=== PATIENT | female | born 1965 | race Caucasian/White ===

== ENCOUNTER 2024-03-09 13:08 | Inpatient (IN) | payer OTHER, SELFPAY ==
[2024-03-09] VITALS (10 sets, daily range): BP systolic 118–148; BP diastolic 70–99; BMI 24.2; BMI 23.5
--- NOTE | 2024-03-09 08:04 | ED.GENMED ---
History of Present Illness
General
Chief Complaint: Abdominal Symptoms
Source: patient
Time Seen by Provider: 03/09/24 07:54
Travel History
Have you had any contact with someone who has COVID-19?: No
Do you have any symptoms of coronavirus? Fever > 100 degrees, chills, cough, shortness of breath, sore throat, loss of taste or smell, muscle aches, or headache?: No
History of Present Illness
History of Present Illness:
59-year-old female with past medical history of diverticulitis presenting to the emergency department for evaluation of generalized abdominal pain described to be a constant 7 out of 10 but with sharper bursts of pain, diminished p.o. intake, nausea
and vomiting, patient describes the pain to be dull aching but also feeling pressure within her vaginal and rectal area. Pain is overall chronic in nature and notes that she has been undergoing workup with GI for these issues without any specific
etiology found however the pressure and pain within the rectal and vaginal area is new for her. She was at her primary care provider on Saturday who thought symptoms might be related to diverticulitis so empirically started the patient on Augmentin
but patient has not had any relief with this. Patient did have a fever yesterday of 101.8 but none since. No known sick contacts or recent travel. Patient does note a history of laparoscopy for endometriosis 27 years ago but no other abdominal
surgeries.
Past History
Past History
ED Past Medical History: Other (Diverticulitis/diverticulosis)
ED Past Surgical History: Tonsilectomy
Social History
Tobacco: Non-smoker
Alcohol: Occasional
Drug: None
Personal:
Living: with family
Review of Systems
Review of Systems
All Other Systems: ROS reviewed and negative except as documented in HPI and ROS
Phy Exam
Physical Exam
Physical Exam:
GENERAL: Alert , appears uncomfortable
EYE: clear conjunctiva b/l
HEAD: NCAT
ENT: o/p clr, mmm.
CARDIAC: Tachycardic rate and rhythm
LUNGS: Clear breath sounds bilaterally, no acute respiratory distress, no wheezes/rales/rhonchi
ABDOMEN: Soft, diffuse generalized tenderness, no r/g, no cvat
NEUROLOGICAL: Alert and oriented
SKIN: Warm and dry, skin intact.
MUSCULOSKELETAL: well perfused.
PSYCH: Normal and appropriate interaction.
Scores
Heart Failure Risk
Heart Failure Risk Score: Not Applicable
Heart Score for Chest Pain Patients
STEMI patient?: Not applicable
Withdrawal Assessment of Alcohol
Withdrawal Assessment Completed?: Not applicable
Course
Orders/Labs/Results
Orders:
Orders
03/09/24 08:03
0.9% Sodium Chloride 1000 ml [Nss] 1,000 ml IV BOLUS
Morphine Sulfate 4 mg IV NOW STA
03/09/24 08:04
CT Abd/pelvis W Iv Cont Urgent
Comment:
Reason For Exam: generalized abd pain, hx diverticulitis
03/09/24 08:20
Complete Blood Count/With Diff Urgent
Comprehensive Metabolic Panel Urgent
Lipase Urgent
Magnesium Urgent
Urinalysis Reflex To Culture Urgent
Date Specimen was Collected: 03/09/24
Time Specimen was Collected: 08:05
Urine Microscopic Reflex Cult Urgent
03/09/24 09:00
HYDROmorphone [Dilaudid] 0.5 mg .ROUTE .STK-MED ONE
03/09/24 09:06
HYDROmorphone [Dilaudid] 0.5 mg IV NOW STA
03/09/24 09:08
Potassium Chloride [KCl] 40 meq PO NOW STA
03/09/24 10:20
Piperacillin/Tazo 3.375 Gram [Zosyn] 3.375 gram in 50 ml IV NOW
03/09/24 10:43
Add On- LAB Urgent
Tests Added?: magnesium
03/09/24 10:45
Potassium Chloride [KCl] 40 meq 0.9% Sodium Chloride 250 ml [Nss] 250 ml IV NOW
Abnormal Lab Results
03/09/24
08:20
Abs Immat Gran (auto) 0.1 H 10^3/uL
(0-0.05)
Absolute Neuts (auto) 6.8 H 10^3/uL
(1.4-6.5)
Absolute Lymphs (auto) 0.7 L 10^3/uL
(1.2-3.4)
Absolute Monos (auto) 1.2 H 10^3/uL
(0.1-0.6)
Immature Gran % 0.6 H %
(0-0.5)
Neutrophils % 77.4 H %
(42.2-75.2)
Lymphocytes % 8.3 L %
(20.5-51.1)
Monocytes % 13.2 H %
(1.7-9.3)
Sodium 134 L mmol/L
(135-145)
Potassium 2.9 L mmol/L
(3.5-5.1)
Glucose 130 H mg/dl
(70-99)
Total Protein 6.2 L g/dl
(6.3-8.2)
Albumin 3.4 L g/dl
(3.5-5.0)
Urine Ketones 2+ A
(Negative)
Urine Bilirubin 1+ A
(Negative)
Urine Urobilinogen 2+ A
(Neg - 1+)
Leukocyte Esterase Rfl Trace A
(Negative)
Urine Bacteria (Reflex) Few A
(Negative)
03/09/24 08:20
03/09/24 08:20
Vital Signs
Initial and Last Documented VS:
Initial Vital Signs
Temp Pulse Resp BP Pulse Ox
98.1 F 114 18 148/99 100
03/09/24 07:48 03/09/24 07:48 03/09/24 07:48 03/09/24 07:48 03/09/24 07:48
Last Documented Vital Signs
Temp Pulse Resp BP Pulse Ox
98.1 F 114 18 148/99 100
03/09/24 07:48 03/09/24 07:48 03/09/24 07:48 03/09/24 07:48 03/09/24 07:48
MDM/Problems Addressed
Differential Diagnosis Includes:
Acute on chronic exacerbation of unspecified abdominal pain, diverticulitis, appendicitis, cholecystitis, pancreatitis
MDM/Problems Addressed:
59-year-old female presenting to the emergency department for evaluation of generalized abdominal pain, nausea and vomiting. Patient notes an ongoing workup and history of abdominal pain without any specified etiology. She notes that she had
ultrasound and HIDA scan here last year without any abnormal findings. Symptoms seem to be worse today and patient also experiencing new rectal and vaginal pain. No urinary symptoms. Will check labs, urine, CT imaging. Pain control with morphine
as patient does appear quite uncomfortable. Reassessment following.
*Radiology
Radiology exam reviewed: radiology read reviewed
*Pulse Oximetry
Patient hypoxic: no
*Critical Care Note
Total Time (30-74mins, 75-104mins- exclusive of procedures): Not Applicable
Patient Management
Discussion with other providers: Hospitalist and Loss Prevention Lead
Escalation/DeEscalation of care consider admission/obs:
Patient CT scan shows acute sigmoid diverticulitis with large abscess formation. Zosyn was ordered for antibiotic coverage. Patient also had a mild hypokalemia which is likely from her nausea and vomiting and diminished p.o. intake. Initially 40
mill equivalents p.o. was ordered but this was changed to 40 mill equivalents IV. I notified colorectal surgery who will come to the ER to evaluate patient. Hospitalist team was also notified and accepts for continued evaluation and treatment as
well.
ED Attending Note
-
Portions of this chart may have been created with voice recognition software.� Occasional wrong word or��sound alike� substitutions may have occurred due to the inherent limitations of voice recognition software.
Discharge Plan
Departure
Patient Disposition: Admit
Date of Disposition: 03/09/24
Time of Disposition: 10:21
Presentation/result/management discussed w/ accepting MD/DO: Hospitalist
Discharge Problem:
Abscess of sigmoid colon due to diverticulitis
Prescriptions:
No Action
acetaminophen [Tylenol Extra Strength] 500 mg Tablet
1,000 mg PO Q6H PRN (Reason: mild pain)
levothyroxine 50 mcg tablet
50 mcg PO DAILY@0600
amoxicillin-pot clavulanate 875-125 mg tablet
1 tab PO BID
Patient Comments:
03/09/24: started 03/07 x 10 days
zinc sulfate 50 mg zinc (220 mg) Capsule
50 mg PO DAILY
Curcumin 95 % Powder
1 ea miscellaneous DAILY
Referrals:
Sneha Roach MD [Family Provider] -
Interventions
Interventions:
*Risk Screen - Suicide Last Done: 03/09/24 07:48
*General Assessment Last Done: 03/09/24 07:48
*Neglect/Abuse Screening Last Done: 03/09/24 07:48
*ED COVID-19 Vaccine History Last Done: 03/09/24 07:48
VM-Jnqizw-Urwrwbkwpp Assessment Last Done: 03/09/24 10:13
Discharge Date and Time
Print Language: SLOVENIAN
[2024-03-09] MEDS: NSS 1000 IV (08:21)
[2024-03-09] MEDS: MORPHINE SULFATE 4 MG IV (08:21)
[2024-03-09 08:33] LABS: % Basophils 0.3 % (0-2); % Eosinophils 0.2 % (0-6); % Immature Granulocytes 0.6 % (0-0.5); % Lymphocytes 8.3 % (20.5-51.1); % Monocytes 13.2 % (1.7-9.3); % Neutrophils 77.4 % (42.2-75.2); Absolute Immature Granulocytes 0.1 10^3/uL (0-0.05); Absolute Lymphocytes 0.7 10^3/uL (1.2-3.4); Absolute Monocytes 1.2 10^3/uL (0.1-0.6); Absolute Neutrophils 6.8 10^3/uL (1.4-6.5); Hematocrit 39.5 % (37.0-47.0); Hemoglobin 13.9 g/dL (12.0-16.0); Mean Corp Hgb Conc. 35.2 g/dL (33.0-37.0); Mean Corpuscular Volume 88.2 fL (81.0-99.0); Mean Platelet Volume 8.7 fL (7.4-10.4); Nucleated Red Blood Cells % 0 %; Platelet Count 276 10^3/uL (130-400); Red Blood Cell Count 4.48 10^6/uL (4.20-5.40); Red Cell Dist. Width 11.8 % (11.5-14.5); White Blood Cell Count 8.8 10^3/uL (4.8-10.8)
[2024-03-09 09:01] LABS: ALT (SGPT) 12 U/L (0-35); AST (SGOT) 17 U/L (14-36); Albumin 3.4 g/dl (3.5-5.0); Alkaline Phosphatase 94 U/L (38-126); Blood Urea Nitrogen 15 mg/dl (7-17); Calcium 9.4 mg/dl (8.4-10.2); Carbon Dioxide 26 mmol/L (22-30); Chloride 98 mmol/L (98-107); Estimated Creatinine Clearance 82 ml/min; Glucose 130 mg/dl (70-99); Lipase 148 U/L (23-300); Potassium 2.9 mmol/L (3.5-5.1); Sodium 134 mmol/L (135-145); Total Bilirubin 0.8 mg/dl (0.2-1.3); Total Protein 6.2 g/dl (6.3-8.2); eGFR > 60.00
[2024-03-09] MEDS: DILAUDID 0.5 MG IV ×2 (09:06→20:17)
[2024-03-09 09:20] LABS: Urine Albumin Trace (Neg - Trace); Urine Bilirubin 1+ (Negative); Urine Character Clear (Clear); Urine Color Yellow; Urine Glucose Negative (Negative); Urine Ketone 2+ (Negative); Urine Leukocyte Trace (Negative); Urine Nitrite Negative (Negative); Urine Occult Blood Negative (Negative); Urine Urobilinogen 2+ (Neg - 1+); Urine pH 6.5 (5.0-9.0)
[2024-03-09 10:11] LABS: Urine Amorphous Seen; Urine Red Blood Cell 0-2 /HPF (0-2); Urine White Cell 0-2 /HPF (0-5)
[2024-03-09 10:12] LABS: Urine Bacteria Few (Negative)
[2024-03-09] MEDS: DILAUDID 1 MG IV (10:56)
[2024-03-09] MEDS: ZOSYN 50 IV (10:57)
[2024-03-09 11:15] LABS: Magnesium 2.3 mg/dl (1.6-2.3)
[2024-03-09] MEDS: KCL 270 MEQ IV (12:56)
--- NOTE | 2024-03-09 13:03 | HPS.HSE ---
Family Physician
-
Family Physician: Sneha Roach
Chief Complaint
-
abdominal pain
History of Present Illness
presents with ongoing acute abdominal pain. 7 out of 10. Associated intermittent worsening. Localized to abdomen. Does have associated pressure sensation in her rectal area. Has been having decreased the intake. Currently denies to me nausea
or vomiting.
She had fever yesterday.
She went to see PCP who felt she probably might have diverticulitis and was prescribed Augmentin. In view of progressive pain while on antibiotic she came to the hospital.
CT of the abdomen pelvis shows complicated diverticulitis with diverticular abscess.
Medical History
Past Medical History
Past Medical History: Reports Hypothyroidism and Other ( History of endometriosis and diverticulitis/diverticulosis)
Past Surgical History: Reports Tonsilectomy
Social History
Tobacco: Non-smoker
Alcohol: Occasional
Personal:
Living: With Family
Family History
Family History: Not pertinent
Allergies / Home Medications
Allergies reflects when Allergies were last updated in [facility].
Home Medications with original date entered in [facility]
Allergy/Medication List:
Allergies
Allergy/AdvReac Type Severity Reaction Status Date / Time
No Known Allergies Allergy Verified 03/09/24 07:47
Home Medications
acetaminophen 500 mg tablet (Tylenol Extra Strength) 1,000 mg PO Q6H PRN mild pain 03/09/24
amoxicillin 875 mg-potassium clavulanate 125 mg tablet 1 tab PO BID Infection 03/09/24
levothyroxine 50 mcg tablet 50 mcg PO DAILY@0600 Thyroid 03/09/24
turmeric 400 mg capsule 1 mg PO DAILY Supplement 03/09/24
zinc sulfate 50 mg zinc (220 mg) capsule 50 mg PO DAILY Supplement 03/09/24
Review of Systems
-
A 12 point ROS was completed and negative except as noted: Yes
Physical Exam
Vital Signs
Vital Signs
Temp Pulse Resp BP Pulse Ox
98.1 F 88 15 130/75 97
03/09/24 07:48 03/09/24 12:30 03/09/24 12:30 03/09/24 12:00 03/09/24 12:30
Physical Exam
General: No Apparent Distress
HEENT: Moist mucous membranes
Respiratory: Clear
Cardiac: S1/S2 and Regular Rhythm
GI: Soft, Non Distended, Normal Bowel Sounds and Tender ( left lower quadrant no rebound)
Neuro: AO x 3
Psych: Calm
Laboratory Results
-
03/09/24 08:20
03/09/24 08:20
Laboratory Results
Total Bilirubin 0.8 mg/dl (0.2-1.3) 03/09/24 08:20
AST 17 U/L (14-36) 03/09/24 08:20
ALT 12 U/L (0-35) 03/09/24 08:20
Alkaline Phosphatase 94 U/L (38-126) 03/09/24 08:20
Lipase 148 U/L (23-300) 03/09/24 08:20
Data Reviewed
-
CT Scan: Report Reviewed by me ( CT of abdomen pelvis)
Lab Data: Labs Reviewed by me
Impression/Plan
-
Acute complicated diverticulitis in sigmoid colon with large pericolonic abscess. Patient was put on Augmentin but progress despite antibiotic treatment. Afebrile, not septic.
Admit to hospital for treatments.
Colorectal surgery consulted-recommending IR drainage. IR consulted.
Keep n.p.o. except for meds and sips of clears.
Start on empirical Zosyn. Consult ID.
Start on IV fluids
Hypokalemia-replete
Hypothyroidism-continue with Synthroid
--- NOTE | 2024-03-09 14:19 | CON.CRS ---
Consultation
-
Date/Time Consultation Requested: 03/09/2024, 11:20
Date/Time Consultation Performed: 03/09/2024, 12:30
Requesting Provider: Mane Almodovar MD
Performing Provider: Leon Monique MD
Reason for Consultation: diverticulitis with absess
Medical History
-
Chief Complaint: abdominal pain
History of Present Illness:
59yo female, with a past medical history of diverticulitis and endometriosis, presents to the ER with abdominal pain that extended into her rectum and vagina that started four days ago. She states she first had an attack of diverticulitis back in
2017 that was treated with antibiotics. She had another attack in October 2023 again treated as an outpatient. She states four days ago she had lower abdominal, rectal, and vaginal pain/pressure/and cramping that occurred with intermittent fevers.
Her tmax was 101.8. She denies nausea or vomiting. She has no shortness of breath or chest pain. She is constipated. She denies blood in the stool. Her last bowel movement was 4 days ago and was loose. She saw her PCP two days ago and was started on
Augmentin. Given worsening pain, she came to the ER.
Her last colonoscopy was in [address] Olvera. She had 4 polyps removed and sigmoid diverticulosis. She had a laproscopic surgery due to endometriosis a few years ago. Her brother had diverticulitis. She denies a family history of colorectal
cancer.
In the ER her WBC is 8.8. Her vital signs are normal. CT A/P shows sigmoid diverticulitis with large pericolonic abscess formation measuring up to 12.0 x 9.0 x 12.5 cm. We have been consulted for further surigcal opinion.
Past Medical History
Past Medical History: Other (Hypothyroidism, endometriosis and diverticulitis/diverticulosis)
Past Surgical History: Tonsilectomy
Social History
Tobacco: Non-Smoker
Alcohol: Occasional
Drug: None
Family History
Family History: Reviewed & Not Pertinent
Allergies / Home Medications
Allergy/AdvReac Type Severity Reaction Status Date / Time
No Known Allergies Allergy Verified 03/09/24 07:47
�Medication �Instructions �Recorded �Confirmed �Type
acetaminophen 500 mg tablet 1,000 mg PO Q6H PRN mild pain 03/09/24 03/09/24 History
(Tylenol Extra Strength)
amoxicillin 875 mg-potassium 1 tab PO BID Infection 03/09/24 03/09/24 History
clavulanate 125 mg tablet
levothyroxine 50 mcg tablet 50 mcg PO DAILY@0600 Thyroid 03/09/24 03/09/24 History
turmeric 400 mg capsule 1 mg PO DAILY Supplement 03/09/24 03/09/24 History
zinc sulfate 50 mg zinc (220 mg) 50 mg PO DAILY Supplement 03/09/24 03/09/24 History
capsule
Review of Systems
-
History Source: Patient
All other systems: Negative unless noted
Abdomen/GI: Abdominal Pain and Constipated
: Other (rectal and vaginal pain/pressure)
A 10 point review of systems was completed, and was negative except as per HPI.
Physical Exam
Vital Signs
Temp 98.1 F 03/09/24 07:48
Pulse 88 03/09/24 12:30
Resp Rate 15 03/09/24 12:30
Blood pressure 130/75 03/09/24 12:00
SaO2 97 03/09/24 12:30
03/08/24 03/09/24 03/10/24
06:59 06:59 06:59
Actual Weight 62 kg
Body Mass Index (BMI) 24.2
Lab Results / Allergies
03/09/24 08:20
03/09/24 08:20
WBC 8.8 10^3/uL (4.8-10.8) 03/09/24 08:20
Hgb 13.9 g/dL (12.0-16.0) 03/09/24 08:20
Hct 39.5 % (37.0-47.0) 03/09/24 08:20
Plt Count 276 10^3/uL (130-400) 03/09/24 08:20
Abs Immat Gran (auto) 0.1 10^3/uL (0-0.05) H 03/09/24 08:20
Neutrophils % 77.4 % (42.2-75.2) H 03/09/24 08:20
Allergy/AdvReac Type Severity Reaction Status Date / Time
No Known Allergies Allergy Verified 03/09/24 07:47
Physical Exam
General: Well Developed and No Apparent Distress
GI: Soft, Non Distended and Tender (LLQ/RLQ, suprapubic - mild to moderate)
Skin: Warm and Dry
Neuro: Awake and AO x 3
Psych: Calm
Data Reviewed
-
CT Scan: Image Personally Visualized and interpreted, Report Reviewed by me and Discussed with Patient
Labs: Labs Reviewed by me, Discussed with Physician and Discussed with Patient
Old Records: Reviewed
Assessment / Plan
-
Assessment: 59 yo female with prior attacks of diverticulitis, presents with abdominal pain and rectal/vaginal pressure for the past four days, CT with sigmoid diverticulitis with large pericolonic abscess formation measuring up to 12.0 x 9.0 x 12.5
cm, WBC and vitals normal.
Plan:
1. No plans for surgery at this time. If she worsens, she will require a colectomy with colostomy creation.
2. Plan for IR drain tomorrow. Discussed with Dr. Meek. If unable to place drain due to window, will opt for laproscopic drain placement in the OR.
3. Eventual elective sigmoidectomy after hospitalization.
4. Due for a colonoscopy, will plan on at least 6 weeks in an outpatient setting.
5. Continue IV antibiotics.
6. NPO with chips and sips.
--- NOTE | 2024-03-09 14:39 | CON.ID ---
Consultation
-
Date/Time Consultation Requested: March 09, 2024 1436
Date/Time Consultation Performed: March 09, 2024 1440
Requesting Provider: Dr. Scooby Gilliam
Performing Provider: Dr. Amber Prater
Reason for Consultation: Diverticular abscess
Chief Complaint / Past History
Chief Complaint
Pain in the abdomen
History of Present Illness
59-year-old female with history of diverticulitis x 2 in the past who presented to the hospital today due to abdominal pain. Symptoms started approximately 4 to 5 days ago with abdominal pain, rectal and vaginal pressure. No diarrhea. Her PCP
prescribed Augmentin 2 days ago. However she continues to have severe abdominal pain and therefore came to the hospital. She reports fevers at home with chills. No nausea or vomiting. No dysuria. CAT scan shows a large sigmoid right
diverticular abscess. Patient started on Zosyn. No other specific complaints today.
Past History
Additional Past Medical History:
Hypothyroidism
Diverticulitis
Endometriosis surgery
Allergy History:
No Known Allergies Allergy (Verified 03/09/24 07:47)
Medications Reviewed: Yes
Current Antibiotics:
Zosyn
Social History
Tobacco: Non-Smoker
Alcohol: Occasional
Drug: None
Personal:
Family History
Family History: Not Pertinent
Review of Systems
Review of Systems
General: Fever, Chills and Change in Appetite
HEENT: Negative Sinus Problems, Headache or Pharyngitis
Cardiovascular: Negative Chest Pain
Respiratory: Negative Dyspnea or Cough
Gasteroenterology: Negative Nausea or Vomiting
Genital / Urological: Negative Dysuria or Flank Pain
Endocrine: Weakness
Skin / Hair / Nails: Negative Rash
Neurological: Negative Headache or Dizziness
All systems: All other systems were reviewed and were negative
Vital Signs
Temp Pulse Resp BP Pulse Ox
98.1 F 88 15 130/75 97
03/09/24 07:48 03/09/24 12:30 03/09/24 12:30 03/09/24 12:00 03/09/24 12:30
Physical Exam
Physical Exam
Constitutional: No Acute Distress
Eyes: No Conjunctival Hemorrhage and Sclera Anicteric
Cardiovascular: Regular Rate and S1/S2
Pulmonary: Clear
Gastrointestinal: Soft, Tender (low mid to left abdomen) and Decreased Bowel Sounds
Extremities: Negative Edema
Neurological: AO x 3
Lab / Diagnostic Study Results
03/09/24 08:20
03/09/24 08:20
Abs Immat Gran (auto) 0.1 10^3/uL (0-0.05) H 03/09/24 08:20
Absolute Neuts (auto) 6.8 10^3/uL (1.4-6.5) H 03/09/24 08:20
Absolute Lymphs (auto) 0.7 10^3/uL (1.2-3.4) L 03/09/24 08:20
Absolute Monos (auto) 1.2 10^3/uL (0.1-0.6) H 03/09/24 08:20
Absolute Basos (auto) 0.0 10^3/uL (0-0.2) 03/09/24 08:20
Immature Gran % 0.6 % (0-0.5) H 03/09/24 08:20
Neutrophils % 77.4 % (42.2-75.2) H 03/09/24 08:20
Lymphocytes % 8.3 % (20.5-51.1) L 03/09/24 08:20
Monocytes % 13.2 % (1.7-9.3) H 03/09/24 08:20
Eosinophils % 0.2 % (0-6) 03/09/24 08:20
Basophils % 0.3 % (0-2) 03/09/24 08:20
Ur Squamous Epith Cells 6-10 /LPF (Few) 03/09/24 08:20
Microbiology Results
03/09/24 CT a/p: Sigmoid diverticulitis with large pericolonic abscess formation measuring up to 12.0 x 9.0 x 12.5 cm.
Assessment / Plan
# Large sigmoid diverticular abscess
# Recurrent diverticulitis
- For perc drain tomorrow. Send aerobic and anaerobic cultures
- Narrow Zosyn to ceftriaxone and metronidazole.
- Follow temps, wbc.
--- NOTE | 2024-03-09 15:06 | PTCARENOTE ---
Received patient from ED via stretcher. Ambulated to bed. AAOx3. Complaining of abdominal pain. Spoke to Dr Almodovar about pain medication. Assessed and oriented to room. Call aguiar in close reach.
[2024-03-09] MEDS: DILAUDID 0.25 MG IV (15:58)
[2024-03-09] MEDS: D5/0.45%NSS with KCL 10 MEQ 1000 IV (17:19)
[2024-03-09] MEDS: ROCEPHIN 2000 MG IV (17:21)
[2024-03-09] MEDS: HEPARIN 5000 UNITS SC (17:21)
[2024-03-09] MEDS: STERILE WATER FOR INJECTION 20 ML IV (17:21)
[2024-03-09] MEDS: FLAGYL 500 MG 100 IV (21:23)
[2024-03-10] VITALS (11 sets, daily range): BP systolic 71–132; BP diastolic 69–101
[2024-03-10] MEDS: DILAUDID 0.5 MG IV ×4 (00:34→21:33)
[2024-03-10] MEDS: HEPARIN 5000 UNITS SC ×3 (00:34→16:56)
[2024-03-10] MEDS: D5/0.45%NSS with KCL 10 MEQ 1000 IV ×2 (05:04→21:39)
[2024-03-10] MEDS: FLAGYL 500 MG 100 IV ×3 (05:06→21:33)
[2024-03-10] MEDS: SYNTHROID 50 MCG PO (05:12)
[2024-03-10 08:18] LABS: Hematocrit 35.2 % (37.0-47.0); Hemoglobin 11.8 g/dL (12.0-16.0); Mean Corp Hgb Conc. 33.5 g/dL (33.0-37.0); Mean Corpuscular Volume 92.4 fL (81.0-99.0); Mean Platelet Volume 8.6 fL (7.4-10.4); Platelet Count 274 10^3/uL (130-400); Red Blood Cell Count 3.81 10^6/uL (4.20-5.40); Red Cell Dist. Width 11.9 % (11.5-14.5); White Blood Cell Count 7.7 10^3/uL (4.8-10.8)
[2024-03-10 08:53] LABS: Blood Urea Nitrogen 12 mg/dl (7-17); Calcium 8.9 mg/dl (8.4-10.2); Carbon Dioxide 24 mmol/L (22-30); Chloride 101 mmol/L (98-107); Estimated Creatinine Clearance 82 ml/min; Glucose 113 mg/dl (70-99); Potassium 3.1 mmol/L (3.5-5.1); Sodium 134 mmol/L (135-145); eGFR > 60.00
[2024-03-10 09:20] LABS: Hepatitis C Antibody Negative (Negative)
[2024-03-10 09:20] LABS: INR 1.17; PT 14.8 Sec (11.4-14.6)
--- NOTE | 2024-03-10 11:36 | W.PN.HOSP.TC ---
Today's Communication/Plan
-
Continue with antibiotics
Await IR to place a drain
Assessment / Plan
Assessment / Plan
Acute complicated diverticulitis in sigmoid colon with large pericolonic abscess. Patient was put on Augmentin but progressed despite antibiotic treatment. Afebrile, not septic.
CW ABX per ID
Colorectal surgery input noted
Await IR to place a drain into abscess cavity
Diet per surgery
CW IV fluids
Hypothyroidism-continue with Synthroid
Anticipated Discharge: > 48 hours
Subjective/Interval History
-
Date of Service: March 10, 2024
Improved abdominal pain with pain medication.
No nausea vomiting.
No fever or chills.
Objective Data
-
Labs:
Laboratory Results
03/10/24 03/10/24
06:59 08:42
WBC 7.7
Hgb 11.8 L
Hct 35.2 L
Plt Count 274
PT 14.8 H
INR 1.17
Sodium 134 L
Potassium 3.1 L
Chloride 101
Carbon Dioxide 24
BUN 12
Creatinine 0.5 L
Glucose 113 H
Calcium 8.9
Vital Signs:
Vital Signs
Temp Pulse Resp BP Pulse Ox
99 F 76 19 127/74 97
03/10/24 10:55 03/10/24 10:55 03/10/24 10:55 03/10/24 10:55 03/10/24 10:55
I&O
03/09/24 03/10/24 03/11/24
06:59 06:59 06:59
Intake Total 510 / 510
Balance 510 / 510
Review of Systems
-
Constitutional: Denies Fever
Respiratory: Denies Trouble Breathing
Cardiac: Denies Chest Pain
Neuro: Denies Dizzy
Physical Exam
-
General: No Apparent Distress
HEENT: Moist Mucous Membranes
Respiratory: Clear to Auscultation
Cardiac: Regular Rhythm and S1/S2
GI: Soft, Nondistended, Normal Bowel Sounds and Tender (Discomfort in the left lower quadrant area but no rebound guarding rigidity.)
Neuro: AO x 3
Data Reviewed
-
Labs: Labs Reviewed by me
--- NOTE | 2024-03-10 12:08 | W.PN.CRS1 ---
Today's Communication / Plan
-
IR drain today
Clears post insertion
Assessment/Plan
-
Assessment: 59 yo female with prior attacks of diverticulitis, presents with abdominal pain and rectal/vaginal pressure for the past four days, CT with sigmoid diverticulitis with large pericolonic abscess formation measuring up to 12.0 x 9.0 x 12.5
cm, WBC and vitals normal.
Plan:
1. No plans for surgery at this time. If she worsens, she will require a colectomy with colostomy creation.
2. Plan for IR drain today. Discussed with Dr. Meek. If unable to place drain due to window, will opt for laparoscopic drain placement in the OR.
3. Eventual elective sigmoidectomy after hospitalization.
4. Due for a colonoscopy, will plan on at least 6 weeks in an outpatient setting.
5. Continue IV antibiotics. ID managing.
6. Okay to advance diet to clears post interventional radiology.
7. Pain control with Tylenol, tramadol, and Dilaudid as needed.
Subjective Data
Subjective Data
Date of Service: March 10, 2024
Patient states that she is having flatus. She has some abdominal pain but mostly feels like an irritation. It is improved since yesterday. She has mucus-like loose bowel movements.
Objective Data
-
Vital Signs
Temp Pulse Resp BP Pulse Ox
99 F 76 19 127/74 97
03/10/24 10:55 03/10/24 10:55 03/10/24 10:55 03/10/24 10:55 03/10/24 10:55
Intake & Output
03/09/24 03/10/24 03/11/24
06:59 06:59 06:59
Intake Total 510 / 510
Balance 510 / 510
Intake:
Oral fluids 240 / 240
IV piggybacks 270 / 270
Other:
Number of approximated MODERATE 1
amounts of urine
Lab Results
03/10/24 06:59
03/10/24 06:59
Physical Exam
-
General: No Acute Distress and AOx3
Abdomen: Soft, Non Distended and Tender (Mild suprapubic)
Skin: Warm and Dry
--- NOTE | 2024-03-10 12:13 | W.PN.UPDATE ---
Update Note
Progress Note Update
CT guided abscess drain placed, yielding 190 cc of purulent fluid. Sent for C+S.
--- NOTE | 2024-03-10 13:20 | PTCARENOTE ---
Received patient from [facility] s/p drain placement via stretcher. Right buttock dressing, CDI. Comfortable in bed at present time. IVF restarted. Clear liquid diet ordered.
--- NOTE | 2024-03-10 14:43 | W.PN.ID1 ---
Date of Service
Date of Service: March 10, 2024
Today's Communication
Continue abx's.
Assessment / Plan
# Large sigmoid diverticular abscess
# Recurrent diverticulitis
- 03/10 perc drain placement 190 cc pus.
Aerobic and anaerobic cultures pending
- Continue ceftriaxone and metronidazole pending cx's.
#Additional Past Medical History:
Hypothyroidism
Diverticulitis
Endometriosis surgery
Chief Complaint
-: Other (Divertcular abscess)
Subjective / Review of Systems
Had IR perc drain this am.
Vital Signs / Physical Exam
Vital Signs
Vital Signs
Temp Pulse Resp BP Pulse Ox
97.9 F 75 20 121/101 97
03/10/24 13:06 03/10/24 13:06 03/10/24 13:06 03/10/24 13:06 03/10/24 13:06
Physical Exam
Constitutional: No Acute Distress
Gastrointestinal: Soft, Tender (mild lower abdomen), Non Distended and Other
Extremities: Negative Edema
Objective Data
Lab Data
Lab Results
03/10/24 06:59
03/10/24 06:59
PT 14.8 Sec (11.4-14.6) H 03/10/24 08:42
INR 1.17 03/10/24 08:42
Estimated Creat Clear 82 ml/min 03/10/24 06:59
Total Bilirubin 0.8 mg/dl (0.2-1.3) 03/09/24 08:20
AST 17 U/L (14-36) 03/09/24 08:20
ALT 12 U/L (0-35) 03/09/24 08:20
Alkaline Phosphatase 94 U/L (38-126) 03/09/24 08:20
Most recent labs reviewed.
Micro Results:
03/10/24 12:00 Anaerobic Culture - Pending
Abscess
03/10/24 12:00 Wound Culture - Pending
Abscess Gram Stain - Pending
03/09/24 16:04 Blood Culture - Pending
Blood/Venous
03/09/24 14:46 Blood Culture - Pending
Blood/Venous
03/09/24 CT a/p: Sigmoid diverticulitis with large pericolonic abscess formation measuring up to 12.0 x 9.0 x 12.5 cm.
[2024-03-10] MEDS: ROCEPHIN 2000 MG IV (16:56)
[2024-03-10] MEDS: STERILE WATER FOR INJECTION 20 ML IV (16:56)
[2024-03-10] MEDS: D5/0.45%NSS with KCL 10 MEQ IV (21:24)
[2024-03-11] MEDS: HEPARIN 5000 UNITS SC ×3 (00:35→15:23)
[2024-03-11] MEDS: ULTRAM 50 MG PO ×4 (00:40→18:30)
[2024-03-11] MEDS: SYNTHROID 50 MCG PO (05:24)
[2024-03-11] MEDS: FLAGYL 500 MG 100 IV ×3 (05:25→21:10)
[2024-03-11 06:30] LABS: Blood Urea Nitrogen 7 mg/dl (7-17); Calcium 8.4 mg/dl (8.4-10.2); Carbon Dioxide 29 mmol/L (22-30); Chloride 100 mmol/L (98-107); Estimated Creatinine Clearance 82 ml/min; Glucose 124 mg/dl (70-99); Potassium 3.4 mmol/L (3.5-5.1); Sodium 135 mmol/L (135-145); eGFR > 60.00
[2024-03-11 07:05] VITALS: BP 119/74
--- NOTE | 2024-03-11 08:26 | W.PN.CRS1 ---
Today's Communication / Plan
-
low residue diet
continue drain
antibiotics
Assessment/Plan
-
Assessment: 59 yo female with prior attacks of diverticulitis, presents with abdominal pain and rectal/vaginal pressure for the past four days, CT with sigmoid diverticulitis with large pericolonic abscess formation measuring up to 12.0 x 9.0 x 12.5
cm, WBC and vitals normal.
Plan:
1. No plans for surgery at this time. If she worsens, she will require a colectomy with colostomy creation.
2. Continue IR drain with daily flushes. Will be discharged with drain and have a drain study as an outpatient.
3. Eventual elective sigmoidectomy after hospitalization.
4. Due for a colonoscopy, will plan on at least 6 weeks in an outpatient setting.
5. Continue IV antibiotics. ID managing.
6. Advance diet to low residue.
7. Pain control with Tylenol, tramadol, and Dilaudid as needed.
8. Anticipate discharge tomorrow from our standpoint.
Subjective Data
Subjective Data
Date of Service: March 11, 2024
Patient states she feels well. She has no nausea or vomiting. She is urinating and having bowel movements. She has pain but it is controlled with Tramadol. Her pain has decreased since drain placement.
Objective Data
-
Vital Signs
Temp Pulse Resp BP Pulse Ox
98.1 F 76 18 115/73 95
03/10/24 23:55 03/10/24 23:55 03/10/24 23:55 03/10/24 23:55 03/11/24 00:14
Intake & Output
03/10/24 03/11/24 03/12/24
06:59 06:59 06:59
Intake Total 510 / 510 2300 / 2300 200 / 200
Output Total 20 / 20
Balance 510 / 510 2280 / 2280 200 / 200
Intake:
Oral fluids 240 / 240 840 / 840
IV fluids (Total) 1200 / 1200
IV piggybacks 270 / 270 250 / 250 200 / 200
Amount instilled into Drain (
Total)
Right Pelvis Placed in IR
Output:
Drain Output (Total)
Right Pelvis Placed in IR
Other:
Number of approximated MODERATE 1 4 4
amounts of urine
Lab Results
03/10/24 06:59
03/11/24 05:24
Physical Exam
-
General: No Acute Distress and AOx3
Abdomen: Soft, Non Distended, Tender (RLQ - mild) and Other (drain murky albarado)
Skin: Warm
[2024-03-11 08:41] VITALS: BP 119/74
[2024-03-11] MEDS: D5/0.45%NSS with KCL 10 MEQ IV (09:10)
[2024-03-11] MEDS: D5/0.45%NSS with KCL 10 MEQ 1000 IV ×2 (09:11→18:31)
--- NOTE | 2024-03-11 10:38 | W.PN.HOSP.TC ---
Today's Communication/Plan
-
CW ABX
Follow CX data
Assessment / Plan
Assessment / Plan
Acute complicated diverticulitis in sigmoid colon with large pericolonic abscess. Patient was put on Augmentin but progressed despite antibiotic treatment. Afebrile, not septic.
s/p abscess drainage and drain placement in abscess cavity -follow cx data
CW ABX per ID
Colorectal surgery input noted
Diet per surgery
Hypokalemia -replete
Hypothyroidism-continue with Synthroid
Anticipated Discharge: > 48 hours
Subjective/Interval History
-
Date of Service: March 11, 2024
Imrpoved abdo pain with abscess drainage.
No fever.
Objective Data
-
Labs:
Laboratory Results
03/11/24
05:24
Sodium 135
Potassium 3.4 L
Chloride 100
Carbon Dioxide 29
BUN 7
Creatinine 0.5 L
Glucose 124 H
Calcium 8.4
Vital Signs:
Vital Signs
Temp Pulse Resp BP Pulse Ox
97.9 F 68 18 119/74 97
03/11/24 07:05 03/11/24 07:05 03/11/24 07:05 03/11/24 07:05 03/11/24 07:05
I&O
03/10/24 03/11/24 03/12/24
06:59 06:59 06:59
Intake Total 510 / 510 2300 / 2300 200 / 200
Output Total 20 / 20
Balance 510 / 510 2280 / 2280 200 / 200
Review of Systems
-
Respiratory: Denies Trouble Breathing
Cardiac: Denies Chest Pain
Abdomen/GI: Denies Nausea or Vomiting
Neuro: Denies Dizzy
Physical Exam
-
General: No Apparent Distress
HEENT: Moist Mucous Membranes
Respiratory: Clear to Auscultation
Cardiac: Regular Rhythm and S1/S2
GI: Soft, Nondistended, Normal Bowel Sounds and Tender (some discomfort in LLQ)
Neuro: AO x 3
Data Reviewed
-
Labs: Labs Reviewed by me
[2024-03-11] MEDS: KCL 40 MEQ PO (10:56)
--- NOTE | 2024-03-11 12:48 | W.PN.ID1 ---
Date of Service
Date of Service: March 11, 2024
Today's Communication
Awaiting abscess cultures.
Assessment / Plan
# Large sigmoid diverticular abscess
# Recurrent diverticulitis
- 03/10 perc drain placement 190 cc pus.
Aerobic and anaerobic cultures pending
- Continue ceftriaxone and metronidazole pending cx's.
#Additional Past Medical History:
Hypothyroidism
Diverticulitis
Endometriosis surgery
Chief Complaint
-: Other (Divertcular abscess)
Subjective / Review of Systems
abdominal pain better.
Vital Signs / Physical Exam
Vital Signs
Vital Signs
Temp Pulse Resp BP Pulse Ox
97.9 F 68 18 119/74 97
03/11/24 07:05 03/11/24 07:05 03/11/24 07:05 03/11/24 07:05 03/11/24 07:05
Physical Exam
Constitutional: No Acute Distress
Pulmonary: Clear
Gastrointestinal: Soft, Non Tender, Non Distended and Other (posterior drain with cloudy albarado fluid)
Objective Data
Lab Data
Lab Results
03/10/24 06:59
03/11/24 05:24
PT 14.8 Sec (11.4-14.6) H 03/10/24 08:42
INR 1.17 03/10/24 08:42
Estimated Creat Clear 82 ml/min 03/11/24 05:24
Total Bilirubin 0.8 mg/dl (0.2-1.3) 03/09/24 08:20
AST 17 U/L (14-36) 03/09/24 08:20
ALT 12 U/L (0-35) 03/09/24 08:20
Alkaline Phosphatase 94 U/L (38-126) 03/09/24 08:20
Most recent labs reviewed.
Micro Results:
03/10/24 12:00 Anaerobic Culture - Preliminary
Abscess Culture pending. Anaerobic cultures are examined after 3
days incubation. Additional information to follow.
03/10/24 12:00 Wound Culture - Preliminary
Abscess Gram Stain - Preliminary
03/09/24 16:04 Blood Culture - Preliminary
Blood/Venous No Growth in 24 hours- Final report to follow
03/09/24 14:46 Blood Culture - Preliminary
Blood/Venous No Growth in 24 hours- Final report to follow
03/09/24 CT a/p: Sigmoid diverticulitis with large pericolonic abscess formation measuring up to 12.0 x 9.0 x 12.5 cm.
[2024-03-11 15:03] VITALS: BP 135/82
[2024-03-11] MEDS: STERILE WATER FOR INJECTION 20 ML IV (15:23)
[2024-03-11] MEDS: ROCEPHIN 2000 MG IV (15:24)
--- NOTE | 2024-03-11 15:39 | CM ---
CM met with Ike s/p abscess drainage and drain placement in abscess cavity. She is feeling better and looking forward to going home. She may need home care services due to drain care and is agreeable to [facility]; referral request sent for review.
Ike lives with her and adult daughter; another adult daughter lives closeby. Ike anticipates much family support.
She has the ability to stay on the first floor with a recliner and bathroom on that floor, although she prefers to sleep upstairs in her bedroom if she is able to climb the steps.
Ike is not employed, so no concerns about returning to work.
CM to follow to assist with discharge planning needs.
--- NOTE | 2024-03-11 16:16 | VNURNOTE ---
[facility] referral completed in [facility] after review of chart.
Patient will need Rx for NSS flush 10cc daily for WAN drain and teaching prior to discharge home.
[2024-03-11 23:55] VITALS: BP 101/65
[2024-03-12] MEDS: ULTRAM 50 MG PO ×4 (01:00→23:27)
[2024-03-12] MEDS: HEPARIN 5000 UNITS SC ×4 (01:00→23:27)
[2024-03-12] MEDS: D5/0.45%NSS with KCL 10 MEQ 1000 IV (05:49)
[2024-03-12] MEDS: FLAGYL 500 MG 100 IV (05:51)
[2024-03-12] MEDS: SYNTHROID 50 MCG PO (05:51)
[2024-03-12 07:10] VITALS: BP 117/68
[2024-03-12 07:36] LABS: Hematocrit 35.4 % (37.0-47.0); Hemoglobin 11.9 g/dL (12.0-16.0); Mean Corp Hgb Conc. 33.6 g/dL (33.0-37.0); Mean Corpuscular Hgb 31.1 pg (27.0-31.0); Mean Corpuscular Volume 92.4 fL (81.0-99.0); Mean Platelet Volume 8.4 fL (7.4-10.4); Platelet Count 293 10^3/uL (130-400); Red Blood Cell Count 3.83 10^6/uL (4.20-5.40); Red Cell Dist. Width 11.8 % (11.5-14.5); White Blood Cell Count 4.6 10^3/uL (4.8-10.8)
--- NOTE | 2024-03-12 10:39 | W.PN.HOSP.TC ---
Today's Communication/Plan
-
Downgrade diet to clear liquids
Continue with IV antibiotics
Follow drain output
Assessment / Plan
Assessment / Plan
Acute complicated diverticulitis in sigmoid colon with large pericolonic abscess. Patient was put on Augmentin but progressed despite antibiotic treatment. Afebrile, not septic.
s/p abscess drainage and drain placement in abscess cavity -follow cx data
CW ABX per ID
Colorectal surgery input noted
patient not tolerating diet and feels bloated. She is distended. Concern for developing ileus. I also see drain output is 0cc and if it remains 0cc consider repeat CT abdomen pelvis.
Hypothyroidism-continue with Synthroid
Discussed with CRS today.
Anticipated Discharge: > 48 hours
Subjective/Interval History
-
Date of Service: March 12, 2024
Today she is not tolerating diet. She lost her appetite. She is feeling nauseous. She feels bloated. Has not passed any gas or bowel movement today so far.
Objective Data
-
Labs:
Laboratory Results
03/12/24
07:12
WBC 4.6 L
Hgb 11.9 L
Hct 35.4 L
Plt Count 293
Vital Signs:
Vital Signs
Temp Pulse Resp BP Pulse Ox
97.8 F 75 18 117/68 95
03/12/24 07:10 03/12/24 07:10 03/12/24 07:10 03/12/24 07:10 03/12/24 07:10
I&O
03/11/24 03/12/24 03/13/24
06:59 06:59 06:59
Intake Total 2300 / 2300 2750 / 2750
Output Total 20 / 20 0 / 0
Balance 2280 / 2280 2750 / 2750
Review of Systems
-
Constitutional: Denies Fever
Respiratory: Denies Trouble Breathing
Cardiac: Denies Chest Pain
Neuro: Denies Dizzy
Physical Exam
-
General: No Apparent Distress
HEENT: Moist Mucous Membranes
Respiratory: Non Labored Respirations; Negative Accessory Resp Muscle Use
GI: Soft, Nontender and Distended; Negative Normal Bowel Sounds (hyper)
Neuro: AO x 3
Data Reviewed
-
Labs: Labs Reviewed by me
--- NOTE | 2024-03-12 11:02 | W.PN.CRS1 ---
Today's Communication / Plan
-
will ask IR to evaluate drain
Assessment/Plan
-
Assessment: 59 yo female with prior attacks of diverticulitis, presents with abdominal pain and rectal/vaginal pressure for the past four days, CT with sigmoid diverticulitis with large pericolonic abscess formation measuring up to 12.0 x 9.0 x 12.5
cm, WBC and vitals normal.
Plan:
1. No plans for surgery at this time. If she worsens, she will require a colectomy with colostomy creation.
2. Continue IR drain with daily flushes. Given little to no output, I will reach out to them and let them know the situation. It may need to be manipulated.
3. Eventual elective sigmoidectomy after hospitalization.
4. Due for a colonoscopy, will plan on at least 6 weeks in an outpatient setting.
5. Continue IV antibiotics. ID managing.
6. Advance diet to low residue - told patient to eat small portions and to stop if feels nauseous.
7. Pain control with Tylenol, tramadol, and Dilaudid as needed.
Subjective Data
Subjective Data
Date of Service: March 12, 2024
Patient states she feels more bloated today. She had diarrhea yesterday but had no bowel movements yet this morning. She has no appetite today. Her pain is about the same. She denies nausea or vomiting.
Objective Data
-
Vital Signs
Temp Pulse Resp BP Pulse Ox
97.8 F 75 18 117/68 95
03/12/24 07:10 03/12/24 07:10 03/12/24 07:10 03/12/24 07:10 03/12/24 07:10
Intake & Output
03/11/24 03/12/24 03/13/24
06:59 06:59 06:59
Intake Total 2300 / 2300 2750 / 2750
Output Total 0 / 0
Balance 2280 / 2280 2750 / 2750
Intake:
Oral fluids 840 / 840 1440 / 1440
IV fluids (Total) 1200 / 1200 1000 / 1000
IV piggybacks 250 / 250 300 / 300
Amount instilled into Drain (
Total)
Right Pelvis Placed in IR
Output:
Drain Output (Total) 20 0 0
Right Pelvis Placed in IR 0 0
Other:
Number of approximated MODERATE 4 3
amounts of urine
Lab Results
03/12/24 07:12
03/11/24 05:24
Physical Exam
-
General: No Acute Distress and AOx3
Abdomen: Soft, Distended (mild) and Tender (suprapubic)
Skin: Warm and Dry
[2024-03-12] MEDS: DIFLUCAN 200 MG PO (12:08)
--- NOTE | 2024-03-12 12:33 | W.PN.ID1 ---
Date of Service
Date of Service: March 12, 2024
Today's Communication
Adjusted antibiotics to Levofloxacin 750mg po qd, Fluconazole 200mg po qd, and metronidazole 500mg po tid pending final cx data.
Ordered EKG to check QTc.
Assessment / Plan
# Large sigmoid diverticular abscess
# Recurrent diverticulitis
- 03/10 perc drain placement 190 cc pus.
Aerobic/anaerobic cultures: GNR, Bacillus, C. albicans
- Adjusted antibiotics to Levofloxacin 750mg po qd, Fluconazole 200mg po qd, and metronidazole 500mg po tid pending final cx data.
Ordered EKG to check QTc.
#Additional Past Medical History:
Hypothyroidism
Diverticulitis
Endometriosis surgery
Chief Complaint
-: Other (Divertcular abscess)
Subjective / Review of Systems
c/o abdominal bloating, but no pain.
No BM x 2d.
Vital Signs / Physical Exam
Vital Signs
Vital Signs
Temp Pulse Resp BP Pulse Ox
97.8 F 75 18 117/68 95
03/12/24 07:10 03/12/24 07:10 03/12/24 07:10 03/12/24 07:10 03/12/24 08:00
Physical Exam
Constitutional: No Acute Distress and Comfortable
Gastrointestinal: Soft, Non Tender, Distended (lower abdomen), Decreased Bowel Sounds and Other (WAN drain scant output)
Neurological: AO x 3
Objective Data
Lab Data
Lab Results
03/12/24 07:12
03/11/24 05:24
PT 14.8 Sec (11.4-14.6) H 03/10/24 08:42
INR 1.17 03/10/24 08:42
Estimated Creat Clear 82 ml/min 03/11/24 05:24
Total Bilirubin 0.8 mg/dl (0.2-1.3) 03/09/24 08:20
AST 17 U/L (14-36) 03/09/24 08:20
ALT 12 U/L (0-35) 03/09/24 08:20
Alkaline Phosphatase 94 U/L (38-126) 03/09/24 08:20
Most recent labs reviewed.
Micro Results:
03/10/24 12:00 Anaerobic Culture - Preliminary
Abscess Culture pending. Anaerobic cultures are examined after 3
days incubation. Additional information to follow.
03/10/24 12:00 Wound Culture - Preliminary
Abscess Gram negative bacilli
Bacillus species,not anthracis
Lisandra albicans
Gram Stain - Preliminary
03/09/24 16:04 Blood Culture - Preliminary
Blood/Venous No Growth in 48 hours- Final report to follow
03/09/24 14:46 Blood Culture - Preliminary
Blood/Venous No Growth in 48 hours- Final report to follow
03/09/24 CT a/p: Sigmoid diverticulitis with large pericolonic abscess formation measuring up to 12.0 x 9.0 x 12.5 cm.
--- NOTE | 2024-03-12 12:44 | CM ---
CM continues to follow for discharge planning needs.
Today Christian is frustrated that her abdomen is 'blowing up', feeling like she is not making progress. Support provided.
We discussed home health services for care of WAN drain; Christian's daughter was at bedside, stated she is a surgical instrument repair specialist and would be willing to learn the care of the WAN drain.
[facility] referral made previously. CM to follow to assist with discharge planning needs
Plan: Discharge to home with [facility] and family support.
[2024-03-12] MEDS: LEVAQUIN 750 MG PO (14:57)
[2024-03-12] MEDS: FLAGYL 500 MG PO ×2 (14:57→23:27)
[2024-03-12 15:05] VITALS: BP 146/87
[2024-03-12 15:22] VITALS: BP 130/96; BP_SYST 66
[2024-03-12 16:20] VITALS: BP 151/90
[2024-03-12 16:52] VITALS: BP 150/89
--- NOTE | 2024-03-12 17:10 | PTCARENOTE ---
Pt returned from IR, Report from RN.Pt awake, alert and oriented x3. Pt c/o generalized pain, medicated per orders. Pt VSS 95 % on RA. Drain to right buttocks, serosangineous drainage, dressing CDI. pt reoriented to room, call aguiar within reach,
plan of care ongoing.
[2024-03-12] MEDS: DILAUDID 0.5 MG IV (17:55)
[2024-03-12 23:55] VITALS: BP 134/78
[2024-03-13] MEDS: DILAUDID 0.5 MG IV (00:45)
[2024-03-13] MEDS: FLAGYL 500 MG PO ×3 (05:16→21:18)
[2024-03-13] MEDS: ULTRAM 50 MG PO (05:17)
[2024-03-13] MEDS: SYNTHROID 50 MCG PO (05:17)
[2024-03-13 05:29] LABS: Hematocrit 36.4 % (37.0-47.0); Hemoglobin 12.5 g/dL (12.0-16.0); Mean Corp Hgb Conc. 34.3 g/dL (33.0-37.0); Mean Corpuscular Hgb 31.6 pg (27.0-31.0); Mean Corpuscular Volume 91.9 fL (81.0-99.0); Mean Platelet Volume 8.2 fL (7.4-10.4); Platelet Count 333 10^3/uL (130-400); Red Blood Cell Count 3.96 10^6/uL (4.20-5.40); Red Cell Dist. Width 11.6 % (11.5-14.5)
[2024-03-13 06:08] LABS: Blood Urea Nitrogen 5 mg/dl (7-17); Calcium 9.2 mg/dl (8.4-10.2); Carbon Dioxide 30 mmol/L (22-30); Chloride 97 mmol/L (98-107); Estimated Creatinine Clearance 82 ml/min; Glucose 102 mg/dl (70-99); Sodium 133 mmol/L (135-145); eGFR > 60.00
[2024-03-13 07:05] VITALS: BP 109/70
[2024-03-13] MEDS: HEPARIN 5000 UNITS SC ×3 (08:54→23:20)
[2024-03-13] MEDS: DIFLUCAN 200 MG PO (08:54)
[2024-03-13] MEDS: LEVAQUIN 750 MG PO (08:54)
--- NOTE | 2024-03-13 11:47 | W.PN.CRS1 ---
Today's Communication / Plan
-
full liquids
continue drain
Assessment/Plan
-
Assessment: 59 yo female with prior attacks of diverticulitis, presents with abdominal pain and rectal/vaginal pressure for the past four days, CT with sigmoid diverticulitis with large pericolonic abscess formation measuring up to 12.0 x 9.0 x 12.5
cm, WBC and vitals normal.
03/12- s/p IR drain upsizing
Plan:
1. No plans for surgery at this time. If she worsens, she will require a colectomy with colostomy creation.
2. Continue IR drain with daily flushes. Much improved output since IR drain upsizing.
3. Eventual elective sigmoidectomy after hospitalization.
4. Due for a colonoscopy, will plan on at least 6 weeks in an outpatient setting.
5. Continue IV antibiotics. ID managing.
6. Advance diet to full liquids.
7. Pain control with Tylenol, tramadol, and Dilaudid as needed.
Subjective Data
Subjective Data
Date of Service: March 13, 2024
Patient states she is much improved. Her belly feels flat and she is having bowel movements. She is hungry. She has no nausea or vomiting.
Objective Data
-
Vital Signs
Temp Pulse Resp BP Pulse Ox
97.9 F 66 16 109/70 96
03/13/24 07:05 03/13/24 07:05 03/13/24 07:05 03/13/24 07:05 03/13/24 08:00
Intake & Output
03/12/24 03/13/24 03/14/24
06:59 06:59 06:59
Intake Total 2750 / 2750 970 / 970
Output Total 0 / 0 33 / 33
Balance 2750 / 2750 937 / 937
Intake:
Oral fluids 1440 / 1440 960 / 960
IV fluids (Total) 1000 / 1000
IV piggybacks 300 / 300
Amount instilled into Drain (
Total)
Right Pelvis Placed in IR
Output:
Drain Output (Total) 0
Right Pelvis Placed in IR
Other:
Number of approximated MODERATE 3 2
amounts of urine
Lab Results
03/13/24 04:52
03/13/24 04:52
Physical Exam
-
General: No Acute Distress and AOx3
Abdomen: Soft, Non Distended, Non Tender and Other (drain output pus mixed with blood)
Skin: Warm and Dry
--- NOTE | 2024-03-13 13:38 | W.PN.HOSP.TC ---
Today's Communication/Plan
-
cw diet per CRS
CW ABX
Assessment / Plan
Assessment / Plan
Acute complicated diverticulitis in sigmoid colon with large pericolonic abscess. Patient was put on Augmentin but progressed despite antibiotic treatment. Afebrile, not septic.
s/p abscess drainage and drain placement in abscess cavity -follow cx data
s/p repositioning of drainage catheter with increased purulence drainage. Continue with the drain.
CW ABX per ID
Colorectal surgery input noted
Hypothyroidism-continue with Synthroid
Discussed with CRS today.
Anticipated Discharge: 24 - 48 hours
Subjective/Interval History
-
Date of Service: March 13, 2024
Improved abdominal symptoms after repositioning of the abdominal drain.
Less bloated. No nausea. Able to tolerate clear liquids.
No fever or chills.
Objective Data
-
Labs:
Laboratory Results
03/13/24
04:52
WBC 6.0
Hgb 12.5
Hct 36.4 L
Plt Count 333
Sodium 133 L
Potassium 4.0
Chloride 97 L
Carbon Dioxide 30
BUN 5 L
Creatinine 0.5 L
Glucose 102 H
Calcium 9.2
Vital Signs:
Vital Signs
Temp Pulse Resp BP Pulse Ox
97.9 F 66 16 109/70 96
03/13/24 07:05 03/13/24 07:05 03/13/24 07:05 03/13/24 07:05 03/13/24 08:00
I&O
03/12/24 03/13/24 03/14/24
06:59 06:59 06:59
Intake Total 2750 / 2750 970 / 970
Output Total 0 / 0 33 / 33
Balance 2750 / 2750 937 / 937
Review of Systems
-
Constitutional: Denies Fever
Respiratory: Denies Trouble Breathing
Cardiac: Denies Chest Pain
Neuro: Denies Dizzy
Physical Exam
-
General: No Apparent Distress
HEENT: Moist Mucous Membranes
Respiratory: Clear to Auscultation
Cardiac: Regular Rhythm and S1/S2
GI: Soft, Nontender, Nondistended and Normal Bowel Sounds
Neuro: AO x 3
Data Reviewed
-
Labs: Labs Reviewed by me
--- NOTE | 2024-03-13 14:02 | W.PN.ID1 ---
Date of Service
Date of Service: March 13, 2024
Today's Communication
continue Levofloxacin 750mg po qd, Fluconazole 200mg po qd, and metronidazole 500mg po tid
Assessment / Plan
# Large sigmoid diverticular abscess
# Recurrent diverticulitis
- 03/10 perc drain placement 190 cc pus.
Aerobic/anaerobic cultures: E coli, Bacillus, C. albicans
- continue Levofloxacin 750mg po qd, Fluconazole 200mg po qd, and metronidazole 500mg po tid
- QTc remains acceptable
- follow up with colorectal surgery
#Additional Past Medical History:
Hypothyroidism
Diverticulitis
Endometriosis surgery
Chief Complaint
-: Other (Divertcular abscess)
Subjective / Review of Systems
afebrile
bp stable
without leukocytosis
cr stable
qtc 408
only complaint is metallic taste in mouth
Vital Signs / Physical Exam
Vital Signs
Vital Signs
Temp Pulse Resp BP Pulse Ox
97.9 F 66 16 109/70 96
03/13/24 07:05 03/13/24 07:05 03/13/24 07:05 03/13/24 07:05 03/13/24 08:00
Physical Exam
Constitutional: No Acute Distress
Cardiovascular: Regular Rate and S1/S2; Negative Murmur or Rub
Pulmonary: Clear and Symmetric; Negative Wheezes or Rales
Gastrointestinal: Soft, Non Tender, Non Distended and Normal Bowel Sounds
Skin: Warm and Dry; Negative Rash or Jaundice
Lines: Other (drain fluid is purulent appearing)
Objective Data
Lab Data
Lab Results
03/13/24 04:52
03/13/24 04:52
PT 14.8 Sec (11.4-14.6) H 03/10/24 08:42
INR 1.17 03/10/24 08:42
Estimated Creat Clear 82 ml/min 03/13/24 04:52
Total Bilirubin 0.8 mg/dl (0.2-1.3) 03/09/24 08:20
AST 17 U/L (14-36) 03/09/24 08:20
ALT 12 U/L (0-35) 03/09/24 08:20
Alkaline Phosphatase 94 U/L (38-126) 03/09/24 08:20
Most recent labs reviewed.
Micro Results:
03/10/24 12:00 Wound Culture - Preliminary
Abscess Escherichia coli
Bacillus species,not anthracis
Lisandra albicans
Gram Stain - Preliminary
03/12/24 15:58 Wound Culture - Pending
Abscess Gram Stain - Preliminary
03/09/24 16:04 Blood Culture - Preliminary
Blood/Venous No Growth in 72 hours- Final report to follow
03/09/24 14:46 Blood Culture - Preliminary
Blood/Venous No Growth in 72 hours- Final report to follow
03/10/24 12:00 Anaerobic Culture - Preliminary
Abscess Culture pending. Anaerobic cultures are examined after 3
days incubation. Additional information to follow.
03/09/24 CT a/p: Sigmoid diverticulitis with large pericolonic abscess formation measuring up to 12.0 x 9.0 x 12.5 cm.
[2024-03-13 15:25] VITALS: BP 144/79
--- NOTE | 2024-03-13 17:29 | PTCARENOTE ---
Demonstrated flush of WAN Drain for daughter and patient at bedside, due to location pt unable to flush herself, daughter and will be able to manage at home.
[2024-03-13 23:27] VITALS: BP 133/85
[2024-03-14] MEDS: SYNTHROID 50 MCG PO (05:55)
[2024-03-14] MEDS: FLAGYL 500 MG PO ×2 (05:55→13:08)
[2024-03-14 07:15] VITALS: BP 117/78
[2024-03-14] MEDS: LEVAQUIN 750 MG PO (09:23)
[2024-03-14] MEDS: HEPARIN 5000 UNITS SC (09:23)
[2024-03-14] MEDS: DIFLUCAN 200 MG PO (09:23)
[2024-03-14] MEDS: FLUSH (NSS) 1 FLUSH IV (09:24)
--- NOTE | 2024-03-14 10:46 | W.PN.ID1 ---
Date of Service
Date of Service: March 14, 2024
Today's Communication
Continue abx.
Assessment / Plan
# Large sigmoid diverticular abscess
- s/p drainage
# Recurrent diverticulitis
- 03/10 perc drain placement 190 cc pus.
Aerobic/anaerobic cultures: E coli, Bacillus, C. albicans
- continue Levofloxacin 750mg po qd, Fluconazole 200mg po qd, and metronidazole 500mg po tid
- QTc remains acceptable
- follow drain output
- follow up with colorectal surgery
#Additional Past Medical History:
Hypothyroidism
Diverticulitis
hx Endometriosis surgery
Chief Complaint
-: Other (Divertcular abscess)
Subjective / Review of Systems
Review of Systems: No Fever, No Chills and No Abdominal Pain
Vital Signs / Physical Exam
Vital Signs
Vital Signs
Temp Pulse Resp BP Pulse Ox
98.2 F 83 18 117/78 95
03/14/24 07:15 03/14/24 07:15 03/14/24 07:15 03/14/24 07:15 03/14/24 07:15
Physical Exam
Constitutional: No Acute Distress, Comfortable and Non-toxic
Eyes: Sclera Anicteric
Cardiovascular: S1/S2; Negative S3/S4
Pulmonary: Non Labored
Gastrointestinal: Soft, Non Tender, Non Distended, Normal Bowel Sounds, No Rebound and No Guarding
Extremities: Negative Edema, Clubbing or Cyanosis
Skin: Warm and Dry; Negative Rash or Jaundice
Neurological: Awake and Alert
Psychological: Calm
Objective Data
Lab Data
Lab Results
03/13/24 04:52
03/13/24 04:52
PT 14.8 Sec (11.4-14.6) H 03/10/24 08:42
INR 1.17 03/10/24 08:42
Estimated Creat Clear 82 ml/min 03/13/24 04:52
Total Bilirubin 0.8 mg/dl (0.2-1.3) 03/09/24 08:20
AST 17 U/L (14-36) 03/09/24 08:20
ALT 12 U/L (0-35) 03/09/24 08:20
Alkaline Phosphatase 94 U/L (38-126) 03/09/24 08:20
Most recent labs reviewed.
Micro Results:
03/09/24 16:04 Blood Culture - Preliminary
Blood/Venous No Growth in 4 days- Final report to follow
03/10/24 12:00 Anaerobic Culture - Preliminary
Abscess Culture pending. Anaerobic cultures are examined after 3
days incubation. Additional information to follow.
03/09/24 14:46 Blood Culture - Preliminary
Blood/Venous No Growth in 4 days- Final report to follow
03/12/24 15:58 Wound Culture - Preliminary
Abscess Gram Stain - Preliminary
03/10/24 12:00 Wound Culture - Preliminary
Abscess Escherichia coli
Bacillus species,not anthracis
Lisandra albicans
Gram Stain - Preliminary
03/09/24 CT a/p: Sigmoid diverticulitis with large pericolonic abscess formation measuring up to 12.0 x 9.0 x 12.5 cm.
--- NOTE | 2024-03-14 11:06 | W.PN.GS2 ---
Addendum entered and electronically signed by Amilcar Andrews MD 03/14/24 12:14:
Patient seen and examined. Agree with assessment plan as documented below.
No complaints. Pain well-controlled. No nausea or vomiting. Notes passage of flatus and loose nonbloody stools. Afebrile. Notable improvement post drain upsizing.
Gen: NAD
Abd: soft, NT, mild distension, non-peritoneal, IR drain with purulent output
Patient is a 59 yo F p/w perforated diverticulitis with pelvic abscess formation
IR drain placed on 03/10. Minimal outputs. Returned to IR on 03/12 for upsizing, now with purulent drainage noted.
AFVSS
No leukocytosis
Tolerating FLD
-- Continue drain with daily flush
-- CM consult for assistance with drain at home/vna
-- Advance to LRD
-- On PO abx as per ID
-- Ok for d/c from surgical standpoint once tolerating diet, outpatient CRS follow-up
Original Note:
Today's Communication / Plan
-
Advance diet
Continue IR drain
Assessment / Plan
-
Assessment: 59 yo female with prior attacks of diverticulitis, presents with abdominal pain and rectal/vaginal pressure for four days, CT with sigmoid diverticulitis with large pericolonic abscess formation measuring up to 12.0 x 9.0 x 12.5 cm. IR
drain placed on 03/10. Minimal outputs. Returned to IR on 03/12 for upsizing, now with purulent drainage noted.
AFVSS
No leukocytosis
Tolerating FLD
Plan;
Continue drain with daily flush
CM consult for assistance with drain at home/vna
Advance to LRD
On PO abx as per ID
Ok for d/c from surgical standpoint once tolerating diet
Subjective Data
-
Date of Service: March 14, 2024
Patient seen and examined at bedside with Dr. Andrews. Barbara n/v. Notes she is very hungry and wants solid foods. Pain much improved since drain changed. Dendiaz f/c. Reports passing bm's/flatus
Objective Data
-
Intake and Output
03/13/24 03/14/24 03/15/24
06:59 06:59 06:59
Intake Total 970 / 970 1210 / 1210
Output Total 100 / 100
Balance 937 / 937 1110 / 1110
Intake:
Oral fluids 960 / 960 1200 / 1200
Amount instilled into Drain (
Total)
Right Pelvis Placed in IR
Output:
Drain Output (Total) 100 / 100
Right Pelvis Placed in IR 100 / 100
Other:
Number of approximated MODERATE 2 4
amounts of urine
Vital Signs
Temp Pulse Resp BP Pulse Ox
98.2 F 83 18 117/78 95
03/14/24 07:15 03/14/24 07:15 03/14/24 07:15 03/14/24 07:15 03/14/24 07:15
Lab Results
03/13/24 04:52
03/13/24 04:52
Calcium 9.2 mg/dl (8.4-10.2) 03/13/24 04:52
Magnesium 2.3 mg/dl (1.6-2.3) 03/09/24 08:20
Total Bilirubin 0.8 mg/dl (0.2-1.3) 03/09/24 08:20
AST 17 U/L (14-36) 03/09/24 08:20
ALT 12 U/L (0-35) 03/09/24 08:20
Alkaline Phosphatase 94 U/L (38-126) 03/09/24 08:20
Total Protein 6.2 g/dl (6.3-8.2) L 03/09/24 08:20
Albumin 3.4 g/dl (3.5-5.0) L 03/09/24 08:20
Physical Exam
-
NAD
ABD soft, nt, nd. Drain with purulent output
--- NOTE | 2024-03-14 13:21 | W.PN.HOSP.TC ---
Today's Communication/Plan
-
DC
Assessment / Plan
Assessment / Plan
Acute complicated diverticulitis in sigmoid colon with large pericolonic abscess. Patient was put on Augmentin but progressed despite antibiotic treatment. Afebrile, not septic.
s/p abscess drainage and drain placement in abscess cavity -follow cx data
s/p repositioning of drainage catheter with increased purulence drainage. Continue with the drain.
CW ABX per ID -now on oral combination
Colorectal surgery input noted - Cleared for discharge if tolerating diet with the drain in place
Hypothyroidism-continue with Synthroid
CM to see for VN services
Total time of dc 32 min
Anticipated Discharge: Today
Subjective/Interval History
-
Date of Service: March 14, 2024
Feeling much improved.
Tolerating diet.
no fever.
Keen to go home.
Objective Data
-
Vital Signs:
Vital Signs
Temp Pulse Resp BP Pulse Ox
98.2 F 83 18 117/78 95
03/14/24 07:15 03/14/24 07:15 03/14/24 07:15 03/14/24 07:15 03/14/24 07:15
I&O
03/13/24 03/14/24 03/15/24
06:59 06:59 06:59
Intake Total 970 / 970 1210 / 1210
Output Total 33 / 33 100 / 100
Balance 937 / 937 1110 / 1110
Review of Systems
-
Respiratory: Denies Trouble Breathing
Cardiac: Denies Chest Pain
Neuro: Denies Dizzy
Physical Exam
-
General: No Apparent Distress
HEENT: Moist Mucous Membranes
Respiratory: Non Labored Respirations; Negative Accessory Resp Muscle Use
Cardiac: Regular Rhythm and S1/S2
GI: Soft, Nontender, Nondistended and Normal Bowel Sounds
Neuro: AO x 3
Psych: Calm
--- NOTE | 2024-03-14 13:32 | W.DS.TRANS ---
DC Summary - [employer]
-
Discharge Instructions:
Discharge Diagnosis/Procedures Large sigmoid diverticular abscess
- s/p drainage
Recurrent diverticulitis
Diet Low Residue
Activity As tolerated
Driving Restrictions Not until seen by your Dr
Other Services VN
Wound Care Flush your drain daily with 10ml of sterile
saline. Change gauze dressing after showering
and as needed if soiled.
Instructions:
Stand-Alone Forms:
Changes to Home Medications: Yes
Discharge Medications:
DC Medications w/original date entered in [employer]
acetaminophen 500 mg tablet (Tylenol Extra Strength) 1,000 mg PO Q6H PRN mild pain 03/09/24
levothyroxine 50 mcg tablet 50 mcg PO DAILY@0600 Thyroid 03/09/24
turmeric 400 mg capsule 1 mg PO DAILY Supplement 03/09/24
zinc sulfate 50 mg zinc (220 mg) capsule 50 mg PO DAILY Supplement 03/09/24
fluconazole 200 mg tablet 200 mg PO DAILY #14 tabs 03/14/24
levofloxacin 750 mg tablet 750 mg PO DAILY #14 tabs 03/14/24
metronidazole 500 mg tablet 500 mg PO Q8H #42 tabs 03/14/24
sodium chloride 0.9 % (flush) (Normal Saline Flush 0.9 % injection syringe) 10 ml intra-catheter DAILY #300 mL 03/14/24
tramadol 50 mg tablet 50 mg PO Q6HPRN PRN moderate pain #20 tabs 03/14/24
Home Medication Changes
New medication-Flagyl, Levaquin, fluconazole,tramadol
Pending Results: No
--- NOTE | 2024-03-14 14:13 | CM ---
MD entered order for discharge.
Spoke with patient in room . She said she was ready for discharge.
Pt has a WAN drain.
As per care port VN accepted her.
Deep will drive her home today.
PLAN Home with VN
[2024-03-14 15:05] VITALS: BP 129/84
--- NOTE | 2024-03-14 16:28 | W.DCSUMMARY ---
Discharge Summary
Discharge Data
Date of Admission: 03/09/24
Date of Discharge: 03/14/24
-
Pending Results: No
Hospital Course
primary diagnosis:
Acute complicated sigmoid of the colitis with a large body chronic abscess s/p drain placement
Secondary diagnosis:
hypothyroidism
Hospital course:
patient presented with abdominal pain secondary toAcute complicated diverticulitis in sigmoid colon with large pericolonic abscess. Patient was put on Augmentin but progressed despite antibiotic treatment.
s/p abscess drainage and drain placement in abscess cavity. Fluid culture showed Pseudomonas, Lisandra, E. coli. was seen by ID-was placed on Levaquin, Flagyl, and fluconazole for at least 14 days. She will follow-up with surgery as an outpatient .
Consultants on board:
Infectious disease-Amber Carreon
Colorectal surgery-Loren Tai
Discharge Plan
-
Patient Disposition: Home with Home Care
Discharge Diagnosis/Procedures: Large sigmoid diverticular abscess
- s/p drainage
Recurrent diverticulitis
Diet: Low Residue
Activity: As tolerated
Driving Restrictions: Not until seen by your Dr
Other Services: VN
Wound Care: Flush your drain daily with 10ml of sterile saline. Change gauze dressing after showering and as needed if soiled.
Referrals:
Sneha Roach MD [Family Provider] - in less than 1 week
Leon Monique MD [Active] - in two weeks
Prescriptions:
New
sodium chloride 0.9 % (flush) [Normal Saline Flush] Syringe
10 ml intra-catheter DAILY Qty: 300 0RF
Rx Instructions:
Forward flush drain daily
tramadol 50 mg Tablet
50 mg PO Q6HPRN PRN (Reason: moderate pain) Qty: 20 0RF
fluconazole 200 mg Tablet
200 mg PO DAILY Qty: 14 0RF
metronidazole 500 mg Tablet
500 mg PO Q8H Qty: 42 0RF
levofloxacin 750 mg Tablet
750 mg PO DAILY Qty: 14 0RF
Continued
acetaminophen [Tylenol Extra Strength] 500 mg Tablet
1,000 mg PO Q6H PRN (Reason: mild pain)
levothyroxine 50 mcg tablet
50 mcg PO DAILY@0600
zinc sulfate 50 mg zinc (220 mg) Capsule
50 mg PO DAILY
turmeric 400 mg Capsule
1 mg PO DAILY
Discontinued
amoxicillin-pot clavulanate 875-125 mg tablet
1 tab PO BID
Patient Comments:
03/09/24: started 03/07 x 10 days
Discharge Orders:
Discharge Patient (As Directed); Ordered 03/14/24
Ordered By: Mane Almodovar
Discharge Date and Time
Discharge Date/Time: 03/14/24 16:04
Print Language: FRISIAN
== END 2024-03-14 16:04 | disposition home health service (06) | DRG 391 ==
LOC: 4 EAST ACU 13:08
PROVIDERS: Physician Assistant Medical; Radiology Vascular & Interventional Radiology; ADMITTING PHYSICIAN Internal Medicine; CONSULT PHYSICIAN Internal Medicine Infectious Disease; CONSULT PHYSICIAN Surgery; EMERGENCY PHYSICIAN Student in an Organized Health Care Education/Training Program; FAMILY PHYSICIAN Family Medicine
PROC: 0W9J30Z Drainage of Pelvic Cavity with Drainage Device, Percutaneous Approach (ICD-10-PCS; 2024-03-10)
DX: K57.20 Diverticulitis of large intestine with perforation and abscess without bleeding (principal); K65.1 Peritoneal abscess; E87.6 Hypokalemia; E03.9 Hypothyroidism, unspecified; K52.9 Noninfective gastroenteritis and colitis, unspecified
CPT/HCPCS: 49406; 49423; 74019; 74177; 75984; 80048; 80053; 81003; 81015; 83690; 83735; 85025; 85027; 85610; 86803; 87040; 87070; 87075; 87077; 87186; 87205; 93005; 96361; 96374; 96375; 96376; 99152; 99153; 99285; C1729; C1769; J3480; Q9967

== ENCOUNTER → 2024-04-02 10:25 | Outpatient (REF) | payer OTHER, SELFPAY ==
[2024-04-02 11:18] VITALS: BP 120/84; BP_SYST 87
== END ==
LOC: RADI 10:25
PROVIDERS: ATTENDING PHYSICIAN Surgery; FAMILY PHYSICIAN Family Medicine
DX: Z46.82 Encounter for fitting and adjustment of non-vascular catheter (principal); K57.20 Diverticulitis of large intestine with perforation and abscess without bleeding
CPT/HCPCS: 49424; 76080

== ENCOUNTER → 2024-05-08 10:29 | Outpatient (REF) | payer OTHER, SELFPAY ==
[2024-05-08 10:45] VITALS: BP 111/83; BP_SYST 89
== END ==
LOC: RADI 10:29
PROVIDERS: ATTENDING PHYSICIAN Surgery; FAMILY PHYSICIAN Family Medicine
DX: Z45.2 Encounter for adjustment and management of vascular access device (principal); K57.80 Diverticulitis of intestine, part unspecified, with perforation and abscess without bleeding
CPT/HCPCS: 49424; 76080

== ENCOUNTER 2024-05-27 16:54 | Emergency (ER) | payer OTHER, SELFPAY ==
[2024-05-27 16:56] VITALS: BP 122/86
[2024-05-27 17:13] LABS: % Basophils 0.8 % (0-2); % Eosinophils 0.8 % (0-6); % Immature Granulocytes 0.4 % (0-0.5); % Lymphocytes 13.3 % (20.5-51.1); % Monocytes 9.4 % (1.7-9.3); % Neutrophils 75.3 % (42.2-75.2); Absolute Lymphocytes 0.6 10^3/uL (1.2-3.4); Absolute Monocytes 0.5 10^3/uL (0.1-0.6); Absolute Neutrophils 3.6 10^3/uL (1.4-6.5); Hematocrit 35.6 % (37.0-47.0); Hemoglobin 12.4 g/dL (12.0-16.0); Mean Corp Hgb Conc. 34.8 g/dL (33.0-37.0); Mean Corpuscular Hgb 30.6 pg (27.0-31.0); Mean Corpuscular Volume 87.9 fL (81.0-99.0); Mean Platelet Volume 8.2 fL (7.4-10.4); Nucleated Red Blood Cells % 0 %; Platelet Count 249 10^3/uL (130-400); Red Blood Cell Count 4.05 10^6/uL (4.20-5.40); White Blood Cell Count 4.8 10^3/uL (4.8-10.8)
[2024-05-27 17:25] LABS: Lactic Acid 0.8 mmol/L (0.7-2.0)
[2024-05-27 17:40] LABS: ALT (SGPT) 15 U/L (0-35); AST (SGOT) 22 U/L (14-36); Albumin 4.3 g/dl (3.5-5.0); Alkaline Phosphatase 63 U/L (38-126); Blood Urea Nitrogen 14 mg/dl (7-17); Calcium 9.7 mg/dl (8.4-10.2); Carbon Dioxide 25 mmol/L (22-30); Chloride 100 mmol/L (98-107); Glucose 132 mg/dl (70-99); Potassium 3.9 mmol/L (3.5-5.1); Sodium 132 mmol/L (135-145); Total Bilirubin 0.6 mg/dl (0.2-1.3); Total Protein 6.9 g/dl (6.3-8.2); eGFR > 60.00
[2024-05-27 18:00] VITALS: BP 107/76
--- NOTE | 2024-05-27 18:14 | ED.GENMED ---
History of Present Illness
General
Chief Complaint: Fever
Source: patient and physician
Time Seen by Provider: 05/27/24 18:03
History of Present Illness
History of Present Illness:
59-year-old female with recent past medical history of complicated sigmoid diverticulitis with abscess formation status post WAN drain placement presenting to the emergency department at request of primary care provider after patient developed a
fever of 100.4 yesterday evening accompanied with chills, today also had low-grade fever. Primary care provider spoke to patient's colorectal surgery team and was recommended to come to the ER for further evaluation. Patient states WAN drain
remains in place and has been getting approximately 5 mL of drainage per day. Patient states today the drainage was a little bit cloudy. Patient last took Tylenol at 3:00 today and has not had a fever since. Patient denies any pain or other
symptoms associated
Past History
Past History
ED Past Medical History: Other (Diverticulitis/diverticulosis)
ED Past Surgical History: Tonsilectomy
Social History
Tobacco: Non-smoker
Alcohol: Occasional
Drug: None
Personal:
Living: with family
Review of Systems
Review of Systems
All Other Systems: ROS reviewed and negative except as documented in HPI and ROS
Phy Exam
Physical Exam
Physical Exam:
GENERAL: Alert , in no apparent distress
EYE: clear conjunctiva b/l
HEAD: NCAT
ENT: mmm.
CARDIAC: Regular rate and rhythm .
LUNGS: Clear breath sounds bilaterally, no acute respiratory distress, no wheezes/rales/rhonchi
ABDOMEN: Soft, without focal tenderness, no r/g, no cvat, WAN drain in place, somewhat cloudy blood-tinged malodorous drainage
NEUROLOGICAL: Alert and oriented
SKIN: Warm and dry, skin intact.
MUSCULOSKELETAL: well perfused.
PSYCH: Normal and appropriate interaction.
Scores
Heart Failure Risk
Heart Failure Risk Score: Not Applicable
Heart Score for Chest Pain Patients
STEMI patient?: Not applicable
Withdrawal Assessment of Alcohol
Withdrawal Assessment Completed?: Not applicable
Course
Orders/Labs/Results
Orders:
Orders
05/27/24 17:08
Complete Blood Count/With Diff Urgent
Comprehensive Metabolic Panel Urgent
Lactic Acid Urgent
05/27/24 18:04
CT Abd/pelvis W Iv Cont Urgent
Comment:
Reason For Exam: fever, drainage from WAN drain, recent abscess
05/27/24 18:25
COVID-19 Antigen Urgent
Source: Nasal Swab
05/27/24 19:51
Electrocardiogram (*1) Urgent
Reason for Study: QTc Monitoring
EKG- Treatment ONCE
LevoFLOXacin [Levaquin] 750 mg PO NOW STA
MetroNIDAZOLE [Flagyl] 500 mg PO NOW STA
05/27/24 20:42
Fluconazole [Diflucan] 200 mg PO NOW STA
Abnormal Lab Results
05/27/24
17:08
RBC 4.05 L 10^6/uL
(4.20-5.40)
Hct 35.6 L %
(37.0-47.0)
Absolute Lymphs (auto) 0.6 L 10^3/uL
(1.2-3.4)
Neutrophils % 75.3 H %
(42.2-75.2)
Lymphocytes % 13.3 L %
(20.5-51.1)
Monocytes % 9.4 H %
(1.7-9.3)
Sodium 132 L mmol/L
(135-145)
Glucose 132 H mg/dl
(70-99)
05/27/24 17:08
05/27/24 17:08
Vital Signs
Initial and Last Documented VS:
Initial Vital Signs
Temp Pulse Resp BP Pulse Ox
97.7 F 109 18 122/86 98
05/27/24 16:56 05/27/24 16:56 05/27/24 16:56 05/27/24 16:56 05/27/24 16:56
Last Documented Vital Signs
Temp Pulse Resp BP Pulse Ox
98.7 F 92 18 120/87 97
05/27/24 20:00 05/27/24 20:00 05/27/24 20:00 05/27/24 20:00 05/27/24 20:00
MDM/Problems Addressed
Differential Diagnosis Includes:
Recurring abscess, other intra-abdominal infection, viral syndrome/COVID
MDM/Problems Addressed:
59-year-old female presenting to the emergency department at request of primary care provider for evaluation of fever yesterday and today. Patient is recently status post WAN drain placement from colonic diverticulitis. She reports she has been
doing quite well since the drain placement. She does note getting approximately 5 mL of drainage per day. No pain at present time. She is otherwise very well up. Will obtain a CT scan at colorectal surgery's request. Patient otherwise resting
comfortably.
Chronic conditions affecting care: Other (Colonic diverticulitis with abscess formation)
*Radiology
Radiology exam reviewed: radiology read reviewed
*Pulse Oximetry
Patient hypoxic: no
*Critical Care Note
Total Time (30-74mins, 75-104mins- exclusive of procedures): Not Applicable
Data Reviewed
Review of Other/Old Records Reveals: Labs, Records, Radiology Studies and Discharge Summary
Source: patient, records and physician
Patient Management
Discussion with other providers: Quality Review Specialist
Escalation/DeEscalation of care consider admission/obs:
Patient CT scan shows the following:
There is a right transgluteal percutaneous pigtail catheter.
There is a small residual air and fluid collection adjacent to the pigtail within the pelvis, with significant interval improvement in abscess identified on March 09, 2024 examination.
There does remain wall thickening and pericolonic fat stranding of the adjacent sigmoid colon within the pelvis, which would suggest continued infection/inflammation from diverticulitis.
No evidence of free intraperitoneal air.
Calcification of the right coronary artery. Please correlate with symptoms of and risk factors for coronary artery disease, with further workup as clinically appropriate.
4 cm fibroid arising from the anterior and inferior uterus.
I discussed the case with Dr. Patel from colorectal surgery who also reviewed patient's CT scan. At this time there does not appear to be a clear etiology for patient's fever. Is certainly possible the continued diverticulitis might be the cause.
Patient's COVID test was negative. Labs show no leukocytosis. Patient is afebrile and hemodynamically stable here. Colorectal is recommending reinitiation of antibiotics that were requested by ID including levofloxacin, fluconazole and
metronidazole. Patient was also given the option to be admitted however prefers to be discharged home with these medications. Will obtain an EKG prior to starting these medications to evaluate patient's QTc interval. She will be otherwise stable
for discharge home.
ED Attending Note
-
Portions of this chart may have been created with voice recognition software.� Occasional wrong word or��sound alike� substitutions may have occurred due to the inherent limitations of voice recognition software.
Discharge Plan
Departure
Patient Disposition: Home (Routine Discharge)
Date of Disposition: 05/27/24
Time of Disposition: 19:52
Patient with high blood pressure during this ER visit?: No
Discharge Problem:
Fever
Instructions: Fever, Adult (DC)
Prescriptions:
New
levofloxacin 750 mg tablet
750 mg PO DAILY Qty: 9 0RF
fluconazole 200 mg tablet
200 mg PO DAILY Qty: 9 0RF
metronidazole 500 mg tablet
500 mg PO TID 9 Days Qty: 27 0RF
No Action
acetaminophen [Tylenol Extra Strength] 500 mg Tablet
1,000 mg PO Q6H PRN (Reason: mild pain)
levothyroxine 50 mcg tablet
50 mcg PO DAILY@0600
zinc sulfate 50 mg zinc (220 mg) Capsule
50 mg PO DAILY
turmeric 400 mg Capsule
1 mg PO DAILY
sodium chloride 0.9 % (flush) [Normal Saline Flush] Syringe
10 ml intra-catheter DAILY Qty: 300 0RF
Rx Instructions:
Forward flush drain daily
tramadol 50 mg Tablet
50 mg PO Q6HPRN PRN (Reason: moderate pain) Qty: 20 0RF
B Complex Tablet Extended Release
1 tab PO DAILY
magnesium 250 mg Tablet
500 mg PO DAILY
Referrals:
Sneha Roach MD [Family Provider] -
Interventions
Interventions:
*Risk Screen - Suicide Last Done: 05/27/24 18:16
*General Assessment Last Done: 05/27/24 18:16
*Neglect/Abuse Screening Last Done: 05/27/24 18:16
ED- Fall Risk Assessment Last Done: 05/27/24 18:26
*ED COVID-19 Vaccine History Last Done: 05/27/24 18:16
*Nursing Disposition Last Done: 05/27/24 21:10
ED- Neurological Assessment Last Done: 05/27/24 18:26
ED-Skin Assessment Last Done: 05/27/24 18:26
Discharge Date and Time
Discharge Date/Time: 05/27/24 21:10
Print Language: MONGOLIAN
[2024-05-27 18:15] VITALS: BMI 22.3
[2024-05-27 18:48] LABS: COVID-19 Antigen Negative (Negative)
[2024-05-27 20:00] VITALS: BP 120/87
[2024-05-27] MEDS: LEVAQUIN 750 MG PO (20:49)
[2024-05-27] MEDS: DIFLUCAN 200 MG PO (20:49)
[2024-05-27] MEDS: FLAGYL 500 MG PO (20:49)
== END 2024-05-27 21:10 | disposition home or self-care (01) ==
LOC: EMR 16:54
PROVIDERS: Physician Assistant Medical; EMERGENCY PHYSICIAN Emergency Medicine; FAMILY PHYSICIAN Family Medicine
DX: R50.9 Fever, unspecified (principal); Z11.52 Encounter for screening for COVID-19; K57.32 Diverticulitis of large intestine without perforation or abscess without bleeding; Z98.890 Other specified postprocedural states; D25.9 Leiomyoma of uterus, unspecified
CPT/HCPCS: 99285; 74177; 80053; 83605; 85025; 87811; 93005; Q9967

== ENCOUNTER 2024-06-09 13:52 | Day surgery (SDC) | payer OTHER, SELFPAY ==
[2024-06-09 14:09] VITALS: BMI 22.7
[2024-06-09 14:10] VITALS: BMI 22.7
[2024-06-09 14:11] VITALS: BP 115/78
[2024-06-09 15:15] VITALS: BP 108/75
[2024-06-09 15:30] VITALS: BP 114/77
== END 2024-06-09 15:45 | disposition home or self-care (01) ==
LOC: GI 13:52
PROVIDERS: ATTENDING PHYSICIAN Internal Medicine Gastroenterology
DX: K57.30 Diverticulosis of large intestine without perforation or abscess without bleeding (principal); K57.32 Diverticulitis of large intestine without perforation or abscess without bleeding
CPT/HCPCS: 45378

== ENCOUNTER 2024-07-14 06:05 | Inpatient (IN) | payer OTHER, SELFPAY ==
[2024-07-09 09:58] VITALS: BMI 24.0
[2024-07-09 10:28] LABS: Hematocrit 39.3 % (37.0-47.0); Hemoglobin 12.9 g/dL (12.0-16.0); Mean Corp Hgb Conc. 32.8 g/dL (33.0-37.0); Mean Corpuscular Hgb 29.9 pg (27.0-31.0); Mean Corpuscular Volume 91.2 fL (81.0-99.0); Mean Platelet Volume 8.7 fL (7.4-10.4); Platelet Count 262 10^3/uL (130-400); Red Blood Cell Count 4.31 10^6/uL (4.20-5.40); Red Cell Dist. Width 12.7 % (11.5-14.5); White Blood Cell Count 4.7 10^3/uL (4.8-10.8)
[2024-07-09 10:37] LABS: PT 13.2 Sec (11.4-14.6)
[2024-07-09 10:38] LABS: APTT 33.1 Sec (23.4-35.0)
[2024-07-09 10:45] LABS: Glycohemoglobin (HgbA1c) 5.3 % (4.0-5.6)
[2024-07-09 11:01] LABS: ALT (SGPT) 15 U/L (0-35); AST (SGOT) 19 U/L (14-36); Albumin 4.2 g/dl (3.5-5.0); Alkaline Phosphatase 66 U/L (38-126); Blood Urea Nitrogen 21 mg/dl (7-17); Calcium 9.6 mg/dl (8.4-10.2); Carbon Dioxide 27 mmol/L (22-30); Chloride 102 mmol/L (98-107); Estimated Creatinine Clearance 62 ml/min; Glucose 111 mg/dl (70-99); Potassium 4.5 mmol/L (3.5-5.1); Sodium 140 mmol/L (135-145); Total Bilirubin 0.5 mg/dl (0.2-1.3); Total Protein 6.6 g/dl (6.3-8.2); eGFR > 60.00
[2024-07-14] VITALS (11 sets, daily range): BP systolic 106–116; BP diastolic 66–78; BMI 24.0
[2024-07-14] MEDS: HEPARIN 5000 UNITS SC (06:42)
[2024-07-14] MEDS: LYRICA 150 MG PO (06:42)
[2024-07-14] MEDS: CELEBREX 200 MG PO (06:43)
[2024-07-14] MEDS: ENTEREG 12 MG PO (06:43)
[2024-07-14] MEDS: TYLENOL 1000 MG PO ×2 (06:43→21:00)
[2024-07-14] MEDS: NORMOSOL-R/PLASMALYTE-A 1000 IV ×2 (06:43→19:35)
--- NOTE | 2024-07-14 15:42 | W.IMMPOSTOP ---
Surgical Immed Post Op Note
-
Primary Surgeon: Leon Monique MD
Assisting Surgeon: Hong SNOW
Pre-op Diagnosis: Chronic diverticulitis with abscess, colocutaneous fistula
Post-op Diagnosis: Chronic diverticulitis with abscess, colocutaneous fistula, vaginal canal injury
Procedure Performed: Preoperative cystoscopy with bilateral ureteral stents and ICG, robotic low anterior resection, lysis of adhesions greater than 1.5 hours, mesenteric angiography, flexible sigmoidoscopy, small bowel resection, repair of vaginal
canal by Dr. Iniguez, omental flap to buttress the colorectal anastomosis, removal of right transgluteal drain
Anesthesia Type: General
Specimen / Cultures: Small bowel resection, rectosigmoid
Estimated Blood Loss: 100mL
UOP: 400mL; left mc, removed right stent
IVF: 3.0L
Complications: injury to the vaginal canal, repaired primarily
Operative Findings: significant adhesions from loops of ileum to distal sigmoid and from sigmoid to pelvic inlet; enlarged uterus, suspended anterior for visualization; rectosigmoid was retracted into the pelvis due to chronic inflammation;
encountered small residual abscess anteriorly toward the left of the pelvis with pigtail curled within, just distal to the anterior reflection; very dense adhesions between anterior rectum and posterior vagina with no normal plane; encountered an
injury in the posterior vaginal canal, repaired primarily by Dr. Iniguez; extracorporealized small bowel via a lower midline extraction site; the small bowel involved in inflammation involved about 20cm of adherent ileum; performed SBR with
[id number] anastomosis about 20cm proximal from IC valve; inflammation involved rectum to about 7-8cm from the anal verge, confirmed on flex sig; stapled distally at about 6cm from anal verge; ligated the superior hemorrhoidal and transected about
mid-distal sigmoid after confirming perfusion with firefly; performed EEA stapled anastomosis, donuts intact x2, negative leak test, intact on flex sig; performed omental flap to buttress vaginal repair and colorectal anastomosis; lap TAP block;
removed transgluteal drain
--- NOTE | 2024-07-14 16:59 | PTCARENOTE ---
Pt arrived to [facility] from PACU s/p robotic sigmoidectomy/cystoscopy with b/l ureteral stents. Pt AAOx3 but drowsy and arousal to verbal stimuli. Pt has Stevenson draining bloody urine, L stent still in place. 6 incision sites, POLO, C/D/I with
ecchymosis. Pt states no pain at this time, mild abdominal cramping. Pt oriented to call aguiar and room, bed locked and in lowest position. Call aguiar within reach.
--- NOTE | 2024-07-14 17:39 | OR.RPT ---
Operative Report
Operative Report
DATE OF OPERATION: 07/14/2024
SURGEON: Leno Monique MD
PREOPERATIVE DIAGNOSIS: Chronic diverticulitis with abscess, colocutaneous fistula
POSTOPERATIVE DIAGNOSIS: Chronic diverticulitis with abscess, colocutaneous fistula, vaginal canal injury
OPERATION: Robotic low anterior resection, lysis of adhesions greater than 1.5 hours, mesenteric angiography, flexible sigmoidoscopy, small bowel resection (~20cm), repair of posterior vaginal canal injury by Dr. Iniguez, omental flap creation (to
buttress the vaginal repair and colorectal anastomosis, laparoscopic TAP block, removal of transgluteal drain; preoperative cystoscopy with bilateral ureteral stents and ICG by Dr. Salinas
ASSISTANTS:
1. GWENDOLYN Alford
ANESTHESIA: General
ESTIMATED BLOOD LOSS: 100 mL
IVF: 3.0 L
URINE OUTPUT: 400 mL
FINDINGS:
1. Significant adhesions between loops of terminal ileum and dense adhesions from the terminal ileum to the distal sigmoid; dense adhesions from the sigmoid to the pelvic inlet; enlarged fibroid uterus; encountered small residual abscess cavity
with IR pigtail drain and 3-4 mL of purulence
2. Due to significant inflammatory rind to loops of terminal ileum caused by the diverticulitis and abscess, performed a [id number] stapled small bowel resection extracorporeally
3. Encountered vaginal canal injury, about 1.5 cm in size, during anterior mobilization of the proximal rectum; intraoperative consult to Dr. Iniguez, who repaired this primarily in 2 layers
4. Severe inflammation involving the proximal rectum and mid rectum to about 7 cm from the anal verge and extended proximally to the distal sigmoid colon; performed an EEA stapled colorectal anastomosis at about 6 cm from the anal verge; donuts
intact, negative leak test, anastomosis intact on flexible sigmoidoscopy
SPECIMENS:
1. Small bowel resection
2. Rectosigmoid
DRAINS: None
COMPLICATIONS: Injury to the posterior vaginal canal; repaired primarily by Dr. Iniguez
INDICATIONS: The patient is a 59-year-old female who had a known history of recurrent diverticulitis and presented to the [facility] with a recurrent flare on March 09, 2024. She was found to have a 12 cm pelvic abscess and underwent IR�guided
transgluteal drainage. She was managed nonoperatively. Subsequent drain studies showed persistent fistula to the colon. I therefore recommended a surgery to remove the diseased sigmoid colon. The operation was discussed with the patient in
detail, including the risks, benefits and alternatives. Risks described included, but not limited to, bleeding, infection, anastomotic leak/stricture, damage to nearby structures (i.e.- ureter, bowel, solid organs, pelvic structures), incisional
hernia, need for ostomy creation, conversion to open, recurrence, need to resect more rectum than anticipated and anesthetic risks. The patient and patient's understood and agreed to proceed.
PROCEDURE IN DETAIL: The patient was taken to the operating room and placed on the operating table in supine position. Sequential compression devices were placed bilaterally. General anesthesia was induced and the patient was intubated without
complication. The patient was then placed in lithotomy position with both arms tucked. The abdomen was then shaved, prepped and draped in a sterile fashion. A time-out was then performed verifying the correct patient, procedure, operative site,
positioning, and special equipment. Urology performed a cystoscopy, placed bilateral ureteral stents, injected each ureter with 2.5mL of ICG and placed a Mc. Per Dr. Salinas, there was no concerning findings for colovesical fistula. Anesthesia
placed an orogastric tube. Preoperative antibiotics were given. A marking pen was used to danial out the midline.
An 8 mm incision at Beatty's point was made with an 11 blade scalpel. A Veress needle was used to gain abdominal access. After 3 clicks, the insufflation was connected to the Veress needle and the opening pressure was noted to be less than 8 mmHg.
The abdomen was insufflated to a pressure of 12 mmHg. An 8 mm robotic trocar was then inserted. The robotic camera was advanced and intra-abdominal placement was confirmed. The abdomen was examined. No injuries were noted from port entry or from
the Veress needle. No concerning lesions were noted on the surface of the liver or the peritoneum. The remaining three 8mm robotic ports were placed under direct visualization in a diagonal fashion from Beatty's point to the right lower quadrant,
as well as an 8mm assist port in the right lateral mid abdomen, taking care to avoid injury to the right epigastric vessels. The left upper quadrant port was changed to the air seal port. Using laparoscopic graspers, the omentum was retracted above
the transverse colon. Then, the patient was placed in 26 degrees Trendelenburg and 11 degrees [id number]. The robot was docked from the patient's left side. From the RLQ to Beatty's point, the instruments introduced were the scissors,
camera, bipolar grasper and tip-up grasper, respectively.
There were numerous adhesions between the loops of terminal ileum and the sigmoid colon and right side of the pelvis. These were carefully lysed with the robotic scissors, taking care to avoid injury to the bowel wall. There were dense adhesions
from the anterior sigmoid to the anterior pelvis and to the loops of terminal ileum. The uterus appeared large and fibroid in nature. In order to improve visualization, a 2-0 nylon on a Kalpesh needle was introduced in the suprapubic region,
threaded around the fallopian tubes bilaterally and threaded back through the suprapubic region, taking care to avoid injury to the bladder and suspending the uterus anteriorly.
The sigmoid was then grasped and elevated to commence a medial to lateral dissection. However, as the distal sigmoid had been retracted into the pelvis, the mesentery of the sigmoid was taut and pulled into the left pelvic brim, obscuring the
normal anatomy. Therefore, I continued with a lateral to medial approach. I freed the sigmoid from the left pelvis and left pelvic brim. I easily identified the left ureter by witnessing vermiculation and kept this safe from my dissection. I
continued this dissection down into the pelvis, where I encountered extremely dense inflammatory tissue and scar between the rectosigmoid and the anterior pelvis. As I dissected past the anterior reflection, I encountered the anterior abscess
within which the pigtail drain was located. To confirm the location of my dissection, I performed a flexible sigmoidoscopy. I passed the sigmoidoscope transanally and advanced up the rectum under direct visualization. I encountered significant
chronic inflammation at about 7 to 8 cm from the anal verge with stricture at about 9-10 cm from the anal verge. I was able to visualize the tip of the scope laparoscopically and it was clear that I had several more centimeters to mobilize
distally. As the normal rectovaginal plane was completely distorted, I decided to dissect posteriorly. The peritoneum overlying the sacral promontory was scored and entered. The mesocolon was elevated and this dissection was connected to my
lateral dissection, taking care to avoid injury to the hypogastric nerves. The left ureter was easily identified and kept safe. I took this dissection superiorly towards the [place], freeing the mesentery from the retroperitoneum up to the mid sigmoid
colon. I then took this inferiorly in the presacral plane, down past where the abscess was located anteriorly. I connected my posterior dissection to my anterior dissection by taking down the lateral stalks bilaterally, taking care to avoid injury
to the bilateral ureters. The both ureters were easily identified by witnessing vermiculation as there was minimal adipose tissue within the retroperitoneum. While taking down the right lateral stalk, I encountered the entry point of the IR-guided
drain. I used the robotic scissors to cut this and the tip was removed intact.
I continued my dissection anteriorly, just anterior to the abscess cavity. Again, the normal planes were completely distorted due to the chronic, dense inflammation in the area. At this point, I noted a disruption in the posterior wall of the
vagina, measuring about 1.5 cm. I performed a vaginal exam and was able to witness my gloved finger through the defect laparoscopically, confirming the injury. Therefore, I called Dr. Iniguez into the room to evaluate. He felt that this defect
could be repaired primarily. To assist with further mobilization of the rectum off of the vagina, he placed a vaginal retractor and retracted the vagina and uterus anteriorly. He used an EEA sizer to retract the rectum posteriorly. I continued my
dissection anteriorly and was able to avoid any further injury to the vaginal canal at this point. I continued my dissection anteriorly until I was 1-2 centimeters below the inflammation.
Dr. Iniguez took the controls and then repaired the vaginal defect primarily in 2 layers, which will be dictated separately. I performed another flexible sigmoidoscopy to ensure that I had mobilized enough rectum to get below the inflammation. I
was able to visualize the tip of the sigmoidoscope laparoscopically and I was below the inflammation noted extraluminally and intraluminally. It was clear that the inflammation extended to about 7-8 cm from the anal verge.
I decided to create my extraction port in the lower midline. I undocked the robot, but left the abdomen insufflated to prevent injury to intra-abdominal contents. Starting 2 cm superior to the pubic symphysis, I made a lower midline incision, 6-7
cm in length, using a 15 blade scalpel. This was taken down to the level of the fascia. The fascia was scored with electrocautery. After identifying preperitoneal fat and confirming midline, I opened up the anterior fascia and the peritoneum to
the length of my skin incision. I placed a small Armando wound protector. I extracorporealized the small bowel in order to assess it for any injuries during my initial lysis of adhesions. I identified the cecum and ligament of Treves and ran the
bowel proximally to a length of about 100 cm. I identified 2 loops of bowel adherent to each other starting at about 25 cm from the ileocecal valve. These were the loops of bowel that were densely adherent to the sigmoid. There was a significant
amount of dense inflammatory tissue on the antimesenteric portion of the adherent bowel. This inflammatory rind was thick and I was concerned that the bowel underneath was not appear healthy. There was no obvious perforation. I did not believe a
primary repair would be possible. No other injuries were noted in the bowel up to about 100cm. The bowel more proximal had not been involved in the inflammation in the pelvis. I proceeded with a small bowel resection of the inflamed bowel. I
placed 2 blue towels to protect the operative field. I created two holes in the mesentery at the mesenteric border of the small bowel 2 to 3 cm from the inflammatory adhesions on both limbs. I stapled the proximal and distal locations with a RAYMOND
80 mm with a purple load. I divided the intervening mesentery using the Voyant LigaSure device. The small bowel was passed off as specimen, totaling about 20 cm in length. The staple lines were lined up and the antimesenteric corner was excised
using a curved Wang. After ensuring intraluminal entry, I used the RAYMOND 80 mm with a purple load to create the common channel. I lined up the common enterotomy with Allis clamps and closed the common enterotomy with the 60 mm TA stapler with a blue
load. The staple lines were hemostatic. There was a 2 cm dog-ear of the bowel lumen at the proximal limb. I was worried that this dog-ear would become ischemic. Therefore, I resected it by first creating a hole in the mesentery and dividing
across the dog-eared bowel with another RAYMOND 80 mm with a purple load. I took the mesentery with the Voyant LigaSure. The common channel was widely patent. I placed a 2-0 Vicryl crotch stitch. I closed the mesenteric defect with a running 2-0
Vicryl from the open corner of the mesentery to the 2 corners of the staple line. The staple lines were assessed once more and were hemostatic. The small bowel was then placed back in the abdomen. The port cap was replaced on the Armando and the
abdomen was reinsufflated. The robot was redocked.
I turned my attention to the pelvis. I prepared my distal transection point by dividing the mesorectum circumferentially with the vessel sealer. I then divided the rectum at 6 cm from the anal verge using 3 blue loads of the 45 mm robotic stapler,
taking care to avoid injuries in the left pelvis by the tip of the stapler. I identified the takeoff of the main sigmoidal artery from the [place] pedicle. There appeared to be plenty of healthy redundant sigmoid colon for a tension-free anastomosis.
Therefore, in order to improve blood flow to the mid sigmoid colon, which would be my proximal point for the anastomosis, I elected to spare the left colic. I dissected circumferentially around the main sigmoidal artery and ligated this with the
vessel-sealer, after ensuring the left ureter was safe. I selected a point on the mid-sigmoid colon, just proximal to the inflammation. I divided the mesentery using the vessel sealer up to this point. I had anesthesia inject ICG and there was
prompt perfusion to my proposed transection point as well as to the rectum. I elected to perform the proximal transection extracorporeally. I undocked 2 of the robotic arms and extracted the distal transection staple line through the midline
extraction incision. I identified my proposed transection point. I made a colotomy distally in the devascularize segment of the colon. I passed the anvil with a long Prolene suture attached at the tip through the colotomy and up with the proximal
colon, beyond my transection point. I then divided at my transection point with the RAYMOND a stapler with a purple load. I grasped the cut edge of the Prolene stitch and pulled the tip of the anvil through the middle portion of the staple line. The
anvil seated nicely without intervening diverticula. I cleared a small amount of mesentery from the edge of the anvil. The colon was then placed back intra-abdominally, the port cap was replaced and the abdomen was reinsufflated. The 2 robot arms
were redocked.
I checked the reach of the proposed anastomosis and it was adequate. The operative field was surveyed and hemostasis was ensured. The ureters were intact throughout their visible length. Then, sizers were passed up the rectum to ensure adequate
circumference and length. The EEA stapler was passed transanally to the distal staple line. The pin was extended and was connected with the anvil. After ensuring there was no twist to the mesentery and there was no tension, the EEA stapler was
then closed for 1 minute and then fired. Both donuts were intact. A leak test was performed by filling the pelvis with saline, occluding the proximal lumen and insufflating with the flexible sigmoidoscope. There was no evidence of leak from the
anastomosis. Endoscopically, the anastomosis was intact without evidence of bleeding. The colorectum was desufflated and the flexible sigmoidoscope removed. The anastomosis was evaluated laparoscopically. There appeared some tension from the main
sigmoidal artery, but no tension along the proximal colon. I made relaxing incisions in the peritoneum overlying the vessel, which significantly relaxed the tension. Additionally, I checked for tension after relieving some Trendelenburg and there
was no tension noted. As both limbs of the anastomosis appeared healthy intraluminally with good blood flow and no tension, I elected to not create a diverting loop ileostomy. I checked the operative field once more and hemostasis was assured. I
retracted the omentum back down towards the pelvis. It did not reach into the pelvis. Therefore, I created an omental flap using the vessel sealer. I divided the omentum starting at the proximal portion of the transverse colon, taking this to the
mid transverse colon. The omental flap was well-vascularized. This was placed in the pelvis between the colorectal anastomosis and the vaginal repair. The suspended uterus was released from the 2-0 nylon and placed at the pelvic inlet to
additionally close off the pelvis. A few anterior adhesions from the anterior abdominal wall to the uterus were released to facilitate this.
The robotic instruments were removed and the robot was undocked. Using laparoscopic visualization, a TAP block was performed using a total of 30 mL of 0.25% Marcaine with epinephrine mixed with dexamethasone and injecting in the transverse
abdominis plane bilaterally. The remaining ports were removed under direct visualization and no bleeding was noted. The midline extraction incision was then closed in layers. First, the peritoneum was closed with a running 1-Vicryl stitch. Then,
the fascia was closed using a #1 Stratafix suture. The incisions were then irrigated. The remaining 30 cc of 0.25% Marcaine with epinephrine mixed with dexamethasone were injected around the incisions. The incisions were then closed with running
subcuticular 4-0 Monocryl and dressed with Dermabond. While still intubated, the patient was placed back into supine position and rolled slightly to the left to expose the right buttock. The IR-guided drain stitch was cut and the drain was removed.
A gauze dressing was placed.
At this point, the procedure was complete. The patient was awoken and extubated without complication. The right stent was removed, and the left stent and Mc were left in place. All needle, sponge and instrument counts were reported as correct.
The patient tolerated the procedure well and was transferred to the recovery room in stable condition with the mc in place.
DICTATED BY: Leon Monique MD
[2024-07-14] MEDS: TORADOL 15 MG IV (19:36)
[2024-07-14] MEDS: LYRICA 75 MG PO (19:36)
[2024-07-14] MEDS: ZOSYN 50 IV (21:00)
[2024-07-15] MEDS: TORADOL 15 MG IV ×4 (02:00→18:07)
[2024-07-15] MEDS: TYLENOL 1000 MG PO ×4 (02:11→21:00)
[2024-07-15] MEDS: ZOSYN 50 IV ×4 (03:24→21:19)
[2024-07-15 05:56] VITALS: BMI 22.7
[2024-07-15 06:00] VITALS: BMI 22.7
[2024-07-15 06:06] LABS: % Basophils 0.1 % (0-2); % Immature Granulocytes 0.8 % (0-0.5); % Lymphocytes 7.1 % (20.5-51.1); % Monocytes 8.2 % (1.7-9.3); % Neutrophils 83.8 % (42.2-75.2); Absolute Immature Granulocytes 0.1 10^3/uL (0-0.05); Absolute Lymphocytes 0.9 10^3/uL (1.2-3.4); Absolute Neutrophils 10.1 10^3/uL (1.4-6.5); Hematocrit 37.7 % (37.0-47.0); Hemoglobin 12.6 g/dL (12.0-16.0); Mean Corp Hgb Conc. 33.4 g/dL (33.0-37.0); Mean Corpuscular Volume 92.6 fL (81.0-99.0); Nucleated Red Blood Cells % 0 %; Platelet Count 249 10^3/uL (130-400); Red Blood Cell Count 4.07 10^6/uL (4.20-5.40); Red Cell Dist. Width 12.7 % (11.5-14.5)
[2024-07-15 06:23] LABS: Blood Urea Nitrogen 13 mg/dl (7-17); Calcium 8.4 mg/dl (8.4-10.2); Carbon Dioxide 28 mmol/L (22-30); Chloride 103 mmol/L (98-107); Estimated Creatinine Clearance 62 ml/min; Glucose 122 mg/dl (70-99); Magnesium 3.1 mg/dl (1.6-2.3); Potassium 4.6 mmol/L (3.5-5.1); Sodium 139 mmol/L (135-145); eGFR > 60.00
[2024-07-15 07:55] VITALS: BP 124/83
[2024-07-15] MEDS: ENTEREG 12 MG PO (07:58)
[2024-07-15] MEDS: LYRICA 75 MG PO (07:58)
--- NOTE | 2024-07-15 09:42 | W.PN.CRS1 ---
Today's Communication / Plan
-
Regular diet
Stent removed
DC Stevenson
Start Lovenox
Assessment/Plan
-
POD#1 low anterior resection, vaginal injury repair
-Vital signs normal. Tolerating clears.
-Advance diet to regular.
-Stent #2 removed at bedside. DC Stevenson.
-Out of bed as tolerated.
-Pain control: Tylenol and Toradol standing, Dilaudid as needed
-OR pathology pending
-Start Lovenox tonight for DVT prophylaxis. Teds and SCDs in place.
-Discussed the above with patient
Subjective Data
Procedure
07/14/2024 - robotic LAR with vaginal injury repair
Subjective Data
Date of Service: July 15, 2024
Patient states that she is feeling well. She has no pain. She has no nausea or vomiting. She feels only very mildly bloated. She is not having gas or bowel movements yet.
Objective Data
-
Vital Signs
Temp Pulse Resp BP Pulse Ox
98.0 F 80 16 124/83 99
07/15/24 07:55 07/15/24 07:55 07/15/24 07:55 07/15/24 07:55 07/15/24 07:55
Intake & Output
07/14/24 07/15/24 07/16/24
06:59 06:59 06:59
Intake Total 940 / 940
Output Total 1875 / 1875
Balance -935 / -935
Intake:
Oral fluids 240 / 240
IV fluids (Total) 700 / 700
normosol 100 / 100
Output:
Urine, Stevenson 650 / 650
Urine, Voided 1225 / 1225
Lab Results
07/15/24 05:27
07/15/24 05:27
Physical Exam
-
General: No Acute Distress and AOx3
Abdomen: Soft, Distended (mild) and Non Tender
Skin: Warm and Dry
Incision: Clear, Dry, Intact
[2024-07-15 09:50] VITALS: BP 144/83
--- NOTE | 2024-07-15 10:55 | CM ---
Reviewed the chart notes and spoke with the patient at the bedside. The patient resides with her spouse and daughter in a two story home with a total of two steps to enter through the garage. The patient reports on DME or SNF in the past. The
patient has had [facility] in the past. The patient confirmed her pharmacy of choice is [facility]. CM continues to be available to patient/family and is monitoring medical plan for needs at discharge.
Plan: Discharge to home with no anticipated needs being identified at this time.
[2024-07-15 11:35] VITALS: BP 110/67
[2024-07-15 15:45] VITALS: BP 116/69
[2024-07-15] MEDS: LOVENOX 40 MG SC (17:19)
[2024-07-15] MEDS: ENTEREG PO (21:18)
[2024-07-15] MEDS: MYLICON 80 MG PO (22:37)
[2024-07-15 23:00] VITALS: BP 106/71
[2024-07-16] MEDS: TORADOL 15 MG IV ×4 (01:00→18:01)
[2024-07-16] MEDS: TYLENOL 1000 MG PO ×3 (02:03→13:05)
[2024-07-16] MEDS: ROXICODONE 5 MG PO ×3 (04:29→16:35)
[2024-07-16] MEDS: ZOSYN 50 IV ×3 (04:30→15:27)
[2024-07-16] MEDS: SYNTHROID 50 MCG PO (05:33)
[2024-07-16 05:53] VITALS: BMI 22.8
[2024-07-16 07:59] VITALS: BP 98/73
[2024-07-16] MEDS: LYRICA 75 MG PO (08:12)
[2024-07-16] MEDS: ENTEREG 12 MG PO (08:12)
--- NOTE | 2024-07-16 08:55 | W.PN.CRS1 ---
Addendum entered and electronically signed by Leon Monique MD 07/16/24 21:37:
Called by nurse for worsening distention and tachycardia; gave a 1 L bolus and started LR at 100 and sent stat labs; evaluated the patient at the bedside around 5:40 PM; she was having worsening bloating, but did have a few liquidy bowel movements
during the day; she tolerated some oral diet, but then it became a little more nauseating as the day went on; her abdominal pain is controlled, but still elevated then yesterday; on exam, no acute distress, skin mildly diaphoretic, no respiratory
difficulty, moderately distended with tympany, appropriately tender near incisions, no rebound or guarding; sent for a stat CT abdomen pelvis with p.o., IV and rectal contrast
Discussed CT with radiology, with evidence of leak of enteric contrast from the colorectal anastomosis; small bowel anastomosis appears intact; diffuse ileus with small to moderate amount of abdominal fluid
Discussed results with patient; due to the amount of contrast leak and that she is showing systemic signs (i.e. tachycardia, diaphoresis), I recommended moving forward with surgery for abdominal washout and likely diverting ostomy; I explained that
during the surgery, I would evaluate the anastomosis with flexible sigmoidoscopy and possibly intra-abdominal he to see if there is a small simple defect that may be repaired with a stitch; however, depending on the density of the adhesions, I may
only be able to do a washout with diverting ostomy; explained that the risks include, but not limited to, the same risks as previously discussed, including bleeding, infection, damage to nearby structures, likely ostomy creation, likely open
incision; the patient understood, all questions were answered and the patient signed the consent
Original Note:
Today's Communication / Plan
-
as below
Assessment/Plan
-
59-year-old female with PMH of hypothyroid and recurrent diverticulitis with abscess s/p IR�guided drain, complicated by persistent colocutaneous fistula, presented for elective surgery
POD 2 robotic LAR, SBR, vaginal injury repair, preoperative cystoscopy with ureteral stents, laparoscopic tap block
AFVSS
No labs today, UOP 1.2 L
� Continue regular diet; instructed to go slow with bland diet; any burping, N/v or bloating, instructed to push food to the side
� Continue DVT PPx with Lovenox
� Continue pain medication with Tylenol and Toradol ATC, pregabalin nightly, oxycodone/Dilaudid as needed; continue Entereg
� Recommend early mobilization, ambulation twice daily and encourage IS
� Continue IV Zosyn postoperatively for 4 days due to abscess
Dispo�if bloating improves, possible DC tomorrow
Subjective Data
Procedure
07/14/2024 - robotic LAR with vaginal injury repair
Subjective Data
Date of Service: July 16, 2024
Tolerated regular diet yesterday. Denies N/V, but feels a little bloated this morning. Had multiple liquid BMs yesterday, nonbloody. Voiding, still some blood in the urine. She has been OOB. Abdominal pain was worse today, controlled with
oxycodone.
Objective Data
-
Vital Signs
Temp Pulse Resp BP Pulse Ox
98 F 93 19 98/73 94
07/16/24 07:59 07/16/24 07:59 07/16/24 07:59 07/16/24 07:59 07/16/24 07:59
Intake & Output
07/15/24 07/16/24 07/17/24
06:59 06:59 06:59
Intake Total 940 / 940 920 / 920
Output Total 1875 / 1875 1275 / 1275
Balance -935 / -935 -355 / -355
Intake:
Oral fluids 240 / 240 120 / 120
IV fluids (Total) 700 / 700 600 / 600
normosol 100 / 100
IV piggybacks 200 / 200
Output:
Urine, Stevenson 650 / 650 1100 / 1100
Urine, Voided 1225 / 1225 175 / 175
Other:
Number of approximated MODERATE 1
amounts of urine
Lab Results
07/15/24 05:27
07/15/24 05:27
Physical Exam
-
General: No Acute Distress and AOx3
HEENT: Grossly Normal
Abdomen: Soft, Distended (Mildly distended, mildly tympanic), Tender (Appropriately tender near incisions), No Guarding and No Rebound
Skin: Warm and Dry
Wound: No Signs of Infection, Dressing in Place (With Dermabond) and No Skin Erythema
--- NOTE | 2024-07-16 10:25 | CM ---
Reviewed the chart notes. Patient tolerating diet. Ambulating in room. CM continues to be available to patient/family and is monitoring medical plan for needs at discharge.
Plan: Discharge to home when medically stable. No needs anticipated.
[2024-07-16 15:37] VITALS: BP 105/67
[2024-07-16 16:40] VITALS: BP 114/79
[2024-07-16] MEDS: LR 1000 IV ×2 (17:00→17:57)
[2024-07-16] MEDS: LOVENOX 40 MG SC (17:01)
[2024-07-16 17:42] LABS: Hematocrit 39.3 % (37.0-47.0); Hemoglobin 12.8 g/dL (12.0-16.0); Mean Corp Hgb Conc. 32.6 g/dL (33.0-37.0); Mean Corpuscular Hgb 30.8 pg (27.0-31.0); Mean Corpuscular Volume 94.5 fL (81.0-99.0); Mean Platelet Volume 8.8 fL (7.4-10.4); Platelet Count 265 10^3/uL (130-400); Red Blood Cell Count 4.16 10^6/uL (4.20-5.40); Red Cell Dist. Width 12.9 % (11.5-14.5)
[2024-07-16 17:56] LABS: Band Neutrophils 12 % (0-3); Lymphocytes 20 % (20-51); Monocytes 4 % (2-9); Segmented Neutrophils 64 % (42-75)
[2024-07-16] MEDS: OMNIPAQUE 50 ML PO (17:56)
[2024-07-16 17:57] LABS: Normal RBC Morphology Yes; Platelets Checked Yes; Total Cells Counted 100
[2024-07-16 17:59] LABS: Blood Urea Nitrogen 26 mg/dl (7-17); Calcium 9.3 mg/dl (8.4-10.2); Carbon Dioxide 26 mmol/L (22-30); Chloride 103 mmol/L (98-107); Estimated Creatinine Clearance 62 ml/min; Glucose 107 mg/dl (70-99); Potassium 4.1 mmol/L (3.5-5.1); Sodium 139 mmol/L (135-145); eGFR > 60.00
[2024-07-16 18:02] VITALS: BP 127/79
[2024-07-16] MEDS: ZOFRAN 4 MG IV (19:36)
--- NOTE | 2024-07-16 21:20 | PTCARENOTE ---
Was taken for Ct scan earlier in shift. 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 OR prep done Dr. Monique at bedside.
[2024-07-16] MEDS: TYLENOL PO (22:15)
[2024-07-16] MEDS: ENTEREG PO (22:15)
[2024-07-16] MEDS: ZOSYN IV (22:50)
[2024-07-17] VITALS (17 sets, daily range): BP systolic 0–127; BP diastolic 68–86; PULSE 102; O2SAT 98; BMI 23.5
--- NOTE | 2024-07-17 00:41 | W.IMMPOSTOP ---
Surgical Immed Post Op Note
-
Primary Surgeon: Leon Monique MD
Assisting Surgeon: Don Dickinson MD
Pre-op Diagnosis: Anastomotic leak, chronic diverticulitis with abscess
Post-op Diagnosis: Colorectal anastomotic leak, feculent peritonitis, chronic diverticulitis with abscess
Procedure Performed: Exploratory laparotomy, abdominal washout, flexible sigmoidoscopy, partial omentectomy, creation of diverting loop ileostomy, TAP block
Anesthesia Type: General
Specimen / Cultures: Abdominal fluid cultures
Estimated Blood Loss: 75 mL
IVF: 2.2 L
UOP: 200 mL
Drain: 15 German Dillan extending from the left lower quadrant into the pelvis looped from posterior to anterior near the anastomosis
Complications: None
Operative Findings: Reopened midline incision and extended to above the umbilicus; encountered bilious/feculent ascites, sent anaerobic and aerobic cultures; small bowel moderately dilated; small bowel anastomosis intact without evidence of leak or
ischemia; retracted omental flap from pelvis; performed flexible sigmoidoscopy, no obvious defect seen endoscopically but bubbling was seen intra-abdominally, confirming an anastomotic leak; ran the small bowel from Treitz to Treves and no injury
noted; washed abdomen with 7 L of warm saline and created a diverting loop ileostomy 25 cm proximal to the small bowel anastomosis (small bowel anastomosis about 10 to 20 cm proximal to the ileocecal valve; measured about 280 cm of small bowel
proximal to loop ileostomy); resected tip of omentum that was stained with stool; injected 20 mL of 0.25% Marcaine with epi mixed with Decadron in the transversus abdominis plane bilaterally
[2024-07-17] MEDS: LR 1000 IV ×2 (01:24→13:08)
--- NOTE | 2024-07-17 01:46 | OR.RPT ---
Operative Report
Operative Report
DATE OF OPERATION: 07/16/2024
SURGEON: Leon Monique MD
PREOPERATIVE DIAGNOSIS: Anastomotic leak, chronic diverticulitis with abscess
POSTOPERATIVE DIAGNOSIS: Colorectal anastomotic leak, feculent peritonitis, chronic diverticulitis with abscess
OPERATION: Exploratory laparotomy, abdominal washout, flexible sigmoidoscopy, partial omentectomy, creation of diverting loop ileostomy, TAP block
ASSISTANTS:
1. Don Dickinson MD
ANESTHESIA: General
ESTIMATED BLOOD LOSS: 75 mL
UOP: 200 mL
IVF: 2.2 L
FINDINGS:
1. Feculent peritonitis with bilious fluid; swabbed and sent for anaerobic and aerobic culture
2. Small bowel anastomosis intact without ischemia or perforation; due to low pelvic anastomosis, not able to visualize the anastomosis circumferentially without undue retraction; no obvious defect in colorectal anastomosis seen on flexible
sigmoidoscopy; bubbles seen on leak test from insufflation by the sigmoidoscope, confirming leak at the colorectal anastomosis
3. Creation of diverting loop ileostomy; about 280 cm of small bowel proximal to the ileostomy; ileocecal valve about 35 cm distal from the ileostomy (previously created small bowel anastomosis about 10 cm from the ileocecal valve)
SPECIMENS:
1. Abdominal fluid cultures.
DRAINS: 15 Yi Dillan from the LLQ to the pelvis
COMPLICATIONS: No immediate complications.
INDICATIONS: The patient is a 59-year-old female who had recurrent chronic diverticulitis associated with a large pelvic abscess that was drained by IR via a transgluteal approach. Her inflammation never fully resolved. A preoperative colonoscopy
was attempted and aborted due to sigmoid stricture. 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 She underwent a robotic low anterior resection with significant lysis of adhesions, small bowel resection of about 20 cm from
inflammatory damage from the sigmoid, a vaginal canal injury repair with omental flap creation and buttress. Initially, she did well postoperatively. However, by the morning of postop day 2, she developed abdominal distention. By the afternoon,
she developed tachycardia and mild diaphoresis. A CT scan with rectal contrast confirmed a leak of enteric contrast, most likely from the colorectal anastomosis. Therefore, surgery was recommended to identify the site of the leak, possible repair
and plan for creation of diverting ileostomy. Initially, I discussed the possibility of a diagnostic laparoscopy. By the time she arrived to the OR, she had worsening pain. Therefore, I explained I would explore the abdomen via an open incision.
The remainder of the operation was discussed with the patient in detail, including risks and benefits. Risks described included, but are not limited to, bleeding, infection, anastomotic leak (if anastomosis created or repaired), damage to nearby
structures, risks associated with a stoma (ie- skin irritation, ischemia, retraction, prolapse and parastomal hernia) and anesthetic risks. The patient understood and agreed to proceed.
PROCEDURE IN DETAIL: In the pre-operative area, I marked the patient after assessing the location of her waistband/belt. The patient was taken to the operating room and placed on the operating table in supine position. Sequential compression devices
were placed bilaterally. General anesthesia was then induced and the patient was intubated without complication. The patient was then placed in lithotomy position with both arms secured to the armboards in extended position. Stevenson catheter was
placed with sterile technique. The abdomen was then prepped and draped in a sterile fashion. A time-out was then performed verifying the correct patient, procedure, operative site, positioning, and special equipment. Anesthesia placed an
nasogastric tube. Preoperative antibiotics were given. A marking pen was used to danial out the midline.
The Dermabond from her lower midline incision was peeled away using and Adson forceps. A 15 blade scalpel was used to score this lower midline incision. A hemostat was used to spread the layers of the skin and remove the visible Monocryl, stratafix
and Vicryl from the closed layers. Abdominal access was achieved without injury to underlying structures. Feculent ascites was immediately encountered. The fluid was swabbed and sent for anaerobic and aerobic culture. The 15 blade scalpel was
then used to lengthen the lower midline incision superiorly to 2 cm above the umbilicus. This was taken down the layers of the abdominal wall using Bovie electrocautery, protecting the intra-abdominal contents from injury. There was a large amount
of feculent/bilious ascites that was suctioned. The small bowel appeared mildly to moderately dilated but healthy and without evidence of ischemia. The omental flap was still within the pelvis between the rectum and vagina. Using careful blunt
dissection with finger fracture technique, the omentum was retracted away from the pelvis. The tip of the omental flap was stained bilious, but the majority of the flap was healthy. The patient was placed in Trendelenburg and the bowel was gently
retracted from the pelvis. The small bowel anastomosis previously created was identified. This appeared healthy without any evidence of ischemia or perforation. The low pelvic anastomosis was below the anterior reflection and was difficult to
directly visualize due to the angulation of the pelvis and the size of the fibroid uterus. The colon proximal to the anastomosis appeared healthy, well-perfused and did not appear to be under tension.
At this point, I performed a flexible sigmoidoscopy. The pelvis was filled with saline and the proximal colon was occluded with Dr. Dickinson's hand. I advanced the flexible sigmoidoscope through the anal canal and up the colorectum under direct
visualization. The mucosa of the rectum and proximal colon appeared healthy without evidence of ischemia or necrosis. I visualized the colorectal anastomosis, which was about 6 cm from the anal verge. There was some fibrinous material overlying
the staple line, which was irrigated. The anastomosis appeared circumferentially intact, but with some edema from the adjacent mucosa. Bubbling was immediately noted transabdominally, confirming a leak from the colorectal anastomosis. Although,
this leak was presumably quite small as it was not visualized endoscopically. The colorectum was desufflated and the sigmoidoscope was removed.
As this was a low anastomosis with a very small defect, I felt the best option moving forward was to create a diverting loop ileostomy to allow this leak to heal and not perform a revision of the colorectal anastomosis as this would lead to an
extremely low coloanal anastomosis. As I was not able to visualize the defect without placing significant amount of retraction on the proximal colon, I felt that a primary repair was not an option. To ensure no other missed injuries, I ran the
bowel from the ligament of Treitz to the ligament of treves and no injury was noted. The abdomen was washed with 7 L of warm saline in all 4 quadrants in the pelvis until the effluent was clear. A point about 25 cm proximal to the previously
created small bowel anastomosis was selected for my loop ileostomy. I measured about 280 cm of small bowel proximal to this point. I performed a partial omentectomy using clamps and 2-0 Vicryl ties in order to resect the tip of the omental flap
that was stained with bile. The remainder of the omentum was healthy and well-perfused.
Using an Allis, I elevated the skin approximately at my stoma marking site in the RLQ and created a circular incision with electrocautery. I coned out a small amount of subcutaneous tissue. Then, using [employer]'s and electrocautery, I took this
down through the anterior and posterior layers of the fascia, making a cruciate incision in each and splitting the rectus muscle with a Heidi clamp. I ensured the ileostomy tunnel was large enough by passing 2 fingers through easily. I created a
hole in the mesentery at the mesenteric border using Bovie electrocautery. I passed a red rubber catheter through this and then carefully pulled the loop of ileum wrapped in Seprafilm through my stoma tunnel, ensuring no twist in the mesentery.
The functional limb was oriented superiorly and the defunctional limb was oriented inferiorly. The loop of ileum easily reached 2�3 cm above the level of the skin. Next, I placed a 15Fr Dillan drain (19 Fr Dillan drains were on backorder) in the
pelvis, looping the tip from anterior to the anastomosis to posterior. I brought it out through the left lower abdominal wall, secured it with a nylon drain stitch and connected it to bulb suction. I once more examined the operative field and
hemostasis was assured.
Next, the abdominal wall was injected with 20 cc of local bilaterally in the transversus abdominis plane. The omentum was retracted over the abdominal contents underlying our fascial incision. Seprafilm was placed above the omentum. The midline
fascia was closed with a running 0 PDS, starting at the corners and ending in the middle. The skin was closed with widely-gapped julián and Telfa samanta and, ultimately, an Aquacel dressing was placed. The right sided loop ileostomy was matured in a
Brooked fashion of the functional limb with 3-0 Vicryl stitches and a non-brooked fashion of the defunctional limb. A stoma appliance was cut to size and was placed. Dry dressings were placed at the drain site.
At this point, the procedure was complete. The patient was awoken and extubated without complication. All needle, sponge and instrument counts were reported as correct. The patient tolerated the procedure well and was transferred to the recovery
room in stable condition with the nasogastric tube and Stevenson in place.
Of note, Don Dickinson MD, diagnostic assistant, was necessary during this procedure for traction, countertraction, and exploratory purposes. I was present for the entire duration of the case.
DICTATED BY: Leon Monique MD
[2024-07-17] MEDS: TORADOL 15 MG IV ×5 (01:58→19:50)
[2024-07-17] MEDS: TYLENOL PO ×4 (03:04→19:58)
[2024-07-17] MEDS: CHLORASEPTIC/SORE THROAT SPRAY 1 SPRAY PO (03:35)
[2024-07-17] MEDS: ZOSYN 50 IV ×4 (03:39→21:15)
--- NOTE | 2024-07-17 04:39 | PTCARENOTE ---
Pt arrived in bed from PACU at 0115. Pt is AAOX3 but drowsy. VSS. Pt 100% on 2LO2. surgical site inspected with PACU nurse. Midline insicion covered with primaseal dressing scant drainage. LLQ alonzo drain in place. R side ileostomy. stoma red and
budded. mc in place draining red/brown urine. L nare NGT to cont sunction draining brown/ green contents. Pt tolerating NGT. Pts family at bedside. Assessment ongoing.
[2024-07-17] MEDS: SYNTHROID PO (04:49)
[2024-07-17 06:28] LABS: Blood Urea Nitrogen 21 mg/dl (7-17); Calcium 8.4 mg/dl (8.4-10.2); Carbon Dioxide 27 mmol/L (22-30); Chloride 97 mmol/L (98-107); Estimated Creatinine Clearance 71 ml/min; Glucose 104 mg/dl (70-99); Potassium 3.8 mmol/L (3.5-5.1); Sodium 134 mmol/L (135-145); eGFR > 60.00
[2024-07-17 06:38] LABS: Hematocrit 36.8 % (37.0-47.0); Hemoglobin 12.5 g/dL (12.0-16.0); Mean Corpuscular Hgb 30.4 pg (27.0-31.0); Mean Corpuscular Volume 89.5 fL (81.0-99.0); Platelet Count 275 10^3/uL (130-400); Red Blood Cell Count 4.11 10^6/uL (4.20-5.40); Red Cell Dist. Width 12.7 % (11.5-14.5); White Blood Cell Count 7.9 10^3/uL (4.8-10.8)
[2024-07-17 06:58] LABS: Absolute Neutrophils -Man Diff 7.3 10^3/uL (1.4-6.5); Band Neutrophils 13 % (0-3); Lymphocytes 3 % (20-51); Metamyelocytes 1 % (-); Monocytes 3 % (2-9); Normal RBC Morphology Yes; Platelets Checked Yes; Segmented Neutrophils 80 % (42-75); Total Cells Counted 100
[2024-07-17] MEDS: ENTEREG PO ×2 (08:09→19:58)
[2024-07-17] MEDS: LYRICA PO (08:09)
--- NOTE | 2024-07-17 09:10 | WOUNDNOTE ---
WOC RN note: Patient sleeping. s/p exploratory lap with loop ileostomy last night. Stoma pink with red rubber bridge intact. Ostomy appliance intact. Ostomy supplies (Van wafer #[id number], Padmini seals and [place] pouch # [id number]) and ostomy
teaching folder left in room. Will follow next week.
--- NOTE | 2024-07-17 11:14 | W.PN.CRS1 ---
Addendum entered and electronically signed by Leon Monique MD 07/17/24 16:58:
for CDI: developed generalized peritonitis without systemic illness
Original Note:
Today's Communication / Plan
-
continue ngt/mc
iv abx
Assessment/Plan
-
POD#3 LAR, POD#0 Exploratory laparotomy, abdominal washout, flexible sigmoidoscopy, partial omentectomy, creation of diverting loop ileostomy, TAP block
-Continue NGT
-Continue mc
-OOB as tolerated
-Wound RN for stoma teaching
-Remain NPO for now
-TEDS/SCDS and Lovenox for DVT prophylaxis
-Continue IVFs
-Continue Zosyn
-Pain control: Tylenol/Toradol, Dilaudid PRN.
Subjective Data
Procedure
07/14/2024 - robotic LAR with vaginal injury repair
07/16- Exploratory laparotomy, abdominal washout, flexible sigmoidoscopy, partial omentectomy, creation of diverting loop ileostomy, TAP block
Subjective Data
Date of Service: July 17, 2024
Patient is sleepy. She has no complaints except the NGT is bothering her.
Objective Data
-
Vital Signs
Temp Pulse Resp BP Pulse Ox
98.4 F 102 16 123/83 100
07/17/24 07:58 07/17/24 07:58 07/17/24 07:58 07/17/24 07:58 07/17/24 07:58
Intake & Output
07/16/24 07/17/24 07/18/24
06:59 06:59 06:59
Intake Total 920 / 920 2079 / 2079
Output Total 1275 / 1275 1320 / 1320
Balance -355 / -355 760 / 760
Intake:
Oral fluids 120 / 120 120 / 120
IV fluids (Total) 600 / 600 1750 / 1750
normosol 250 / 250
IV piggybacks 200 / 200 150 / 150
Amount instilled into GI Tube ( 60 / 60
Total)
[place] Sump 60 / 60
Output:
Liquid stool amount 150 / 150
Ileostomy 150 / 150
Drain Output (Total)
Left Lower Abdomen David-
Cabrera
Gastrointestinal tube output ( 800 / 800
Total)
[place] Sump 800 / 800
Urine, Mc 1100 / 1100 350 / 350
Urine, Voided 175 / 175
Other:
Number of approximated MODERATE 1
amounts of urine
Lab Results
07/17/24 05:32
07/17/24 05:32
Physical Exam
-
General: No Acute Distress and AOx3
Abdomen: Soft, Non Distended, Tender (around incisions) and Other (alonzo serous, ileostomy warm and pink)
Skin: Warm and Dry
Wound: Dressing in Place
--- NOTE | 2024-07-17 11:43 | CM ---
met with patient at bedside.pod#3 lar with vaginal injury repair,cont npo/ngt,iv zosyn,pain control,wound rn for stoma teaching.Plan:dc home with no needs vs vn.
--- NOTE | 2024-07-17 13:18 | PN.CDI ---
CDI
- -
CDI:
Physician Documentation Request
Admit Date: 07/14/24 06:05
Dear Doctor Kayden,
Please review the following and provide your response in the progress notes.
Clinical Indicators:
PN, 07/16
#POD 1 robotic LAR, SBR, vaginal injury repair,
#...preoperative cystoscopy with ureteral stents, laparoscopic tap block
#WBC 12.0, Hb 12.6 from 12.9, CR 0.8, UOP 1.8 L
#� Continue IV Zosyn postoperatively for 4 days due to abscess
PN, 07/16
#...evidence of leak of enteric contrast from the colorectal anastomosis;
#...small bowel anastomosis appears intact;
#...diffuse ileus with small to moderate amount of abdominal fluid
#...due to the amount of contrast leak and
#...that she is showing systemic signs (i.e. tachycardia, diaphoresis), ..
Post Op Note, 07/17
#Post-op Diagnosis: Colorectal anastomotic leak,
#...feculent peritonitis, chronic diverticulitis with abscess
Selected Entries
07/16/24
15:37 07/16/24
16:40 07/16/24
18:02
Pulse 113 110 103
07/17/24
00:39 07/17/24
00:45 07/17/24
01:00
Pulse 105 101 95
Laboratory Tests
07/09/24 07/15/24 07/16/24
09:50 05:27 17:25
WBC 4.7 L 12.0 H 4.0 L
07/17/24
05:32
WBC 7.9
Please clarify which of the following most accurately describes the status of the patient's condition/diagnosis:
Sepsis evolved during hospitalization
Generalized Peritonitis only, without systemic illness
Perforated Peritonitis only, without systemic illness
Other (please specify)
Sepsis
- Systemic manifestations of infection, with 2 or more SIRS criteria which include:
- Fever >100.4 degrees F or hypothermia < 96.8 degrees F
- Leukocytosis - WBC > 12,000 or leukopenia - WBC < 4,000 or > 10% bands
- Tachycardia > 90 beats per minute
- Tachypnea - RR > 20 breaths per minute or PaCO2 , 32mmHg
Source: Merck Manual 2013
- Indicate the known or suspected organism
- Indicate the known or suspected underlying infection, such as UTI, pneumonia or cellulitis
- Indicate if a suspected bacterial infection of unknown source
associated acute organ dysfunction, such as renal or respiratory failure
Use of terms such as suspected, likely, concern for, or probable (associated with a specific diagnosis that is being evaluated, monitored, or treated as if it exists) are acceptable and can be coded in the inpatient setting, when documented at the
time of discharge.
Thank you,
Jeannine Gutierrez RN BSN CCDS
CDI Specialist
please contact via tiger text
Please use your independent medical judgment in providing your response.
[2024-07-17] MEDS: TORADOL IV (13:23)
[2024-07-17] MEDS: LOVENOX 40 MG SC (17:38)
--- NOTE | 2024-07-17 18:17 | PTCARENOTE ---
Addendum entered by Maye Ford RN 07/17/24 18:33:
IV bolus ordered and infusing. Care ongoing.
Original Note:
Pt marginal urine output this shift and tachycardic 100s-110s. IVF infusing at ordered rate. Dr Patel made aware. Care ongoing.
[2024-07-17] MEDS: NSS 500 IV (18:29)
[2024-07-18] MEDS: LR 1000 IV ×2 (00:13→10:01)
[2024-07-18] MEDS: TYLENOL PO ×5 (02:21→22:34)
[2024-07-18] MEDS: TORADOL 15 MG IV ×4 (02:21→20:54)
[2024-07-18 03:11] VITALS: BP 113/66
[2024-07-18] MEDS: ZOSYN 50 IV ×3 (04:13→17:00)
[2024-07-18] MEDS: SYNTHROID PO (04:43)
[2024-07-18 06:00] VITALS: BMI 23.4
[2024-07-18 06:11] LABS: Hematocrit 27.3 % (37.0-47.0); Hemoglobin 9.2 g/dL (12.0-16.0); Mean Corp Hgb Conc. 33.7 g/dL (33.0-37.0); Mean Corpuscular Hgb 30.3 pg (27.0-31.0); Mean Corpuscular Volume 89.8 fL (81.0-99.0); Mean Platelet Volume 9.1 fL (7.4-10.4); Platelet Count 241 10^3/uL (130-400); Red Blood Cell Count 3.04 10^6/uL (4.20-5.40); Red Cell Dist. Width 12.8 % (11.5-14.5); White Blood Cell Count 7.4 10^3/uL (4.8-10.8)
[2024-07-18 06:22] LABS: Blood Urea Nitrogen 32 mg/dl (7-17); Calcium 8.5 mg/dl (8.4-10.2); Carbon Dioxide 38 mmol/L (22-30); Chloride 94 mmol/L (98-107); Estimated Creatinine Clearance 62 ml/min; Glucose 90 mg/dl (70-99); Potassium 3.1 mmol/L (3.5-5.1); Sodium 139 mmol/L (135-145); eGFR > 60.00
[2024-07-18 06:58] LABS: Absolute Neutrophils -Man Diff 5.9 10^3/uL (1.4-6.5); Band Neutrophils 10 % (0-3); Lymphocytes 13 % (20-51); Monocytes 5 % (2-9); Segmented Neutrophils 71 % (42-75)
[2024-07-18 06:59] LABS: Atypical Lymphocytes 1 %; Normal RBC Morphology Yes; Platelets Checked Yes; Total Cells Counted 100; Toxic Granulation 1+
[2024-07-18 07:57] VITALS: BP 114/74
[2024-07-18] MEDS: LYRICA PO ×2 (08:00→09:56)
[2024-07-18] MEDS: ENTEREG PO ×3 (08:00→22:34)
--- NOTE | 2024-07-18 11:15 | W.PN.CRS1 ---
Today's Communication / Plan
-
Recheck hemoglobin
Hold Lovenox and Toradol for now
Continue NG tube and and Protonix
Assessment/Plan
-
POD#4 LAR, POD#1 Exploratory laparotomy, abdominal washout, flexible sigmoidoscopy, partial omentectomy, creation of diverting loop ileostomy, TAP block
-Continue NGT, output 2350 mL in 24 hours
-Hemoglobin 9.2 from 12.5. Likely this is due to blood loss anemia from the operating room as well as delusional anemia. Will repeat now. Hold Lovenox and Toradol for now and will restart if improves.
-NG tube with some dark blood, will add Protonix IV
-Continue mc today for I's and O's
-Continue WAN drain, will remove prior to discharge
-OOB as tolerated. Physical therapy ordered.
-Wound RN for stoma teaching
-Remain NPO for now
-TEDS/SCDS for DVT prophylaxis.
-Continue IVFs at 100 mL/h.
-Continue Zosyn
-Pain control: Tylenol/Toradol, Dilaudid PRN.
Subjective Data
Procedure
07/14/2024 - robotic LAR with vaginal injury repair
07/16- Exploratory laparotomy, abdominal washout, flexible sigmoidoscopy, partial omentectomy, creation of diverting loop ileostomy, TAP block
Subjective Data
Date of Service: July 18, 2024
Patient states she has irritation from her NG tube. She denies nausea or vomiting. She has been a mild amount of pain. It is especially worse when she tries to get out of bed.
Objective Data
-
Vital Signs
Temp Pulse Resp BP Pulse Ox
98.0 F 94 18 114/74 96
07/18/24 07:57 07/18/24 07:57 07/18/24 07:57 07/18/24 07:57 07/18/24 07:57
Intake & Output
07/17/24 07/18/24 07/19/24
06:59 06:59 06:59
Intake Total 2080 / 2080 2360 / 2360
Output Total 1320 / 1320 3260 / 3260
Balance 760 / 760 -900 / -900
Intake:
Oral fluids 120 / 120 480 / 480
IV fluids (Total) 1750 / 1750 1500 / 1500
normosol 250 / 250
IV piggybacks 150 / 150 200 / 200
Amount instilled into GI Tube ( 60 / 60 180 / 180
Total)
[place] Sump 60 / 60 180 / 180
Output:
Liquid stool amount 150 / 150 390 / 390
Ileostomy 150 / 150 390 / 390
Drain Output (Total) 20 20
Left Lower Abdomen David- 20 20 20
Cabrera
Gastrointestinal tube output ( 800 / 800 2350 / 2350
Total)
[place] Sump 800 / 800 2350 / 2350
Urine, Mc 350 / 350 250 / 250
Urine, Voided 250 / 250
Lab Results
07/18/24 05:45
Physical Exam
-
General: No Acute Distress and AOx3
Abdomen: Soft, Non Distended, Tender (Around incisions) and Other (Ileostomy warm and pink with output. WAN output serous.)
Skin: Warm and Dry
[2024-07-18 11:46] LABS: Hematocrit 27.3 % (37.0-47.0); Hemoglobin 9.2 g/dL (12.0-16.0)
[2024-07-18 12:02] VITALS: BP 127/69
[2024-07-18] MEDS: NSS (PRESERVATIVE FREE) 10 ML IV (12:58)
[2024-07-18] MEDS: PROTONIX IV 40 MG IV (12:58)
--- NOTE | 2024-07-18 14:24 | CON.ID ---
Consultation
-
Date/Time Consultation Requested: 07/18/2024 1339
Date/Time Consultation Performed: 07/18/2024 1400
Requesting Provider: Dr. Patel
Performing Provider: Dr. Alexander
Reason for Consultation: Colonic anastomotic leak; peritonitis
Chief Complaint / Past History
History of Present Illness
Ike Chao is a 59-year-old female being evaluated at the request of Dr. Patel in regards to a colonic anastomotic leak and fecal peritonitis. History is obtained from chart review, along with patient.
Patient underwent a robotic sigmoidectomy for chronic diverticulitis on 07/14. During surgery she underwent significant lysis of adhesions, along with repair of the vaginal tear. In the postop period she did well, but on 07/17 she developed
worsening abdominal distention, tachycardia. A stat CT was performed and revealed evidence of a colorectal anastomotic leak and she was taken back to surgery for exploratory lap and abdominal washout. She also underwent creation of a diverting
loop ileostomy. Cultures intraoperatively of peritoneal fluid are now growing Lisandra, and Infectious Diseases is asked to comment upon further antimicrobial therapy.
At this point in time she reports ongoing abdominal discomfort, although controlled when she is not moving. She has not had any fevers. She does have a ileus, and a NG tube has been placed, which is causing some overall discomfort.
Past History
Additional Past Medical History:
Hypothyroidism
Additional Past Surgical History:
Remote laparoscopic surgery for endometriosis
Tonsillectomy
Abdominal WAN drain for abscess (03/12/2024)
Allergy History:
No Known Allergies Allergy (Verified 07/14/24 06:17)
Medications Reviewed: Yes
Current Antibiotics:
Zosyn 3.375 g IV every 6 hours (day #5)
Social History
Tobacco: Former Smoker
Alcohol: Occasional
Drug: None
Employment: Employed
Review of Systems
Vital Signs
Temp Pulse Resp BP Pulse Ox
98.3 F 89 18 127/69 93
07/18/24 12:02 10/05/24 12:02 07/18/24 12:02 07/18/24 12:02 07/18/24 12:02
Physical Exam
Physical Exam
Constitutional: No Acute Distress, Comfortable and Non-toxic
Head: Normocephalic
Eyes: Pupils Equal, Pupils Round, No Conjunctival Hemorrhage and Sclera Anicteric
Pharynx: Other (NG tube to drainage.)
Oral: No Thrush and No Ulcers
Cardiovascular: Regular Rate and S1/S2; Negative S3/S4
Pulmonary: Clear; Negative Wheezes, Rales or Rhonchi
Gastrointestinal: Soft, Tender, Decreased Bowel Sounds and Other (Ileostomy in place. WAN drain in place.)
Genito-Urinary: Stevenson and Hematuria
Extremities: Negative Edema, Cyanosis or Erythema
Neurological: Awake and Alert
Psychological: Calm
.
Lab / Diagnostic Study Results
07/18/24 11:30
07/18/24 05:45
Abs Immat Gran (auto) 0.1 10^3/uL (0-0.05) H 07/15/24 05:27
Absolute Neuts (auto) 10.1 10^3/uL (1.4-6.5) H 07/15/24 05:27
Absolute Lymphs (auto) 0.9 10^3/uL (1.2-3.4) L 07/15/24 05:27
Absolute Monos (auto) 1.0 10^3/uL (0.1-0.6) H 07/15/24 05:27
Absolute Basos (auto) 0.0 10^3/uL (0-0.2) 07/15/24 05:27
Total Counted 100 07/18/24 05:45
Immature Gran % 0.8 % (0-0.5) H 07/15/24 05:27
Neutrophils % 83.8 % (42.2-75.2) H 07/15/24 05:27
Lymphocytes % 7.1 % (20.5-51.1) L 07/15/24 05:27
Monocytes % 8.2 % (1.7-9.3) 07/15/24 05:27
Eosinophils % 0.0 % (0-6) 07/15/24 05:27
Basophils % 0.1 % (0-2) 07/15/24 05:27
Abs Neuts (Manual) 5.9 10^3/uL (1.4-6.5) 07/18/24 05:45
Segmented Neutrophils 71 % (42-75) 07/18/24 05:45
Band Neutrophils 10 % (0-3) H 07/18/24 05:45
Lymphocytes (Manual) 13 % (20-51) L 07/18/24 05:45
PT 13.2 Sec (11.4-14.6) 07/09/24 09:50
INR 1.00 07/09/24 09:50
C-Reactive Protein 258.10 mg/L (0.0-10.00) H 07/16/24 17:25
Microbiology Results
Micro:
07/16/24 22:20 Anaerobic Culture - Preliminary
Abdomen Culture pending. Anaerobic cultures are examined after 3
days incubation. Additional information to follow.
07/16/24 22:20 Wound Culture - Preliminary
Abdomen Lisandra albicans
Gram Stain - Preliminary
Imaging:
07/16/2024 CT abdomen/pelvis with contrast: Findings suspicious for distal colorectal leak of enteric contrast. New small to moderate volume predominantly simple appearing free fluid throughout the abdomen and pelvis. Few bubbles of air along the
anterior pelvis and in the superficial fatty soft tissue of the anterior abdomen likely sequela of recent robotic surgery. No additional significant interval changes noted. Please see full dictation for additional detail. Film personally viewed.
Assessment / Plan
S/p low anterior resection (07/14/2024)
Anastomotic leak
-S/p exp lap / washout / diverting loop ileostomy
Lisandra peritonitis
Diverticulitis
Recommendations:
Continue with Zosyn for the present.
Add micafungin for coverage of recovered Lisandra.
Monitor white count and temperature curve.
Follow pending cultures.
Further recommendations as additional data is returned.
[2024-07-18] MEDS: NSS 500 IV (14:39)
[2024-07-18 16:35] VITALS: BP 127/69
[2024-07-18] MEDS: MYCAMINE 105 MG IV (17:50)
[2024-07-18 19:48] VITALS: BP 129/78
[2024-07-18 21:56] LABS: Glucose - Point of Care 75 mg/dl (70-99)
[2024-07-18 23:31] VITALS: BP 128/69
[2024-07-18] MEDS: DILAUDID 0.5 MG IV (23:59)
[2024-07-19] MEDS: LR 1000 IV ×3 (00:02→17:07)
[2024-07-19] MEDS: TORADOL 15 MG IV (01:58)
[2024-07-19] MEDS: TYLENOL PO ×2 (02:19→08:49)
[2024-07-19 03:02] VITALS: BP 124/70
[2024-07-19] MEDS: DILAUDID 1 MG IV (05:12)
[2024-07-19] MEDS: SYNTHROID PO (05:38)
[2024-07-19 05:42] LABS: % Basophils 0.2 % (0-2); % Eosinophils 0.9 % (0-6); % Immature Granulocytes 0.8 % (0-0.5); % Lymphocytes 7.6 % (20.5-51.1); % Monocytes 6.6 % (1.7-9.3); % Neutrophils 83.9 % (42.2-75.2); Absolute Eosinophils 0.1 10^3/uL (0-0.7); Absolute Immature Granulocytes 0.1 10^3/uL (0-0.05); Absolute Lymphocytes 0.7 10^3/uL (1.2-3.4); Absolute Monocytes 0.6 10^3/uL (0.1-0.6); Absolute Neutrophils 7.6 10^3/uL (1.4-6.5); Hematocrit 24.7 % (37.0-47.0); Hemoglobin 8.5 g/dL (12.0-16.0); Mean Corp Hgb Conc. 34.4 g/dL (33.0-37.0); Mean Corpuscular Hgb 31.3 pg (27.0-31.0); Mean Corpuscular Volume 90.8 fL (81.0-99.0); Mean Platelet Volume 8.8 fL (7.4-10.4); Nucleated Red Blood Cells % 0.3 %; Platelet Count 230 10^3/uL (130-400); Red Blood Cell Count 2.72 10^6/uL (4.20-5.40); Red Cell Dist. Width 12.6 % (11.5-14.5); White Blood Cell Count 9.1 10^3/uL (4.8-10.8)
[2024-07-19 05:51] LABS: Blood Urea Nitrogen 25 mg/dl (7-17); Calcium 8.4 mg/dl (8.4-10.2); Carbon Dioxide 30 mmol/L (22-30); Chloride 98 mmol/L (98-107); Estimated Creatinine Clearance 71 ml/min; Glucose 72 mg/dl (70-99); Potassium 3.1 mmol/L (3.5-5.1); Sodium 140 mmol/L (135-145); eGFR > 60.00
[2024-07-19 06:00] VITALS: BMI 23.3
[2024-07-19 08:04] VITALS: BP 137/77
[2024-07-19] MEDS: ENTEREG PO (08:46)
[2024-07-19] MEDS: LYRICA PO (08:46)
[2024-07-19] MEDS: PROTONIX IV 40 MG IV (08:49)
[2024-07-19] MEDS: NSS (PRESERVATIVE FREE) 10 ML IV (08:49)
[2024-07-19] MEDS: TORADOL IV (09:45)
--- NOTE | 2024-07-19 11:17 | W.PN.ID1 ---
Date of Service
Date of Service: July 19, 2024
Today's Communication
Continue antibiotics.
Assessment / Plan
S/p low anterior resection (07/14/2024)
Anastomotic leak
-S/p exp lap / washout / diverting loop ileostomy
Lisandra peritonitis
Diverticulitis
Recommendations:
Continue with Zosyn (d#6) / micafungin (d#2).
Monitor white count and temperature curve.
Follow pending cultures.
Further recommendations as additional data is returned.
Chief Complaint
-: Other (Peritonitis; anastomotic leak)
Subjective / Review of Systems
Review of Systems: No Fever and No Chills
Vital Signs / Physical Exam
Vital Signs
Vital Signs
Temp Pulse Resp BP Pulse Ox
98.1 F 94 18 137/77 92
07/19/24 08:04 07/19/24 08:04 07/19/24 08:04 07/19/24 08:04 07/19/24 08:04
Physical Exam
Constitutional: No Acute Distress, Comfortable and Non-toxic
Head: Other (NG tube in place.)
Eyes: Sclera Anicteric
Cardiovascular: Regular Rate and S1/S2; Negative S3/S4
Pulmonary: Clear; Negative Wheezes or Rales
Gastrointestinal: Soft, Tender, Decreased Bowel Sounds and Other (Ostomy in place. Midline dressing in place.)
Genito-Urinary: Stevenson and Hematuria
Extremities: Edema; Negative Cyanosis or Erythema
Neurological: Awake and Alert
Psychological: Calm
Objective Data
Lab Data
Lab Results
07/19/24 05:03
PT 13.2 Sec (11.4-14.6) 07/09/24 09:50
INR 1.00 07/09/24 09:50
APTT 33.1 Sec (23.4-35.0) 07/09/24 09:50
Estimated Creat Clear 71 ml/min 07/19/24 05:03
Total Bilirubin 0.5 mg/dl (0.2-1.3) 07/09/24 09:50
AST 19 U/L (14-36) 07/09/24 09:50
ALT 15 U/L (0-35) 07/09/24 09:50
Alkaline Phosphatase 66 U/L (38-126) 07/09/24 09:50
C-Reactive Protein 258.10 mg/L (0.0-10.00) H 07/16/24 17:25
Most recent labs reviewed.
Micro Results:
07/16/24 22:20 Anaerobic Culture - Preliminary
Abdomen Culture pending. Anaerobic cultures are examined after 3
days incubation. Additional information to follow.
07/16/24 22:20 Wound Culture - Preliminary
Abdomen Lisandra albicans
Gram Stain - Preliminary
Imaging:
07/16/2024 CT abdomen/pelvis with contrast: Findings suspicious for distal colorectal leak of enteric contrast. New small to moderate volume predominantly simple appearing free fluid throughout the abdomen and pelvis. Few bubbles of air along the
anterior pelvis and in the superficial fatty soft tissue of the anterior abdomen likely sequela of recent robotic surgery. No additional significant interval changes noted. Please see full dictation for additional detail. Film personally viewed.
[2024-07-19 11:21] VITALS: BP 142/80
[2024-07-19] MEDS: OFIRMEV 100 IV ×3 (11:21→23:29)
[2024-07-19 11:23] LABS: Hematocrit 25.2 % (37.0-47.0); Hemoglobin 8.4 g/dL (12.0-16.0)
--- NOTE | 2024-07-19 11:24 | W.PN.CRS1 ---
Today's Communication / Plan
-
repeat hgb
antibiotics
Assessment/Plan
-
POD#4 LAR, POD#2 Exploratory laparotomy, abdominal washout, flexible sigmoidoscopy, partial omentectomy, creation of diverting loop ileostomy, TAP block
-Continue NGT, output 1260 mL in 24 hours. Will wait for output to decrease prior to clamp trial.
-Hemoglobin 8.5 from 9.2. Repeat Hgb now. Lovenox and Toradol for now and will restart if improves.
-NG tube with some dark blood, will add Protonix IV
-Continue mc today for I's and O's
-Continue WAN drain, will remove prior to discharge
-OOB as tolerated. Physical therapy ordered.
-Wound RN for stoma teaching
-Remain NPO for now
-TEDS/SCDS for DVT prophylaxis.
-Continue IVFs at 100 mL/h.
-Antibiotics per ID
-Pain control: Tylenol (changed to offirmiv), Dilaudid PRN.
Subjective Data
Procedure
07/14/2024 - robotic LAR with vaginal injury repair
07/16- Exploratory laparotomy, abdominal washout, flexible sigmoidoscopy, partial omentectomy, creation of diverting loop ileostomy, TAP block
Subjective Data
Date of Service: July 19, 2024
Patient states she is having flatus and some liquid output in her ileostomy. She has no nausea or vomiting. Her throat hurts from the NGT. Her left side feels tender.
Objective Data
-
Vital Signs
Temp Pulse Resp BP Pulse Ox
98.1 F 94 20 142/80 96
07/19/24 08:04 07/19/24 11:21 07/19/24 11:21 07/19/24 11:21 07/19/24 11:21
Intake & Output
07/18/24 07/19/24 07/20/24
06:59 06:59 06:59
Intake Total 2360 / 2360 2750 / 2750
Output Total 3260 / 3260 2213 / 2213
Balance -900 / -900 537 / 537
Intake:
Oral fluids 480 / 480
IV fluids (Total) 1500 / 1500 2400 / 2400
IV piggybacks 200 / 200 200 / 200
Amount instilled into GI Tube ( 180 / 180 150 / 150
Total)
Creek Sump 180 / 180 150 / 150
Output:
Liquid stool amount 390 / 390 550 / 550
Ileostomy 390 / 390 550 / 550
Drain Output (Total)
Left Lower Abdomen David-
Cabrera
Gastrointestinal tube output ( 2350 / 2350 1260 / 1260
Total)
Creek Sump 2350 / 2350 1260 / 1260
Urine, Mc 250 / 250 400 / 400
Urine, Voided 250 / 250
Lab Results
07/19/24 11:14
07/19/24 05:03
Physical Exam
-
General: No Acute Distress and AOx3
Abdomen: Soft, Non Distended, Tender (L side) and Other (ileostomy warm and pink with flatus and some liquid output)
Skin: Warm and Dry
[2024-07-19 15:44] VITALS: BP 139/80
[2024-07-19] MEDS: MYCAMINE 105 MG IV (16:18)
[2024-07-19 19:15] VITALS: BP 132/74
[2024-07-19] MEDS: DILAUDID 0.5 MG IV (22:07)
[2024-07-19 23:30] VITALS: BP 140/80
[2024-07-20] VITALS (7 sets, daily range): BP systolic 129–163; BP diastolic 22–84; PULSE 84; O2SAT 94; BMI 23.9
[2024-07-20] MEDS: LR 1000 IV ×2 (03:49→15:11)
[2024-07-20] MEDS: OFIRMEV 100 IV (04:26)
[2024-07-20 04:43] LABS: % Basophils 0.4 % (0-2); % Eosinophils 2.2 % (0-6); % Immature Granulocytes 1.4 % (0-0.5); Absolute Basophils 0.1 10^3/uL (0-0.2); Absolute Eosinophils 0.3 10^3/uL (0-0.7); Absolute Immature Granulocytes 0.2 10^3/uL (0-0.05); Absolute Lymphocytes 0.8 10^3/uL (1.2-3.4); Absolute Monocytes 0.8 10^3/uL (0.1-0.6); Absolute Neutrophils 9.7 10^3/uL (1.4-6.5); Hematocrit 25.8 % (37.0-47.0); Hemoglobin 8.8 g/dL (12.0-16.0); Mean Corp Hgb Conc. 34.1 g/dL (33.0-37.0); Mean Corpuscular Hgb 30.9 pg (27.0-31.0); Mean Corpuscular Volume 90.5 fL (81.0-99.0); Mean Platelet Volume 8.7 fL (7.4-10.4); Nucleated Red Blood Cells % 0 %; Platelet Count 245 10^3/uL (130-400); Red Blood Cell Count 2.85 10^6/uL (4.20-5.40); Red Cell Dist. Width 12.2 % (11.5-14.5); White Blood Cell Count 11.8 10^3/uL (4.8-10.8)
[2024-07-20 05:10] LABS: Blood Urea Nitrogen 18 mg/dl (7-17); Calcium 8.6 mg/dl (8.4-10.2); Carbon Dioxide 28 mmol/L (22-30); Chloride 100 mmol/L (98-107); Estimated Creatinine Clearance 82 ml/min; Glucose 71 mg/dl (70-99); Potassium 3.2 mmol/L (3.5-5.1); Sodium 140 mmol/L (135-145); eGFR > 60.00
[2024-07-20] MEDS: NSS (PRESERVATIVE FREE) 10 ML IV (08:04)
[2024-07-20] MEDS: PROTONIX IV 40 MG IV (08:04)
--- NOTE | 2024-07-20 09:37 | CM ---
Reviewed chart, patient still not quite functioning at baseline level. Therapy indicating, safe for home. Will continue to watch hopeful progress while patient admitted, Will determine if patient wants VN.
Plan: Case mangement will continue to follow and assist with discharge planning. Home vrs Home with VN services.
--- NOTE | 2024-07-20 10:30 | WOUNDNOTE ---
WON RN NOTE: Spoke with patient who states unable to be here today for Ostomy teaching, will be available tomorrow. Will call and set up a time to change appliance and teaching for tomorrow. Stoma pink, for liquid stool, no leakage.
Supplies at bedside.
[2024-07-20] MEDS: TORADOL 15 MG IV ×3 (10:45→22:32)
[2024-07-20] MEDS: ZOSYN 50 IV ×3 (10:45→21:23)
--- NOTE | 2024-07-20 11:15 | W.PN.CRS1 ---
Today's Communication / Plan
-
NG tube clamping trial
DC Stevenson
Restart Lovenox and Toradol
Assessment/Plan
-
POD# 5 LAR, POD# 3 exploratory laparotomy, abdominal washout, flexible sigmoidoscopy, partial omentectomy, creation of diverting loop ileostomy, TAP block
-Continue NGT, output 1660 mL. Patient has ingested several cups of water which likely accounts for high output. NG tube clamped at bedside and will possibly remove at 1 PM
-Hemoglobin 8.8. Restart Lovenox and Toradol
-Discontinue Stevenson
-Continue WAN drain, will remove prior to discharge
-OOB as tolerated. Physical therapy ordered.
-Wound RN for stoma teaching. May change midline incision.
-Remain NPO for now. If NG tube is removed, remain n.p.o. with chips and sips.
-TEDS/SCDS for DVT prophylaxis.
-Continue IVFs at 100 mL/h.
-Antibiotics per ID
-Pain control: Tylenol (changed to offirmiv), Dilaudid PRN.
Subjective Data
Procedure
07/14/2024 - robotic LAR with vaginal injury repair
07/16- Exploratory laparotomy, abdominal washout, flexible sigmoidoscopy, partial omentectomy, creation of diverting loop ileostomy, TAP block
Subjective Data
Date of Service: July 20, 2024
Patient states the NG tube is bothering her. Her pain is controlled. She otherwise has no complaints.
Objective Data
-
Vital Signs
Temp Pulse Resp BP Pulse Ox
97.8 F 83 18 129/79 98
07/20/24 07:32 07/20/24 07:32 07/20/24 07:32 07/20/24 07:32 07/20/24 07:32
Intake & Output
07/19/24 07/20/24 07/21/24
06:59 06:59 06:59
Intake Total 2750 / 2750 2910 / 2910
Output Total 2213 / 2213 3377 / 3377
Balance 537 / 537 -467 / -467
Intake:
Oral fluids 320 / 320
IV fluids (Total) 2400 / 2400 2300 / 2300
IV piggybacks 200 / 200 200 / 200
Amount instilled into GI Tube ( 150 / 150 90 / 90
Total)
Gage Sump 150 / 150 90 / 90
Output:
Liquid stool amount 550 / 550 550 / 550
Ileostomy 550 / 550 550 / 550
Drain Output (Total)
Left Lower Abdomen David-
Cabrera
Gastrointestinal tube output ( 1260 / 1260 1660 / 1660
Total)
Gage Sump 1260 / 1260 1660 / 1660
Urine, Stevenson 400 / 400 1160 / 1160
Lab Results
07/20/24 04:24
07/20/24 04:24
Physical Exam
-
General: No Acute Distress and AOx3
Abdomen: Soft, Non Distended, Tender (Over incision sites) and Other (Ileostomy warm and pink, liquid stool in bag)
Skin: Warm and Dry
--- NOTE | 2024-07-20 13:22 | PTCARENOTE ---
NGT residual <250. NGT discontinued. Care ongoing.
--- NOTE | 2024-07-20 14:19 | W.PN.ID1 ---
Date of Service
Date of Service: July 20, 2024
Today's Communication
Continue abx.
Assessment / Plan
S/p low anterior resection (07/14/2024)
Anastomotic leak
-S/p exp lap / washout / diverting loop ileostomy
Lisandra peritonitis
Diverticulitis
Recommendations:
Continue with Zosyn (d#7) / micafungin (d#3).
Monitor white count and temperature curve.
Follow pending cultures.
Further recommendations as additional data is returned.

Chief Complaint
-: Other (Peritonitis; anastomotic leak)
Subjective / Review of Systems
Review of Systems: No Fever and No Chills
Vital Signs / Physical Exam
Vital Signs
Vital Signs
Temp Pulse Resp BP Pulse Ox
97.7 F 82 18 139/79 98
07/20/24 11:38 07/20/24 11:38 07/20/24 11:38 07/20/24 11:38 07/20/24 11:38
Physical Exam
Constitutional: No Acute Distress, Comfortable and Non-toxic
Head: Normocephalic
Eyes: Sclera Anicteric
Cardiovascular: Regular Rate and S1/S2; Negative S3/S4
Pulmonary: Clear; Negative Wheezes or Rales
Gastrointestinal: Soft, Tender, Decreased Bowel Sounds, No Rebound, No Guarding and Other (ostomy in place)
Neurological: Awake and Alert
Psychological: Calm
Objective Data
Lab Data
Lab Results
07/20/24 04:24
07/20/24 04:24
PT 13.2 Sec (11.4-14.6) 07/09/24 09:50
INR 1.00 07/09/24 09:50
APTT 33.1 Sec (23.4-35.0) 07/09/24 09:50
Estimated Creat Clear 82 ml/min 07/20/24 04:24
Total Bilirubin 0.5 mg/dl (0.2-1.3) 07/09/24 09:50
AST 19 U/L (14-36) 07/09/24 09:50
ALT 15 U/L (0-35) 07/09/24 09:50
Alkaline Phosphatase 66 U/L (38-126) 07/09/24 09:50
C-Reactive Protein 258.10 mg/L (0.0-10.00) H 07/16/24 17:25
Most recent labs reviewed.
Micro Results:
07/16/24 22:20 Wound Culture - Preliminary
Abdomen Lisandra albicans
Gram Stain - Preliminary
07/16/24 22:20 Anaerobic Culture - Preliminary
Abdomen NO ANAEROBES ISOLATED
Imaging:
07/16/2024 CT abdomen/pelvis with contrast: Findings suspicious for distal colorectal leak of enteric contrast. New small to moderate volume predominantly simple appearing free fluid throughout the abdomen and pelvis. Few bubbles of air along the
anterior pelvis and in the superficial fatty soft tissue of the anterior abdomen likely sequela of recent robotic surgery. No additional significant interval changes noted. Please see full dictation for additional detail. Film personally viewed.
[2024-07-20] MEDS: MYCAMINE 105 MG IV (15:16)
[2024-07-20] MEDS: LOVENOX 40 MG SC (17:08)
[2024-07-21] VITALS (7 sets, daily range): BP systolic 132–152; BP diastolic 76–93; BMI 24.3
[2024-07-21] MEDS: DILAUDID 0.5 MG IV (00:22)
[2024-07-21] MEDS: ZOSYN 50 IV ×4 (03:33→22:24)
[2024-07-21] MEDS: LR 1000 IV ×2 (03:33→15:17)
[2024-07-21] MEDS: TORADOL 15 MG IV ×4 (04:23→22:30)
[2024-07-21] MEDS: NSS (PRESERVATIVE FREE) 10 ML IV (09:00)
[2024-07-21] MEDS: PROTONIX IV 40 MG IV (09:00)
[2024-07-21 10:28] LABS: % Basophils 0.5 % (0-2); % Immature Granulocytes 2.6 % (0-0.5); % Lymphocytes 10.3 % (20.5-51.1); % Monocytes 8.4 % (1.7-9.3); % Neutrophils 75.2 % (42.2-75.2); Absolute Basophils 0.1 10^3/uL (0-0.2); Absolute Eosinophils 0.3 10^3/uL (0-0.7); Absolute Immature Granulocytes 0.3 10^3/uL (0-0.05); Absolute Monocytes 0.9 10^3/uL (0.1-0.6); Absolute Neutrophils 7.6 10^3/uL (1.4-6.5); Hematocrit 26.8 % (37.0-47.0); Hemoglobin 9.3 g/dL (12.0-16.0); Mean Corp Hgb Conc. 34.7 g/dL (33.0-37.0); Mean Corpuscular Volume 89.3 fL (81.0-99.0); Mean Platelet Volume 8.6 fL (7.4-10.4); Nucleated Red Blood Cells % 0 %; Platelet Count 306 10^3/uL (130-400); Red Cell Dist. Width 12.2 % (11.5-14.5); White Blood Cell Count 10.1 10^3/uL (4.8-10.8)
--- NOTE | 2024-07-21 10:59 | W.PN.CRS1 ---
Documented by User: Pat Feldman PA-C 07/21/24 11:02
Today's Communication / Plan
-
clears
Assessment/Plan
-
POD# 6 LAR, POD# 4 exploratory laparotomy, abdominal washout, flexible sigmoidoscopy, partial omentectomy, creation of diverting loop ileostomy, TAP block
-Advance diet to clears with Ensure
-Hemoglobin 9.3 from 8.8.
-Continue WAN drain, will remove prior to discharge
-OOB as tolerated. Physical therapy ordered.
-Wound RN for stoma teaching. May change midline incision.
-TEDS/SCDS for DVT prophylaxis.
-Continue IVFs at 100 mL/h.
-Antibiotics per ID
-Pain control: Tylenol (changed to offirmiv), Dilaudid PRN.
Subjective Data
Procedure
07/14/2024 - robotic LAR with vaginal injury repair
07/16- Exploratory laparotomy, abdominal washout, flexible sigmoidoscopy, partial omentectomy, creation of diverting loop ileostomy, TAP block
Subjective Data
Date of Service: July 21, 2024
Patient states she has no nausea or vomiting since NGT removal. SHe is urinating. Her pain is controlled. Her stoma has output.
Objective Data
-
Vital Signs
Temp Pulse Resp BP Pulse Ox
97.7 F 79 18 144/76 98
07/21/24 07:40 07/21/24 07:40 07/21/24 07:40 07/21/24 07:40 07/21/24 10:55
Intake & Output
07/20/24 07/21/24 07/22/24
06:59 06:59 06:59
Intake Total 2910 / 2910 3245 / 3245 1200 / 1200
Output Total 3377 / 3377 1521 / 1521 400 / 400
Balance -467 / -467 1724 / 1724 800 / 800
Intake:
Oral fluids 320 / 320 840 / 840
IV fluids (Total) 2300 / 2300 2100 / 2100 1100 / 1100
IV piggybacks 200 / 200 305 / 305 100 / 100
Amount instilled into GI Tube (
Total)
[place] Sump /
Output:
Liquid stool amount 550 / 550 920 / 920 400 / 400
Ileostomy 550 / 550 920 / 920 400 / 400
Drain Output (Total)
Left Lower Abdomen David-
Cabrera
Gastrointestinal tube output ( 1659
Total)
[place] Sump 1659 / 1659
Urine, Stevenson 1160 / 1160 200 / 200
Urine, Voided 400 / 400
Other:
Number of approximated MODERATE 1
amounts of urine
Lab Results
07/21/24 09:56
Physical Exam
-
General: No Acute Distress and AOx3
Abdomen: Soft, Non Distended, Non Tender and Other (stoma warm and pink with output, WAN drain serous)
Skin: Warm and Dry

Documented by User: Leon Monique MD 07/21/24 14:23
Assessment/Plan
-
POD# 6 LAR, POD# 4 exploratory laparotomy, abdominal washout, flexible sigmoidoscopy, partial omentectomy, creation of diverting loop ileostomy, TAP block
-Advance diet to clears with Ensure
-Hemoglobin 9.3 from 8.8; anemia likely due to acute blood loss during surgery and dilutional
-Continue WAN drain, will remove prior to discharge
-OOB as tolerated. Physical therapy ordered.
-Wound RN for stoma teaching. May change midline incision.
-TEDS/SCDS for DVT prophylaxis.
-Continue IVFs at 100 mL/h.
-Antibiotics per ID
-Pain control: Tylenol (changed to offirmiv), Dilaudid PRN.
[2024-07-21 11:22] LABS: Blood Urea Nitrogen 12 mg/dl (7-17); Calcium 8.6 mg/dl (8.4-10.2); Carbon Dioxide 30 mmol/L (22-30); Chloride 96 mmol/L (98-107); Estimated Creatinine Clearance 82 ml/min; Glucose 91 mg/dl (70-99); Potassium 3.3 mmol/L (3.5-5.1); Sodium 136 mmol/L (135-145); eGFR > 60.00
--- NOTE | 2024-07-21 11:36 | CM ---
Reviewed the chart notes and spoke with the patient at the bedside. Patient's now on clear liquid diet. Discuss PT recommendations of SNF. Patient is does not want to go to a SNF. Will continue to follow for discharge planning purposes.
Plan: Discharge plans will depend on the patient's progress. Hopefully home with VN services vs SNF.
--- NOTE | 2024-07-21 11:42 | PN.CDI ---
CDI
- -
CDI:
Physician Documentation Request
Admit Date: 07/14/24 06:05
Dear Doctor Kayden,
Please review the following and provide your response in the progress notes.
Clinical Indicators:
07/14 Procedure Performed: Preoperative cystoscopy with bilateral ureteral stents and ICG, robotic low anterior resection, lysis of adhesions greater than 1.5 hours, mesenteric angiography, flexible sigmoidoscopy, small bowel resection, repair of
vaginal canal by Dr. Iniguez, omental flap to buttress the colorectal anastomosis, removal of right transgluteal drain
#Estimated Blood Loss: 100mL
07/17 Procedure Performed: Exploratory laparotomy, abdominal washout, flexible sigmoidoscopy, partial omentectomy, creation of diverting loop ileostomy, TAP block
#Estimated Blood Loss: 75 mL
PN, 07/21
#POD# 6 LAR, POD# 4 exploratory laparotomy, abdominal washout, flexible sigmoidoscopy, partial omentectomy, creation of diverting loop ileostomy, TAP block
#-Hemoglobin 9.3 from 8.8.
Laboratory Tests
07/09/24 07/15/24 07/16/24
09:50 05:27 17:25
Hgb 12.9 12.6 12.8
07/17/24 07/18/24 07/18/24
05:32 05:45 11:30
Hgb 12.5 9.2 L D 9.2 L
07/19/24 07/19/24 07/20/24
05:03 11:14 04:24
Hgb 8.5 L 8.4 L 8.8 L
07/21/24
09:56
Hgb 9.3 L
Based on the above and your clinical assessment, please clarify the most condition/diagnosis evaluated, monitored and/or treated?
Acute blood loss anemia
Acute blood loss anemia with baseline chronic anemia (Specify type)
Anemia of chronic disease - indicate if neoplastic disease, CKD or other
Other (please clarify)
Use of terms such as suspected, likely, concern for, or probable (associated with a specific diagnosis that is being evaluated, monitored, or treated as if it exists) are acceptable and can be coded in the inpatient setting, when documented at the
time of discharge.
Thank you,
Jeannine Gutierrez RN BSN CCDS
CDI Specialist
please contact via tiger text
Please use your independent medical judgment in providing your response.
[2024-07-21] MEDS: KCL 160 MEQ IV (12:15)
--- NOTE | 2024-07-21 14:19 | PN.CDI ---
CDI
- -
CDI:
Physician Documentation Request
Admit Date: 07/14/24 06:05
Dear Doctor Alok,
Please review the following and provide your response in the progress notes.
Clinical Indicators:
07/14 Procedure Performed: Preoperative cystoscopy with bilateral ureteral stents and ICG, robotic low anterior resection, lysis of adhesions greater than 1.5 hours, mesenteric angiography, flexible sigmoidoscopy, small bowel resection, repair of
vaginal canal by Dr. Iniguez, omental flap to buttress the colorectal anastomosis, removal of right transgluteal drain
#Estimated Blood Loss: 100mL
07/17 Procedure Performed: Exploratory laparotomy, abdominal washout, flexible sigmoidoscopy, partial omentectomy, creation of diverting loop ileostomy, TAP block
#Estimated Blood Loss: 75 mL
PN, 07/21
#POD# 6 LAR, POD# 4 exploratory laparotomy, abdominal washout, flexible sigmoidoscopy, partial omentectomy, creation of diverting loop ileostomy, TAP block
#-Hemoglobin 9.3 from 8.8.
Laboratory Tests
07/09/24 07/15/24 07/16/24
09:50 05:27 17:25
Hgb 12.9 12.6 12.8
07/17/24 07/18/24 07/18/24
05:32 05:45 11:30
Hgb 12.5 9.2 L D 9.2 L
07/19/24 07/19/24 07/20/24
05:03 11:14 04:24
Hgb 8.5 L 8.4 L 8.8 L
07/21/24
09:56
Hgb 9.3 L
Based on the above and your clinical assessment, please clarify the most condition/diagnosis evaluated, monitored and/or treated?
Acute blood loss anemia
Acute blood loss anemia with baseline chronic anemia (Specify type)
Anemia of chronic disease - indicate if neoplastic disease, CKD or other
Other (please clarify)
Use of terms such as suspected, likely, concern for, or probable (associated with a specific diagnosis that is being evaluated, monitored, or treated as if it exists) are acceptable and can be coded in the inpatient setting, when documented at the
time of discharge.
Thank you,
Jeannine Gutierrez RN BSN CCDS
CDI Specialist
please contact via tiger text
Please use your independent medical judgment in providing your response.
--- NOTE | 2024-07-21 14:22 | W.PN.ID1 ---
Date of Service
Date of Service: July 21, 2024
Today's Communication
Continue antibiotics.
Assessment / Plan
S/p low anterior resection (07/14/2024)
Anastomotic leak
-S/p exp lap / washout / diverting loop ileostomy
Lisandra peritonitis
Diverticulitis
Recommendations:
Continue with Zosyn (d#8) / micafungin (d#4).
Monitor white count and temperature curve.

Chief Complaint
-: Other (Peritonitis; anastomotic leak)
Subjective / Review of Systems
Patient seen and examined. NG tube removed yesterday. Patient now tolerating clear liquids. No nausea or vomiting.
Vital Signs / Physical Exam
Vital Signs
Vital Signs
Temp Pulse Resp BP Pulse Ox
97.6 F 90 18 137/81 99
07/21/24 11:15 07/21/24 11:15 07/21/24 11:15 07/21/24 11:15 07/21/24 11:15
Physical Exam
Constitutional: No Acute Distress, Comfortable and Non-toxic
Head: Normocephalic
Eyes: Sclera Anicteric
Cardiovascular: S1/S2; Negative S3/S4
Pulmonary: Clear; Negative Wheezes
Gastrointestinal: Soft, Decreased Bowel Sounds and Other (ostomy in place)
Genito-Urinary: Stevenson and Clear Urine
Extremities: Edema; Negative Cyanosis or Erythema
Neurological: Awake and Alert
Psychological: Calm
Objective Data
Lab Data
Lab Results
07/21/24 09:56
07/21/24 09:56
PT 13.2 Sec (11.4-14.6) 07/09/24 09:50
INR 1.00 07/09/24 09:50
APTT 33.1 Sec (23.4-35.0) 07/09/24 09:50
Estimated Creat Clear 82 ml/min 07/21/24 09:56
Total Bilirubin 0.5 mg/dl (0.2-1.3) 07/09/24 09:50
AST 19 U/L (14-36) 07/09/24 09:50
ALT 15 U/L (0-35) 07/09/24 09:50
Alkaline Phosphatase 66 U/L (38-126) 07/09/24 09:50
C-Reactive Protein 258.10 mg/L (0.0-10.00) H 07/16/24 17:25
Most recent labs reviewed.
Micro Results:
07/16/24 22:20 Wound Culture - Preliminary
Abdomen Lisandra albicans
Gram Stain - Preliminary
07/16/24 22:20 Anaerobic Culture - Preliminary
Abdomen NO ANAEROBES ISOLATED
Imaging:
07/16/2024 CT abdomen/pelvis with contrast: Findings suspicious for distal colorectal leak of enteric contrast. New small to moderate volume predominantly simple appearing free fluid throughout the abdomen and pelvis. Few bubbles of air along the
anterior pelvis and in the superficial fatty soft tissue of the anterior abdomen likely sequela of recent robotic surgery. No additional significant interval changes noted. Please see full dictation for additional detail. Film personally viewed.
--- NOTE | 2024-07-21 15:09 | WOUNDNOTE ---
DIANA RN note: Patient s/p ostomy surgery robotic sigmoidectomy.
See H&P for complete history. Lives with [facility].
PMH: colon abscess with WAN drain, vaginal injury, diverticulitis, endometriosis, skin cancer and hypothyroid.
Ostomy location and type: RUQ Ileostomy. Stoma pink and budded, red rubber catheter intact.
Instructed patient ostomy pouch emptying and changing appliance using Van wafer # [id number]
[place] pouch # [id number]. at bedside and participated with care. Answered all questions and permission given to enroll in secure start program. Reviewed program and education folder at bedside.
Ostomy supplies ordered from [facility] and at bedside.
Note to case management: [facility]N services recommended for ostomy teaching.
Nursing care plan updated, will follow as needed.
[2024-07-21] MEDS: MYCAMINE 105 MG IV (15:22)
[2024-07-21] MEDS: LR IV (16:40)
[2024-07-21] MEDS: LOVENOX 40 MG SC (17:31)
[2024-07-22] VITALS (7 sets, daily range): BP systolic 108–149; BP diastolic 64–85; BMI 24.1
[2024-07-22] MEDS: ZOSYN 50 IV ×4 (03:37→22:08)
[2024-07-22] MEDS: LR 1000 IV (03:37)
[2024-07-22] MEDS: TORADOL 15 MG IV ×2 (05:28→10:05)
[2024-07-22] MEDS: SYNTHROID 50 MCG PO (05:29)
[2024-07-22] MEDS: LYRICA 75 MG PO (07:58)
[2024-07-22] MEDS: PROTONIX IV 40 MG IV (07:58)
[2024-07-22] MEDS: NSS (PRESERVATIVE FREE) 10 ML IV (07:58)
[2024-07-22 08:08] LABS: % Basophils 0.4 % (0-2); % Eosinophils 3.5 % (0-6); % Immature Granulocytes 2.4 % (0-0.5); % Lymphocytes 10.7 % (20.5-51.1); % Monocytes 7.9 % (1.7-9.3); % Neutrophils 75.1 % (42.2-75.2); Absolute Eosinophils 0.4 10^3/uL (0-0.7); Absolute Immature Granulocytes 0.3 10^3/uL (0-0.05); Absolute Lymphocytes 1.1 10^3/uL (1.2-3.4); Absolute Monocytes 0.8 10^3/uL (0.1-0.6); Absolute Neutrophils 7.8 10^3/uL (1.4-6.5); Hematocrit 25.1 % (37.0-47.0); Hemoglobin 8.6 g/dL (12.0-16.0); Mean Corp Hgb Conc. 34.3 g/dL (33.0-37.0); Mean Corpuscular Hgb 30.5 pg (27.0-31.0); Mean Platelet Volume 8.7 fL (7.4-10.4); Nucleated Red Blood Cells % 0 %; Platelet Count 329 10^3/uL (130-400); Red Blood Cell Count 2.82 10^6/uL (4.20-5.40); Red Cell Dist. Width 12.1 % (11.5-14.5); White Blood Cell Count 10.4 10^3/uL (4.8-10.8)
[2024-07-22 09:21] LABS: Blood Urea Nitrogen 7 mg/dl (7-17); Calcium 8.2 mg/dl (8.4-10.2); Carbon Dioxide 26 mmol/L (22-30); Chloride 100 mmol/L (98-107); Estimated Creatinine Clearance 82 ml/min; Glucose 81 mg/dl (70-99); Potassium 3.7 mmol/L (3.5-5.1); Sodium 137 mmol/L (135-145); eGFR > 60.00
--- NOTE | 2024-07-22 09:46 | W.PN.CRS1 ---
Today's Communication / Plan
-
regular diet
Assessment/Plan
-
POD# 7 LAR, POD# 5 exploratory laparotomy, abdominal washout, flexible sigmoidoscopy, partial omentectomy, creation of diverting loop ileostomy, TAP block
-Advance diet to regular
-Hemoglobin 8.6 from 9.3; anemia likely due to acute blood loss during surgery and dilutional
-Continue ALONZO drain, will remove prior to discharge
-OOB as tolerated. Physical therapy ordered.
-Wound RN for stoma teaching. May change midline incision.
-TEDS/SCDS for DVT prophylaxis. Lovenox held due to anemia.
-Continue IVFs at 100 mL/h.
-Antibiotics per ID
-Pain control: Tylenol (changed to offirmiv), Dilaudid PRN.
-D/C IVFs when tolerating diet.
-Monitor stool output - 1500ml today.
Subjective Data
Procedure
07/14/2024 - robotic LAR with vaginal injury repair
07/16- Exploratory laparotomy, abdominal washout, flexible sigmoidoscopy, partial omentectomy, creation of diverting loop ileostomy, TAP block
Subjective Data
Date of Service: July 22, 2024
Patient states she feels a lot better. She denies nausea or vomiting. Her pain is controlled.
Objective Data
-
Vital Signs
Temp Pulse Resp BP Pulse Ox
98.1 F 88 18 134/82 95
07/22/24 07:41 07/22/24 07:41 07/22/24 07:41 07/22/24 07:41 07/22/24 07:41
Intake & Output
07/21/24 07/22/24 07/23/24
06:59 06:59 06:59
Intake Total 3245 / 3245 3545 / 3545
Output Total 1521 / 1521 1905 / 1905
Balance 1724 / 1724 1640 / 1640
Intake:
Oral fluids 840 / 840 1080 / 1080
IV fluids (Total) 2099 / 2099 1999 / 1999
IV piggybacks 305 / 305 465 / 465
Output:
Liquid stool amount 920 / 920 1500 / 1500
Ileostomy 920 / 920 1500 / 1500
Drain Output (Total)
Left Lower Abdomen David-
Cabrera
Urine, Stevenson 200 / 200
Urine, Voided 400 / 400 400 / 400
Other:
Number of approximated MODERATE 1 1
amounts of urine
Number of approximated LARGE 1
amounts of urine
Lab Results
07/22/24 05:59
07/22/24 05:59
Physical Exam
-
General: No Acute Distress and AOx3
Abdomen: Soft, Non Distended, Tender (mild midline incision) and Other (colostomy warm and pink with function, alonzo serous)
Incision: Clear, Dry, Intact (some samanta removed)
--- NOTE | 2024-07-22 10:30 | CM ---
Reviewed the chart notes. Patient's diet advanced to regular. WAN drain to be removed at discharge. CM continues to be available to patient/family and is monitoring medical plan for needs at discharge.
Plan: Discharge plans will depend on the patient's progress. PT saw yesterday and recommended SNF, but patient wants to go home with VN.
[2024-07-22] MEDS: LR IV (12:31)
--- NOTE | 2024-07-22 15:07 | W.PN.ID1 ---
Date of Service
Date of Service: July 22, 2024
Today's Communication
Continue antibiotics.
Assessment / Plan
S/p low anterior resection (07/14/2024)
Anastomotic leak
-S/p exp lap / washout / diverting loop ileostomy
Lisandra peritonitis
Diverticulitis
Recommendations:
Continue with Zosyn (d#9) / micafungin (d#5).
Plan to transition micafungin to fluconazole at time of discharge.
Monitor white count and temperature curve.

Chief Complaint
-: Other (Peritonitis; anastomotic leak)
Subjective / Review of Systems
Patient seen and examined. Reports feeling improved today. Less pain, and now out to the chair.
Review of Systems: No Fever and No Chills
Vital Signs / Physical Exam
Vital Signs
Vital Signs
Temp Pulse Resp BP Pulse Ox
97.9 F 94 18 141/70 98
07/22/24 11:07 07/22/24 11:07 07/22/24 11:07 07/22/24 11:07 07/22/24 11:07
Physical Exam
Constitutional: No Acute Distress, Comfortable and Non-toxic
Head: Normocephalic
Eyes: Sclera Anicteric
Cardiovascular: S1/S2; Negative S3/S4
Pulmonary: Clear; Negative Wheezes
Gastrointestinal: Soft, Decreased Bowel Sounds and Other (ostomy in place)
Genito-Urinary: Stevenson and Clear Urine
Extremities: Edema; Negative Cyanosis or Erythema
Neurological: Awake and Alert
Psychological: Calm
Objective Data
Lab Data
Lab Results
07/22/24 05:59
07/22/24 05:59
PT 13.2 Sec (11.4-14.6) 07/09/24 09:50
INR 1.00 07/09/24 09:50
APTT 33.1 Sec (23.4-35.0) 07/09/24 09:50
Estimated Creat Clear 82 ml/min 07/22/24 05:59
Total Bilirubin 0.5 mg/dl (0.2-1.3) 07/09/24 09:50
AST 19 U/L (14-36) 07/09/24 09:50
ALT 15 U/L (0-35) 07/09/24 09:50
Alkaline Phosphatase 66 U/L (38-126) 07/09/24 09:50
C-Reactive Protein 258.10 mg/L (0.0-10.00) H 07/16/24 17:25
Most recent labs reviewed.
Micro Results:
07/16/24 22:20 Wound Culture - Final
Abdomen Lisandra albicans
Gram Stain - Final
07/16/24 22:20 Anaerobic Culture - Final
Abdomen NO ANAEROBES ISOLATED
Imaging:
07/16/2024 CT abdomen/pelvis with contrast: Findings suspicious for distal colorectal leak of enteric contrast. New small to moderate volume predominantly simple appearing free fluid throughout the abdomen and pelvis. Few bubbles of air along the
anterior pelvis and in the superficial fatty soft tissue of the anterior abdomen likely sequela of recent robotic surgery. No additional significant interval changes noted. Please see full dictation for additional detail. Film personally viewed.
--- NOTE | 2024-07-22 15:46 | PTCARENOTE ---
Pt requiring repeated encouragement to get OOB and ambulate. Pt agreeable to sitting in the chair but states ' ill walk tomorrow for sure'. Pt educated on importance of ambulation post sx. verbalized understanding. Care remains ongoing.
[2024-07-22] MEDS: MYCAMINE 105 MG IV (16:32)
[2024-07-22] MEDS: LOVENOX 40 MG SC (17:09)
[2024-07-22] MEDS: TYLENOL 1000 MG PO (20:56)
[2024-07-23] MEDS: TYLENOL 1000 MG PO ×4 (02:06→20:31)
[2024-07-23 03:27] VITALS: BP 102/67
[2024-07-23] MEDS: ZOSYN 50 IV ×4 (04:26→21:12)
[2024-07-23] MEDS: SYNTHROID 50 MCG PO (05:10)
[2024-07-23 05:13] VITALS: BMI 23.1
[2024-07-23 06:21] LABS: % Basophils 0.6 % (0-2); % Eosinophils 2.7 % (0-6); % Immature Granulocytes 2.2 % (0-0.5); % Lymphocytes 10.7 % (20.5-51.1); % Monocytes 6.3 % (1.7-9.3); % Neutrophils 77.5 % (42.2-75.2); Absolute Basophils 0.1 10^3/uL (0-0.2); Absolute Eosinophils 0.3 10^3/uL (0-0.7); Absolute Immature Granulocytes 0.3 10^3/uL (0-0.05); Absolute Lymphocytes 1.3 10^3/uL (1.2-3.4); Absolute Monocytes 0.8 10^3/uL (0.1-0.6); Absolute Neutrophils 9.3 10^3/uL (1.4-6.5); Hematocrit 28.2 % (37.0-47.0); Hemoglobin 9.3 g/dL (12.0-16.0); Mean Corpuscular Volume 87.9 fL (81.0-99.0); Mean Platelet Volume 8.5 fL (7.4-10.4); Nucleated Red Blood Cells % 0 %; Platelet Count 419 10^3/uL (130-400); Red Blood Cell Count 3.21 10^6/uL (4.20-5.40); Red Cell Dist. Width 12.2 % (11.5-14.5)
[2024-07-23 06:36] LABS: Blood Urea Nitrogen 6 mg/dl (7-17); Calcium 8.9 mg/dl (8.4-10.2); Carbon Dioxide 28 mmol/L (22-30); Chloride 101 mmol/L (98-107); Estimated Creatinine Clearance 82 ml/min; Glucose 98 mg/dl (70-99); Potassium 4.1 mmol/L (3.5-5.1); Sodium 140 mmol/L (135-145); eGFR > 60.00
[2024-07-23 07:56] VITALS: BP 118/76
[2024-07-23] MEDS: METAMUCIL, KONSYL 1 PACKET PO ×2 (08:54→20:31)
[2024-07-23] MEDS: LYRICA 75 MG PO (08:56)
[2024-07-23] MEDS: NSS (PRESERVATIVE FREE) 10 ML IV (08:56)
[2024-07-23] MEDS: PROTONIX IV 40 MG IV (08:57)
[2024-07-23] MEDS: LR 1000 IV ×2 (09:55→17:51)
--- NOTE | 2024-07-23 11:02 | W.PN.CRS1 ---
Today's Communication / Plan
-
fiber
one liter bolus - monitor ileostomy output
ontinue regular
Assessment/Plan
-
POD# 8 LAR, POD# 6 exploratory laparotomy, abdominal washout, flexible sigmoidoscopy, partial omentectomy, creation of diverting loop ileostomy, TAP block
-Continue regular diet. Add fiber.
-Hemoglobin 9/3 from 8.6; anemia likely due to acute blood loss during surgery and dilutional. Repeat at noon.
-Continue WAN drain, will remove prior to discharge
-OOB as tolerated. Physical therapy ordered.
-Wound RN for stoma teaching. May change midline incision.
-TEDS/SCDS for DVT prophylaxis. Lovenox held due to anemia.
-Antibiotics per ID
-Pain control: Tylenol (changed to offirmiv), Dilaudid PRN.
-D/C IVFs when tolerating diet.
-Monitor stool output - 2100ml. Fiber added. 1 liter bolus due to high output.
Subjective Data
Procedure
07/14/2024 - robotic LAR with vaginal injury repair
07/16- Exploratory laparotomy, abdominal washout, flexible sigmoidoscopy, partial omentectomy, creation of diverting loop ileostomy, TAP block
Subjective Data
Date of Service: July 23, 2024
Patient states she has no nausea or vomiting. Pain is controlled. She did have a stomach ache earlier this morning. She is having a bowel movement from her rectum x 1.
Objective Data
-
Vital Signs
Temp Pulse Resp BP Pulse Ox
97.9 F 80 18 118/76 98
07/23/24 07:56 07/23/24 07:56 07/23/24 07:56 07/23/24 07:56 07/23/24 07:56
Intake & Output
07/22/24 07/23/24 07/24/24
06:59 06:59 06:59
Intake Total 4805 / 3545 2144 / 2144
Output Total 1904 / 1904
Balance 1640 / 1640 45 / 45
Intake:
Oral fluids 1080 / 1080 1440 / 1440
IV fluids (Total) 1999 / 1999 400 / 400
IV piggybacks 465 / 465 305 / 305
Output:
Liquid stool amount 1500 / 1500 2099
Ileostomy 1500 / 1500 2099
Drain Output (Total)
Left Lower Abdomen David-
Cabrera
Urine, Voided 400 / 400
Other:
Number of approximated SMALL 1
amounts of urine
Number of approximated MODERATE 1 3
amounts of urine
Number of approximated LARGE 1
amounts of urine
How many times incontinent 1
MODERATE amount urine
Lab Results
07/23/24 05:20
07/23/24 05:20
Physical Exam
-
General: No Acute Distress and AOx3
Abdomen: Soft, Non Distended, Non Tender, Hypoactive Bowel Sounds and Other (Ileostomy warm and pink with liquid output. WAN drain with serous output.)
Wound: Dressing Changed (Frandy removed)
--- NOTE | 2024-07-23 11:10 | CM ---
Reviewed chart notes. Regular diet. CM continues to be available to patient/family and is monitoring medical plan for needs at discharge.
Plan: Discharge plans will depend on the patient's progress. Patient refused PT yesterday.
[2024-07-23 11:52] VITALS: BP 112/77; PULSE 87; O2SAT 98
--- NOTE | 2024-07-23 13:19 | W.PN.ID1 ---
Date of Service
Date of Service: July 23, 2024
Today's Communication
Continue antibiotics. See below�
Assessment / Plan
S/p low anterior resection (07/14/2024)
Anastomotic leak
-S/p exp lap / washout / diverting loop ileostomy
Lisandra peritonitis
Diverticulitis
Recommendations:
Continue with Zosyn (d#10). Transition micafungin (d#6) to diflucan.
Monitor white count and temperature curve.

Chief Complaint
-: Other (Peritonitis; anastomotic leak)
Subjective / Review of Systems
Patient seen and examined. Reports overall feeling improved. Was able to take a shower today. Denies fevers or chills. Ostomy functioning. Patient participating in PT.
Vital Signs / Physical Exam
Vital Signs
Vital Signs
Temp Pulse Resp BP Pulse Ox
97.9 F 80 18 118/76 98
07/23/24 07:56 07/23/24 07:56 07/23/24 07:56 07/23/24 07:56 07/23/24 07:56
Physical Exam
Constitutional: No Acute Distress, Comfortable and Non-toxic
Head: Normocephalic
Eyes: Sclera Anicteric
Cardiovascular: S1/S2; Negative S3/S4
Pulmonary: Clear; Negative Wheezes
Gastrointestinal: Soft, Decreased Bowel Sounds and Other (ostomy in place. WAN with scant fluid.)
Genito-Urinary: Stevenson and Clear Urine
Extremities: Edema; Negative Cyanosis or Erythema
Neurological: Awake and Alert
Psychological: Calm
Objective Data
Lab Data
Lab Results
07/23/24 05:20
07/23/24 05:20
PT 13.2 Sec (11.4-14.6) 07/09/24 09:50
INR 1.00 07/09/24 09:50
APTT 33.1 Sec (23.4-35.0) 07/09/24 09:50
Estimated Creat Clear 82 ml/min 07/23/24 05:20
Total Bilirubin 0.5 mg/dl (0.2-1.3) 07/09/24 09:50
AST 19 U/L (14-36) 07/09/24 09:50
ALT 15 U/L (0-35) 07/09/24 09:50
Alkaline Phosphatase 66 U/L (38-126) 07/09/24 09:50
C-Reactive Protein 131.90 mg/L (0.0-10.00) H 07/23/24 05:20
Most recent labs reviewed.
Micro Results:
07/16/24 22:20 Wound Culture - Final
Abdomen Lisandra albicans
Gram Stain - Final
07/16/24 22:20 Anaerobic Culture - Final
Abdomen NO ANAEROBES ISOLATED
Imaging:
07/16/2024 CT abdomen/pelvis with contrast: Findings suspicious for distal colorectal leak of enteric contrast. New small to moderate volume predominantly simple appearing free fluid throughout the abdomen and pelvis. Few bubbles of air along the
anterior pelvis and in the superficial fatty soft tissue of the anterior abdomen likely sequela of recent robotic surgery. No additional significant interval changes noted. Please see full dictation for additional detail. Film personally viewed.
[2024-07-23] MEDS: DIFLUCAN 200 MG PO (13:47)
[2024-07-23 15:28] VITALS: BP 134/83
[2024-07-23] MEDS: LOVENOX 40 MG SC (17:19)
[2024-07-23] MEDS: ZOFRAN 4 MG IV (17:53)
[2024-07-23 23:07] VITALS: BP 123/66
[2024-07-24] MEDS: TYLENOL 1000 MG PO ×4 (02:30→20:51)
[2024-07-24] MEDS: ZOSYN 50 IV ×4 (03:58→22:22)
[2024-07-24 05:32] VITALS: BMI 22.8
[2024-07-24 05:51] LABS: % Basophils 0.6 % (0-2); % Eosinophils 2.6 % (0-6); % Monocytes 6.1 % (1.7-9.3); % Neutrophils 77.7 % (42.2-75.2); Absolute Basophils 0.1 10^3/uL (0-0.2); Absolute Eosinophils 0.3 10^3/uL (0-0.7); Absolute Immature Granulocytes 0.3 10^3/uL (0-0.05); Absolute Lymphocytes 1.4 10^3/uL (1.2-3.4); Absolute Monocytes 0.8 10^3/uL (0.1-0.6); Absolute Neutrophils 9.6 10^3/uL (1.4-6.5); Hemoglobin 8.3 g/dL (12.0-16.0); Mean Corp Hgb Conc. 33.2 g/dL (33.0-37.0); Mean Corpuscular Volume 87.4 fL (81.0-99.0); Mean Platelet Volume 8.7 fL (7.4-10.4); Nucleated Red Blood Cells % 0 %; Platelet Count 450 10^3/uL (130-400); Red Blood Cell Count 2.86 10^6/uL (4.20-5.40); Red Cell Dist. Width 12.3 % (11.5-14.5); White Blood Cell Count 12.3 10^3/uL (4.8-10.8)
[2024-07-24] MEDS: SYNTHROID 50 MCG PO (06:02)
[2024-07-24 06:38] LABS: Blood Urea Nitrogen 8 mg/dl (7-17); Calcium 8.5 mg/dl (8.4-10.2); Carbon Dioxide 25 mmol/L (22-30); Chloride 102 mmol/L (98-107); Estimated Creatinine Clearance 82 ml/min; Glucose 82 mg/dl (70-99); Potassium 4.1 mmol/L (3.5-5.1); Sodium 138 mmol/L (135-145); eGFR > 60.00
[2024-07-24 07:45] VITALS: BP 124/82
[2024-07-24] MEDS: DIFLUCAN 200 MG PO (08:10)
[2024-07-24] MEDS: LYRICA 75 MG PO (08:10)
[2024-07-24] MEDS: METAMUCIL, KONSYL 1 PACKET PO (08:10)
[2024-07-24] MEDS: PROTONIX 40 MG PO (08:10)
[2024-07-24] MEDS: LR 1000 IV ×2 (08:12→20:52)
[2024-07-24] MEDS: ZOFRAN 4 MG IV (08:14)
--- NOTE | 2024-07-24 11:11 | W.PN.CRS1 ---
Today's Communication / Plan
-
npo with chips and sips
d/c fiber
abdominal xrays in AM
Assessment/Plan
-
POD# 9 LAR, POD# 7 exploratory laparotomy, abdominal washout, flexible sigmoidoscopy, partial omentectomy, creation of diverting loop ileostomy, TAP block
-Back diet down to NPO with chips and sips. D/C fiber given nausea.
-Hemoglobin 8.3 from 9.3, will trend.
-Continue WAN drain.
-OOB as tolerated. Physical therapy ordered.
-Wound RN for stoma teaching. May change midline incision.
-TEDS/SCDS for DVT prophylaxis. Lovenox held due to anemia.
-Antibiotics per ID
-Pain control: Tylenol (changed to offirmiv), Dilaudid PRN.
-IVFs given NPO.
-Monitor stool output - 1300ml (down from 2100ml). May require Imodium if output remains high (holding off for now given nausea).
-Abdominal xrays ordered for the AM.
Subjective Data
Procedure
07/14/2024 - robotic LAR with vaginal injury repair
07/16- Exploratory laparotomy, abdominal washout, flexible sigmoidoscopy, partial omentectomy, creation of diverting loop ileostomy, TAP block
Subjective Data
Date of Service: July 24, 2024
Patient states she had some nausea last night and this morning. It is worse after eating. She still has ileostomy function. Her pain is controlled.
Objective Data
-
Vital Signs
Temp Pulse Resp BP Pulse Ox
97.5 F 79 18 124/82 99
07/24/24 07:45 07/24/24 07:45 07/24/24 07:45 07/24/24 07:45 07/24/24 07:45
Intake & Output
10/10/24 10/11/24 10/12/24
06:59 06:59 06:59
Intake Total 2145 / 2145 3240 / 3240
Output Total 2099 1350 / 1350
Balance 45 / 45 1890 / 1890
Intake:
Oral fluids 1440 / 1440 840 / 840
IV fluids (Total) 400 / 400 2200 / 2200
IV piggybacks 305 / 305 200 / 200
Output:
Liquid stool amount 2099 1350 / 1350
Ileostomy 2099 1350 / 1350
Drain Output (Total) 0 / 0
Left Lower Abdomen David- 0 / 0
Cabrera
Other:
Number of approximated SMALL 1
amounts of urine
Number of approximated MODERATE 3 3
amounts of urine
How many times incontinent 1
MODERATE amount urine
Lab Results
07/24/24 05:04
07/24/24 05:04
Physical Exam
-
General: No Acute Distress and AOx3
Abdomen: Soft, Non Distended, Non Tender and Other (ileostomy warm and pink with liquid output. Midline incision changed - dry with julián in place. WAN drain is serous with mixed feculent material. )
Skin: Warm and Dry
--- NOTE | 2024-07-24 11:33 | CM ---
Reviewed the chart notes. Patient's diet backed down to npo with chips and sips. Fiber has been discontinued due to nausea. CM continues to be available to patient/family and is monitoring medical plan for needs at discharge.
Plan: PT recommending homecare vs no needs.
--- NOTE | 2024-07-24 11:37 | WOUNDNOTE ---
DIANA RN note: Patient s/p ostomy surgery robotic sigmoidectomy on 07/17
See H&P for complete history. Lives with Deep.
PMH: colon abscess with WAN drain, vaginal injury, diverticulitis, endometriosis, skin cancer and hypothyroid.
Ostomy location and type: RUQ Ileostomy. Stoma pink and budded, red rubber catheter intact.
Instructed patient ostomy pouch emptying and changing appliance using Van wafer # [id number]
[place] pouch # [id number]. Patient has not emptied pouch yet, as she said she is too weak from not being able to eat. This designer/writer reviewed pouch emptying and answered all questions related to ostomy care.
Ostomy supplies at bedside.
Note to case management: VN services recommended for ostomy teaching.
Nursing care plan updated, will follow as needed.
[2024-07-24 15:20] VITALS: BP 111/77
[2024-07-24] MEDS: LOVENOX 40 MG SC (17:18)
[2024-07-24 23:50] VITALS: BP 126/71
[2024-07-25] MEDS: TYLENOL PO (04:39)
[2024-07-25] MEDS: ZOSYN 50 IV ×3 (04:40→21:10)
[2024-07-25 06:00] VITALS: BMI 22.4
[2024-07-25] MEDS: SYNTHROID 50 MCG PO (06:01)
[2024-07-25] MEDS: TYLENOL 1000 MG PO ×3 (06:02→21:09)
[2024-07-25 07:32] LABS: % Basophils 0.6 % (0-2); % Eosinophils 2.3 % (0-6); % Immature Granulocytes 1.2 % (0-0.5); % Lymphocytes 12.1 % (20.5-51.1); % Neutrophils 78.8 % (42.2-75.2); Absolute Basophils 0.1 10^3/uL (0-0.2); Absolute Eosinophils 0.3 10^3/uL (0-0.7); Absolute Immature Granulocytes 0.1 10^3/uL (0-0.05); Absolute Lymphocytes 1.4 10^3/uL (1.2-3.4); Absolute Monocytes 0.6 10^3/uL (0.1-0.6); Absolute Neutrophils 8.9 10^3/uL (1.4-6.5); Hematocrit 26.5 % (37.0-47.0); Hemoglobin 8.5 g/dL (12.0-16.0); Mean Corp Hgb Conc. 32.1 g/dL (33.0-37.0); Mean Corpuscular Hgb 28.8 pg (27.0-31.0); Mean Corpuscular Volume 89.8 fL (81.0-99.0); Mean Platelet Volume 8.5 fL (7.4-10.4); Nucleated Red Blood Cells % 0 %; Platelet Count 544 10^3/uL (130-400); Red Blood Cell Count 2.95 10^6/uL (4.20-5.40); Red Cell Dist. Width 12.5 % (11.5-14.5); White Blood Cell Count 11.3 10^3/uL (4.8-10.8)
[2024-07-25 07:35] VITALS: BP 126/80
[2024-07-25 07:53] LABS: Blood Urea Nitrogen 8 mg/dl (7-17); Calcium 8.4 mg/dl (8.4-10.2); Carbon Dioxide 25 mmol/L (22-30); Chloride 100 mmol/L (98-107); Estimated Creatinine Clearance 82 ml/min; Glucose 61 mg/dl (70-99); Potassium 4.3 mmol/L (3.5-5.1); Sodium 137 mmol/L (135-145); eGFR > 60.00
[2024-07-25] MEDS: DIFLUCAN 200 MG PO (09:16)
[2024-07-25] MEDS: PROTONIX 40 MG PO (09:19)
[2024-07-25] MEDS: LYRICA 75 MG PO (09:20)
[2024-07-25] MEDS: ZOSYN IV (09:21)
[2024-07-25] MEDS: LR 1000 IV (09:22)
[2024-07-25 11:31] LABS: Glucose - Point of Care 68 mg/dl (70-99)
--- NOTE | 2024-07-25 11:39 | W.PN.GS2 ---
Today's Communication / Plan
-
`
Assessment / Plan
-
Assessment: Postop day #9 status post LAR, postop day #7 status post ex lap, washout, drain placement and diverting loop ileostomy
Improving mild ileus symptoms
Today's abdominal x-ray reviewed and demonstrates nonobstructive bowel gas pattern
Plan: Continue current supportive care, resume clear liquid diet cautiously
Subjective Data
-
Date of Service: July 25, 2024
Patient seen and examined
Feeling better than yesterday, nausea resolved, no vomiting
Ileostomy remains functional
Denies pain and no longer feels too distended/bloated
Objective Data
-
Intake and Output
07/24/24 07/25/24 07/26/24
06:59 06:59 06:59
Intake Total 3240 / 3240 2400 / 2400 400 / 400
Output Total 1350 / 1350 1300 / 1300 400 / 400
Balance 1890 / 1890 1100 / 1100 0 / 0
Intake:
Oral fluids 840 / 840 1400 / 1400
IV fluids (Total) 2200 / 2200 900 / 900 400 / 400
IV piggybacks 200 / 200 100 / 100
Output:
Liquid stool amount 1350 / 1350 1300 / 1300 400 / 400
Ileostomy 1350 / 1350 1300 / 1300 400 / 400
Drain Output (Total) 0 / 0
Left Lower Abdomen David- 0 / 0
Cabrera
Other:
Number of approximated MODERATE 3 3 1
amounts of urine
How many times incontinent 3
MODERATE amount urine
Vital Signs
Temp Pulse Resp BP Pulse Ox
97.7 F 79 16 126/80 97
07/25/24 07:35 07/25/24 07:35 07/25/24 07:35 07/25/24 07:35 07/25/24 07:35
Lab Results
07/25/24 05:28
07/25/24 05:28
Calcium 8.4 mg/dl (8.4-10.2) 07/25/24 05:28
Magnesium 3.1 mg/dl (1.6-2.3) H 07/15/24 05:27
Total Bilirubin 0.5 mg/dl (0.2-1.3) 07/09/24 09:50
AST 19 U/L (14-36) 07/09/24 09:50
ALT 15 U/L (0-35) 07/09/24 09:50
Alkaline Phosphatase 66 U/L (38-126) 07/09/24 09:50
Total Protein 6.6 g/dl (6.3-8.2) 07/09/24 09:50
Albumin 4.2 g/dl (3.5-5.0) 07/09/24 09:50
Physical Exam
-
NAD AAOx3
ABD: Softly protuberant with some tympany on percussion. No tenderness. Right-sided ileostomy with liquid succus entericus
[2024-07-25 11:48] LABS: Glucose - Point of Care 67 mg/dl (70-99)
[2024-07-25 12:08] LABS: Glucose - Point of Care 79 mg/dl (70-99)
[2024-07-25 15:33] VITALS: BP 118/82
[2024-07-25] MEDS: LOVENOX 40 MG SC (16:35)
[2024-07-25 23:46] VITALS: BP 139/80
[2024-07-26] MEDS: TYLENOL 1000 MG PO ×2 (03:10→17:50)
[2024-07-26] MEDS: ZOSYN 50 IV ×4 (03:10→21:26)
[2024-07-26 03:19] VITALS: BMI 22.1
[2024-07-26] MEDS: LR 1000 IV (03:20)
[2024-07-26 05:45] VITALS: BMI 22.1
[2024-07-26] MEDS: SYNTHROID 50 MCG PO (05:59)
[2024-07-26 07:30] VITALS: BP 125/82
--- NOTE | 2024-07-26 09:15 | W.PN.GS2 ---
Today's Communication / Plan
-
`
Assessment / Plan
-
Assessment: Postop day #10 status post LAR, postop day #8 status post ex lap, washout, drain placement and diverting loop ileostomy
Ileus symptoms continue to improve
Plan: Okay to stop IV fluids after this bag finishes
Full liquid diet
Zosyn, ID following
Subjective Data
-
Date of Service: July 26, 2024
Patient seen and examined
Tolerating clears but tired of broth
No nausea, no vomiting
Abdomen soft but still feels just a bit distended
Objective Data
-
Intake and Output
07/25/24 07/26/24 07/27/24
06:59 06:59 06:59
Intake Total 2400 / 2400 2885 / 2885
Output Total 1300 / 1300 1315 / 1315
Balance 1100 / 1100 1570 / 1570
Intake:
Oral fluids 1400 / 1400 960 / 960
IV fluids (Total) 900 / 900 1000 / 1000
IV piggybacks 100 / 100 925 / 925
Output:
Liquid stool amount 1300 / 1300 1315 / 1315
Ileostomy 1300 / 1300 1315 / 1315
Other:
Number of approximated MODERATE 3 1
amounts of urine
Number of approximated LARGE 1
amounts of urine
How many times incontinent 3
MODERATE amount urine
Vital Signs
Temp Pulse Resp BP Pulse Ox
97.8 F 77 14 125/82 97
07/26/24 07:30 07/26/24 07:30 07/26/24 07:30 07/26/24 07:30 07/26/24 07:30
Lab Results
07/25/24 05:28
07/25/24 05:28
Calcium 8.4 mg/dl (8.4-10.2) 07/25/24 05:28
Magnesium 3.1 mg/dl (1.6-2.3) H 07/15/24 05:27
Total Bilirubin 0.5 mg/dl (0.2-1.3) 07/09/24 09:50
AST 19 U/L (14-36) 07/09/24 09:50
ALT 15 U/L (0-35) 07/09/24 09:50
Alkaline Phosphatase 66 U/L (38-126) 07/09/24 09:50
Total Protein 6.6 g/dl (6.3-8.2) 07/09/24 09:50
Albumin 4.2 g/dl (3.5-5.0) 07/09/24 09:50
Physical Exam
-
NAD AAOx3
ABD: Softly protuberant, not overly distended. Minimal tenderness on palpation
Right sided ileostomy pink, liquid succus contents in bag.
WAN left side abdomen: No output
[2024-07-26] MEDS: LYRICA 75 MG PO (09:47)
[2024-07-26] MEDS: PROTONIX 40 MG PO (09:48)
[2024-07-26] MEDS: DIFLUCAN 200 MG PO (09:49)
[2024-07-26] MEDS: TYLENOL PO (10:16)
--- NOTE | 2024-07-26 14:23 | CM ---
CM following re: d/c planning.
CM met with pt at bedside to discuss dispo.
We discussed VN, she is agreeable to [facility] services, as she has used them previously.
Ref sent.
Goal: home with [facility].
[2024-07-26 15:50] VITALS: BP 133/95
[2024-07-26] MEDS: LOVENOX 40 MG SC (17:51)
[2024-07-26 23:09] VITALS: BP 112/76
[2024-07-27] MEDS: ZOSYN 50 IV ×4 (04:01→22:50)
[2024-07-27] MEDS: SYNTHROID 50 MCG PO (05:00)
[2024-07-27 06:00] VITALS: BMI 21.2
[2024-07-27 07:13] LABS: Hematocrit 27.6 % (37.0-47.0); Hemoglobin 9.3 g/dL (12.0-16.0); Mean Corp Hgb Conc. 33.7 g/dL (33.0-37.0); Mean Corpuscular Hgb 29.6 pg (27.0-31.0); Mean Corpuscular Volume 87.9 fL (81.0-99.0); Mean Platelet Volume 8.2 fL (7.4-10.4); Platelet Count 727 10^3/uL (130-400); Red Blood Cell Count 3.14 10^6/uL (4.20-5.40); Red Cell Dist. Width 12.6 % (11.5-14.5); White Blood Cell Count 9.3 10^3/uL (4.8-10.8)
[2024-07-27 07:24] LABS: Blood Urea Nitrogen 5 mg/dl (7-17); Calcium 8.9 mg/dl (8.4-10.2); Carbon Dioxide 26 mmol/L (22-30); Chloride 102 mmol/L (98-107); Estimated Creatinine Clearance 82 ml/min; Glucose 92 mg/dl (70-99); Potassium 4.8 mmol/L (3.5-5.1); Sodium 140 mmol/L (135-145); eGFR > 60.00
[2024-07-27 07:40] VITALS: BP 121/82
[2024-07-27] MEDS: TYLENOL 1000 MG PO ×2 (08:47→20:20)
[2024-07-27] MEDS: PROTONIX 40 MG PO (08:47)
[2024-07-27] MEDS: DIFLUCAN 200 MG PO (08:47)
[2024-07-27] MEDS: FLUSH (NSS) 1 FLUSH IV (10:08)
--- NOTE | 2024-07-27 11:00 | W.PN.CRS1 ---
Today's Communication / Plan
-
advance diet regular
fiber
Assessment/Plan
-
POD# 11 LAR, POD# 9 exploratory laparotomy, abdominal washout, flexible sigmoidoscopy, partial omentectomy, creation of diverting loop ileostomy, TAP block
-Resume regular diet. Fiber added.
-Hemoglobin 9.3 which is stable.
-Continue WAN drain.
-OOB as tolerated with PT.
-Wound RN for stoma teaching. May change midline incision.
-TEDS/SCDS for DVT prophylaxis, on Lovenox.
-Antibiotics per ID
-Pain control: Tylenol (changed to offirmiv), Dilaudid PRN.
-Monitor stool output - 1890ml. May require Imodium if output remains high.
Subjective Data
Procedure
07/14/2024 - robotic LAR with vaginal injury repair
07/16- Exploratory laparotomy, abdominal washout, flexible sigmoidoscopy, partial omentectomy, creation of diverting loop ileostomy, TAP block
Subjective Data
Date of Service: July 27, 2024
Patient states she feels a lot better today. She had mild nauseous which resolved. She has not vomited. She notices her ileostomy output has been thickening.
Objective Data
-
Vital Signs
Temp Pulse Resp BP Pulse Ox
97.5 F 92 18 121/82 98
07/27/24 07:40 07/27/24 07:40 07/27/24 07:40 07/27/24 07:40 07/27/24 07:40
Intake & Output
07/26/24 07/27/24 07/28/24
06:59 06:59 06:59
Intake Total 2885 / 2885 2240 / 2240
Output Total 1315 / 1315 1890 / 1890
Balance 1570 / 1570 350 / 350
Intake:
Oral fluids 960 / 960 1740 / 1740
IV fluids (Total) 1000 / 1000 300 / 300
IV piggybacks 925 / 925 200 / 200
Output:
Liquid stool amount 1315 / 1315 1889
Ileostomy 1314 / [id number]
Other:
Number of approximated MODERATE 1 4
amounts of urine
Number of approximated LARGE 1 2
amounts of urine
Lab Results
07/27/24 05:24
07/27/24 05:24
Physical Exam
-
General: No Acute Distress and AOx3
Abdomen: Soft, Non Distended, Non Tender and Other (ileostomy warm and pink with output, WAN with barely any output, purulent in nature)
Skin: Warm and Dry
Incision: Serous Drainage
[2024-07-27] MEDS: NSS 1000 IV (11:43)
[2024-07-27] MEDS: METAMUCIL, KONSYL 1 PACKET PO (11:43)
--- NOTE | 2024-07-27 13:04 | W.PN.ID1 ---
Date of Service
Date of Service: July 27, 2024
Today's Communication
Continue antibiotics
Assessment / Plan
S/p low anterior resection (07/14/2024)
Anastomotic leak
-S/p exp lap / washout / diverting loop ileostomy
Lisandra peritonitis
Diverticulitis
Recommendations:
Continue with Zosyn (d#14).
Continue diflucan (d#10 antifungal tx)
Monitor white count and temperature curve.

Chief Complaint
-: Other (Peritonitis; anastomotic leak)
Subjective / Review of Systems
Patient seen and examined. Reports feeling well today. No difficulty with antibiotics.
Vital Signs / Physical Exam
Vital Signs
Vital Signs
Temp Pulse Resp BP Pulse Ox
97.5 F 92 18 121/82 98
07/27/24 07:40 07/27/24 07:40 07/27/24 07:40 07/27/24 07:40 07/27/24 07:40
Physical Exam
Constitutional: No Acute Distress and Comfortable
Head: Normocephalic
Eyes: Sclera Anicteric
Cardiovascular: S1/S2; Negative S3/S4
Pulmonary: Clear; Negative Wheezes
Gastrointestinal: Soft, Normal Bowel Sounds and Other (ostomy in place. WAN with scant fluid.)
Genito-Urinary: Stevenson and Clear Urine
Extremities: Edema; Negative Cyanosis or Erythema
Neurological: Awake and Alert
Psychological: Calm
Objective Data
Lab Data
Lab Results
07/27/24 05:24
07/27/24 05:24
PT 13.2 Sec (11.4-14.6) 09/26/24 09:50
INR 1.00 07/09/24 09:50
APTT 33.1 Sec (23.4-35.0) 07/09/24 09:50
Estimated Creat Clear 82 ml/min 07/27/24 05:24
Total Bilirubin 0.5 mg/dl (0.2-1.3) 07/09/24 09:50
AST 19 U/L (14-36) 07/09/24 09:50
ALT 15 U/L (0-35) 07/09/24 09:50
Alkaline Phosphatase 66 U/L (38-126) 07/09/24 09:50
C-Reactive Protein 83.30 mg/L (0.0-10.00) H 07/24/24 05:04
Most recent labs reviewed.
Micro Results:
07/16/24 22:20 Wound Culture - Final
Abdomen Lisandra albicans
Gram Stain - Final
07/16/24 22:20 Anaerobic Culture - Final
Abdomen NO ANAEROBES ISOLATED
Imaging:
07/16/2024 CT abdomen/pelvis with contrast: Findings suspicious for distal colorectal leak of enteric contrast. New small to moderate volume predominantly simple appearing free fluid throughout the abdomen and pelvis. Few bubbles of air along the
anterior pelvis and in the superficial fatty soft tissue of the anterior abdomen likely sequela of recent robotic surgery. No additional significant interval changes noted. Please see full dictation for additional detail. Film personally viewed.
--- NOTE | 2024-07-27 13:33 | CM ---
Reviewed the chart notes. Diet advanced to Regular. CM continues to be available to patient/family and is monitoring medical plan for needs at discharge.
Plan: Home with possible need for VN services.
[2024-07-27 15:30] VITALS: BP 117/79
[2024-07-27] MEDS: LOVENOX 40 MG SC (17:42)
[2024-07-27] MEDS: ZOFRAN 4 MG IV (20:20)
[2024-07-27] MEDS: FLUSH (NSS) 2 FLUSH IV (20:21)
[2024-07-27 23:05] VITALS: BP 120/77
[2024-07-28] MEDS: ZOSYN 50 IV ×3 (04:12→17:00)
[2024-07-28] MEDS: TYLENOL 1000 MG PO ×3 (04:20→20:27)
[2024-07-28] MEDS: SYNTHROID 50 MCG PO (04:21)
[2024-07-28] MEDS: ZOFRAN 4 MG IV (05:08)
[2024-07-28] MEDS: FLUSH (NSS) 2 FLUSH IV (05:08)
[2024-07-28 06:00] VITALS: BMI 20.9
[2024-07-28 07:22] LABS: Blood Urea Nitrogen 7 mg/dl (7-17); Calcium 9.1 mg/dl (8.4-10.2); Carbon Dioxide 25 mmol/L (22-30); Chloride 102 mmol/L (98-107); Estimated Creatinine Clearance 82 ml/min; Glucose 95 mg/dl (70-99); Potassium 5.2 mmol/L (3.5-5.1); Sodium 139 mmol/L (135-145); eGFR > 60.00
[2024-07-28 07:32] LABS: % Basophils 1.8 % (0-2); % Immature Granulocytes 1.5 % (0-0.5); % Lymphocytes 21.4 % (20.5-51.1); % Monocytes 8.4 % (1.7-9.3); % Neutrophils 63.9 % (42.2-75.2); Absolute Basophils 0.2 10^3/uL (0-0.2); Absolute Eosinophils 0.3 10^3/uL (0-0.7); Absolute Immature Granulocytes 0.1 10^3/uL (0-0.05); Absolute Monocytes 0.8 10^3/uL (0.1-0.6); Hematocrit 30.4 % (37.0-47.0); Hemoglobin 9.8 g/dL (12.0-16.0); Mean Corp Hgb Conc. 32.2 g/dL (33.0-37.0); Mean Corpuscular Hgb 30.2 pg (27.0-31.0); Mean Corpuscular Volume 93.5 fL (81.0-99.0); Mean Platelet Volume 8.3 fL (7.4-10.4); Nucleated Red Blood Cells % 0 %; Platelet Count 846 10^3/uL (130-400); Red Blood Cell Count 3.25 10^6/uL (4.20-5.40); Red Cell Dist. Width 12.7 % (11.5-14.5); White Blood Cell Count 9.3 10^3/uL (4.8-10.8)
[2024-07-28 07:40] VITALS: BP 114/73
[2024-07-28] MEDS: PROTONIX 40 MG PO (10:03)
[2024-07-28] MEDS: DIFLUCAN 200 MG PO (10:03)
[2024-07-28] MEDS: METAMUCIL, KONSYL PO (10:04)
--- NOTE | 2024-07-28 11:37 | W.PN.CRS1 ---
Today's Communication / Plan
-
DC fiber
Imodium
Assessment/Plan
-
POD# 12 LAR, POD# 10 exploratory laparotomy, abdominal washout, flexible sigmoidoscopy, partial omentectomy, creation of diverting loop ileostomy, TAP block
-Continue a regular diet. Discontinue fiber.
-Add Imodium 2 mg twice daily.
-Hemoglobin 9.8 which is stable.
-Continue WAN drain. Will remove prior to discharge.
-OOB as tolerated with PT.
-Wound RN for stoma teaching. May change midline incision.
-TEDS/SCDS for DVT prophylaxis, on Lovenox.
-Antibiotics per ID
-Pain control: Tylenol (changed to offirmiv), Dilaudid PRN.
-Monitor stool output -1535 mL
-Anticipate discharge towards the end of the week
Subjective Data
Procedure
07/14/2024 - robotic LAR with vaginal injury repair
07/16- Exploratory laparotomy, abdominal washout, flexible sigmoidoscopy, partial omentectomy, creation of diverting loop ileostomy, TAP block
Subjective Data
Date of Service: July 28, 2024
Patient states she felt nausea. She believes it was after taking the fiber yesterday. She states that fiber has always made her nauseous in the past and she ate with no problem yesterday. She denies any vomiting. She is having more thicker bowel
movements.
Objective Data
-
Vital Signs
Temp Pulse Resp BP Pulse Ox
97.6 F 76 18 114/73 98
07/28/24 07:40 07/28/24 07:40 07/28/24 07:40 07/28/24 07:40 07/28/24 07:40
Intake & Output
07/27/24 07/28/24 07/29/24
06:59 06:59 06:59
Intake Total 2240 / 2240 2400 / 2400
Output Total 1889 1535 / 1535
Balance 350 / 350 865 / 865
Intake:
Oral fluids 1740 / 1740 1200 / 1200
IV fluids (Total) 300 / 300 1000 / 1000
IV piggybacks 200 / 200 200 / 200
Output:
Liquid stool amount 1889 1535 / 1535
Ileostomy 1889 153 / 153
Other:
Number of approximated SMALL 2
amounts of urine
Number of approximated MODERATE 4 2
amounts of urine
Number of approximated LARGE 2
amounts of urine
Lab Results
07/28/24 05:21
07/28/24 05:21
Physical Exam
-
General: No Acute Distress and AOx3
Abdomen: Soft, Non Distended, Non Tender and Other (Ileostomy warm and pink with stool output in bag, more thick. WAN drain with minimal brown serous output.)
Skin: Warm and Dry
Wound: Dressing in Place
--- NOTE | 2024-07-28 11:45 | CM ---
Reviewed the chart notes and spoke with the patient at the bedside. Patient with increase ileostomy output. Per patient, will need to be here until later this week due to increased output. Now on Imodium twice daily. CM continues to be available
to patient/family and is monitoring medical plan for needs at discharge.
Plan: Discharge to home with [facility] services.
[2024-07-28] MEDS: IMODIUM 2 MG PO ×2 (12:04→20:24)
--- NOTE | 2024-07-28 12:04 | WOUNDNOTE ---
DIANA RN NOTE: Patient sitting in recliner chair. Ileostomy appliance intact no leakage. Patient confirmed pouch change can be done tomorrow unless Ostomy nurse has time to do this afternoon.
--- NOTE | 2024-07-28 14:17 | W.PN.ID1 ---
Date of Service
Date of Service: July 28, 2024
Today's Communication
Discontinue further Zosyn. Continue Diflucan. See below�
Assessment / Plan
S/p low anterior resection (07/14/2024) for diverticulitis
Anastomotic leak
-S/p exp lap / washout / diverting loop ileostomy
Lisandra peritonitis
Diverticulitis
Recommendations:
Discontinue further Zosyn.
Continue diflucan (d#11 antifungal tx) to complete 14d tx.
Monitor white count and temperature curve.

Chief Complaint
-: Other (Peritonitis; anastomotic leak)
Subjective / Review of Systems
Patient seen and examined. Reports overall improvement in nausea. Tolerating orals.
Review of Systems: No Fever and No Chills
Vital Signs / Physical Exam
Vital Signs
Vital Signs
Temp Pulse Resp BP Pulse Ox
97.6 F 76 18 114/73 98
07/28/24 07:40 07/28/24 07:40 07/28/24 07:40 07/28/24 07:40 07/28/24 07:40
Physical Exam
Constitutional: No Acute Distress, Comfortable and Non-toxic
Head: Normocephalic
Eyes: Sclera Anicteric
Cardiovascular: S1/S2; Negative S3/S4
Pulmonary: Clear; Negative Wheezes
Gastrointestinal: Soft, Normal Bowel Sounds and Other (ostomy in place. WAN with scant fluid.)
Genito-Urinary: Stevenson and Clear Urine
Extremities: Edema; Negative Cyanosis or Erythema
Neurological: Awake and Alert
Psychological: Calm
Objective Data
Lab Data
Lab Results
07/28/24 05:21
07/28/24 05:21
PT 13.2 Sec (11.4-14.6) 07/09/24 09:50
INR 1.00 07/09/24 09:50
APTT 33.1 Sec (23.4-35.0) 07/09/24 09:50
Estimated Creat Clear 82 ml/min 07/28/24 05:21
Total Bilirubin 0.5 mg/dl (0.2-1.3) 07/09/24 09:50
AST 19 U/L (14-36) 07/09/24 09:50
ALT 15 U/L (0-35) 07/09/24 09:50
Alkaline Phosphatase 66 U/L (38-126) 07/09/24 09:50
C-Reactive Protein 83.30 mg/L (0.0-10.00) H 07/24/24 05:04
Most recent labs reviewed.
Micro Results:
07/16/24 22:20 Wound Culture - Final
Abdomen Lisandra albicans
Gram Stain - Final
07/16/24 22:20 Anaerobic Culture - Final
Abdomen NO ANAEROBES ISOLATED
Imaging:
07/16/2024 CT abdomen/pelvis with contrast: Findings suspicious for distal colorectal leak of enteric contrast. New small to moderate volume predominantly simple appearing free fluid throughout the abdomen and pelvis. Few bubbles of air along the
anterior pelvis and in the superficial fatty soft tissue of the anterior abdomen likely sequela of recent robotic surgery. No additional significant interval changes noted. Please see full dictation for additional detail. Film personally viewed.
Care Review
Plan reviewed with: Physician (Colorectal Surgery)
[2024-07-28 15:35] VITALS: BP 127/78
[2024-07-28] MEDS: LOVENOX 40 MG SC (17:02)
--- NOTE | 2024-07-28 21:00 | PTCARENOTE ---
Pt asked to have ileostomy emptied. This RN asked pt if she felt comfortable emptying her appliance since she'll be going home with it. Pt stated that nurses have been emptying it and that it needs to be measured. This RN attempted to do ileostomy
teaching with pt and allow pt to do her own ileostomy care but pt refused, stated 'I'll be able to do it when I go home, no problem. While I'm here, I'm not doing it'.
[2024-07-28 23:30] VITALS: BP 112/77
--- NOTE | 2024-07-29 04:34 | DOWNTIME ---
There was a [employer] Downtime on 07/29/2024 from 0100 to 07/29/2024 at 0355. Downtime documentation of patient's care, including medication administrations, has been reconciled in the electronic record per guidelines. Refer to the
patient's paper chart under the miscellaneous tab to see printed paper medication records and downtime forms.
[2024-07-29] MEDS: SYNTHROID 50 MCG PO (05:28)
[2024-07-29] MEDS: TYLENOL 1000 MG PO ×3 (05:28→20:27)
[2024-07-29 06:00] VITALS: BMI 20.6
[2024-07-29 06:16] LABS: % Basophils 1.4 % (0-2); % Eosinophils 2.4 % (0-6); % Lymphocytes 18.6 % (20.5-51.1); % Neutrophils 67.6 % (42.2-75.2); Absolute Basophils 0.2 10^3/uL (0-0.2); Absolute Eosinophils 0.3 10^3/uL (0-0.7); Absolute Immature Granulocytes 0.1 10^3/uL (0-0.05); Absolute Lymphocytes 2.1 10^3/uL (1.2-3.4); Absolute Neutrophils 7.5 10^3/uL (1.4-6.5); Hematocrit 31.9 % (37.0-47.0); Hemoglobin 10.5 g/dL (12.0-16.0); Mean Corp Hgb Conc. 32.9 g/dL (33.0-37.0); Mean Corpuscular Volume 91.1 fL (81.0-99.0); Mean Platelet Volume 8.1 fL (7.4-10.4); Nucleated Red Blood Cells % 0 %; Platelet Count 898 10^3/uL (130-400); Red Cell Dist. Width 12.6 % (11.5-14.5); White Blood Cell Count 11.2 10^3/uL (4.8-10.8)
[2024-07-29 06:18] LABS: Blood Urea Nitrogen 10 mg/dl (7-17); Calcium 9.6 mg/dl (8.4-10.2); Carbon Dioxide 26 mmol/L (22-30); Chloride 101 mmol/L (98-107); Estimated Creatinine Clearance 71 ml/min; Glucose 106 mg/dl (70-99); Sodium 138 mmol/L (135-145); eGFR > 60.00
[2024-07-29] MEDS: PROTONIX 40 MG PO (08:12)
[2024-07-29] MEDS: IMODIUM 2 MG PO ×2 (08:12→20:27)
[2024-07-29] MEDS: DIFLUCAN 200 MG PO (08:12)
[2024-07-29 08:15] VITALS: BP 124/87
--- NOTE | 2024-07-29 10:24 | CM ---
Reviewed the chart notes. Patient tolerating diet. CM continues to be available to patient/family and is monitoring medical plan for needs at discharge.
Plan: Discharge to home when medically stable with [facility] services.
--- NOTE | 2024-07-29 10:44 | W.PN.CRS1 ---
Today's Communication / Plan
-
monitor ileostomy output
anticipate discharge in the next day or two
Assessment/Plan
-
POD# 13 LAR, POD# 11 exploratory laparotomy, abdominal washout, flexible sigmoidoscopy, partial omentectomy, creation of diverting loop ileostomy, TAP block
-Continue a regular diet.
-Continue Imodium 2 mg twice daily.
-Hemoglobin 10.5 which is stable.
-Continue WAN drain. Will remove prior to discharge.
-OOB as tolerated with PT.
-Wound RN for stoma teaching. May change midline incision.
-TEDS/SCDS for DVT prophylaxis, on Lovenox.
-Antibiotics per ID
-Pain control: Tylenol (changed to offirmiv), Dilaudid PRN.
-Monitor stool output - 1145ml (1535ml)
-Anticipate discharge towards the end of the week
Subjective Data
Procedure
07/14/2024 - robotic LAR with vaginal injury repair
07/16- Exploratory laparotomy, abdominal washout, flexible sigmoidoscopy, partial omentectomy, creation of diverting loop ileostomy, TAP block
Subjective Data
Date of Service: July 29, 2024
Patient states that she has been feeling a lot better. She has had no nausea since yesterday morning after she took fiber. She states she is having gas in her ileostomy. Her pain is controlled. She has been out of bed. Her main concern is her
incision.
Objective Data
-
Vital Signs
Temp Pulse Resp BP Pulse Ox
97.8 F 82 16 124/87 97
07/29/24 08:15 07/29/24 08:15 07/29/24 08:15 07/29/24 08:15 07/29/24 08:15
Intake & Output
07/28/24 07/29/24 07/30/24
06:59 06:59 06:59
Intake Total 2400 / 2400 1180 / 1180
Output Total 1535 / 1535 1145 / 1145
Balance 865 / 865 35 / 35
Intake:
Oral fluids 1200 / 1200 1080 / 1080
IV fluids (Total) 1000 / 1000
IV piggybacks 200 / 200 100 / 100
Output:
Liquid stool amount 1535 / 1535 1145 / 1145
Ileostomy 1535 / 1535 1145 / 1145
Other:
Number of approximated SMALL 2 1
amounts of urine
Number of approximated MODERATE 2 1
amounts of urine
Lab Results
07/29/24 05:20
07/29/24 05:20
Physical Exam
-
General: No Acute Distress and AOx3
Abdomen: Soft, Non Distended and Non Tender
Incision: Serous Drainage (lower aspect, Q tip placed, no tunneling noted)
--- NOTE | 2024-07-29 11:53 | W.PN.ID1 ---
Date of Service
Date of Service: July 29, 2024
Today's Communication
Continue oral Diflucan.
Assessment / Plan
S/p low anterior resection (07/14/2024) for diverticulitis
Anastomotic leak
-S/p exp lap / washout / diverting loop ileostomy
Lisandra peritonitis
Diverticulitis
Recommendations:
Continue diflucan (d#12 antifungal tx) to complete 14d tx.
Monitor white count and temperature curve.

Chief Complaint
-: Other (Peritonitis; anastomotic leak)
Subjective / Review of Systems
Patient seen and examined. Reports feeling well. Denies abdominal pain. Tolerating p.o.'s.
Vital Signs / Physical Exam
Vital Signs
Vital Signs
Temp Pulse Resp BP Pulse Ox
97.8 F 82 16 124/87 97
07/29/24 08:15 07/29/24 08:15 07/29/24 08:15 07/29/24 08:15 07/29/24 08:15
Physical Exam
Constitutional: No Acute Distress, Comfortable and Non-toxic
Head: Normocephalic
Eyes: Sclera Anicteric
Cardiovascular: S1/S2; Negative S3/S4
Pulmonary: Clear; Negative Wheezes
Gastrointestinal: Soft, Normal Bowel Sounds and Other (ostomy in place. WAN with scant fluid.)
Genito-Urinary: Stevenson and Clear Urine
Extremities: Edema; Negative Cyanosis or Erythema
Neurological: Awake and Alert
Psychological: Calm
Objective Data
Lab Data
Lab Results
07/29/24 05:20
07/29/24 05:20
PT 13.2 Sec (11.4-14.6) 07/09/24 09:50
INR 1.00 07/09/24 09:50
APTT 33.1 Sec (23.4-35.0) 07/09/24 09:50
Estimated Creat Clear 71 ml/min 07/29/24 05:20
Total Bilirubin 0.5 mg/dl (0.2-1.3) 07/09/24 09:50
AST 19 U/L (14-36) 07/09/24 09:50
ALT 15 U/L (0-35) 07/09/24 09:50
Alkaline Phosphatase 66 U/L (38-126) 07/09/24 09:50
C-Reactive Protein 83.30 mg/L (0.0-10.00) H 07/24/24 05:04
Most recent labs reviewed.
Micro Results:
07/16/24 22:20 Wound Culture - Final
Abdomen Lisandar albicans
Gram Stain - Final
07/16/24 22:20 Anaerobic Culture - Final
Abdomen NO ANAEROBES ISOLATED
Imaging:
07/16/2024 CT abdomen/pelvis with contrast: Findings suspicious for distal colorectal leak of enteric contrast. New small to moderate volume predominantly simple appearing free fluid throughout the abdomen and pelvis. Few bubbles of air along the
anterior pelvis and in the superficial fatty soft tissue of the anterior abdomen likely sequela of recent robotic surgery. No additional significant interval changes noted. Please see full dictation for additional detail. Film personally viewed.
--- NOTE | 2024-07-29 14:05 | WOUNDNOTE ---
DIANA RN note: Patient s/p ostomy surgery robotic sigmoidectomy on 07/17
See H&P for complete history. Lives with Deep.
PMH: colon abscess with WAN drain, vaginal injury, diverticulitis, endometriosis, skin cancer and hypothyroid.
Ostomy location and type: RUQ Ileostomy. Stoma pink and budded, red rubber catheter intact.
Instructed patient ostomy pouch emptying and changing appliance using [employer] # [id number]
[place] pouch # [id number]. Patient has not emptied pouch yet and did not want to empty at time of C visit. She said she knows how to undue the pouch to empty and will empty sitting in a shower chair at home. Patient did cut barrier today and asked
appropriate questions. Midline incision with some open, draining areas. Dr. Monique present for assessment of midline and stoma.
Ostomy supplies at bedside.
Note to case management: VN services ordered.
Nursing care plan updated, will follow as needed.
[2024-07-29 15:55] VITALS: BP 126/87
[2024-07-29] MEDS: LOVENOX 40 MG SC (17:07)
[2024-07-29 23:08] VITALS: BP 127/87
[2024-07-30 05:30] LABS: % Basophils 1.9 % (0-2); % Immature Granulocytes 1.2 % (0-0.5); % Lymphocytes 34.9 % (20.5-51.1); % Monocytes 9.4 % (1.7-9.3); % Neutrophils 49.6 % (42.2-75.2); Absolute Basophils 0.2 10^3/uL (0-0.2); Absolute Eosinophils 0.3 10^3/uL (0-0.7); Absolute Immature Granulocytes 0.1 10^3/uL (0-0.05); Absolute Lymphocytes 3.1 10^3/uL (1.2-3.4); Absolute Monocytes 0.8 10^3/uL (0.1-0.6); Absolute Neutrophils 4.4 10^3/uL (1.4-6.5); Hematocrit 30.7 % (37.0-47.0); Mean Corp Hgb Conc. 32.6 g/dL (33.0-37.0); Mean Corpuscular Hgb 28.7 pg (27.0-31.0); Mean Corpuscular Volume 88.2 fL (81.0-99.0); Mean Platelet Volume 7.9 fL (7.4-10.4); Nucleated Red Blood Cells % 0 %; Platelet Count 874 10^3/uL (130-400); Red Blood Cell Count 3.48 10^6/uL (4.20-5.40); Red Cell Dist. Width 12.9 % (11.5-14.5); White Blood Cell Count 8.9 10^3/uL (4.8-10.8)
[2024-07-30 05:46] LABS: Blood Urea Nitrogen 11 mg/dl (7-17); Calcium 9.9 mg/dl (8.4-10.2); Carbon Dioxide 28 mmol/L (22-30); Chloride 101 mmol/L (98-107); Estimated Creatinine Clearance 82 ml/min; Glucose 112 mg/dl (70-99); Potassium 5.4 mmol/L (3.5-5.1); Sodium 139 mmol/L (135-145); eGFR > 60.00
[2024-07-30 06:00] VITALS: BMI 20.5
[2024-07-30] MEDS: SYNTHROID 50 MCG PO (06:02)
[2024-07-30] MEDS: TYLENOL 1000 MG PO ×2 (06:02→12:53)
--- NOTE | 2024-07-30 06:43 | W.PN.UPDATE ---
Update Note
Progress Note Update
K 5.4, no new signs or symptoms, will order 5g Deniaal PO x 1
[2024-07-30] MEDS: LOKELMA 5 GRAM PO (07:20)
[2024-07-30 08:00] VITALS: BP 122/83
[2024-07-30] MEDS: DIFLUCAN 200 MG PO (08:30)
[2024-07-30] MEDS: PROTONIX 40 MG PO (08:30)
[2024-07-30] MEDS: IMODIUM 2 MG PO (08:30)
--- NOTE | 2024-07-30 09:28 | W.PN.CRS1 ---
Today's Communication / Plan
-
WAN drain removed
likely d/c later today
Assessment/Plan
-
POD# 14 LAR, POD# 12 exploratory laparotomy, abdominal washout, flexible sigmoidoscopy, partial omentectomy, creation of diverting loop ileostomy, TAP block
-Continue a regular diet.
-Continue Imodium 2 mg twice daily.
-Hemoglobin 10.0 which is stable.
-WAN drain removed
-OOB as tolerated with PT.
-Wound RN for stoma teaching. May change midline incision.
-TEDS/SCDS for DVT prophylaxis, on Lovenox.
-Antibiotics per ID
-Pain control: Tylenol (changed to offirmiv), Dilaudid PRN.
-Appreciate ID
-Probably discharge later today with VN. Discussed with patient. I will have RN check her HR a few more times before discharge. Will need labs BID at [facility] for 4 weeks. Follow up in our office in 2 weeks.
Subjective Data
Procedure
07/14/2024 - robotic LAR with vaginal injury repair
07/16- Exploratory laparotomy, abdominal washout, flexible sigmoidoscopy, partial omentectomy, creation of diverting loop ileostomy, TAP block
Subjective Data
Date of Service: July 30, 2024
Patient states she feels well. Her pain is minimal. She is tolerating a diet. Her ileostomy is functioning and is more thick. She has been out of bed. She has no complaints.
Objective Data
-
Vital Signs
Temp Pulse Resp BP Pulse Ox
97.6 F 105 18 122/83 96
07/30/24 08:00 07/30/24 08:00 07/30/24 08:00 07/30/24 08:00 07/30/24 08:00
Intake & Output
07/29/24 07/30/24 07/31/24
06:59 06:59 06:59
Intake Total 1180 / 1180 1680 / 1680
Output Total 1145 / 1145 875 / 875
Balance 35 / 35 805 / 805
Intake:
Oral fluids 1080 / 1080 1680 / 1680
IV piggybacks 100 / 100
Output:
Liquid stool amount 1145 / 1145 575 / 575
Ileostomy 1145 / 1145 575 / 575
Gastrointestinal tube output ( 300 / 300
Total)
[place] Sump 300 / 300
Other:
Number of approximated SMALL 1
amounts of urine
Number of approximated MODERATE 1 3
amounts of urine
Lab Results
07/30/24 05:06
07/30/24 05:06
Physical Exam
-
General: No Acute Distress and AOx3
Abdomen: Soft, Non Distended and Non Tender
Wound: Dressing Changed and Other (ileostomy warm and pink with function)
[2024-07-30 09:50] VITALS: BP 133/83
[2024-07-30 11:35] VITALS: BP 107/76
--- NOTE | 2024-07-30 12:05 | CM ---
Reviewed the chart notes and spoke with the patient at the bedside. CM continues to be available to patient/family and is monitoring medical plan for needs at discharge.
Plan: Discharge to home with [facility] services. Spouse will provide transportation.
--- NOTE | 2024-07-30 13:21 | W.PN.ID1 ---
Date of Service
Date of Service: July 30, 2024
Today's Communication
Continue with current course of Diflucan.
Assessment / Plan
S/p low anterior resection (07/14/2024) for diverticulitis
Anastomotic leak
-S/p exp lap / washout / diverting loop ileostomy
Lisandra peritonitis
Diverticulitis
Recommendations:
Continue diflucan (d#13 antifungal tx) to complete 14d tx.
For likely discharge today.
Follow-up with me on an as-needed basis as an outpatient.

Chief Complaint
-: Other (Peritonitis; anastomotic leak)
Subjective / Review of Systems
Patient seen and examined. Reports appetite is good.
Review of Systems: No Fever and No Chills
Vital Signs / Physical Exam
Vital Signs
Vital Signs
Temp Pulse Resp BP Pulse Ox
98.0 F 102 16 107/76 97
07/30/24 11:35 07/30/24 11:35 07/30/24 11:35 07/30/24 11:35 07/30/24 11:35
Physical Exam
Constitutional: No Acute Distress, Comfortable and Non-toxic
Head: Normocephalic
Eyes: Sclera Anicteric
Pulmonary: Clear; Negative Wheezes
Gastrointestinal: Soft, Non Tender and Other (ostomy in place. )
Extremities: Edema; Negative Cyanosis or Erythema
Neurological: Awake and Alert
Psychological: Calm
Objective Data
Lab Data
Lab Results
07/30/24 05:06
07/30/24 05:06
PT 13.2 Sec (11.4-14.6) 09/26/24 09:50
INR 1.00 07/09/24 09:50
APTT 33.1 Sec (23.4-35.0) 07/09/24 09:50
Estimated Creat Clear 82 ml/min 07/30/24 05:06
Total Bilirubin 0.5 mg/dl (0.2-1.3) 07/09/24 09:50
AST 19 U/L (14-36) 07/09/24 09:50
ALT 15 U/L (0-35) 07/09/24 09:50
Alkaline Phosphatase 66 U/L (38-126) 07/09/24 09:50
C-Reactive Protein 83.30 mg/L (0.0-10.00) H 07/24/24 05:04
Most recent labs reviewed.
Micro Results:
07/16/24 22:20 Wound Culture - Final
Abdomen Lisandra albicans
Gram Stain - Final
07/16/24 22:20 Anaerobic Culture - Final
Abdomen NO ANAEROBES ISOLATED
Imaging:
07/16/2024 CT abdomen/pelvis with contrast: Findings suspicious for distal colorectal leak of enteric contrast. New small to moderate volume predominantly simple appearing free fluid throughout the abdomen and pelvis. Few bubbles of air along the
anterior pelvis and in the superficial fatty soft tissue of the anterior abdomen likely sequela of recent robotic surgery. No additional significant interval changes noted. Please see full dictation for additional detail. Film personally viewed.
Care Review
Plan reviewed with: Other Provider (Colorectal surgery PA)
[2024-07-30 14:53] VITALS: BP 120/84
--- NOTE | 2024-07-30 15:25 | PTCARENOTE ---
Patient's pulse just over 100 bpm this AM. Pt discharged, d/c vitals pulse 115 bpm. Jose notified. Jose contacted Dr. Patel and patient okay for discharge. Pt educated on signs and symptoms to return to the emergency department and
verbalizes understanding.
== END 2024-07-30 15:40 | disposition home health service (06) | DRG 329 ==
LOC: 2 SOUTH 06:05
PROVIDERS: Obstetrics & Gynecology; Physician Assistant; Registered Nurse; Specialist; ADMITTING PHYSICIAN Surgery; CONSULT PHYSICIAN Internal Medicine Infectious Disease; FAMILY PHYSICIAN Family Medicine
PROC: 0DNN4ZZ Release Sigmoid Colon, Percutaneous Endoscopic Approach (ICD-10-PCS; 2024-07-14)
PROC: 0DNB4ZZ Release Ileum, Percutaneous Endoscopic Approach (ICD-10-PCS; 2024-07-14)
PROC: 0DTP4ZZ Resection of Rectum, Percutaneous Endoscopic Approach (ICD-10-PCS; 2024-07-14)
PROC: 0UQG4ZZ Repair Vagina, Percutaneous Endoscopic Approach (ICD-10-PCS; 2024-07-14)
PROC: 0DJD8ZZ Inspection of Lower Intestinal Tract, Via Natural or Artificial Opening Endoscopic (ICD-10-PCS; 2024-07-14)
PROC: 0T788DZ Dilation of Bilateral Ureters with Intraluminal Device, Via Natural or Artificial Opening Endoscopic (ICD-10-PCS; 2024-07-14)
PROC: 0DBN4ZZ Excision of Sigmoid Colon, Percutaneous Endoscopic Approach (ICD-10-PCS; 2024-07-14)
PROC: 0DB84ZZ Excision of Small Intestine, Percutaneous Endoscopic Approach (ICD-10-PCS; 2024-07-14)
PROC: 0DBU0ZZ Excision of Omentum, Open Approach (ICD-10-PCS; 2024-07-16)
PROC: 0D1B0Z4 Bypass Ileum to Cutaneous, Open Approach (ICD-10-PCS; 2024-07-16)
DX: K57.20 Diverticulitis of large intestine with perforation and abscess without bleeding (principal); K65.8 Other peritonitis; K63.2 Fistula of intestine; R18.8 Other ascites; N99.72 Accidental puncture and laceration of a genitourinary system organ or structure during other procedure; K91.89 Other postprocedural complications and disorders of digestive system; D62 Acute posthemorrhagic anemia; K56.690 Other partial intestinal obstruction; B37.89 Other sites of candidiasis; N73.6 Female pelvic peritoneal adhesions (postinfective); D25.9 Leiomyoma of uterus, unspecified; E03.9 Hypothyroidism, unspecified; R00.0 Tachycardia, unspecified; R61 Generalized hyperhidrosis; Z79.890 Hormone replacement therapy; Z79.899 Other long term (current) drug therapy; Z87.891 Personal history of nicotine dependence
CPT/HCPCS: 88307; 36415; 71046; 74019; 74177; 80048; 80053; 82962; 83036; 83735; 85014; 85018; 85025; 85027; 85610; 85730; 86140; 86850; 86900; 86901; 87070; 87075; 87205; 93005; 97116; 97161; 97164; 97530; C1776; Q9967

== ENCOUNTER → 2024-08-03 10:56 | Outpatient (REF) | payer OTHER, SELFPAY ==
[2024-08-03 14:01] LABS: Blood Urea Nitrogen 23 mg/dl (7-17); Calcium 10.6 mg/dl (8.4-10.2); Carbon Dioxide 27 mmol/L (22-30); Chloride 97 mmol/L (98-107); Glucose 126 mg/dl (70-99); Magnesium 1.8 mg/dl (1.6-2.3); Potassium 5.5 mmol/L (3.5-5.1); Sodium 137 mmol/L (135-145); eGFR > 60.00
== END ==
LOC: REG 10:56
PROVIDERS: ATTENDING PHYSICIAN Surgery; FAMILY PHYSICIAN Family Medicine
DX: Z93.2 Ileostomy status (principal)
CPT/HCPCS: 36415; 80048; 83735

== ENCOUNTER → 2024-08-06 09:06 | Outpatient (REF) | payer OTHER, SELFPAY ==
[2024-08-06 11:31] LABS: Blood Urea Nitrogen 20 mg/dl (7-17); Calcium 10.8 mg/dl (8.4-10.2); Carbon Dioxide 26 mmol/L (22-30); Chloride 96 mmol/L (98-107); Glucose 146 mg/dl (70-99); Magnesium 1.9 mg/dl (1.6-2.3); Potassium 5.5 mmol/L (3.5-5.1); Sodium 137 mmol/L (135-145); eGFR > 60.00
== END ==
LOC: REG 09:06
PROVIDERS: ATTENDING PHYSICIAN Surgery; FAMILY PHYSICIAN Family Medicine
DX: Z93.2 Ileostomy status (principal)
CPT/HCPCS: 36415; 80048; 83735

== ENCOUNTER → 2024-08-07 09:52 | Outpatient (REF) | payer OTHER, SELFPAY ==
[2024-08-07 10:26] LABS: Blood Urea Nitrogen 21 mg/dl (7-17); Calcium 10.5 mg/dl (8.4-10.2); Carbon Dioxide 26 mmol/L (22-30); Chloride 98 mmol/L (98-107); Glucose 167 mg/dl (70-99); Potassium 4.6 mmol/L (3.5-5.1); Sodium 137 mmol/L (135-145); eGFR > 60.00
== END ==
LOC: REG 09:52
PROVIDERS: ATTENDING PHYSICIAN Physician Assistant
DX: E87.5 Hyperkalemia (principal)
CPT/HCPCS: 36415; 80048

== ENCOUNTER → 2024-08-10 08:39 | Outpatient (REF) | payer OTHER, SELFPAY ==
[2024-08-10 10:17] LABS: Blood Urea Nitrogen 20 mg/dl (7-17); Calcium 10.4 mg/dl (8.4-10.2); Carbon Dioxide 26 mmol/L (22-30); Chloride 99 mmol/L (98-107); Glucose 138 mg/dl (70-99); Magnesium 1.9 mg/dl (1.6-2.3); Potassium 4.5 mmol/L (3.5-5.1); Sodium 139 mmol/L (135-145); eGFR > 60.00
== END ==
LOC: REG 08:39
PROVIDERS: ATTENDING PHYSICIAN Surgery; FAMILY PHYSICIAN Family Medicine
DX: Z93.2 Ileostomy status (principal)
CPT/HCPCS: 36415; 80048; 83735

== ENCOUNTER → 2024-08-13 10:21 | Outpatient (REF) | payer OTHER, SELFPAY ==
[2024-08-13 12:08] LABS: Blood Urea Nitrogen 21 mg/dl (7-17); Calcium 10.2 mg/dl (8.4-10.2); Carbon Dioxide 23 mmol/L (22-30); Chloride 102 mmol/L (98-107); Glucose 93 mg/dl (70-99); Potassium 5.1 mmol/L (3.5-5.1); Sodium 141 mmol/L (135-145); eGFR > 60.00
== END ==
LOC: REG 10:21
PROVIDERS: ATTENDING PHYSICIAN Surgery; FAMILY PHYSICIAN Family Medicine
DX: Z93.2 Ileostomy status (principal)
CPT/HCPCS: 36415; 80048; 83735

== ENCOUNTER → 2024-08-17 08:25 | Outpatient (REF) | payer OTHER, SELFPAY ==
[2024-08-17 10:49] LABS: Blood Urea Nitrogen 21 mg/dl (7-17); Calcium 10.1 mg/dl (8.4-10.2); Carbon Dioxide 20 mmol/L (22-30); Chloride 103 mmol/L (98-107); Glucose 123 mg/dl (70-99); Potassium 4.6 mmol/L (3.5-5.1); Sodium 140 mmol/L (135-145); eGFR > 60.00
== END ==
LOC: REG 08:25
PROVIDERS: ATTENDING PHYSICIAN Surgery; FAMILY PHYSICIAN Family Medicine
DX: Z93.2 Ileostomy status (principal)
CPT/HCPCS: 36415; 80048; 83735

== ENCOUNTER → 2024-08-20 14:27 | Outpatient (REF) | payer OTHER, SELFPAY ==
[2024-08-20 16:47] LABS: Blood Urea Nitrogen 20 mg/dl (7-17); Calcium 9.9 mg/dl (8.4-10.2); Carbon Dioxide 25 mmol/L (22-30); Chloride 104 mmol/L (98-107); Glucose 103 mg/dl (70-99); Magnesium 1.9 mg/dl (1.6-2.3); Potassium 5.1 mmol/L (3.5-5.1); Sodium 141 mmol/L (135-145); eGFR > 60.00
== END ==
LOC: RAD 14:27
PROVIDERS: ATTENDING PHYSICIAN Surgery; FAMILY PHYSICIAN Family Medicine
DX: R10.2 Pelvic and perineal pain (principal)
CPT/HCPCS: 36415; 74177; 80048; 83735; Q9967

== ENCOUNTER 2024-08-21 07:53 | Emergency (ER) | payer OTHER, SELFPAY ==
[2024-08-21] VITALS (10 sets, daily range): BP systolic 82–141; BP diastolic 62–84
[2024-08-21 09:07] LABS: % Basophils 1.3 % (0-2); % Eosinophils 1.9 % (0-6); % Immature Granulocytes 0.4 % (0-0.5); % Monocytes 7.1 % (1.7-9.3); % Neutrophils 55.3 % (42.2-75.2); Absolute Basophils 0.1 10^3/uL (0-0.2); Absolute Eosinophils 0.1 10^3/uL (0-0.7); Absolute Lymphocytes 1.6 10^3/uL (1.2-3.4); Absolute Monocytes 0.3 10^3/uL (0.1-0.6); Absolute Neutrophils 2.6 10^3/uL (1.4-6.5); Hemoglobin 12.3 g/dL (12.0-16.0); Mean Corp Hgb Conc. 32.4 g/dL (33.0-37.0); Mean Corpuscular Hgb 28.3 pg (27.0-31.0); Mean Corpuscular Volume 87.6 fL (81.0-99.0); Mean Platelet Volume 8.4 fL (7.4-10.4); Nucleated Red Blood Cells % 0 %; Platelet Count 323 10^3/uL (130-400); Red Blood Cell Count 4.34 10^6/uL (4.20-5.40); Red Cell Dist. Width 12.9 % (11.5-14.5); White Blood Cell Count 4.6 10^3/uL (4.8-10.8)
[2024-08-21 09:38] LABS: ALT (SGPT) 23 U/L (0-35); AST (SGOT) 45 U/L (14-36); Albumin 4.3 g/dl (3.5-5.0); Alkaline Phosphatase 86 U/L (38-126); Blood Urea Nitrogen 20 mg/dl (7-17); Calcium 10.2 mg/dl (8.4-10.2); Carbon Dioxide 22 mmol/L (22-30); Chloride 104 mmol/L (98-107); Glucose 93 mg/dl (70-99); Potassium 4.4 mmol/L (3.5-5.1); Sodium 140 mmol/L (135-145); Total Bilirubin 0.5 mg/dl (0.2-1.3); Total Protein 7.2 g/dl (6.3-8.2); eGFR > 60.00
--- NOTE | 2024-08-21 09:55 | ED.GENMED ---
History of Present Illness
<Vito Spangler Jr., PA-C - Last Filed: 08/24/24 16:24>
General
Chief Complaint: Abdominal Pain
Source: patient and spouse
Exam Limitations: none
Time Seen by Provider: 08/21/24 08:12
Nursing documentation reviewed up to this point in time: agreed with
History of Present Illness
History of Present Illness:
59-year-old female past medical history of diverticulitis had partial colon resection 1 month ago has been following up with colorectal was found to have a colon abscess on CT scan was told to the ER today for drain placement. Otherwise feels
generally well other than some intermittent pelvic and lower abdominal pain.
Past History
<JESSICA Barnett Jr. Last Filed: 08/24/24 16:24>
Past History
ED Past Medical History: Other (Diverticulitis/diverticulosis)
ED Past Surgical History: Tonsilectomy
Social History
Tobacco: Non-smoker
Alcohol: Occasional
Drug: None
Personal:
Living: with family
Review of Systems
<Vito Spangler Jr., PA-C - Last Filed: 08/24/24 16:24>
Review of Systems
Allergies reviewed?: Yes
All Other Systems: ROS reviewed and negative except as documented in HPI and ROS
Phy Exam
<JESSICA Barnett Jr. Last Filed: 08/24/24 16:24>
Physical Exam
Physical Exam:
GENERAL: Alert , in no apparent distress
EYE: pupils equal and reactive
NECK: Supple, no significant adenopathy.
ENT: o/p clr, mmm.
CARDIAC: Regular rate and rhythm .
LUNGS: Clear breath sounds bilaterally, no acute respiratory distress, no wheezes/rales/rhonchi
ABDOMEN: Ileostomy bag in place soft, without focal tenderness, no r/g, no cvat
NEUROLOGICAL: Alert and oriented, no focal neuro deficits
SKIN: Warm and dry, skin intact.
MUSCULOSKELETAL: No edema, well perfused.
PSYCH: Normal and appropriate interaction.
Course
<Vito Spangler Jr., JESSICA - Last Filed: 08/24/24 16:24>
Orders/Labs/Results
Orders:
Orders
08/21/24 08:51
CBC/With Diff [Complete Blood Count/With Diff] Urgent
CMP [Comprehensive Metabolic Panel] Urgent
08/21/24 09:00
Consult Interventional Radiology [IRAD CONSULT] Urgent
Consulting Provider: Camron Judd
Was physician already notified: Yes
Reason for Consult/Procedure: Thom abscess
Acknowledgement that appropriate orders are entered: Yes
08/21/24 11:49
Miconazole Nitrate [Desenex/Mitrazol/Zeasorb] See Dose Instructions TOPICAL PRN PRN
08/21/24 13:09
ColoRectal Surgery Consult Urgent
Consulting Provider: Jose Roberto Patel
Was physician already notified: Yes
08/21/24 16:02
Fentanyl Citrate/Pf [Sublimaze] 100 mcg .ROUTE .STK-MED ONE
Midazolam HCl [Versed] 2 mg .ROUTE .STK-MED ONE
08/21/24 16:50
Wound/Abscess/Other Culture Routine
DEE Source: AB
Specimen Description:
Date Specimen was Collected: 08/21/24
Time Specimen was Collected: 16:50
Comment: Pelvic fluid collection
08/22/24 08:00
Petrolatum/Mineral Oil [Hydrophor] See Dose Instructions TOPICAL DAILY
Abnormal Lab Results
08/21/24
08:51
WBC 4.6 L 10^3/uL
(4.8-10.8)
MCHC 32.4 L g/dL
(33.0-37.0)
BUN 20 H mg/dl
(7-17)
AST 45 H U/L
(14-36)
08/21/24 08:51
08/21/24 08:51
Vital Signs
Initial and Last Documented VS:
Initial Vital Signs
Temp Pulse Resp Pulse Ox
97.7 F 99 18 100
08/21/24 08:02 08/21/24 08:02 08/21/24 08:02 08/21/24 08:02
Last Documented Vital Signs
Temp Pulse Resp BP Pulse Ox
97.8 F 84 20 119/62 99
08/21/24 17:05 08/21/24 17:35 08/21/24 17:35 08/21/24 17:35 08/21/24 17:35
<ALISSA Lance - Last Filed: 08/21/24 21:07>
Orders/Labs/Results
Orders:
Orders
08/21/24 08:51
CBC/With Diff [Complete Blood Count/With Diff] Urgent
CMP [Comprehensive Metabolic Panel] Urgent
08/21/24 09:00
Consult Interventional Radiology [IRAD CONSULT] Urgent
Consulting Provider: Camron Judd
Was physician already notified: Yes
Reason for Consult/Procedure: Thom abscess
Acknowledgement that appropriate orders are entered: Yes
08/21/24 11:49
Miconazole Nitrate [Desenex/Mitrazol/Zeasorb] See Dose Instructions TOPICAL PRN PRN
08/21/24 13:09
ColoRectal Surgery Consult Urgent
Consulting Provider: Jose Roberto Patel
Was physician already notified: Yes
08/21/24 16:02
Fentanyl Citrate/Pf [Sublimaze] 100 mcg .ROUTE .STK-MED ONE
Midazolam HCl [Versed] 2 mg .ROUTE .STK-MED ONE
08/21/24 16:50
Wound/Abscess/Other Culture Routine
DEE Source: AB
Specimen Description:
Date Specimen was Collected: 08/21/24
Time Specimen was Collected: 16:50
Comment: Pelvic fluid collection
08/22/24 08:00
Petrolatum/Mineral Oil [Hydrophor] See Dose Instructions TOPICAL DAILY
Abnormal Lab Results
08/21/24
08:51
WBC 4.6 L 10^3/uL
(4.8-10.8)
MCHC 32.4 L g/dL
(33.0-37.0)
BUN 20 H mg/dl
(7-17)
AST 45 H U/L
(14-36)
08/21/24 08:51
08/21/24 08:51
Vital Signs
Initial and Last Documented VS:
Initial Vital Signs
Temp Pulse Resp Pulse Ox
97.7 F 99 18 100
08/21/24 08:02 08/21/24 08:02 08/21/24 08:02 08/21/24 08:02
Last Documented Vital Signs
Temp Pulse Resp BP Pulse Ox
97.8 F 84 20 119/62 99
08/21/24 17:05 08/21/24 17:35 08/21/24 17:35 08/21/24 17:35 08/21/24 17:35
<Vito Spangler Jr., PA-C - Last Filed: 08/24/24 16:24>
MDM/Problems Addressed
MDM/Problems Addressed:
59-year-old female presenting to the emergency department for drain placement. CT scan as an outpatient showed abscess. Case discussed with IR and colorectal. Plan to the patient to interventional radiology for drain colorectal saw the patient
recommending to be discharged on Augmentin and close outpatient follow-up with them. Return precautions given.
<ALISSA Lance - Last Filed: 08/21/24 21:07>
MDM/Problems Addressed
MDM/Problems Addressed:
59-year-old female presenting to the emergency department for drain placement. CT scan as an outpatient showed abscess. Case discussed with IR and colorectal. Plan to the patient to interventional radiology for drain colorectal saw the patient
recommending to be discharged on Augmentin and close outpatient follow-up with them. Return precautions given.
Pt back from IR in no distress stable for dc home. Tejal MAXWELL
<ALISSA Lance - Last Filed: 08/21/24 21:07>
*Critical Care Note
Total Time (30-74mins, 75-104mins- exclusive of procedures): Not Applicable
ED Attending Note
<Vito Spangler Jr., PA-C - Last Filed: 08/24/24 16:24>
-
Portions of this chart may have been created with voice recognition software.� Occasional wrong word or��sound alike� substitutions may have occurred due to the inherent limitations of voice recognition software.
Discharge Plan
Departure
Patient Disposition: Home (Routine Discharge)
Date of Disposition: 08/21/24
Time of Disposition: 17:37
Patient with high blood pressure during this ER visit?: No
Condition: Good
Covid-19: Not Applicable
Discharge Problem:
Abscess of pelvis
Instructions: Abscess Drainage, Percutaneous (Fluoroscopic, Ultrasonic, or CT Guidance)
Prescriptions:
New
amoxicillin-pot clavulanate 875-125 mg tablet
1 tab PO BID 7 Days Qty: 14 0RF
No Action
acetaminophen [Tylenol Extra Strength] 500 mg Tablet
1,000 mg PO Q6H PRN (Reason: mild pain)
levothyroxine 50 mcg tablet
50 mcg PO DAILY@0600
zinc sulfate 50 mg zinc (220 mg) Capsule
50 mg PO DAILY
calcium carbonate-vitamin D3 [Calcium 600 + D(3)] 600 mg-10 mcg (400 unit) Tablet
1 tab PO DAILY
B Complex
1 tab PO DAILY
turmeric root extract 500 mg Tablet
500 mg PO DAILY
loperamide 2 mg Capsule
2 mg PO BID 30 Days Qty: 60 0RF
loperamide [Imodium] 2 mg Capsule
2 mg PO QID PRN (Reason: loose stool)
famotidine 20 mg Tablet
20 mg PO DAILY
Referrals:
Sneha Roach MD [Family Provider] -
Activity Restrictions/Additional Instructions:
To be used for Ileostomy
change appliance q 3-4 days or if leakage
Wash skin with warm water and pat dry
dusting of fungal powder to irritated skin, blot with skin prep till powder dissolves
2 1/4' [place] CeraPlus convex wafer # [id number] cut to fit stoma 1' wide and 7/8' height approximately.
Stretch Padmini seal to fit out cut out opening of wafer.
2 1/4' [employer] pouch # [id number]. without filter
[employer] pouch # [id number] transparent with filter
Van pouch # [id number] beige both sides with filter.
Belt as needed, can remove when showering and wash as needed.
[employer] Belt (pouch for appliance) can purchase on [employer]
Call supply [employer] (list in folder provided) for monthly Ostomy supplies after discharge (ask VN to order supplies while on service).
Follow up with surgeon.
Call [facility] RN nurse for ostomy pouching concerns or leakage problems [phone] or [phone] or [phone].
Interventions
Interventions:
*Risk Screen - Suicide Last Done: 08/21/24 08:03
*General Assessment Last Done: 08/21/24 08:03
*Neglect/Abuse Screening Last Done: 08/21/24 08:03
*ED COVID-19 Vaccine History Last Done: 08/21/24 09:00
*Nursing Disposition Last Done: 08/21/24 18:00
MU-Sdrtyq-Lfefebopho Assessment Last Done: 08/21/24 09:00
Discharge Date and Time
Discharge Date/Time: 08/21/24 18:04
Print Language: MARTINIQUAIS
--- NOTE | 2024-08-21 11:16 | WOUNDNOTE ---
DIANA RN NOTE: Patient admitted with colon abscess on CT scan, needs drain placement. Patient known to service for Ileostomy done in early July, now having leakage issues. at bedside. Stoma oval, red and budded, peristomal skin slightly
pink and itchy, medial side of stoma. Remainder of peristomal skin is intact, suture line is closed but dry and itchy reports patient. Last pouch change was Saturday by visiting nurse, wear time 3-4 days. Patient states she is still reluctant to
change pouch on own but is trying to learn. Today applied 2 1/4' [place] CeraPlus convex wafer # [id number] with Padmini seal and Van pouch # [id number]. Teaching done with patient and able to participate in cutting out wafer. Measured patient for a
belt and applied, shown how to put on and off, patient wants to keep on for now. Called [employer] for supplies and will drop off 3 additional Convex wafers. Will order fungal powder to use next pouch change to peristomal skin. Patient instructed on how to
use. Today applied A&D ointment to dry closed midline incision, will order mineral oil to start tomorrow. Will update care plan and nursing can do next pouch change on Saturday or Saturday or if leaking. Will follow as needed.
--- NOTE | 2024-08-21 13:05 | CON.CRS ---
Consultation
-
Date/Time Consultation Requested: 08/21/2024, 1300
Date/Time Consultation Performed: 08/21/2024, 10 AM
Requesting Provider: iVto Spangler PA-C
Performing Provider: Jefe Patel MD
Reason for Consultation: Pelvic abscess
Medical History
-
Chief Complaint: Vaginal discharge
History of Present Illness:
59-year-old female with an extensive past medical history of a recent robotic low anterior resection with vaginal canal injury and subsequent exploratory laparotomy with abdominal washout, flexible sigmoidoscopy partial omentectomy and creation of
diverting loop ileostomy discharged on 07/30/2024, presents to the ER due to a finding on an outpatient CT. The patient had been recently admitted due to the above elective surgery and subsequent complication from 07/14/2024 to 07/30/2024. She had
been doing well for the most part as an outpatient but had discussed with Dr. Monique at her outpatient appointment 08/17/2024 that she was having mucus and brown vaginal discharge as well as occasional lower back pain and pelvic cramping. Given these
findings, he ordered an outpatient CT. This revealed a pelvic abscess measuring 2.9 x 2.0 cm with a component extending towards the sigmoid anastomosis. Given these findings, she was instructed by Dr. Monique to report to the emergency room.
In the ER her vitals are normal. Her WBC is currently 4.6. She has no abdominal cramps. She denies fevers or chills. Her discharge has slowed down over the past few days. We have been consulted for further surgical opinion.
Past Medical History
Past Medical History: Other (Hyperthyroidism, diverticulitis)
Past Surgical History: Other (Low anterior resection by Dr. Leon Monique on 07/14/2024, exploratory laparotomy with abdominal washout and creation of loop ileostomy on 07/17/[address] Monique and Dr. Dickinson, laparoscopic surgery for endometriosis,
tonsillectomy)
Social History
Tobacco: Former Smoker
Alcohol: Occasional
Family History
Family History: Reviewed & Not Pertinent
Allergies / Home Medications
Allergy/AdvReac Type Severity Reaction Status Date / Time
No Known Allergies Allergy Verified 08/21/24 08:02
�Medication �Instructions �Recorded �Confirmed �Type
acetaminophen 500 mg tablet 1,000 mg PO Q6H PRN mild pain 03/09/24 07/07/24 History
(Tylenol Extra Strength)
levothyroxine 50 mcg tablet 50 mcg PO DAILY@0600 Thyroid 03/09/24 07/14/24 History
zinc sulfate 50 mg zinc (220 mg) 50 mg PO DAILY Supplement 03/09/24 07/07/24 History
capsule
B Complex 1 tab PO DAILY 07/07/24 07/07/24 History
calcium 600 mg (as 1 tab PO DAILY Supplement 07/07/24 07/07/24 History
carbonate)-vitamin D3 10 mcg (400
unit) tablet (Calcium 600 + D(3))
turmeric root extract 500 mg tablet 500 mg PO DAILY Supplement 07/07/24 07/07/24 History
fluconazole 200 mg tablet 200 mg PO DAILY 2 days #2 tabs 07/30/24 Rx
loperamide 2 mg capsule 2 mg PO BID 30 days #60 caps 07/30/24 Rx
Review of Systems
-
History Source: Patient
Abdomen/GI: Abdominal Pain
: Other (Vaginal discharge, pelvic cramping)
Musculoskeletal: Other (Lower back pain)
A 10 point review of systems was completed, and was negative except as per HPI.
Physical Exam
Vital Signs
Temp 97.7 F 08/21/24 08:02
Pulse 95 08/21/24 10:00
Resp Rate 20 08/21/24 10:00
Blood pressure 138/76 08/21/24 10:00
SaO2 99 08/21/24 10:00
Lab Results / Allergies
08/21/24 08:51
08/21/24 08:51
WBC 4.6 10^3/uL (4.8-10.8) L 08/21/24 08:51
Hgb 12.3 g/dL (12.0-16.0) 08/21/24 08:51
Hct 38.0 % (37.0-47.0) 08/21/24 08:51
Plt Count 323 10^3/uL (130-400) 08/21/24 08:51
Abs Immat Gran (auto) 0.0 10^3/uL (0-0.05) 08/21/24 08:51
Neutrophils % 55.3 % (42.2-75.2) 08/21/24 08:51
Allergy/AdvReac Type Severity Reaction Status Date / Time
No Known Allergies Allergy Verified 08/21/24 08:02
Physical Exam
General: Well Developed, Well Nourished and No Apparent Distress
GI: Soft, Non Tender, Non Distended and Other (Ileostomy warm and pink with function and some leakage)
Skin: Warm and Dry
Neuro: AO x 3
Data Reviewed
-
CT Scan: Image Personally Visualized and interpreted, Report Reviewed by me and Discussed with Patient
Labs: Labs Reviewed by me, Discussed with Physician and Discussed with Patient
Old Records: Reviewed
Assessment / Plan
-
Assessment: 59-year-old female with recent low anterior resection due to diverticulitis complicated by an anastomotic leak with a subsequent exploratory laparotomy and abdominal washout and diverting loop ileostomy, presents to the ER due to an
abscess discovered near the anastomosis on outpatient CT
Plan:
-Plan is for IR drain of the pelvic abscess, discussed with IR
-No plans for surgery
-Recommend Augmentin p.o. upon discharge from the ER
-If WAN drain is placed, okay from our perspective for patient to be discharged. Follow-up in the office with Dr. Monique.
--- NOTE | 2024-08-21 17:22 | W.PN.UPDATE ---
Update Note
Progress Note Update
IR drainage procedure reviewed with the radiologist.
She remains afebrile and is ok for discharge.
Augmentin 875mg bid for 10 days.
Follow-up with Dr. Monique.
== END 2024-08-21 18:04 | disposition home or self-care (01) ==
LOC: EMR 07:53
PROVIDERS: Physician Assistant; CONSULT PHYSICIAN Radiology Vascular & Interventional Radiology; CONSULT PHYSICIAN Surgery; EMERGENCY PHYSICIAN Student in an Organized Health Care Education/Training Program; FAMILY PHYSICIAN Family Medicine
DX: K65.1 Peritoneal abscess (principal); Z87.891 Personal history of nicotine dependence
CPT/HCPCS: 99285; 49406; 80053; 85025; 87070; 87077; 87186; 87205; 99152

== ENCOUNTER → 2024-08-24 08:41 | Outpatient (REF) | payer OTHER, SELFPAY ==
[2024-08-24 10:42] LABS: Blood Urea Nitrogen 22 mg/dl (7-17); Calcium 10.5 mg/dl (8.4-10.2); Carbon Dioxide 23 mmol/L (22-30); Chloride 102 mmol/L (98-107); Glucose 122 mg/dl (70-99); Potassium 4.4 mmol/L (3.5-5.1); Sodium 140 mmol/L (135-145); eGFR > 60.00
== END ==
LOC: REG 08:41
PROVIDERS: ATTENDING PHYSICIAN Surgery; FAMILY PHYSICIAN Family Medicine
DX: Z93.2 Ileostomy status (principal)
CPT/HCPCS: 36415; 80048; 83735

== ENCOUNTER → 2024-08-27 09:33 | Outpatient (REF) | payer OTHER, SELFPAY ==
[2024-08-27 11:08] LABS: Blood Urea Nitrogen 24 mg/dl (7-17); Calcium 10.7 mg/dl (8.4-10.2); Carbon Dioxide 19 mmol/L (22-30); Chloride 104 mmol/L (98-107); Glucose 110 mg/dl (70-99); Magnesium 2.1 mg/dl (1.6-2.3); Potassium 5.1 mmol/L (3.5-5.1); Sodium 139 mmol/L (135-145); eGFR > 60.00
== END ==
LOC: REG 09:33
PROVIDERS: ATTENDING PHYSICIAN Surgery; FAMILY PHYSICIAN Family Medicine
DX: Z93.2 Ileostomy status (principal)
CPT/HCPCS: 36415; 80048; 83735

== ENCOUNTER → 2024-09-03 10:10 | Outpatient (REF) | payer OTHER, SELFPAY | LOC: HWRAD 10:10 | PROVIDERS: ATTENDING PHYSICIAN Physician Assistant; FAMILY PHYSICIAN Family Medicine | DX: R10.2 Pelvic and perineal pain (principal) | CPT/HCPCS: 76830 ==

== ENCOUNTER 2024-09-05 08:54 | Emergency (ER) | payer OTHER, SELFPAY ==
[2024-09-05 09:05] VITALS: BP 112/79
--- NOTE | 2024-09-05 10:12 | ED.GENMED ---
History of Present Illness
General
Chief Complaint: Abdominal Pain
Source: patient and records
Time Seen by Provider: 09/05/24 09:58
History of Present Illness
History of Present Illness:
59yoF with a history of complicated diverticulitis presenting for evaluation of abdominal pain. Patient underwent robotic low anterior resection with small bowel resection and repair of vaginal canal injury on 07/14/24. This was complicated by an
anastomotic leak which required exploratory laparotomy, abdominal washout, and creation of a diverting loop ileostomy on 07/17/24. She was having persistent vaginal discharge and underwent CT scan on 08/20/24 which showed a pelvic abscess. She was
seen in the ED on 08/21/24 and a WAN drain was placed by IR at that time. She was started on a 1 week course of antibiotics which she finished last week.
Patient is presenting with generalized abdominal pain for the past 4 days. Pain is constant and worse with eating and movement. She has been having watery output from her ileostomy and has been on Imodium for the same. She denies any fevers, chills,
vomiting. Patient discussed her symptoms with her colorectal surgeon and she was advised to go to the ED for evaluation.
Past History
Past History
ED Past Medical History: Other (Diverticulitis/diverticulosis)
ED Past Surgical History: Tonsilectomy
Social History
Tobacco: Non-smoker
Alcohol: Occasional
Drug: None
Personal:
Living: with family
Phy Exam
General Physical Exam
General Presentation: well appearing and no apparent distress
General age: appears stated age
General Skin: warm
General Habitus: normal
General Mental: alert
ENT Exam
ENT Exam: normocephalic
Pulmonary Exam
Pulmonary Exam: no respiratory distress
Gastrointestinal Exam
Gastrointestinal Exam: soft, non distended, surgical scar and other (Abdomen soft, non-distended. Mild generalized tenderness without rebound or guarding. Ileostomy in place with loose brown feces in ostomy bag. Minimal output from WAN drain.)
Neurological Exam
Neurological Exam: alert
Dianne Coma Scale
Eye Opening: Spontaneous
Verbal Response: Oriented
Motor Response: Obeys Commands
GCS Total Score: 15
Skin Exam
Skin Exam: normal color and warm/dry
Psychiatric Exam
Psychiatric Exam: normal mood/affect
Course
Orders/Labs/Results
Orders:
Orders
09/05/24 10:10
Iohexol [Omnipaque] See Protocol PO NOW STA
09/05/24 10:11
CT Abd/pel W Iv And Oral Contr Urgent
Comment:
Reason For Exam: Generalized abd pain, recent WAN drain placement
09/05/24 10:35
Complete Blood Count/With Diff Urgent
Comprehensive Metabolic Panel Urgent
Lipase Urgent
09/05/24 14:50
Urinalysis Reflex To Culture Urgent
Date Specimen was Collected: 09/05/24
Time Specimen was Collected: 14:41
Urine Microscopic Reflex Cult Urgent
Urine Culture Urgent
DEE Source: U
Specimen Description:
Date Specimen was Collected: 09/05/24
Time Specimen was Collected: 14:41
Abnormal Lab Results
09/05/24 09/05/24
10:35 14:50
MCHC 31.8 L g/dL
(33.0-37.0)
Creatinine 0.5 L mg/dL
(0.6-1.0)
Lipase 385 H U/L
(23-300)
Leukocyte Esterase Rfl 1+ A
(Negative)
Urine Bacteria (Reflex) Few A
(Negative)
09/05/24 10:35
09/05/24 10:35
Vital Signs
Initial and Last Documented VS:
Initial Vital Signs
Temp Pulse Resp BP Pulse Ox
97.6 F 106 16 112/79 98
09/05/24 09:05 09/05/24 09:05 09/05/24 09:05 09/05/24 09:05 09/05/24 09:05
Last Documented Vital Signs
Temp Pulse Resp BP Pulse Ox
97.6 F 88 16 110/91 97
09/05/24 09:05 09/05/24 14:53 09/05/24 14:53 09/05/24 14:53 09/05/24 14:53
MDM/Problems Addressed
Differential Diagnosis Includes:
59yoF here with generalized abd pain x 4 days. Multiple recent abdominal surgeries including ileostomy formation from anastomotic leak. She also has a WAN in place for a pelvic abscess. No f/c. She is afebrile and hemodynamically stable. She is well
appearing in no distress. No signs of peritonitis on abdominal exam. Differential diagnosis includes but is not limited to: colitis, diverticulitis, SBO, intra-abdominal abscess, PUD, pancreatitis, nonspecific abdominal pain
Initial ED plan: Check abdominal labs and CT abdomen with IV/PO contrast.
*Critical Care Note
Total Time (30-74mins, 75-104mins- exclusive of procedures): Not Applicable
Update Note
Update Note:
Lipase mildly elevated at 385. Remainder of labs including white count unremarkable. CT shows new mesenteric stranding and edema along the small bowel within the left lower quadrant which may be infectious/inflammatory in nature. There is also a
possible internal hernia although there are no signs of obstruction. There is a near complete resolution of prior pelvic fluid collection.
Case discussed with colorectal surgery, Dr. Patel, who reviewed CT images. No indication for surgery at this time. Depending on how patient feels, she may be discharged on low residue diet and antibiotics vs. admission. Discussed options with
patient and patient states she feels very well and would like to go home. Pain is minimal at this time. She was started on a course of Bactrim based on prior wound culture. Patient requesting UA to be sent as she had some dysuria yesterday. UA sent
although Bactrim should also cover for possible UTI. She has an appt with Dr. Monique in 2 days. ED return precautions discussed. She was discharged in stable condition.
ED Attending Note
-
Portions of this chart may have been created with voice recognition software.� Occasional wrong word or��sound alike� substitutions may have occurred due to the inherent limitations of voice recognition software.
Discharge Plan
Departure
Patient Disposition: Home (Routine Discharge)
Date of Disposition: 09/05/24
Time of Disposition: 14:44
Patient with high blood pressure during this ER visit?: No
Discharge Problem:
Abdominal pain
Instructions: Abdominal Pain
Prescriptions:
New
sulfamethoxazole-trimethoprim [Bactrim DS] 800-160 mg tablet
1 tab PO BID Qty: 14 0RF
No Action
acetaminophen [Tylenol Extra Strength] 500 mg Tablet
1,000 mg PO Q6H PRN (Reason: mild pain)
levothyroxine 50 mcg tablet
50 mcg PO DAILY@0600
zinc sulfate 50 mg zinc (220 mg) Capsule
50 mg PO DAILY
calcium carbonate-vitamin D3 [Calcium 600 + D(3)] 600 mg-10 mcg (400 unit) Tablet
1 tab PO DAILY
B Complex
1 tab PO DAILY
turmeric root extract 500 mg Tablet
500 mg PO DAILY
loperamide 2 mg Capsule
2 mg PO BID 30 Days Qty: 60 0RF
loperamide [Imodium] 2 mg Capsule
2 mg PO QID PRN (Reason: loose stool)
famotidine 20 mg Tablet
20 mg PO DAILY
amoxicillin-pot clavulanate 875-125 mg tablet
1 tab PO BID 7 Days Qty: 14 0RF
Referrals:
Sneha Roach MD [Family Provider] -
Activity Restrictions/Additional Instructions:
Take antibiotics as prescribed.
Follow-up with Dr. Monique on Saturday as previously scheduled. Return to the ER with any worsening symptoms, fevers, or severe pain.
Interventions
Interventions:
*Risk Screen - Suicide Last Done: 09/05/24 09:05
*General Assessment Last Done: 09/05/24 09:05
*Neglect/Abuse Screening Last Done: 09/05/24 09:05
ED- Fall Risk Assessment Last Done: 09/05/24 10:00
*ED COVID-19 Vaccine History Last Done: 09/05/24 09:05
*Nursing Disposition Last Done: 09/05/24 14:53
HF-Slbjoh-[facility] Assessment Last Done: 09/05/24 10:00
Discharge Date and Time
Discharge Date/Time: 09/05/24 14:54
Print Language: VENEZUELAN
[2024-09-05] MEDS: OMNIPAQUE 50 ML PO (10:37)
[2024-09-05 10:49] LABS: % Basophils 0.9 % (0-2); % Eosinophils 1.2 % (0-6); % Immature Granulocytes 0.3 % (0-0.5); % Lymphocytes 26.6 % (20.5-51.1); % Monocytes 8.1 % (1.7-9.3); % Neutrophils 62.9 % (42.2-75.2); Absolute Basophils 0.1 10^3/uL (0-0.2); Absolute Eosinophils 0.1 10^3/uL (0-0.7); Absolute Lymphocytes 1.7 10^3/uL (1.2-3.4); Absolute Monocytes 0.5 10^3/uL (0.1-0.6); Absolute Neutrophils 4.1 10^3/uL (1.4-6.5); Hematocrit 38.7 % (37.0-47.0); Hemoglobin 12.3 g/dL (12.0-16.0); Mean Corp Hgb Conc. 31.8 g/dL (33.0-37.0); Mean Corpuscular Hgb 28.4 pg (27.0-31.0); Mean Corpuscular Volume 89.4 fL (81.0-99.0); Mean Platelet Volume 8.5 fL (7.4-10.4); Nucleated Red Blood Cells % 0 %; Platelet Count 283 10^3/uL (130-400); Red Blood Cell Count 4.33 10^6/uL (4.20-5.40); Red Cell Dist. Width 13.2 % (11.5-14.5); White Blood Cell Count 6.6 10^3/uL (4.8-10.8)
[2024-09-05 10:59] LABS: ALT (SGPT) 25 U/L (0-35); AST (SGOT) 29 U/L (14-36); Albumin 4.1 g/dl (3.5-5.0); Alkaline Phosphatase 68 U/L (38-126); Blood Urea Nitrogen 17 mg/dl (7-17); Calcium 9.9 mg/dl (8.4-10.2); Carbon Dioxide 28 mmol/L (22-30); Chloride 103 mmol/L (98-107); Glucose 90 mg/dl (70-99); Lipase 385 U/L (23-300); Potassium 4.9 mmol/L (3.5-5.1); Sodium 140 mmol/L (135-145); Total Bilirubin 0.3 mg/dl (0.2-1.3); Total Protein 6.8 g/dl (6.3-8.2); eGFR > 60.00
[2024-09-05 11:43] VITALS: BP 106/75
[2024-09-05 14:53] VITALS: BP 110/91
[2024-09-05 15:07] LABS: Urine Albumin Trace (Neg - Trace); Urine Bilirubin Negative (Negative); Urine Character Clear (Clear); Urine Color Yellow; Urine Glucose Negative (Negative); Urine Ketone Negative (Negative); Urine Leukocyte 1+ (Negative); Urine Nitrite Negative (Negative); Urine Occult Blood Negative (Negative); Urine Specific Gravity 1.025 (<1.030); Urine Urobilinogen Negative (Neg - 1+)
[2024-09-05 15:31] LABS: Urine Bacteria Few (Negative); Urine Calcium Oxalate Crystals Present; Urine Mucus Few
[2024-09-05 15:32] LABS: Urine Red Blood Cell 0-2 /HPF (0-2); Urine White Cell 0-2 /HPF (0-5)
== END 2024-09-05 14:54 | disposition home or self-care (01) ==
LOC: EMR 08:54
PROVIDERS: Physician Assistant; EMERGENCY PHYSICIAN Emergency Medicine; FAMILY PHYSICIAN Family Medicine
DX: R10.9 Unspecified abdominal pain (principal); Z93.2 Ileostomy status
CPT/HCPCS: 99284; 74177; 80053; 81003; 81015; 83690; 85025; 87086; Q9967

== ENCOUNTER → 2024-09-08 09:57 | Outpatient (REF) | payer OTHER, SELFPAY ==
[2024-09-08 12:15] LABS: ALT (SGPT) 23 U/L (0-35); AST (SGOT) 24 U/L (14-36); Albumin 4.3 g/dl (3.5-5.0); Alkaline Phosphatase 85 U/L (38-126); Blood Urea Nitrogen 16 mg/dl (7-17); Calcium 9.8 mg/dl (8.4-10.2); Carbon Dioxide 25 mmol/L (22-30); Chloride 100 mmol/L (98-107); Glucose 82 mg/dl (70-99); Lipase 199 U/L (23-300); Potassium 4.9 mmol/L (3.5-5.1); Sodium 137 mmol/L (135-145); Total Bilirubin 0.2 mg/dl (0.2-1.3); Total Protein 7.1 g/dl (6.3-8.2); eGFR > 60.00
== END ==
LOC: REG 09:57
PROVIDERS: ATTENDING PHYSICIAN Surgery; FAMILY PHYSICIAN Family Medicine
DX: K52.9 Noninfective gastroenteritis and colitis, unspecified (principal)
CPT/HCPCS: 36415; 80053; 83690

== ENCOUNTER → 2024-10-19 08:45 | Outpatient (REF) | payer OTHER, SELFPAY | LOC: RAD 08:45 | PROVIDERS: ATTENDING PHYSICIAN Surgery; FAMILY PHYSICIAN Family Medicine | DX: K63.2 Fistula of intestine (principal) | CPT/HCPCS: 74270 ==

== ENCOUNTER → 2024-10-29 13:25 | Outpatient (REF) | payer OTHER, SELFPAY | LOC: RAD 13:25 | PROVIDERS: ATTENDING PHYSICIAN Surgery; FAMILY PHYSICIAN Family Medicine | DX: N82.4 Other female intestinal-genital tract fistulae (principal) | CPT/HCPCS: 74177; Q9967 ==

== ENCOUNTER → 2024-11-11 07:59 | Outpatient (REF) | payer OTHER, SELFPAY ==
[2024-11-11 08:25] VITALS: BP 98/79; BP_SYST 84
== END ==
LOC: RADI 07:59
PROVIDERS: ATTENDING PHYSICIAN Surgery; FAMILY PHYSICIAN Family Medicine
DX: Z46.82 Encounter for fitting and adjustment of non-vascular catheter (principal); K65.1 Peritoneal abscess
CPT/HCPCS: 49424; 76080

== ENCOUNTER 2024-12-08 23:40 | Inpatient (IN) | payer OTHER, SELFPAY ==
[2024-12-08 19:29] VITALS: BP 135/94
[2024-12-08 19:42] LABS: % Basophils 0.7 % (0-2); % Eosinophils 0.8 % (0-6); % Immature Granulocytes 0.4 % (0-0.5); % Lymphocytes 18.7 % (20.5-51.1); % Monocytes 16.3 % (1.7-9.3); % Neutrophils 63.1 % (42.2-75.2); Absolute Basophils 0.1 10^3/uL (0-0.2); Absolute Eosinophils 0.1 10^3/uL (0-0.7); Absolute Lymphocytes 1.4 10^3/uL (1.2-3.4); Absolute Monocytes 1.2 10^3/uL (0.1-0.6); Absolute Neutrophils 4.8 10^3/uL (1.4-6.5); Hematocrit 47.3 % (37.0-47.0); Hemoglobin 16.4 g/dL (12.0-16.0); Mean Corp Hgb Conc. 34.7 g/dL (33.0-37.0); Mean Corpuscular Hgb 28.6 pg (27.0-31.0); Mean Corpuscular Volume 82.4 fL (81.0-99.0); Mean Platelet Volume 8.4 fL (7.4-10.4); Nucleated Red Blood Cells % 0 %; Platelet Count 296 10^3/uL (130-400); Red Blood Cell Count 5.74 10^6/uL (4.20-5.40); Red Cell Dist. Width 13.5 % (11.5-14.5); White Blood Cell Count 7.6 10^3/uL (4.8-10.8)
[2024-12-08 20:00] VITALS: BP 138/82
[2024-12-08 20:15] LABS: ALT (SGPT) 25 U/L (0-35); AST (SGOT) 31 U/L (14-36); Albumin 5.5 g/dl (3.5-5.0); Alkaline Phosphatase 97 U/L (38-126); Blood Urea Nitrogen 34 mg/dl (7-17); Calcium 10.7 mg/dl (8.4-10.2); Carbon Dioxide 15 mmol/L (22-30); Chloride 88 mmol/L (98-107); Glucose 179 mg/dl (70-99); Potassium 3.9 mmol/L (3.5-5.1); Sodium 124 mmol/L (135-145); Total Bilirubin 1.3 mg/dl (0.2-1.3); Total Protein 8.8 g/dl (6.3-8.2); eGFR > 60.00
[2024-12-08 22:24] VITALS: BP 108/87
[2024-12-08 22:33] VITALS: BMI 22.3
--- NOTE | 2024-12-08 22:58 | ED.GENMED ---
History of Present Illness
General
Chief Complaint: Dehydration Symptoms
Time Seen by Provider: 12/08/24 22:16
History of Present Illness
History of Present Illness:
59-year-old female presents the emergency department for evaluation of dizziness and nausea. She reports 'stomach bug' symptoms recently with vomiting and increased output from her ileostomy. Ileostomy was performed in July 2024 Due to
diverticulitis with abscess and colocutaneous fistula. She reports an average output of approximately 1400 cc per 24 hours however in the past 2 days she has had greater than 2600 cc. She reports mild abdominal discomfort. Vomiting has improved but
nausea persist.
Past History
Past History
ED Past Medical History: Other (Diverticulitis/diverticulosis)
ED Past Surgical History: Tonsilectomy
Social History
Tobacco: Non-smoker
Alcohol: Occasional
Drug: None
Personal:
Living: with family
Review of Systems
Review of Systems
Allergies reviewed?: Yes
All Other Systems: ROS reviewed and negative except as documented in HPI and ROS
Phy Exam
Physical Exam
Physical Exam:
GEN: Well appearing, NAD, WDWN
HEENT: Oral mucosa moist, no scleral icterus
Cardiac: Regular rate
Lung: No respiratory distress, no tachypnea
Abdomen: Soft,, ileostomy in the right lower quadrant with scant output
MSK: No gross deformity or injuries
Skin: Good color, no pallor or jaundice, no rashes
Neuro: AO x3, moves all extremities freely
Psych: Calm, cooperative
Course
Orders/Labs/Results
Orders:
Orders
12/08/24 19:37
Complete Blood Count/With Diff Urgent
Comprehensive Metabolic Panel Urgent
Serum Osmolality Urgent
Comment: ADD ON
12/08/24 22:28
Add On- LAB Urgent
Tests Added?: serum osmolality
Osmolality, Random Urine Urgent
Date Specimen was Collected: 12/08/24
Time Specimen was Collected: 22:32
Urine Sodium Urgent
Date Specimen was Collected: 12/08/24
Time Specimen was Collected: 22:32
0.9% Sodium Chloride 500 ml [Nss] 500 ml IV BOLUS
12/08/24 22:29
Urinalysis Reflex To Culture Urgent
Date Specimen was Collected: 12/08/24
Time Specimen was Collected: 22:32
12/08/24 23:07
Ondansetron Injectable [Zofran] 4 mg IV NOW STA
12/08/24 23:19
Lactic Acid Urgent
12/08/24 23:26
Admit/Transfer Patient As Directed
Co-Sign Provider:
Level of Care: Inpatient admission
Assign to:: Telemetry
Physician / Group: Keven
Diagnosis: Anion Gap Acidosis, Hypovolemia
Reason for Telemetry: Arrhythmia
Date to Stop Telemetry: 12/11/24
Time to Stop Telemetry: 11:00
Reason for Hospitalization: Anion Gap Acidosis, Hypovolemia
Expected length of stay greater than two midnights?: Yes
ELOS- Estimated Length of Stay in days: 2
I certify the patient meets the requirements for IP care: Yes
PRN Pain Medication Management As Directed
May give lesser potent ordered pain med per pt: Yes
preference::
Protocol:: Medication orders for pain may be administered in a
manner that supports deferring to patient preference
when the pt is:
- Requesting an ordered lesser potent pain medication.
Least to most potent pain medications are defined
as: acetaminophen < NSAID < tramadol < opioids
(morphine, oxycodone, hydromorphone).
- Requesting a lesser dose of the same medication IF
ORDERED.
- Requesting a less intrusive route of administration
if both routes are prescribed by the provider (PO <
IV).
12/08/24 23:29
Code Status As Directed
Resuscitation Status: Full Code
12/11/24 11:00
DC Protocol for Telemetry ONCE
Abnormal Lab Results
12/08/24
19:37
RBC 5.74 H 10^6/uL
(4.20-5.40)
Hgb 16.4 H g/dL
(12.0-16.0)
Hct 47.3 H %
(37.0-47.0)
Absolute Monos (auto) 1.2 H 10^3/uL
(0.1-0.6)
Lymphocytes % 18.7 L %
(20.5-51.1)
Monocytes % 16.3 H %
(1.7-9.3)
Sodium 124 L mmol/L
(135-145)
Chloride 88 L mmol/L
(98-107)
Carbon Dioxide 15 L mmol/L
(22-30)
BUN 34 H mg/dl
(7-17)
Glucose 179 H mg/dl
(70-99)
Serum Osmolality 270 L mOsm/kg
(275-300)
Calcium 10.7 H mg/dl
(8.4-10.2)
Total Protein 8.8 H g/dl
(6.3-8.2)
Albumin 5.5 H g/dl
(3.5-5.0)
12/08/24 19:37
12/08/24 19:37
Vital Signs
Initial and Last Documented VS:
Initial Vital Signs
Temp Pulse Resp BP Pulse Ox
97.5 F 128 18 135/94 96
12/08/24 19:29 12/08/24 19:29 12/08/24 19:29 12/08/24 19:29 12/08/24 19:29
Last Documented Vital Signs
Temp Pulse Resp BP Pulse Ox
97.5 F 92 18 112/91 98
12/08/24 19:29 12/08/24 23:15 12/08/24 23:15 12/08/24 23:00 12/08/24 23:15
MDM/Problems Addressed
MDM/Problems Addressed:
Severe hyponatremia secondary to high output ostomy in the setting of her recent gastroenteritis. Start gentle IV rehydration pending further workup with serum osmolality and urine studies. Will admit to the hospitalist service due to severe
symptomatic hyponatremia
*Critical Care Note
Total Time (30-74mins, 75-104mins- exclusive of procedures): Not Applicable
ED Attending Note
-
Portions of this chart may have been created with voice recognition software.� Occasional wrong word or��sound alike� substitutions may have occurred due to the inherent limitations of voice recognition software.
Discharge Plan
Departure
Patient Disposition: Admit
Date of Disposition: 12/08/24
Time of Disposition: 23:05
Admit to: Med/Surg
Presentation/result/management discussed w/ accepting MD/DO: Hospitalist
Discharge Problem:
Acute hyponatremia
Prescriptions:
No Action
acetaminophen [Tylenol Extra Strength] 500 mg Tablet
1,000 mg PO Q6HPRN PRN (Reason: mild pain)
levothyroxine 50 mcg tablet
50 mcg PO DAILY@0600
zinc sulfate 50 mg zinc (220 mg) Capsule
50 mg PO DAILY
calcium carbonate-vitamin D3 [Calcium 600 + D(3)] 600 mg-10 mcg (400 unit) Tablet
1 tab PO DAILY
vitamin B complex Tablet
1 tab PO DAILY Qty: 0
turmeric root extract 500 mg Tablet
500 mg PO DAILY
famotidine 20 mg Tablet
20 mg PO DAILYPRN PRN (Reason: heartburn)
simethicone [Gas-X] 80 mg Tablet,Chewable
80 mg PO DAILYPRN PRN (Reason: gas)
loperamide 2 mg capsule
4 mg PO QID
Referrals:
Sneha Roach MD [Family Provider] -
Interventions
Interventions:
*Risk Screen - Suicide Last Done: 12/08/24 19:29
*General Assessment Last Done: 12/08/24 19:29
*Neglect/Abuse Screening Last Done: 12/08/24 19:29
*ED COVID-19 Vaccine History Last Done: 12/08/24 19:29
ED- Cardiac Assessment Last Done: 12/08/24 22:33
ED- Neurological Assessment Last Done: 12/08/24 22:33
ED- Pulmonary Assessment Last Done: 12/08/24 22:33
Discharge Date and Time
Print Language: WOLOF
[2024-12-08 23:00] VITALS: BP 112/91
[2024-12-08] MEDS: NSS 500 IV (23:07)
[2024-12-08 23:10] LABS: Osmolality Serum 270 mOsm/kg (275-300)
[2024-12-08] MEDS: ZOFRAN 4 MG IV (23:18)
--- NOTE | 2024-12-08 23:38 | HPS.HSE ---
Family Physician
-
Family Physician: Sneha Roach
Chief Complaint
-
N/V/D
History of Present Illness
Patient is a 59y F with PMH significant for complicated diverticular disease with fistulous disease, loop ileostomy and high-output ostomy complications who presents to ED complaining of high ostomy outputs, generalized weakness. Patient states
that she had N/V and increased ostomy output over this past weekend. She had very little PO intake (including skipping meds like Imodium) on Saturday and Saturday. She has since noted significant increased in her ostomy output. Yesterday she had
1700cc out entirely. Today so far she has had 1100cc out.
Patient states that her N/V has resolved.
She denies fevers / chills.
Medical History
Past Medical History
Past Medical History: Reports Other
Additional Past Medical History:
Complicated Diverticular Disease
Colocutaneous Fistula
Rectovaginal Fistula
Hypothyroidism
Endometriosis
Past Surgical History: Reports Other
Additional Past Surgical History:
Robotic LAR (07/14/24)
Ex Lap with Diverting Loop Ileostomy (07/16/24 - secondary to anastomotic leak)
T&A
Ex Lap (for endometriosis)
Social History
Tobacco: Former Smoker (Quit smoking 25 years ago. Approx 10 pack years total)
Alcohol: Occasional
Drug: None
Family History
Family History: Not pertinent
Allergies / Home Medications
Allergies reflects when Allergies were last updated in [employer].
Home Medications with original date entered in [employer]
Allergy/Medication List:
Allergies
Allergy/AdvReac Type Severity Reaction Status Date / Time
No Known Allergies Allergy Verified 12/08/24 19:32
Home Medications
acetaminophen 500 mg tablet (Tylenol Extra Strength) 1,000 mg PO Q6HPRN PRN mild pain 03/09/24
levothyroxine 50 mcg tablet 50 mcg PO DAILY@0600 Thyroid 03/09/24
zinc sulfate 50 mg zinc (220 mg) capsule 50 mg PO DAILY Supplement 03/09/24
calcium 600 mg (as carbonate)-vitamin D3 10 mcg (400 unit) tablet (Calcium 600 + D(3)) 1 tab PO DAILY Supplement 07/07/24
turmeric root extract 500 mg tablet 500 mg PO DAILY Supplement 07/07/24
vitamin B complex 1 tab PO DAILY ##0 07/07/24
famotidine 20 mg tablet 20 mg PO DAILYPRN PRN heartburn 08/21/24
loperamide 2 mg capsule 4 mg PO QID 12/08/24
simethicone 80 mg chewable tablet 80 mg PO DAILYPRN PRN gas 12/08/24
Review of Systems
-
History Source: Patient
A 12 point ROS was completed and negative except as noted: Yes
Constitutional: Reports Fatigue; Denies Fever or Chills
Respiratory: Denies Cough or Trouble Breathing
Cardiac: Denies Chest Pain or Palpitations
Abdomen/GI: Reports Diarrhea; Denies Abdominal Pain, Nausea, Vomiting, Bloody Stools or Black Stools
: Denies Dysuria, Frequency or Flank Pain
Musculoskeletal: Denies Joint Pain or Edema
Neurological: Denies Dizzy or Headache
Psych: Denies Depression or Anxiety
Physical Exam
Vital Signs
Vital Signs
Temp Pulse Resp BP Pulse Ox
97.5 F 92 18 112/91 98
12/08/24 19:29 12/08/24 23:15 12/08/24 23:15 12/08/24 23:00 12/08/24 23:15
Physical Exam
General: Other (59y F in no acute distress.)
HEENT: Other (Dry MM. Neck supple.)
Respiratory: Clear; No Wheezes, Rales or Rhonchi
Cardiac: S1/S2 and Regular Rhythm; No Murmur
GI: Soft, Non Tender, Non Distended, Normal Bowel Sounds and Other (RLQ ostomy with some soft stool in device.)
Musculoskeletal: No Clubbing, No Cyanosis and No Edema
Neuro: AO x 3
Laboratory Results
-
12/08/24 19:37
12/08/24 19:37
Laboratory Results
Total Bilirubin 1.3 mg/dl (0.2-1.3) 12/08/24 19:37
AST 31 U/L (14-36) 12/08/24 19:37
ALT 25 U/L (0-35) 12/08/24 19:37
Alkaline Phosphatase 97 U/L (38-126) 12/08/24 19:37
Impression/Plan
-
A/P: Patient is a 59y F with PMH significant for complicated diverticular disease with diverting loop ileostomy who presents to ED complaining of N/V/D.
High-Output Ileostomy
Recent Gastroenteritis
Hypovolemic Hyponatremia
Anion Gap Metabolic Acidosis
- Admit for further evaluation and treatment.
- IVF support / volume replacement.
- Resume / continue usual standing Imodium regimen.
- Follow for improvement in labs / lytes.
- GI symptoms have resolved per patient - no further N/V. Now with 'usual' high-output ostomy issues.
- Follow ostomy outputs.
- BRAT diet as tolerated.
Complicated Diverticular Disease
- Loop ileostomy in place s/p anastomotic leak following LAR.
- Developed colocutaneous and rectovaginal fistulas.
- Had pelvic abscess that required transgluteal drain for a time - since removed.
- Follow-up with Colorectal as an outpatient as planned/
- Due for repeat imaging in December followed by possible ostomy reversal if fistulous disease is resolved.
Hypothyroidism
- Continue usual T4 replacement.
DVT Prophylaxis: Lovenox
Code Status: Full
[2024-12-08 23:49] LABS: Lactic Acid 1.1 mmol/L (0.7-2.0)
[2024-12-09] VITALS: BP 112/91
[2024-12-09 01:46] VITALS: BMI 21.1
[2024-12-09 01:47] VITALS: BP 123/71
[2024-12-09] MEDS: LR 1000 IV ×3 (02:07→16:47)
[2024-12-09 03:08] LABS: Urine Albumin 2+ (Neg - Trace); Urine Bilirubin Negative (Negative); Urine Character Clear (Clear); Urine Color Yellow; Urine Glucose Negative (Negative); Urine Ketone Negative (Negative); Urine Leukocyte Negative (Negative); Urine Nitrite Negative (Negative); Urine Occult Blood 1+ (Negative); Urine Urobilinogen Negative (Neg - 1+)
[2024-12-09 03:20] VITALS: BMI 21.1
[2024-12-09 03:38] LABS: Urine Mucus Few
[2024-12-09 03:40] LABS: Urine Calcium Oxalate Crystals Seen
[2024-12-09 03:41] LABS: Urine Bacteria Few (Negative); Urine White Cell 0-2 /HPF (0-5)
--- NOTE | 2024-12-09 03:43 | PTCARENOTE ---
Rec'd pt. into room 2120 from ED AAOx3, VSS, NSR on the monitor. Pt. ambulates independently without difficulty. No complaints of pain or nausea. Ileostomy draining loose/liquid green stool, 175 ml emptied immediately. Enhanced precautions
initiated (per infection prevention data algorithm) - hospitalist BRENT Dalton contacted to see if stool for c-diff/noro virus should be ordered/collected, per Krystle admitting doctor does not want these studies ordered. Outstanding urine
specimen sent. Pt. currently sleeping.
[2024-12-09 03:47] LABS: Urine Sodium < 5 mmol/L (30-90)
[2024-12-09 04:01] LABS: Osmolality Urine 526 mOsm/kg (300-900)
[2024-12-09] MEDS: SYNTHROID 50 MCG PO (05:26)
[2024-12-09 06:42] LABS: Hematocrit 42.5 % (37.0-47.0); Hemoglobin 14.9 g/dL (12.0-16.0); Mean Corp Hgb Conc. 35.1 g/dL (33.0-37.0); Mean Corpuscular Hgb 28.8 pg (27.0-31.0); Mean Platelet Volume 8.9 fL (7.4-10.4); Platelet Count 258 10^3/uL (130-400); Red Blood Cell Count 5.18 10^6/uL (4.20-5.40); Red Cell Dist. Width 13.4 % (11.5-14.5); White Blood Cell Count 5.5 10^3/uL (4.8-10.8)
[2024-12-09 07:16] LABS: Blood Urea Nitrogen 32 mg/dl (7-17); Calcium 9.9 mg/dl (8.4-10.2); Carbon Dioxide 20 mmol/L (22-30); Chloride 94 mmol/L (98-107); Estimated Creatinine Clearance 62 ml/min; Glucose 127 mg/dl (70-99); Magnesium 2.1 mg/dl (1.6-2.3); Phosphorus 4.4 mg/dl (2.5-4.5); Potassium 3.6 mmol/L (3.5-5.1); Sodium 127 mmol/L (135-145); eGFR > 60.00
[2024-12-09 07:21] VITALS: BP 109/73
[2024-12-09 08:14] LABS: Free T4 1.55 ng/dl (0.78-2.19)
[2024-12-09] MEDS: IMODIUM 4 MG PO ×5 (08:52→21:10)
--- NOTE | 2024-12-09 10:09 | CM ---
Patient seen at bedside.
IA completed
Lives in a 2 story home with , 2 steps to enter, flight stairs to bed/bath
PLOF: Independent, no device
Denies DME
Has had [facility] in past, denies rehab
Denies insecurities
PCP: Sneha Roach
Pharmacy: [address], [place]
PLAN: home, no anticipated needs
[2024-12-09 11:11] VITALS: BP 112/69
--- NOTE | 2024-12-09 12:16 | W.PN.HOSP.TC ---
Today's Communication/Plan
-
Continue with IV fluids
Advance diet
Adjust Synthroid
Assessment / Plan
Assessment / Plan
A/P: Patient is a 59y F with PMH significant for complicated diverticular disease with diverting loop ileostomy who presents to ED complaining of N/V/D.
High-Output Ileostomy
Recent Gastroenteritis
Hypovolemic Hyponatremia
Anion Gap Metabolic Acidosis
- IVF support / volume replacement. IV fluid can be stopped if tolerating p.o. intake.
- Resume / continue usual standing Imodium regimen.
- Follow for improvement in labs / lytes.
- GI symptoms have resolved per patient - no further N/V. Now with 'usual' high-output ostomy issues.
- Follow ostomy outputs. Continue with home dose of midodrine
- Of note patient with sick contact at home with daughter and granddaughter who had recent gastroenteritis symptoms
- Advance diet and monitor. Start po bicarb for now.
- Sodium is improving
Complicated Diverticular Disease
- Loop ileostomy in place s/p anastomotic leak following LAR.
- Developed colocutaneous and rectovaginal fistulas.
- Had pelvic abscess that required transgluteal drain for a time - since removed.
- Follow-up with Colorectal as an outpatient as planned/
- Due for repeat imaging in December followed by possible ostomy reversal if fistulous disease is resolved.
Hypothyroidism
- TSH greater than 10. Increase Synthroid to 75 with repeat thyroid function test in 4 to 6 weeks
DVT Prophylaxis: Lovenox
Code Status: Full
Anticipated Discharge: Within 24 hours
Subjective/Interval History
-
Date of Service: December 09, 2024
Denies any nausea or vomiting
States she has a history of chronic increased ostomy output
denies any lightheadedness or dizziness
Objective Data
-
Labs:
Laboratory Results
12/09/24
06:23
WBC 5.5
Hgb 14.9
Hct 42.5
Plt Count 258
Sodium 127 L
Potassium 3.6
Chloride 94 L
Carbon Dioxide 20 L
BUN 32 H
Creatinine 0.8
Glucose 127 H
Calcium 9.9
Vital Signs:
Vital Signs
Temp Pulse Resp BP Pulse Ox
98.5 F 83 17 112/69 96
12/09/24 11:11 12/09/24 11:11 12/09/24 11:11 12/09/24 11:11 12/09/24 11:11
I&O
12/08/24 12/09/24 12/10/24
06:59 06:59 06:59
Intake Total 1180 / 1180
Output Total 1000 / 1000
Balance 180 / 180
Physical Exam
-
General: Well Developed and No Apparent Distress
HEENT: Normocephalic, Atraumatic and Moist Mucous Membranes
Respiratory: Clear to Auscultation
Cardiac: Regular Rhythm and S1/S2; Negative Murmur, Rub or Gallop
GI: Soft, Nontender, Nondistended, Normal Bowel Sounds and Ostomy (Brown stool and gas noted); Negative Organomegaly
Rectal: Deferred by Provider
Musculoskeletal: No Clubbing, No Cyanosis and No Edema
Skin: Negative Rash
Neuro: Awake, Alert, Oriented, AO x 3, No Motor Deficits and Nonfocal/Grossly Intact
Psych: Calm
Data Reviewed
-
Total Time Spent with Patient (in minutes): 55
[2024-12-09] MEDS: SODIUM BICARBONATE 650 MG PO ×3 (13:06→21:10)
[2024-12-09] MEDS: KCL 20 MEQ PO (13:06)
[2024-12-09 15:38] VITALS: BP 108/75
[2024-12-09] MEDS: LOVENOX 40 MG SC (16:48)
[2024-12-09 23:10] VITALS: BP 93/62
[2024-12-10] MEDS: SYNTHROID 75 MCG PO (05:33)
[2024-12-10 05:52] VITALS: BMI 21.3
[2024-12-10] MEDS: SODIUM BICARBONATE 650 MG PO (07:44)
[2024-12-10] MEDS: IMODIUM 4 MG PO ×2 (07:44→12:14)
[2024-12-10] MEDS: OSCAL 500 + D 500 MG PO (07:44)
[2024-12-10 07:50] VITALS: BP 102/65
[2024-12-10 08:41] LABS: Calcium 9.7 mg/dl (8.4-10.2); Carbon Dioxide 25 mmol/L (22-30); Chloride 98 mmol/L (98-107); Estimated Creatinine Clearance 71 ml/min; Glucose 100 mg/dl (70-99); Magnesium 2.1 mg/dl (1.6-2.3); Potassium 4.5 mmol/L (3.5-5.1); Sodium 131 mmol/L (135-145); eGFR > 60.00
[2024-12-10 09:08] LABS: Blood Urea Nitrogen 15 mg/dl (7-17)
--- NOTE | 2024-12-10 11:14 | W.PN.HOSP.TC ---
Today's Communication/Plan
-
dc home
increase dose of synthroid
Assessment / Plan
Assessment / Plan
A/P: Patient is a 59y F with PMH significant for complicated diverticular disease with diverting loop ileostomy who presents to ED complaining of N/V/D.
High-Output Ileostomy
Recent Gastroenteritis
Hypovolemic Hyponatremia
Anion Gap Metabolic Acidosis
- status post IV fluid. Tolerating regular diet.
- Resume / continue usual standing Imodium regimen.
- Follow for improvement in labs / lytes.
- GI symptoms have resolved per patient - no further N/V. Now with 'usual' high-output ostomy issues.
- Follow ostomy outputs. Continue with home dose of Imodium
- Of note patient with sick contact at home with daughter and granddaughter who had recent gastroenteritis symptoms
- Advance diet and monitor. Acidosis resolved. DC bicarbonate.
- Sodium is improving to 131.
Complicated Diverticular Disease
- Loop ileostomy in place s/p anastomotic leak following LAR.
- Developed colocutaneous and rectovaginal fistulas.
- Had pelvic abscess that required transgluteal drain for a time - since removed.
- Follow-up with Colorectal as an outpatient as planned/
- Due for repeat imaging in December followed by possible ostomy reversal if fistulous disease is resolved.
Hypothyroidism
- TSH greater than 10. Increase Synthroid to 75 with repeat thyroid function test in 4 to 6 weeks. Patient verbalized understanding follow-up with repeat blood work.
DVT Prophylaxis: Lovenox
Code Status: Full
More than 30 minutes spent in discharge including
Final examination of the patient
Summarizing hospital stay
Instructions for continuing care to all relevant caregivers
Preparation of discharge records, prescriptions, and referral forms
Total time spent (in minutes): 55
Anticipated Discharge: Today
Subjective/Interval History
-
Date of Service: December 10, 2024
Tolerating diet.
States of chronic increased ostomy output
No nausea no vomiting
Objective Data
-
Labs:
Laboratory Results
12/10/24
07:13
Sodium 131 L
Potassium 4.5
Chloride 98
Carbon Dioxide 25
BUN 15
Creatinine 0.7
Glucose 100 H
Calcium 9.7
Vital Signs:
Vital Signs
Temp Pulse Resp BP Pulse Ox
97.8 F 75 18 102/65 99
12/10/24 07:50 12/10/24 07:50 12/10/24 07:50 12/10/24 07:50 12/10/24 07:50
I&O
12/09/24 12/10/24 12/11/24
06:59 06:59 06:59
Intake Total 1180 / 1180 2099 / 2100
Output Total 1000 / 1000 1775 / 1775
Balance 180 / 180 325 / 325
--- NOTE | 2024-12-10 11:16 | W.DCSUMMARY ---
Discharge Summary
Discharge Data
Date of Admission: 12/08/24
Date of Discharge: 12/10/24
-
Pending Results: No
Hospital Course
Patient is a 59y F with PMH significant for complicated diverticular disease with diverting loop ileostomy who presents to ED complaining of N/V/D. Patient recently with sick contact at home with daughter and granddaughter who had recent
gastroenteritis symptoms. Patient was having nausea vomiting at home. Patient states she has a high output ileostomy chronically. Patient nausea vomiting resolved. Patient upon admission was found to have a severe dehydration. Patient was found
to have a hypovolemic hyponatremia and anion gap metabolic acidosis. Patient's sodium slowly up trended. IV fluid was discontinued. Patient was tolerating regular diet. Acidosis resolved and bicarbonate was discontinued. Patient stated chronic
ostomy output. Denies any abdominal pain. Patient was tolerating diet. Patient remained afebrile. Patient also with elevated TSH and Synthroid dose was increased. Patient was recommend to repeat thyroid function testing as outpatient. Patient
be discharged home.
Discharge Plan
-
Patient Disposition: Home (Routine Discharge)
Discharge Diagnosis/Procedures: High output ileostomy
Hypovolemic hyponatremia
Anion gap metabolic acidosis
Hypothyroidism
Condition: Fair
Diet: Regular
Activity: As tolerated
Driving Restrictions: As prior to admission
Blood Work: Repeat thyroid function testing in 4 -5 weeks via primary doctor
Repeat BMP in 7 days via primary doctor
Referrals:
Sneha Roach MD [Family Provider] - in less than 1 week
Additional Discharge Medication Instructions: Levothyroxine dose has been increased to 75 mcg
Prescriptions:
New
levothyroxine 75 mcg Tablet
75 mcg PO DAILY @ 0600 30 Days Qty: 30 0RF
Continued
acetaminophen [Tylenol Extra Strength] 500 mg Tablet
1,000 mg PO Q6HPRN PRN (Reason: mild pain)
zinc sulfate 50 mg zinc (220 mg) Capsule
50 mg PO DAILY
calcium carbonate-vitamin D3 [Calcium 600 + D(3)] 600 mg-10 mcg (400 unit) Tablet
1 tab PO DAILY
vitamin B complex Tablet
1 tab PO DAILY Qty: 0
turmeric root extract 500 mg Tablet
500 mg PO DAILY
famotidine 20 mg Tablet
20 mg PO DAILYPRN PRN (Reason: heartburn)
simethicone 80 mg Tablet,Chewable
80 mg PO DAILYPRN PRN (Reason: gas)
loperamide 2 mg capsule
4 mg PO QID
Discontinued
levothyroxine 50 mcg tablet
50 mcg PO DAILY@0600
Discharge Orders:
Discharge Patient (As Directed); Ordered 12/10/24
Ordered By: Anthony Miranda
Discharge Date and Time
Discharge Date/Time: 12/10/24 13:20
Print Language: PERSIAN
[2024-12-10 12:12] VITALS: BP 107/75
--- NOTE | 2024-12-10 13:35 | CM ---
Patient discharged to home
no needs
PLAN: Home, no needs
family to transport
== END 2024-12-10 13:20 | disposition home or self-care (01) | DRG 641 ==
LOC: 2 NORTH 23:40
PROVIDERS: Emergency Medicine; Physician Assistant; ADMITTING PHYSICIAN Hospitalist; ATTENDING PHYSICIAN Hospitalist; EMERGENCY PHYSICIAN Emergency Medicine; FAMILY PHYSICIAN Family Medicine
DX: E87.1 Hypo-osmolality and hyponatremia (principal); K63.2 Fistula of intestine; N82.3 Fistula of vagina to large intestine; E86.1 Hypovolemia; E86.0 Dehydration; E03.9 Hypothyroidism, unspecified; E87.20 Acidosis, unspecified; Z79.890 Hormone replacement therapy; Z87.891 Personal history of nicotine dependence; Z93.2 Ileostomy status; Z87.19 Personal history of other diseases of the digestive system
CPT/HCPCS: 80048; 80053; 81003; 81015; 83605; 83735; 83930; 83935; 84100; 84300; 84439; 84443; 85025; 85027; 99285

== ENCOUNTER 2024-12-14 14:25 | Inpatient (IN) | payer OTHER, SELFPAY ==
[2024-12-11 14:46] VITALS: BP 113/98
[2024-12-11 15:30] LABS: % Basophils 0.9 % (0-2); % Immature Granulocytes 0.4 % (0-0.5); % Lymphocytes 19.5 % (20.5-51.1); % Monocytes 10.9 % (1.7-9.3); % Neutrophils 67.3 % (42.2-75.2); Absolute Basophils 0.1 10^3/uL (0-0.2); Absolute Eosinophils 0.1 10^3/uL (0-0.7); Absolute Lymphocytes 1.5 10^3/uL (1.2-3.4); Absolute Monocytes 0.9 10^3/uL (0.1-0.6); Absolute Neutrophils 5.2 10^3/uL (1.4-6.5); Hemoglobin 15.5 g/dL (12.0-16.0); Mean Corp Hgb Conc. 34.4 g/dL (33.0-37.0); Mean Corpuscular Hgb 28.8 pg (27.0-31.0); Mean Corpuscular Volume 83.6 fL (81.0-99.0); Mean Platelet Volume 8.8 fL (7.4-10.4); Nucleated Red Blood Cells % 0 %; Platelet Count 332 10^3/uL (130-400); Red Blood Cell Count 5.38 10^6/uL (4.20-5.40); Red Cell Dist. Width 13.2 % (11.5-14.5); White Blood Cell Count 7.8 10^3/uL (4.8-10.8)
[2024-12-11 15:43] LABS: ALT (SGPT) 27 U/L (0-35); AST (SGOT) 30 U/L (14-36); Albumin 5.6 g/dl (3.5-5.0); Alkaline Phosphatase 84 U/L (38-126); Blood Urea Nitrogen 21 mg/dl (7-17); Carbon Dioxide 23 mmol/L (22-30); Chloride 91 mmol/L (98-107); Glucose 121 mg/dl (70-99); Potassium 5.1 mmol/L (3.5-5.1); Sodium 130 mmol/L (135-145); Total Bilirubin 0.9 mg/dl (0.2-1.3); Total Protein 8.6 g/dl (6.3-8.2); eGFR > 60.00
[2024-12-11 16:50] VITALS: BP 110/78
--- NOTE | 2024-12-11 21:57 | ED.GENMED ---
History of Present Illness
General
Chief Complaint: Dehydration Symptoms
Time Seen by Provider: 12/11/24 21:04
History of Present Illness
History of Present Illness:
59-year-old female with history of ileostomy presenting to the emergency department for concern of dehydration. Patient reports since last weekend, has been suffering from a GI illness. She reports increasing output from her ostomy since last
weekend. She was admitted to the hospital for this issue from 12/08-12/10, diagnosed with hypovolemic hyponatremia. Patient also had a metabolic acidosis with anion gap. She notes that as soon as she got home yesterday, again started to feel
unwell. She reports that she has had 2100 cc of output from her ostomy today alone, usually only has 1200. She reports lightheadedness fatigue and generalized weakness. She denies chest pain or difficulty breathing. Denies any vomiting. Reports
the stool is liquidy. Denies any blood in the stool. Denies fever abdominal pain or additional acute medical complaints
Past History
Past History
ED Past Medical History: Other (Diverticulitis/diverticulosis)
ED Past Surgical History: Tonsilectomy
Social History
Tobacco: Non-smoker
Alcohol: Occasional
Drug: None
Personal:
Living: with family
Phy Exam
Physical Exam
Physical Exam:
General: Well-appearing, mild dry mucous membrane
HEENT: protecting airway
Neck: appears supple
CV: Normal heart rate, regular rhythm
Resp: No accessory muscle use, no increased work of breathing, lungs clear to auscultation bilaterally
Abd: Soft and non-distended, no tenderness to palpation, liquid brown stool in ostomy bag
Extremities: No deformities, no swelling
Neuro: alert, no focal neurologic deficit
: deferred
Rectal: deferred
Psych: Normal affect
Skin: Intact
Course
Orders/Labs/Results
Orders:
Orders
12/11/24 14:49
EKG [Electrocardiogram (*1)] Urgent
Reason for Study: Vertigo / Dizzy
EKG- Treatment ONCE
12/11/24 15:06
Complete Blood Count/With Diff Urgent
Comprehensive Metabolic Panel Urgent
Creatine Phosphokinase Urgent
12/11/24 21:30
Add On- LAB Urgent
Tests Added?: cpk
0.9% Sodium Chloride 1000 ml [Nss] 1,000 ml IV BOLUS
12/11/24 22:11
Lactic Acid Urgent
Venous Blood Gas Urgent
%Oxygen/Room Air: 21
Abnormal Lab Results
12/11/24 12/11/24
15:06 22:11
Absolute Monos (auto) 0.9 H 10^3/uL
(0.1-0.6)
Lymphocytes % 19.5 L %
(20.5-51.1)
Monocytes % 10.9 H %
(1.7-9.3)
VBG pO2 96 H mmHg
(30-50)
Sodium 130 L mmol/L
(135-145)
Chloride 91 L mmol/L
(98-107)
BUN 21 H mg/dl
(7-17)
Glucose 121 H mg/dl
(70-99)
Calcium 11.0 H mg/dl
(8.4-10.2)
Total Protein 8.6 H g/dl
(6.3-8.2)
Albumin 5.6 H g/dl
(3.5-5.0)
12/11/24 15:06
12/11/24 15:06
Vital Signs
Initial and Last Documented VS:
Initial Vital Signs
Pulse Resp BP Pulse Ox
108 18 113/98 97
12/11/24 14:46 12/11/24 14:46 12/11/24 14:46 12/11/24 14:46
Last Documented Vital Signs
Temp Pulse Resp BP Pulse Ox
98.5 F 99 16 110/78 96
12/11/24 22:14 12/11/24 16:50 12/11/24 16:50 12/11/24 16:50 12/11/24 22:14
MDM/Problems Addressed
MDM/Problems Addressed:
59-year-old female with history of ostomy presenting for concern of dehydration. Vital signs on arrival are significant for mild tachycardia.
On exam patient is resting comfortably, no acute distress, mild dryness to her mucous membranes. She does have liquid stool in the ostomy bag, no blood. Reports output of 2100 cc, which is high. On review of EMR, recently admitted for
hyponatremia. Laboratory analysis obtained prior to my assessment with a sodium of 130, slight drop from discharge, at which time was 131. Patient however does have a slight anion gap of 16. Will send lactic acid and VBG. Patient also reports
generalized muscle cramping. Will send CK. Will start patient IV fluids.
23:10 -lactic acid within normal limits. No acidosis. CPK within normal limits. On reassessment, patient notes that she still having a lot of output. She does not feel comfortable going home with her given her present symptoms and continued high
output. Will admit for observation for sodium trending and treatment with fluids as needed
*Critical Care Note
Total Time (30-74mins, 75-104mins- exclusive of procedures): Not Applicable
ED Attending Note
-
Portions of this chart may have been created with voice recognition software.� Occasional wrong word or��sound alike� substitutions may have occurred due to the inherent limitations of voice recognition software.
Discharge Plan
Departure
Prescriptions:
No Action
acetaminophen [Tylenol Extra Strength] 500 mg Tablet
1,000 mg PO Q6HPRN PRN (Reason: mild pain)
zinc sulfate 50 mg zinc (220 mg) Capsule
50 mg PO DAILY
calcium carbonate-vitamin D3 [Calcium 600 + D(3)] 600 mg-10 mcg (400 unit) Tablet
1 tab PO DAILY
vitamin B complex Tablet
1 tab PO DAILY Qty: 0
turmeric root extract 500 mg Tablet
500 mg PO DAILY
famotidine 20 mg Tablet
20 mg PO DAILYPRN PRN (Reason: heartburn)
simethicone 80 mg Tablet,Chewable
80 mg PO DAILYPRN PRN (Reason: gas)
loperamide 2 mg capsule
4 mg PO QID
levothyroxine 75 mcg Tablet
75 mcg PO DAILY @ 0600 30 Days Qty: 30 0RF
Referrals:
Sneha Roach MD [Family Provider] -
Interventions
Interventions:
*Risk Screen - Suicide Last Done: 12/11/24 14:46
*General Assessment Last Done: 12/11/24 14:46
*Neglect/Abuse Screening Last Done: 12/11/24 14:46
ED- Fall Risk Assessment Last Done: 12/11/24 22:14
*ED COVID-19 Vaccine History Last Done: 12/11/24 14:46
ED- Cardiac Assessment Last Done: 12/11/24 22:14
ED- Neurological Assessment Last Done: 12/11/24 22:14
ED- Pulmonary Assessment Last Done: 12/11/24 22:14
Discharge Date and Time
Print Language: [id number]
[2024-12-11 22:06] LABS: Creatine Phosphokinase 34 U/L (30-135)
[2024-12-11 22:09] VITALS: BP 109/77
[2024-12-11 22:14] VITALS: BMI 21.3
[2024-12-11] MEDS: NSS 1000 IV (22:17)
[2024-12-11 22:18] LABS: Venous Blood Gas B.E. 0.9 mmol/L (-4 to +4); Venous Blood Gas HCO3 25.3 mmol/L (22-27); Venous Blood Gas O2 Sat % 99.3 %; Venous Blood Gas pCO2 39 mmHg (35-48); Venous Blood Gas pH 7.42 (7.32-7.43); Venous Blood Gas pO2 96 mmHg (30-50)
[2024-12-11 22:31] LABS: Lactic Acid 1.6 mmol/L (0.7-2.0)
[2024-12-11 23:00] VITALS: BP 101/76
[2024-12-12] VITALS: BP 97/66
--- NOTE | 2024-12-12 01:12 | HPS.HSE ---
Family Physician
-
Family Physician: Sneha Roach
Chief Complaint
-
Dehydration
History of Present Illness
This is a 59-year-old female with past medical history significant for diverticulosis of the/diverticulitis, bowel obstruction status post total direct and loop ileostomy with removal of drain last year who presents to the emergency department with
ongoing symptoms of dehydration.
Patient initially presented to the emergency department on Saturday with nausea and I have output from her ostomy bag. She denied vomiting. At the time was noted to have significant dehydration hypovolemia and anion gap metabolic acidosis. She
was treated symptomatically and given IV fluids. Hyponatremia and acidosis improved. She was given increased doses of Synthroid and discharged when she was tolerating p.o. Patient states that she has continued to tolerate p.o. However today she
has had about 2.6 L of output from ostomy which is unusually large for her. She continues to feel lightheaded with standing or walking. She has intermittent nausea but not as severe as previously. She denies fever any fevers or chills. Reports
muscle aches. She denies any abdominal pain. She denies any urinary symptoms.
In the emergency department blood pressure was 97/60 with a pulse rate of 99 and a temp of 98.5. She had a white count of 7.8 hemoglobin of 15.5 with platelet of 372. Sodium was 130 potassium 5.1 creatinine 0.7. Albumin level is 5.6. ECG shows a
normal sinus rhythm without any acute ST or T wave changes.
Medical History
Past Medical History
Past Medical History: Reports Other
Additional Past Medical History:
Complicated Diverticular Disease
Colocutaneous Fistula
Rectovaginal Fistula
Hypothyroidism
Endometriosis
Past Surgical History: Reports Other
Additional Past Surgical History:
Robotic LAR (07/14/24)
Ex Lap with Diverting Loop Ileostomy (07/16/24 - secondary to anastomotic leak)
T&A
Ex Lap (for endometriosis)
Social History
Tobacco: Former Smoker (Quit smoking 25 years ago. Approx 10 pack years total)
Alcohol: Occasional
Drug: None
Family History
Family History: Not pertinent
Allergies / Home Medications
Allergies reflects when Allergies were last updated in [employer].
Home Medications with original date entered in [employer]
Allergy/Medication List:
Allergies
Allergy/AdvReac Type Severity Reaction Status Date / Time
No Known Allergies Allergy Verified 12/11/24 14:49
Home Medications
acetaminophen 500 mg tablet (Tylenol Extra Strength) 1,000 mg PO Q6HPRN PRN mild pain 03/09/24
zinc sulfate 50 mg zinc (220 mg) capsule 50 mg PO DAILY Supplement 03/09/24
calcium 600 mg (as carbonate)-vitamin D3 10 mcg (400 unit) tablet (Calcium 600 + D(3)) 1 tab PO DAILY Supplement 07/07/24
turmeric root extract 500 mg tablet 500 mg PO DAILY Supplement 07/07/24
vitamin B complex 1 tab PO DAILY Supplement ##0 07/07/24
famotidine 20 mg tablet 20 mg PO DAILYPRN PRN heartburn 08/21/24
loperamide 2 mg capsule 4 mg PO QID Gastrointestinal Issue 12/08/24
simethicone 80 mg chewable tablet 80 mg PO DAILYPRN PRN gas 12/08/24
levothyroxine 75 mcg tablet 75 mcg PO DAILY @ 0600 30 days #30 tabs 12/10/24
Review of Systems
-
History Source: Patient
A 12 point ROS was completed and negative except as noted: Yes
Constitutional: Reports Fatigue; Denies Fever or Chills
Respiratory: Denies Cough or Trouble Breathing
Cardiac: Denies Chest Pain or Palpitations
Abdomen/GI: Reports Diarrhea; Denies Abdominal Pain, Nausea, Vomiting, Bloody Stools or Black Stools
: Denies Dysuria, Frequency or Flank Pain
Musculoskeletal: Denies Joint Pain or Edema
Neurological: Reports Weakness; Denies Dizzy or Headache
Psych: Denies Depression or Anxiety
Physical Exam
Vital Signs
Vital Signs
Temp Pulse Resp BP Pulse Ox
98.5 F 99 16 97/66 97
12/11/24 22:14 12/11/24 16:50 12/11/24 16:50 12/12/24 00:00 12/11/24 22:19
Physical Exam
General: Other (59y F in no acute distress.)
HEENT: Other (Dry MM. Neck supple.)
Respiratory: Clear; No Wheezes, Rales or Rhonchi
Cardiac: S1/S2 and Regular Rhythm; No Murmur
GI: Soft, Non Tender, Non Distended, Normal Bowel Sounds and Other (RLQ ostomy with some soft stool in device.)
Musculoskeletal: No Clubbing, No Cyanosis and No Edema
Neuro: AO x 3
Psych: Calm
Laboratory Results
-
12/11/24 15:06
12/11/24 15:06
Laboratory Results
Lactic Acid 1.6 mmol/L (0.7-2.0) 12/11/24 22:11
Total Bilirubin 0.9 mg/dl (0.2-1.3) 12/11/24 15:06
AST 30 U/L (14-36) 12/11/24 15:06
ALT 27 U/L (0-35) 12/11/24 15:06
Alkaline Phosphatase 84 U/L (38-126) 12/11/24 15:06
Data Reviewed
-
Medical Tests (Nuc Med, Echo, EKG etc): Image Personally Visualized and interpreted
Lab Data: Labs Reviewed by me
Old Records: Reviewed
Impression/Plan
-
IMPRESSION:
59 y.o female with recent admission for gastroenteritis and severe dehydration with hyponatremia to 124 and metabolic acidosis s/p fluid resuscitation with correction of metabolic anomalies, increased levothyroxine and advancing of diet with
ultimate discharge 2 days ago comes back with high output from ostomy and feeling dehydrated. Still appears dry with albumin level of 5.6. Renal function is stable and sodium and bicarb are 130 and 23 respectively.
PLAN:
1. Dehydration - Patient still with large output which can be expected from ostomy and still appears volume down with orthostatic symptoms, weakness fatigue and elevated albumin level. No abdominal pain, fevers or chills.
- admit to med/surg
- continue iv fluids with NS at 125 ml/hr
- repeat lytes and albumin in am
- check orthostatics in am
- monitor output and match output to keep even
- loperamide QID standing
- monitor serum sodium and bicarb.
- antiemetics prn
- pain control prn
DVT PPX - lovenox sq
Code status - Full Code
[2024-12-12] MEDS: NSS 500 IV (02:28)
[2024-12-12 04:58] VITALS: BP 106/72
[2024-12-12 04:59] VITALS: BMI 19.6
[2024-12-12] MEDS: NSS 1000 IV (05:14)
[2024-12-12] MEDS: SYNTHROID 75 MCG PO (05:15)
--- NOTE | 2024-12-12 05:21 | PTCARENOTE ---
Patient arrived from ED. AAO x 4. Glasses on. No dentures, no hearing aids. VSS. Patient denies pain. NSS initiated at 125 ml/hr infusing through patient's right hand IV site. Ileostomy assessed--stoma beefy red with surrounding skin intact. Dual
skin check completed. Patient oriented to room. Bed in lowest position. Call aguiar and personal belongings within reach.
[2024-12-12 07:54] VITALS: BP 99/69
[2024-12-12] MEDS: IMODIUM 4 MG PO ×4 (08:13→20:45)
[2024-12-12] MEDS: ZINC 50 MG PO (08:13)
[2024-12-12] MEDS: OSCAL 500 + D 500 MG PO (08:14)
[2024-12-12 08:29] LABS: Albumin 3.8 g/dl (3.5-5.0); Blood Urea Nitrogen 16 mg/dl (7-17); Calcium 8.5 mg/dl (8.4-10.2); Carbon Dioxide 20 mmol/L (22-30); Chloride 102 mmol/L (98-107); Estimated Creatinine Clearance 84 ml/min; Glucose 97 mg/dl (70-99); Potassium 4.1 mmol/L (3.5-5.1); Sodium 132 mmol/L (135-145); eGFR > 60.00
[2024-12-12] MEDS: MAGNESIUM SULFATE 100 IV (09:32)
[2024-12-12] MEDS: PROTONIX 40 MG PO (09:36)
--- NOTE | 2024-12-12 11:04 | W.PN.UPDATE ---
Update Note
Progress Note Update
Seen and examined independent of overnight physician. Nonbillable note.
Patient stated after discharge from the hospital she had approximately greater than 2 L of ostomy output in 12 hours. States she felt significantly weak and dehydrated. States she was afraid to eat due to increased ostomy output. States she did
talk to Dr. Leon Monique her primary surgeon and he was supposed to call in medication however patient never made it. States feeling better after receiving IV fluids however states remains with significantly high ostomy output throughout
hospitalization so far.
A/P: Patient is a 59y F with PMH significant for complicated diverticular disease with diverting loop ileostomy who presents to ED complaining of weakness and found to be significantly dehydrated.
Persistent High-Output Ileostomy
Recent Gastroenteritis
Hypovolemic Hyponatremia
Anion Gap Metabolic Acidosis
- Started patient on aggressive IV fluid resuscitation. Switch to LR.
- Resume / continue usual standing Imodium regimen 4 mg 4 times daily
- Follow for improvement in labs / lytes.
- Follow ostomy outputs. Added PPI.
- Monitor for worsening of acidosis.
- Sodium 132.
- Will ask colorectal for input as with persistent high ostomy output leading to dehydration and hospitalization. Dr. Patel to see
Complicated Diverticular Disease
- Loop ileostomy in place s/p anastomotic leak following LAR.
- Developed colocutaneous and rectovaginal fistulas.
- Had pelvic abscess that required transgluteal drain for a time - since removed.
- Follow-up with Colorectal as an outpatient as planned/
- Due for repeat imaging in December followed by possible ostomy reversal if fistulous disease is resolved.
Hypothyroidism
- Recently increase Synthroid to 75 mcg. Repeat TFTs in 4 to 6 weeks as outpatient.
DVT Prophylaxis: Lovenox
Code Status: Full
[2024-12-12] MEDS: LOMOTIL 1 TABLET PO ×3 (12:28→20:46)
[2024-12-12] MEDS: LR 1000 IV ×2 (12:28→21:42)
--- NOTE | 2024-12-12 12:40 | CON.CRS ---
Consultation
-
Reason for Consultation: high volume ostomy outputs
Medical History
-
Chief Complaint: lightheadedness
History of Present Illness:
59 yo female with a h/o diverticulitis with development of colocutaneous fistula with surgical management in July 2024 with a RAL low anterior resection with vaginal canal injury and intraoperative repair with return to the OR that admission for
exploratory laparotomy as she developed an anastomotic leak with diverting loop ileostomy creation at that time and IR drain placed subsequently for development of pelvic abscess in August which was later removed in October. She has also developed
a colovaginal fistula since that time being followed on outpatient imaging. She has presented through the ED twice in November for admission given high ostomy outputs and hypovolemia with electrolyte abnormalities. She has been following with
[facility] as an outpatient and was tracking her ostomy outputs at home on antidiarrheals. She has been on loperamide QID and was prescribed Lomotil but had not yet picked it up from the pharmacy when she became lightheaded at home. She notes her ostomy
outputs for a 12 hour period that day were 2400ml. She notes increasing fatigue as well causing her to present. She denies vomiting, fever or chills. She has had a decent appetite and was trying several dietary aids (marshmallow, peanut butter, etc)
to thicken her stools without much benefit. On exam, the stoma is pink and functioning with large volume of liquid stool in the appliance.
Past Medical History
Past Medical History: Diverticulitis, Hypothyroidism and Other (rectovaginal fistula, endometriosis)
Past Surgical History: Bowel Resection (RAL LAR 07/14/24 (vaginal canal injury repaired robotically intraop), Ex lap with diverting loop ileostomy 07/16/24 (for anastomotic leak)) and Gynecological (ex lap for endometriosis)
Social History
Tobacco: Former Smoker
Alcohol: Occasional
Allergies / Home Medications
Allergy/AdvReac Type Severity Reaction Status Date / Time
No Known Allergies Allergy Verified 12/11/24 14:49
�Medication �Instructions �Recorded �Confirmed �Type
acetaminophen 500 mg tablet 1,000 mg PO Q6HPRN PRN mild pain 03/09/24 12/11/24 History
(Tylenol Extra Strength)
zinc sulfate 50 mg zinc (220 mg) 50 mg PO DAILY Supplement 03/09/24 12/11/24 History
capsule
calcium 600 mg (as 1 tab PO DAILY Supplement 07/07/24 12/11/24 History
carbonate)-vitamin D3 10 mcg (400
unit) tablet (Calcium 600 + D(3))
turmeric root extract 500 mg tablet 500 mg PO DAILY Supplement 07/07/24 12/11/24 History
vitamin B complex 1 tab PO DAILY Supplement ##0 07/07/24 12/11/24 History
famotidine 20 mg tablet 20 mg PO DAILYPRN PRN heartburn 08/21/24 12/11/24 History
loperamide 2 mg capsule 4 mg PO QID Gastrointestinal Issue 12/08/24 12/11/24 History
simethicone 80 mg chewable tablet 80 mg PO DAILYPRN PRN gas 12/08/24 12/11/24 History
levothyroxine 75 mcg tablet 75 mcg PO DAILY @ 0600 30 days #30 12/10/24 12/11/24 Rx
tabs
Review of Systems
-
A 10 point review of systems was completed, and was negative except as per HPI.
Physical Exam
Vital Signs
Temp 97.6 F 12/12/24 07:54
Pulse 78 12/12/24 07:54
Resp Rate 16 12/12/24 07:54
Blood pressure 99/69 12/12/24 07:54
SaO2 97 12/12/24 07:54
12/11/24 12/12/24 12/13/24
06:59 06:59 06:59
Actual Weight 53.297 kg
Body Mass Index (BMI) 19.6
Lab Results / Allergies
12/11/24 15:06
12/12/24 07:17
WBC 7.8 10^3/uL (4.8-10.8) 12/11/24 15:06
Hgb 15.5 g/dL (12.0-16.0) 12/11/24 15:06
Hct 45.0 % (37.0-47.0) 12/11/24 15:06
Plt Count 332 10^3/uL (130-400) D 12/11/24 15:06
Abs Immat Gran (auto) 0.0 10^3/uL (0-0.05) 12/11/24 15:06
Neutrophils % 67.3 % (42.2-75.2) 12/11/24 15:06
Allergy/AdvReac Type Severity Reaction Status Date / Time
No Known Allergies Allergy Verified 12/11/24 14:49
Assessment / Plan
-
59 yo female with a h/o diverticulitis with development of colocutaneous fistula with surgical management in July 2024 with a RAL low anterior resection with vaginal canal injury and intraoperative repair with return to the OR that admission for
exploratory laparotomy as she developed an anastomotic leak with diverting loop ileostomy creation at that time and IR drain placed subsequently for development of pelvic abscess in August which was later removed in October. She has also developed
a colovaginal fistula since that time being followed on outpatient imaging.
She presents this admission for high ostomy outputs with symptoms of lightheadedness and fatigue. She is currently on electrolyte replacements and IVF. She is tolerating a regular diet without n/v.
AFVSS, BP's low normal
No leukocytosis
--Continue Imodium QID and add to this Lomotil QID, Questran BID and Metamucil daily
--Follow ostomy outputs closely
--Continue regular diet
--IVF/Electrolyte replacements as per primary team
[2024-12-12] MEDS: METAMUCIL, KONSYL 1 PACKET PO (12:53)
[2024-12-12 13:50] VITALS: BMI 19.6
[2024-12-12 15:04] VITALS: BP 107/73
[2024-12-12] MEDS: LOVENOX 40 MG SC (17:44)
[2024-12-12] MEDS: QUESTRAN 4 GRAM PO (21:42)
[2024-12-12 23:47] VITALS: BP 101/67
[2024-12-13] MEDS: LR 1000 IV ×3 (05:24→20:58)
[2024-12-13] MEDS: SYNTHROID 75 MCG PO (05:25)
[2024-12-13 07:00] VITALS: BP 110/72
[2024-12-13] MEDS: QUESTRAN 4 GRAM PO ×2 (07:50→22:24)
[2024-12-13] MEDS: ZINC 50 MG PO (07:50)
[2024-12-13] MEDS: OSCAL 500 + D 500 MG PO (07:50)
[2024-12-13] MEDS: METAMUCIL, KONSYL 1 PACKET PO (07:50)
[2024-12-13] MEDS: PROTONIX 40 MG PO (07:50)
[2024-12-13] MEDS: LOMOTIL 1 TABLET PO ×4 (07:51→20:54)
[2024-12-13] MEDS: IMODIUM 4 MG PO ×4 (07:51→20:54)
[2024-12-13 08:33] LABS: Blood Urea Nitrogen 11 mg/dl (7-17); Calcium 9.3 mg/dl (8.4-10.2); Carbon Dioxide 27 mmol/L (22-30); Chloride 98 mmol/L (98-107); Estimated Creatinine Clearance 72 ml/min; Glucose 92 mg/dl (70-99); Magnesium 2.6 mg/dl (1.6-2.3); Phosphorus 3.5 mg/dl (2.5-4.5); Potassium 4.9 mmol/L (3.5-5.1); Sodium 131 mmol/L (135-145); eGFR > 60.00
--- NOTE | 2024-12-13 10:01 | W.PN.CRS1 ---
Addendum entered and electronically signed by ALISSA Bains 12/13/24 10:48:
will send stool for c-diff given recent abx use
Original Note:
Today's Communication / Plan
-
Continue antidiarrheals
Assessment/Plan
-
59 yo female with a h/o diverticulitis with development of colocutaneous fistula with surgical management in July 2024 with a RAL low anterior resection with vaginal canal injury and intraoperative repair with return to the OR that admission for
exploratory laparotomy as she developed an anastomotic leak with diverting loop ileostomy creation at that time and IR drain placed subsequently for development of pelvic abscess in August which was later removed in October. She has also developed
a colovaginal fistula since that time being followed on outpatient imaging.
She presents this admission for high ostomy outputs with symptoms of lightheadedness and fatigue. She is currently on electrolyte replacements and IVF.
She is tolerating a regular diet without n/v.
AFVSS
--Continue Imodium QID with addition of Lomotil QID, Questran BID and Metamucil daily (added on 12/12/24)
--Follow ostomy outputs closely
--Continue regular diet
--IVF/Electrolyte replacements as per primary team
Subjective Data
Subjective Data
Date of Service: December 13, 2024
Patient seen and examined at bedside with Dr Patel. Denies n/v. Poor appetite overall. Passing liquid stools via stoma but starting to thicken up.
Objective Data
-
Vital Signs
Temp Pulse Resp BP Pulse Ox
97.5 F 79 18 110/72 96
12/13/24 07:00 12/13/24 07:00 12/13/24 07:00 12/13/24 07:00 12/13/24 07:00
Intake & Output
12/12/24 12/13/24 12/14/24
06:59 06:59 06:59
Intake Total 4094 / 4094
Output Total 3050 / 3050
Balance 1044 / 1044
Intake:
Oral fluids 240 / 240
IV fluids (Total) 3754 / 3754
IV piggybacks 100 / 100
Output:
Liquid stool amount 3049 / 3049
Ileostomy 3049 / 3049
Other:
Number of approximated MODERATE 3
amounts of urine
Lab Results
12/11/24 15:06
12/13/24 07:34
Physical Exam
-
General: No Acute Distress and AOx3
Abdomen: Soft, Non Distended, Non Tender and Bowel Movement (stoma pink/viable with liquid yellow stool)
Skin: Warm and Dry
[2024-12-13 11:22] VITALS: BP 112/76; BP 113/79; BP 117/77; PULSE 81; PULSE 86; PULSE 99
--- NOTE | 2024-12-13 11:36 | W.PN.HOSP.TC ---
Today's Communication/Plan
-
Continue with IV fluids for 24 hours
Continue with meds per colorectal
C. difficile pending
Encourage ambulation
Assessment / Plan
Assessment / Plan
General: Well Developed and No Apparent Distress
HEENT: Normocephalic, Atraumatic and Moist Mucous Membranes
Respiratory: Clear to Auscultation
Cardiac: Regular Rhythm and S1/S2;
GI: Soft, Nontender, Nondistended, Normal Bowel Sounds and Ostomy,
Rectal: Deferred by Provider
Musculoskeletal: No Edema
Skin: Negative Rash
Neuro: Awake, Alert, Oriented, AO x 3, No Motor Deficits and Nonfocal/Grossly Intact
Psych: Calm
A/P: Patient is a 59y F with PMH significant for complicated diverticular disease with diverting loop ileostomy who presents to ED complaining of weakness and found to be significantly dehydrated.
Persistent High-Output Ileostomy
Recent Gastroenteritis
Hypovolemic Hyponatremia
Anion Gap Metabolic Acidosis
- Started patient on aggressive IV fluid resuscitation. Switch to LR.
- Resume / continue usual standing Imodium regimen 4 mg 4 times daily
- Follow for improvement in labs / lytes.
- Follow ostomy outputs. Added PPI.
- Monitor for worsening of acidosis.
- Sodium 131.
- Continue with Imodium, Lomotil, Metamucil and PPI and Questran
- C-diff ordered per CRS
- Appreciate CRS recs
Complicated Diverticular Disease
- Loop ileostomy in place s/p anastomotic leak following LAR.
- Developed colocutaneous and rectovaginal fistulas.
- Had pelvic abscess that required transgluteal drain for a time - since removed.
- Follow-up with Colorectal as an outpatient as planned/
- Due for repeat imaging in December followed by possible ostomy reversal if fistulous disease is resolved.
Hypothyroidism
- Recently increase Synthroid to 75 mcg. Repeat TFTs in 4 to 6 weeks as outpatient.
DVT Prophylaxis: Lovenox
Code Status: Full
Anticipated Discharge: 24 - 48 hours
Subjective/Interval History
-
Date of Service: December 13, 2024
Patient had approximately 3 L of ostomy output in 24 hours
Denies lightheaded and dizziness while sitting
Agreed for ambulation later today
Objective Data
-
Labs:
Laboratory Results
12/13/24
07:34
Sodium 131 L
Potassium 4.9
Chloride 98
Carbon Dioxide 27
BUN 11
Creatinine 0.7
Glucose 92
Calcium 9.3
Vital Signs:
Vital Signs
Temp Pulse Resp BP Pulse Ox
97.5 F 79 18 110/72 96
12/13/24 07:00 12/13/24 07:00 12/13/24 07:00 12/13/24 07:00 12/13/24 07:00
I&O
12/12/24 12/13/24 12/14/24
06:59 06:59 06:59
Intake Total 4094 / 4094
Output Total 3050 / 3050
Balance 1044 / 1044
--- NOTE | 2024-12-13 13:48 | CM ---
payroll accounting manager reviewed patient's chart and met with patient and patient states that she lives with her spouse in a 2 story home, with 2 steps to enter, patient is independent with adl's and ambulation, no dme, home no needs when stable.
Patient admitted under OBS, OBS letter signed and placed on chart.
PCP: Dr. Roach
Pharmacy: [facility]
Plan; Home when stable, No needs.
[2024-12-13 15:00] VITALS: BP 102/67
[2024-12-13] MEDS: LOVENOX 40 MG SC (17:03)
[2024-12-13] MEDS: QUESTRAN PO (22:18)
[2024-12-13 23:42] VITALS: BP 95/65
[2024-12-14] MEDS: SYNTHROID 75 MCG PO (06:21)
[2024-12-14] MEDS: LR 1000 IV ×2 (06:21→17:40)
[2024-12-14 07:00] VITALS: BP 94/65
[2024-12-14 08:07] LABS: Blood Urea Nitrogen 11 mg/dl (7-17); Calcium 9.4 mg/dl (8.4-10.2); Carbon Dioxide 29 mmol/L (22-30); Chloride 99 mmol/L (98-107); Estimated Creatinine Clearance 72 ml/min; Glucose 92 mg/dl (70-99); Potassium 4.8 mmol/L (3.5-5.1); Sodium 133 mmol/L (135-145); eGFR > 60.00
[2024-12-14] MEDS: IMODIUM 4 MG PO ×4 (09:34→20:21)
[2024-12-14] MEDS: METAMUCIL, KONSYL 1 PACKET PO ×2 (09:34→20:21)
[2024-12-14] MEDS: PROTONIX 40 MG PO (09:34)
[2024-12-14] MEDS: LOMOTIL 1 TABLET PO (09:34)
[2024-12-14] MEDS: OSCAL 500 + D 500 MG PO (09:35)
[2024-12-14] MEDS: QUESTRAN 4 GRAM PO ×2 (09:35→22:02)
[2024-12-14] MEDS: ZINC 50 MG PO (09:35)
--- NOTE | 2024-12-14 10:48 | W.PN.CRS1 ---
Today's Communication / Plan
-
follow ileostomy outputs
wound RN
increase lomotil and fiber
Assessment/Plan
-
59 yo female with a h/o diverticulitis with development of colocutaneous fistula with surgical management in July 2024 with a RAL low anterior resection with vaginal canal injury and intraoperative repair with return to the OR that admission for
exploratory laparotomy as she developed an anastomotic leak with diverting loop ileostomy creation at that time and IR drain placed subsequently for development of pelvic abscess in August which was later removed in October. She has also developed
a colovaginal fistula since that time being followed on outpatient imaging.
Na 133 (hyponatremia), otherwise labs are normal
AFVSS
Stoma output: 3650ml
--Continue Imodium QID, increase Lomotil 2tabs QID, Questran BID and increase to Metamucil BID
--Follow ostomy outputs closely
--Continue regular diet
--C.diff negative
--Wound RN consult for ostomy care
--IVF/Electrolyte replacements as per primary team
Subjective Data
Subjective Data
Date of Service: December 14, 2024
Patient states she had a lot of otput overnight. She denies nausea or vomiting. She has flatus. She is tolerating a diet.
Objective Data
-
Vital Signs
Temp Pulse Resp BP Pulse Ox
97.8 F 78 18 94/65 97
12/14/24 07:00 12/14/24 07:00 12/14/24 07:00 12/14/24 07:00 12/14/24 07:00
Intake & Output
12/13/24 12/14/24 12/15/24
06:59 06:59 06:59
Intake Total 4094 / 4094 2380 / 2380
Output Total 3050 / 3050 3650 / 3650
Balance 1044 / 1044 -1270 / -1270
Intake:
Oral fluids 240 / 240 1380 / 1380
IV fluids (Total) 3754 / 3754 1000 / 1000
IV piggybacks 100 / 100
Output:
Liquid stool amount 3049 / 3049 3649 / 3649
Ileostomy 3049 / 3049
Other:
Number of approximated MODERATE 3 3
amounts of urine
Lab Results
12/11/24 15:06
12/14/24 05:50
Physical Exam
-
General: No Acute Distress and AOx3
Abdomen: Soft, Non Distended, Non Tender and Other (stoma danial and pink with output)
Skin: Warm and Dry
[2024-12-14 11:09] VITALS: BP 102/71; BP 105/74; BP 108/76; PULSE 86; PULSE 91; PULSE 97
--- NOTE | 2024-12-14 11:53 | W.PN.HOSP.TC ---
Today's Communication/Plan
-
encourage oob
IVF for now
trend labs
CRS Recs
encourage increase po intake
Assessment / Plan
Assessment / Plan
General: cachetic and No Apparent Distress
HEENT: Normocephalic, Atraumatic and Moist Mucous Membranes
Respiratory: non labor respirations,
Cardiac: Regular Rhythm and S1/S2;
GI: Soft, Nontender, Nondistended, Normal Bowel Sounds and Ostomy,
Rectal: Deferred by Provider
Musculoskeletal: No Edema
Skin: Negative Rash
Neuro: Awake, Alert, Oriented, AO x 3, No Motor Deficits and Nonfocal/Grossly Intact
Psych: Calm
A/P: Patient is a 59y F with PMH significant for complicated diverticular disease with diverting loop ileostomy who presents to ED complaining of weakness and found to be significantly dehydrated.
Persistent High-Output Ileostomy
Recent Gastroenteritis
Hypovolemic Hyponatremia
Anion Gap Metabolic Acidosis
- Started patient on aggressive IV fluid resuscitation. Switch to LR.
- Resume / continue usual standing Imodium regimen 4 mg 4 times daily
- Follow for improvement in labs / lytes.
- Follow ostomy outputs. Added PPI.
- Monitor for worsening of acidosis.
- Sodium 133
- Continue with Imodium, Lomotil increased to 2 tabs , Metamucil BID and PPI and Questran
- C-diff ordered per CRS
- Appreciate CRS recs
Complicated Diverticular Disease
- Loop ileostomy in place s/p anastomotic leak following LAR.
- Developed colocutaneous and rectovaginal fistulas.
- Had pelvic abscess that required transgluteal drain for a time - since removed.
- Follow-up with Colorectal as an outpatient as planned/
- Due for repeat imaging in December followed by possible ostomy reversal if fistulous disease is resolved.
Hypothyroidism
- Recently increase Synthroid to 75 mcg. Repeat TFTs in 4 to 6 weeks as outpatient.
DVT Prophylaxis: Lovenox
Code Status: Full
Anticipated Discharge: 24 - 48 hours
Subjective/Interval History
-
Date of Service: December 14, 2024
remains with increase ostomy output
has not got out of bed to ambulate
Objective Data
-
Labs:
Laboratory Results
12/14/24
05:50
Sodium 133 L
Potassium 4.8
Chloride 99
Carbon Dioxide 29
BUN 11
Creatinine 0.7
Glucose 92
Calcium 9.4
Vital Signs:
Vital Signs
Temp Pulse Resp BP Pulse Ox
97.8 F 78 18 94/65 97
12/14/24 07:00 12/14/24 07:00 12/14/24 07:00 12/14/24 07:00 12/14/24 07:00
I&O
12/13/24 12/14/24 12/15/24
06:59 06:59 06:59
Intake Total 4094 / 4094 2380 / 2380
Output Total 3050 / 3050 3650 / 3650
Balance 1044 / 1044 -1270 / -1270
[2024-12-14] MEDS: LOMOTIL 2 TABLET PO ×3 (13:04→20:20)
[2024-12-14 15:00] VITALS: BP 104/69
--- NOTE | 2024-12-14 15:38 | WOUNDNOTE ---
DIANA RN NOTE: Patient admitted with dehydration and hyponatremia. Patient has RUQ ileostomy, patient known to service last seen July of 2024. Patient states output is still liquid of large amts, starting to slow a little compared to admission.
Stoma pink and budded, peristomal skin medially and distally with redness and stings when cleaned. Reviewed current appliance regime and patient confirmed she changes it q 3 days. Today applied stoma powder and skin prep to red areas after cleaning.
Then Van cut to fit 2 3/4 flat wafer # [id number] with adapt ring. Used 2 3/4' Van high output pouch # [id number]. Teaching done with patient regarding using high output pouch and how to empty. Also gave patient night time drainage system and
showed how to lathe set up operator to this system if wants to try. Supplies at bedside and can take upon discharge. Answered all questions and will follow as needed.
[2024-12-14] MEDS: LOVENOX 40 MG SC (17:42)
[2024-12-14 23:27] VITALS: BP 101/67
[2024-12-15] MEDS: SYNTHROID 75 MCG PO (06:13)
[2024-12-15] MEDS: LR 1000 IV ×2 (06:14→15:03)
[2024-12-15 07:00] VITALS: BP 98/61
[2024-12-15 08:39] LABS: Blood Urea Nitrogen 10 mg/dl (7-17); Calcium 9.2 mg/dl (8.4-10.2); Carbon Dioxide 29 mmol/L (22-30); Chloride 100 mmol/L (98-107); Estimated Creatinine Clearance 72 ml/min; Glucose 85 mg/dl (70-99); Magnesium 2.2 mg/dl (1.6-2.3); Potassium 4.9 mmol/L (3.5-5.1); Sodium 133 mmol/L (135-145); eGFR > 60.00
[2024-12-15] MEDS: IMODIUM 4 MG PO ×4 (09:01→20:38)
[2024-12-15] MEDS: METAMUCIL, KONSYL 1 PACKET PO ×2 (09:01→20:38)
[2024-12-15] MEDS: OSCAL 500 + D 500 MG PO (09:01)
[2024-12-15] MEDS: ZINC 50 MG PO (09:01)
[2024-12-15] MEDS: PROTONIX 40 MG PO (09:01)
[2024-12-15] MEDS: QUESTRAN 4 GRAM PO ×2 (09:01→21:53)
[2024-12-15] MEDS: LOMOTIL 2 TABLET PO ×4 (09:01→20:38)
[2024-12-15] MEDS: NSS 1000 IV (09:15)
[2024-12-15 09:39] VITALS: BP 104/66; BP 106/73; BP 97/64; PULSE 81; PULSE 89; PULSE 95
--- NOTE | 2024-12-15 11:03 | W.PN.HOSP.TC ---
Today's Communication/Plan
-
Dec in ostomy output noted
cont lomotil, imodum, metamucil, Questran
IVF
Recommend OOB/ambulate
CRS recs
Assessment / Plan
Assessment / Plan
General: cachetic and No Apparent Distress
HEENT: Normocephalic, Atraumatic and Moist Mucous Membranes
Respiratory: non labor respirations,
Cardiac: Regular Rhythm and S1/S2;
GI: Soft, Nontender, Nondistended, Normal Bowel Sounds and Ostomy,
Rectal: Deferred by Provider
Musculoskeletal: No Edema
Skin: Negative Rash
Neuro: Awake, Alert, Oriented, AO x 3, No Motor Deficits and Nonfocal/Grossly Intact
Psych: Calm
A/P: Patient is a 59y F with PMH significant for complicated diverticular disease with diverting loop ileostomy who presents to ED complaining of weakness and found to be significantly dehydrated.
Persistent High-Output Ileostomy
Recent Gastroenteritis
Hypovolemic Hyponatremia
Anion Gap Metabolic Acidosis
- Started patient on aggressive IV fluid resuscitation. Switch to LR.
- Resume / continue usual standing Imodium regimen 4 mg 4 times daily
- Follow for improvement in labs / lytes.
- Follow ostomy outputs. Added PPI.
- Monitor for worsening of acidosis.
- Sodium 133
- Continue with Imodium, Lomotil increased to 2 tabs , Metamucil BID and PPI and Questran
- C-diff negative.
- Ostomy output decrease by 1000cc so far.
- Appreciate CRS recs
Complicated Diverticular Disease
- Loop ileostomy in place s/p anastomotic leak following LAR.
- Developed colocutaneous and rectovaginal fistulas.
- Had pelvic abscess that required transgluteal drain for a time - since removed.
- Follow-up with Colorectal as an outpatient as planned/
- Due for repeat imaging in December followed by possible ostomy reversal if fistulous disease is resolved.
Hypothyroidism
- Recently increase Synthroid to 75 mcg. Repeat TFTs in 4 to 6 weeks as outpatient.
DVT Prophylaxis: Lovenox
Code Status: Full
Anticipated Discharge: 24 - 48 hours
Subjective/Interval History
-
Date of Service: December 15, 2024
states of formation of some stools
states of increase gas in ostomy bag
Objective Data
-
Labs:
Laboratory Results
12/15/24
06:27
Sodium 133 L
Potassium 4.9
Chloride 100
Carbon Dioxide 29
BUN 10
Creatinine 0.7
Glucose 85
Calcium 9.2
Vital Signs:
Vital Signs
Temp Pulse Resp BP Pulse Ox
98.0 F 80 16 98/61 98
12/15/24 07:00 12/15/24 07:00 12/15/24 07:00 12/15/24 07:00 12/15/24 07:00
I&O
12/14/24 12/15/24 12/16/24
06:59 06:59 06:59
Intake Total 3380 / 3380 1140 / 1140 594 / 594
Output Total 3650 / 3650 2625 / 2625 300 / 300
Balance -270 / -270 -1485 / -1485 294 / 294
--- NOTE | 2024-12-15 11:34 | W.PN.CRS1 ---
Today's Communication / Plan
-
as below
Assessment/Plan
-
59-year-old female with PMH of hypothyroid and recurrent diverticulitis with abscess s/p IR�guided drain, complicated by persistent colocutaneous fistula, who underwent robotic LAR with small bowel resection, vaginal injury repair on 07/14/2024,
complicated by anastomotic leak requiring takeback, abdominal washout and diverting loop ileostomy on 07/17/24, ultimately discharged on 07/30; her postoperative course was complicated by a pelvic abscess requiring IR drainage 08/21/2024; a fistula
developed to the vagina; a barium enema on 10/19/2024 showed a colovaginal fistula; the pelvic drain was studied and removed on 11/11/2024; she was recently admitted for dehydration on 12/08, likely secondary to gastroenteritis (had taken care of
grandchildren who developed N/V/D) and was discharged on 12/10; however, shortly after discharge, she developed recurrent worsening fatigue with persistently elevated ostomy output and Na of 130, BUN 21, Cr 0.7
AFVSS, ostomy output 2.6 L
Na 133, Cr 0.7
�High ileostomy output associated with likely viral gastroenteritis
�Improving from yesterday; will not make adjustments today to prevent overcorrection
�Continue regular diet; cont fiber twice daily
� Continue Imodium 4mg QID, Lomotil 2 tabs QID and Questran twice daily; continue PPI daily
�Goal ostomy output is less than 1.5 L; will replace output >1.5L with IVF at a 1:1 ratio daily (gave 1 L back this morning)
�I suspect her output will be better controlled once she completely recovers from the gastroenteritis
� Continue DVT PPx with Lovenox
� Encourage IS, OOB
�Appreciate WOCN for assistance with her ostomy appliance
� Appreciate hospitalist
Dispo�once ostomy output down to 1.5 L, will DC IVF and monitor her electrolytes while off IV fluids
-if maintaining electrolytes off IV fluids and ostomy output less than 1.5 L, okay for discharge; suspect 2-3 more days
Subjective Data
Subjective Data
Date of Service: December 15, 2024
No issues overnight. No N/V and tolerating diet. Denies any pain. Ostomy output a little thicker than yesterday.
Objective Data
-
Vital Signs
Temp Pulse Resp BP Pulse Ox
98.0 F 80 16 98/61 98
12/15/24 07:00 12/15/24 07:00 12/15/24 07:00 12/15/24 07:00 12/15/24 07:00
Intake & Output
12/14/24 12/15/24 12/16/24
06:59 06:59 06:59
Intake Total 3380 / 3380 1140 / 1140 594 / 594
Output Total 3650 / 3650 2625 / 2625 300 / 300
Balance -270 / -270 -1485 / -1485 294 / 294
Intake:
Oral fluids 1380 / 1380 1140 / 1140 594 / 594
IV fluids (Total) 1999 / 1999
Output:
Liquid stool amount 3650 / 3650 2625 / 2625 300 / 300
Ileostomy 3650 / 3650 2625 / 2625 300 / 300
Other:
Number of approximated MODERATE 3 3
amounts of urine
Lab Results
12/11/24 15:06
12/15/24 06:27
Physical Exam
-
General: No Acute Distress and AOx3
HEENT: Grossly Normal
Abdomen: Soft, Non Distended, Non Tender, No Guarding, No Rebound and Other (Ostomy pink and productive)
Skin: Warm and Dry
Wound: No Signs of Infection and No Skin Erythema
--- NOTE | 2024-12-15 12:34 | CM ---
Chart reviewed home when stable, no needs.
Plan; Home when stable, no needs.
[2024-12-15 15:20] VITALS: BP 99/65
[2024-12-15] MEDS: LOVENOX 40 MG SC (17:56)
[2024-12-15 23:01] VITALS: BP 95/61
[2024-12-16] MEDS: LR 1000 IV ×2 (01:42→14:38)
[2024-12-16] MEDS: SYNTHROID 75 MCG PO (05:27)
[2024-12-16 07:21] VITALS: BP 100/63
[2024-12-16] MEDS: QUESTRAN 4 GRAM PO ×2 (07:37→20:20)
[2024-12-16] MEDS: IMODIUM 4 MG PO ×4 (07:37→21:45)
[2024-12-16] MEDS: LOMOTIL 2 TABLET PO ×4 (07:37→21:45)
[2024-12-16] MEDS: ZINC 50 MG PO (07:37)
[2024-12-16] MEDS: OSCAL 500 + D 500 MG PO (07:37)
[2024-12-16] MEDS: METAMUCIL, KONSYL 1 PACKET PO (07:37)
[2024-12-16] MEDS: PROTONIX 40 MG PO (07:37)
[2024-12-16 08:52] VITALS: BP 102/69; BP 97/67; BP 99/68; PULSE 100; PULSE 84; PULSE 92
--- NOTE | 2024-12-16 08:55 | W.PN.CRS1 ---
Today's Communication / Plan
-
add codeine 30mg BID (high stool output)
decrease fiber to daily
Assessment/Plan
-
59-year-old female with PMH of hypothyroid and recurrent diverticulitis with abscess s/p IR�guided drain, complicated by persistent colocutaneous fistula, who underwent robotic LAR with small bowel resection, vaginal injury repair on 07/14/2024,
complicated by anastomotic leak requiring takeback, abdominal washout and diverting loop ileostomy on 07/17/24, ultimately discharged on 07/30; her postoperative course was complicated by a pelvic abscess requiring IR drainage 08/21/2024; a fistula
developed to the vagina; a barium enema on 10/19/2024 showed a colovaginal fistula; the pelvic drain was studied and removed on 11/11/2024; she was recently admitted for dehydration on 12/08, likely secondary to gastroenteritis (had taken care of
grandchildren who developed N/V/D) and was discharged on 12/10; however, shortly after discharge, she developed recurrent worsening fatigue with persistently elevated ostomy output and Na of 130, BUN 21, Cr 0.7
AFVSS, ostomy output 2.2L
BMP pending
�High ileostomy output associated with likely viral gastroenteritis
�Slight improvement from yesterday
�Continue regular diet; back down fiber to daily
�Continue Imodium 4mg QID, Lomotil 2 tabs QID and Questran twice daily; continue PPI daily
- Add codeine 30mg BID
�Goal ostomy output is less than 1.5 L; will replace output >1.5L with IVF at a 1:1 ratio daily (gave 1 L back this morning)
�Suspect her output will be better controlled once she completely recovers from the gastroenteritis
� Continue DVT PPx with Lovenox
� Encourage IS, OOB
�Appreciate WOCN for assistance with her ostomy appliance
� Appreciate hospitalist
Dispo�once ostomy output down to 1.5 L, will DC IVF and monitor her electrolytes while off IV fluids
-if maintaining electrolytes off IV fluids and ostomy output less than 1.5 L, okay for discharge; suspect 2-3 more days
Subjective Data
Subjective Data
Date of Service: December 16, 2024
Patient states she has no nausea or vomiting. She is tolerating a diet. The Metamucil is causing her to have a lot of gas. Otherwise, she has no complaints. Her stool output is still liquid in nature.
Objective Data
-
Vital Signs
Temp Pulse Resp BP Pulse Ox
98.1 F 81 16 100/63 97
12/16/24 07:21 12/16/24 07:21 12/16/24 07:21 12/16/24 07:21 12/16/24 07:21
Intake & Output
12/15/24 12/16/24 12/17/24
06:59 06:59 06:59
Intake Total 1140 / 1140 2794 / 2794
Output Total 2625 / 2625 2200 / 2200
Balance -1485 / -1485 594 / 594
Intake:
Oral fluids 1140 / 1140 1794 / 1794
IV fluids (Total) 1000 / 1000
Output:
Liquid stool amount 2625 / 2625 2200 / 2200
Ileostomy 2625 / 2625 2200 / 2200
Other:
Number of approximated MODERATE 3 2
amounts of urine
Lab Results
12/11/24 15:06
Physical Exam
-
General: No Acute Distress and AOx3
Abdomen: Soft, Non Distended, Non Tender and Other (ileostomy warm and pink with liquid stool output)
[2024-12-16 09:13] LABS: Blood Urea Nitrogen 9 mg/dl (7-17); Calcium 9.1 mg/dl (8.4-10.2); Carbon Dioxide 30 mmol/L (22-30); Chloride 100 mmol/L (98-107); Estimated Creatinine Clearance 84 ml/min; Glucose 89 mg/dl (70-99); Magnesium 2.1 mg/dl (1.6-2.3); Potassium 4.5 mmol/L (3.5-5.1); Sodium 135 mmol/L (135-145); eGFR > 60.00
[2024-12-16] MEDS: NSS 1000 IV (09:25)
[2024-12-16] MEDS: CODEINE 30 MG PO ×2 (10:18→20:20)
--- NOTE | 2024-12-16 10:20 | W.PN.HOSP.TC ---
Today's Communication/Plan
-
IVF
Monitor lytes
monitor output
Assessment / Plan
Assessment / Plan
General: cachetic and No Apparent Distress
HEENT: Normocephalic, Atraumatic and Moist Mucous Membranes
Respiratory: non labor respirations,
Cardiac: Regular Rhythm and S1/S2;
GI: Soft, Nontender, Nondistended, Normal Bowel Sounds and Ostomy with gas, liquid stool noted in bag
Rectal: Deferred by Provider
Musculoskeletal: No Edema
Skin: Negative Rash
Neuro: Awake, Alert, Oriented, AO x 3, No Motor Deficits and Nonfocal/Grossly Intact
Psych: Calm
A/P: Patient is a 59y F with PMH significant for complicated diverticular disease with diverting loop ileostomy who presents to ED complaining of weakness and found to be significantly dehydrated.
Persistent High-Output Ileostomy
Recent Gastroenteritis
- Started patient on aggressive IV fluid resuscitation. Switch to LR.
- Resume / continue usual standing Imodium regimen 4 mg 4 times daily
- Follow for improvement in labs / lytes.
- Follow ostomy outputs. Added PPI.
- Continue with Imodium, Lomotil increased to 2 tabs , Metamucil daily now and PPI and Questran and Codeine added now.
- Patient aware with side effects of codeine and to monitor for any lightheaded and dizziness before getting up.
- C-diff negative.
- Ostomy output decreasing on daily basis now at 2200cc. Goal <1500.
- Appreciate CRS recs
Complicated Diverticular Disease
- Loop ileostomy in place s/p anastomotic leak following LAR.
- Developed colocutaneous and rectovaginal fistulas.
- Had pelvic abscess that required transgluteal drain for a time - since removed.
- Follow-up with Colorectal as an outpatient as planned/
- Due for repeat imaging in December followed by possible ostomy reversal if fistulous disease is resolved.
Hypovolemic Hyponatremia
Anion Gap Metabolic Acidosis
- Monitor for worsening of acidosis.
- Sodium 135
Hypothyroidism
- Recently increase Synthroid to 75 mcg. Repeat TFTs in 4 to 6 weeks as outpatient.
DVT Prophylaxis: Lovenox
Code Status: Full
Anticipated Discharge: > 48 hours
Subjective/Interval History
-
Date of Service: December 16, 2024
states of feeling bloated
ostomy output decreased
denies lightheadedness
Objective Data
-
Labs:
Laboratory Results
12/16/24
07:53
Sodium 135
Potassium 4.5
Chloride 100
Carbon Dioxide 30
BUN 9
Creatinine 0.6
Glucose 89
Calcium 9.1
Vital Signs:
Vital Signs
Temp Pulse Resp BP Pulse Ox
98.1 F 81 16 100/63 97
12/16/24 07:21 12/16/24 07:21 12/16/24 07:21 12/16/24 07:21 12/16/24 07:21
I&O
12/15/24 12/16/24 12/17/24
06:59 06:59 06:59
Intake Total 1140 / 1140 2794 / 2794
Output Total 2625 / 2625 2200 / 2200
Balance -1485 / -1485 594 / 594
[2024-12-16] MEDS: LR IV (10:48)
--- NOTE | 2024-12-16 11:38 | CM ---
Home when stable, no needs.
Plan; Home no needs when stable.
[2024-12-16 15:41] VITALS: BP 90/66
[2024-12-16] MEDS: LOVENOX 40 MG SC (17:08)
[2024-12-16 23:13] VITALS: BP 94/60
[2024-12-17] MEDS: LR 1000 IV ×2 (00:35→09:01)
[2024-12-17] MEDS: SYNTHROID 75 MCG PO (05:18)
[2024-12-17 07:40] VITALS: BP 102/71; BP 111/63; BP 93/68; PULSE 82; PULSE 89; PULSE 97
[2024-12-17 08:58] LABS: Blood Urea Nitrogen 7 mg/dl (7-17); Carbon Dioxide 27 mmol/L (22-30); Chloride 101 mmol/L (98-107); Estimated Creatinine Clearance 84 ml/min; Glucose 92 mg/dl (70-99); Potassium 4.3 mmol/L (3.5-5.1); Sodium 133 mmol/L (135-145); eGFR > 60.00
[2024-12-17] MEDS: ZINC 50 MG PO (09:02)
[2024-12-17] MEDS: PROTONIX 40 MG PO (09:02)
[2024-12-17] MEDS: CODEINE PO (09:03)
[2024-12-17] MEDS: QUESTRAN 4 GRAM PO (09:03)
[2024-12-17] MEDS: METAMUCIL, KONSYL 1 PACKET PO (09:03)
[2024-12-17] MEDS: IMODIUM 4 MG PO ×3 (09:04→16:56)
[2024-12-17] MEDS: LOMOTIL 2 TABLET PO ×3 (09:04→16:57)
[2024-12-17] MEDS: OSCAL 500 + D 500 MG PO (09:04)
--- NOTE | 2024-12-17 09:33 | W.PN.CRS1 ---
Today's Communication / Plan
-
okay for d/c from our perspective
bowel regimen
biweekly labs for 2 weeks
Assessment/Plan
-
59-year-old female with PMH of hypothyroid and recurrent diverticulitis with abscess s/p IR�guided drain, complicated by persistent colocutaneous fistula, who underwent robotic LAR with small bowel resection, vaginal injury repair on 07/14/2024,
complicated by anastomotic leak requiring takeback, abdominal washout and diverting loop ileostomy on 07/17/24, ultimately discharged on 07/30; her postoperative course was complicated by a pelvic abscess requiring IR drainage 08/21/2024; a fistula
developed to the vagina; a barium enema on 10/19/2024 showed a colovaginal fistula; the pelvic drain was studied and removed on 11/11/2024; she was recently admitted for dehydration on 12/08, likely secondary to gastroenteritis (had taken care of
grandchildren who developed N/V/D) and was discharged on 12/10; however, shortly after discharge, she developed recurrent worsening fatigue with persistently elevated ostomy output and Na of 130, BUN 21, Cr 0.7
AFVSS, ostomy output 1.6L
BMP pending
�High ileostomy output associated with likely viral gastroenteritis
�Ostomy output improved
-Daily fiber
�Continue Imodium 4mg QID, Lomotil 2 tabs QID and Questran twice daily, codeine 30mg BID
�Goal ostomy output is less than 1.5 L; will replace output >1.5L with IVF at a 1:1 ratio daily (gave 1 L back this morning)
�Suspect her output will be better controlled once she completely recovers from the gastroenteritis
� Continue DVT PPx with Lovenox
� Encourage IS, OOB
�Appreciate WOCN for assistance with her ostomy appliance
� Appreciate hospitalist
- Okay for discharge from our perspective. Will need to follow up with Dr. Monique in the office in 1-2 weeks. Continue above bowel regimen. BMP and magnesium on Mondays and Thursday for 2 weeks at lab.
Subjective Data
Subjective Data
Date of Service: December 17, 2024
Patient states she feels well today. Her output has significantly improved since yesterday. She is tolerating a diet. She has flatus. She denies nausea or vomiting.
Objective Data
-
Vital Signs
Temp Pulse Resp BP Pulse Ox
97.5 F 82 16 93/68 96
12/17/24 07:40 12/17/24 07:40 12/17/24 07:40 12/17/24 07:40 12/17/24 07:40
Intake & Output
12/16/24 12/17/24 12/18/24
06:59 06:59 06:59
Intake Total 2794 / 2794 1020 / 1020
Output Total 2200 / 2200 725 / 725 945 / 945
Balance 594 / 594 295 / 295 -945 / -945
Intake:
Oral fluids 1794 / 1794 1020 / 1020
IV fluids (Total) 1000 / 1000
Output:
Liquid stool amount 2200 / 2200 725 / 725 945 / 945
Ileostomy 2200 / 2200 725 / 725 945 / 945
Other:
Number of approximated MODERATE 2 2
amounts of urine
Number of unmeasured liquid
stools
Ileostomy 1
Lab Results
12/11/24 15:06
12/17/24 07:15
Physical Exam
-
General: No Acute Distress and AOx3
Abdomen: Soft, Non Distended, Non Tender and Other (ileostomy warm and pink with liquid stool output)
Skin: Warm and Dry
--- NOTE | 2024-12-17 13:13 | CM ---
assurance manager insurance reviewed patient's chart and plan is to home when stable, no needs.
Plan; Home no needs.
[2024-12-17 15:06] VITALS: BP 109/74
--- NOTE | 2024-12-17 16:14 | W.PN.HOSP.TC ---
Today's Communication/Plan
-
dc to home
Assessment / Plan
Assessment / Plan
A/P: Patient is a 59y F with PMH significant for complicated diverticular disease with diverting loop ileostomy who presents to ED complaining of weakness and found to be significantly dehydrated.
Persistent High-Output Ileostomy
Recent Gastroenteritis
- Started patient on aggressive IV fluid resuscitation. Switched to LR and now stopped
- Resume / continue usual standing Imodium regimen 4 mg 4 times daily
- Follow for improvement in labs / lytes.
- Follow ostomy outputs. Added PPI.
- Continue with Imodium, Lomotil increased to 2 tabs , Metamucil daily now and PPI and Questran and Codeine added now.
- Patient aware with side effects of codeine and to monitor for any lightheaded and dizziness before getting up.
- C-diff negative.
- Ostomy output decreasing on daily basis now at 1670cc. Goal <1500.
- Appreciate CRS recs, have cleared her for discharge
Complicated Diverticular Disease
- Loop ileostomy in place s/p anastomotic leak following LAR.
- Developed colocutaneous and rectovaginal fistulas.
- Had pelvic abscess that required transgluteal drain for a time - since removed.
- Follow-up with Colorectal as an outpatient as planned/
- Due for repeat imaging in December followed by possible ostomy reversal if fistulous disease is resolved.
Hypovolemic Hyponatremia
Anion Gap Metabolic Acidosis
- Monitor for worsening of acidosis.
- Sodium 135
Hypothyroidism
- Recently increase Synthroid to 75 mcg. Repeat TFTs in 4 to 6 weeks as outpatient.
DVT Prophylaxis: Lovenox
discussed with ptPat and nursing
Code Status: Full
dc now
see dictated note
More than 30 minutes spent in discharge including
Final examination of the patient
Summarizing hospital stay
Instructions for continuing care to all relevant caregivers
Preparation of discharge records, prescriptions, and referral forms
Total time spent (in minutes): 45
Anticipated Discharge: Today
Subjective/Interval History
-
Date of Service: December 17, 2024
Diarrhea has slowed, feels well enough to go home
Objective Data
-
Labs:
Laboratory Results
12/17/24
07:15
Sodium 133 L
Potassium 4.3
Chloride 101
Carbon Dioxide 27
BUN 7
Creatinine 0.6
Glucose 92
Calcium 9.0
Vital Signs:
Vital Signs
Temp Pulse Resp BP Pulse Ox
97.9 F 81 18 109/74 97
12/17/24 15:06 12/17/24 15:06 12/17/24 15:06 12/17/24 15:06 12/17/24 15:06
I&O
12/16/24 12/17/24 12/18/24
06:59 06:59 06:59
Intake Total 2794 / 2794 1020 / 1020
Output Total 2200 / 2200 725 / 725 945 / 945
Balance 594 / 594 295 / 295 -945 / -945
Review of Systems
-
History Source: Patient and Coordinated Provider
Constitutional: Denies Fever
EENT: Reports No Symptoms Reported
Respiratory: Reports No Symptoms
Cardiac: Reports No Symptoms
Abdomen/GI: Denies Abdominal Pain
Musculoskeletal: Reports No Symptoms
Physical Exam
-
General: Well Developed, Well Nourished and No Apparent Distress
HEENT: Normocephalic, Atraumatic and Moist Mucous Membranes
Respiratory: Clear to Auscultation; Negative Wheezes, Rales or Rhonchi
Cardiac: Regular Rhythm and S1/S2
GI: Soft, Nontender and Nondistended
--- NOTE | 2024-12-17 16:43 | W.DS.TRANS ---
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
-
Discharge Instructions:
Discharge Diagnosis/Procedures High output Ileostomy
Diet Regular
Activity No restrictions
Driving Restrictions As prior to admission
Blood Work BMP and magnesium on Mondays and for 2
weeks at [facility]. Results to
Leon Monique
Thyroid profile in 4-6 weeks
Instructions:
Stand-Alone Forms:
Changes to Home Medications: Yes
Discharge Medications:
DC Medications w/original date entered in [employer]
acetaminophen 500 mg tablet (Tylenol Extra Strength) 1,000 mg PO Q6HPRN PRN mild pain 03/09/24
zinc sulfate 50 mg zinc (220 mg) capsule 50 mg PO DAILY Supplement 03/09/24
calcium 600 mg (as carbonate)-vitamin D3 10 mcg (400 unit) tablet (Calcium 600 + D(3)) 1 tab PO DAILY Supplement 07/07/24
turmeric root extract 500 mg tablet 500 mg PO DAILY Supplement 07/07/24
vitamin B complex 1 tab PO DAILY Supplement ##0 07/07/24
simethicone 80 mg chewable tablet 80 mg PO DAILYPRN PRN gas 12/08/24
levothyroxine 75 mcg tablet 75 mcg PO DAILY @ 0600 30 days #30 tabs 12/10/24
cholestyramine (with sugar) 4 gram powder for susp in a packet 1 ea PO BID 30 days #60 ea 12/17/24
codeine sulfate 15 mg tablet 30 mg (2 x 15 mg) PO BID 30 days #120 tabs 12/17/24
loperamide 2 mg capsule 4 mg (2 x 2 mg) PO QID Gastrointestinal Issue 30 days #240 caps 12/17/24
pantoprazole 40 mg tablet,delayed release 40 mg PO DAILY #30 tabs 12/17/24
psyllium husk (aspartame) 3.4 gram oral powder packet (Metamucil Fiber Singles) 1 packet PO DAILY #30 ea 12/17/24
Home Medication Changes
Codeine, cholestyramine, Protonix, loperamide is new
stop Pepcid
Pending Results: No
== END 2024-12-17 17:18 | disposition home or self-care (01) | DRG 641 ==
LOC: 4 WEST ACU 14:25
PROVIDERS: Emergency Medicine; Hospitalist; ADMITTING PHYSICIAN Internal Medicine; ATTENDING PHYSICIAN Internal Medicine; CONSULT PHYSICIAN Surgery; EMERGENCY PHYSICIAN Student in an Organized Health Care Education/Training Program; FAMILY PHYSICIAN Family Medicine
DX: E86.0 Dehydration (principal); R64 Cachexia; Z68.1 Body mass index [BMI] 19.9 or less, adult; A08.4 Viral intestinal infection, unspecified; E03.9 Hypothyroidism, unspecified; E86.1 Hypovolemia; E87.20 Acidosis, unspecified; E87.1 Hypo-osmolality and hyponatremia; Z93.2 Ileostomy status; Z87.891 Personal history of nicotine dependence; Z79.890 Hormone replacement therapy
CPT/HCPCS: 80048; 80053; 82040; 82550; 82805; 83605; 83735; 84100; 85025; 87324; 87449; 93005; 96360; 99284

== ENCOUNTER → 2024-12-21 08:21 | Outpatient (REF) | payer OTHER, SELFPAY ==
[2024-12-21 10:01] LABS: Blood Urea Nitrogen 19 mg/dl (7-17); Calcium 10.1 mg/dl (8.4-10.2); Carbon Dioxide 27 mmol/L (22-30); Chloride 96 mmol/L (98-107); Glucose 101 mg/dl (70-99); Magnesium 2.3 mg/dl (1.6-2.3); Potassium 4.7 mmol/L (3.5-5.1); Sodium 134 mmol/L (135-145); eGFR > 60.00
== END ==
LOC: REG 08:21
PROVIDERS: ATTENDING PHYSICIAN Surgery; FAMILY PHYSICIAN Family Medicine
DX: Z93.2 Ileostomy status (principal)
CPT/HCPCS: 36415; 80048; 83735

== ENCOUNTER → 2024-12-24 09:14 | Outpatient (REF) | payer OTHER, SELFPAY ==
[2024-12-24 10:53] LABS: Blood Urea Nitrogen 16 mg/dl (7-17); Carbon Dioxide 29 mmol/L (22-30); Chloride 96 mmol/L (98-107); Glucose 102 mg/dl (70-99); Magnesium 2.3 mg/dl (1.6-2.3); Potassium 4.8 mmol/L (3.5-5.1); Sodium 135 mmol/L (135-145); eGFR > 60.00
== END ==
LOC: REG 09:14
PROVIDERS: ATTENDING PHYSICIAN Surgery; FAMILY PHYSICIAN Family Medicine
DX: Z93.2 Ileostomy status (principal)
CPT/HCPCS: 36415; 80048; 83735

== ENCOUNTER → 2025-01-08 08:48 | Outpatient (REF) | payer OTHER, SELFPAY | LOC: RAD 08:48 | PROVIDERS: ATTENDING PHYSICIAN Surgery; FAMILY PHYSICIAN Family Medicine | DX: N82.8 Other female genital tract fistulae (principal); K63.2 Fistula of intestine | CPT/HCPCS: 74270 ==

== ENCOUNTER 2025-01-25 06:33 | Day surgery (SDC) | payer OTHER, SELFPAY ==
[2025-01-25] VITALS (13 sets, daily range): BP systolic 71–108; BP diastolic 50–74; BMI 22.1
[2025-01-25] MEDS: NORMOSOL-R/PLASMALYTE-A 1000 IV (07:15)
--- NOTE | 2025-01-25 08:47 | OR.RPT ---
Operative Report
Operative Report
DATE OF OPERATION: 01/25/2025
SURGEON: Leon Monique MD
CO�SURGEON: Zaki Iniguez MD
PREOPERATIVE DIAGNOSIS: Rectovaginal fistula
POSTOPERATIVE DIAGNOSIS: Rectovaginal fistula
OPERATION: Flexible sigmoidoscopy, exam under anesthesia
ASSISTANTS:
1. None
ANESTHESIA: Sedation
ESTIMATED BLOOD LOSS: Minimal
FINDINGS:
1. Advanced sigmoidoscope beyond colorectal anastomosis to about 20 cm
2. Mild scattered granular changes to the mucosa, most consistent with diversion coloproctitis; single small diverticula noted at about 15 cm
3. Colorectal anastomosis intact circumferentially with visible julián and no defects
4. 1 to 2 cm proximal to the anastomosis, there was a diverticula oriented posteriorly
SPECIMENS:
1. None
DRAINS: None
COMPLICATIONS: None
INDICATIONS: The patient is a 59-year-old female who presented with partial obstruction due to diverticular stricture requiring robotic low anterior resection, complicated by small vaginal injury and repair by Dr. Iniguez. Postoperatively, the
patient experienced an anastomotic leak requiring takeback with diverting loop ileostomy. She has been followed nonoperatively. Initial barium enema demonstrated a rectovaginal fistula. Repeat barium enema showed resolution of the rectovaginal
fistula. Therefore, I recommended flexible sigmoidoscopy with exam under anesthesia to evaluate the anastomosis and ensure no concerns for remaining fistula. The operation was discussed with the patient in detail, including the risks, benefits and
alternatives. Risks described included, but not limited to bleeding, infection, urinary retention, inability to identify fistula that is in fact there, and anesthetic risks. The patient understood and agreed to proceed. The consent was signed and
placed in the chart.
PROCEDURE IN DETAIL: The patient was taken to the operating room. Sequential compression devices were placed bilaterally. The patient was placed on the operating table in supine position. Sedation was commenced without complication. The patient
was placed in lithotomy position with arms secured to the arm boards and pressure points padded. The perineum was prepped and draped in the usual fashion. A time-out was performed verifying the correct patient, procedure, operative site,
positioning, and special equipment.
The flexible sigmoidoscope was lubricated and introduced transanally to about 20cm from the anal verge without difficulty. The anastomosis was identified at about 5-6cm from the anal verge. The anastomosis appeared intact circumferentially. There
was a few exposed julián, but no disruption in the anastomosis. About 1-2 cm proximal to the staple line, there was the appearance of a small diverticula oriented posteriorly. Although a fistula opening is a possibility, due to the orientation and
visual appearance, I feel that this is unlikely.
In the remainder of the colorectum, there was some mild to minimal scattered granular changes to the mucosa, most consistent with diversion coloproctitis. At around 15 cm from the anal verge, there was another single small diverticula. Otherwise,
no other concerning findings.
At this point, Dr. Iniguez performed his portion of the operation, which will be dictated by him separately. At the conclusion of his portion, all needle, sponge and instrument counts were correct. The patient tolerated the procedure well and was
transferred to the recovery room in stable condition.
DICTATED BY: Leon Monique MD
--- NOTE | 2025-01-25 09:05 | W.SUR.POST ---
Surgical Immediate Post Op
Note
Pre Op Diagnosis: History of rectovaginal fistula
Post Op Diagnosis: Rectovaginal fistula
Procedure Performed: Exam under anesthesia, cystoscopy, vaginoscopy
Primary Surgeon: Marv Iniguez MD
Anesthesia: MAC
Estimated Blood Loss: Minimal
Complications: None
Operative Findings: 5 mm vaginal tract present at left vaginal apex with staple from rectal anastomosis present in vagina
== END 2025-01-25 10:10 | disposition home or self-care (01) ==
LOC: SDS 06:33
PROVIDERS: ATTENDING PHYSICIAN Obstetrics & Gynecology; REFERRING PHYSICIAN Surgery
DX: N82.3 Fistula of vagina to large intestine (principal); A58 Granuloma inguinale; K57.30 Diverticulosis of large intestine without perforation or abscess without bleeding; K62.89 Other specified diseases of anus and rectum; Z93.2 Ileostomy status
CPT/HCPCS: 52000; 57420; 45330

== ENCOUNTER 2025-04-08 06:10 | Inpatient (IN) | payer OTHER, SELFPAY ==
[2025-04-06 07:21] LABS: % Basophils 1.1 % (0-2); % Eosinophils 1.5 % (0-6); % Immature Granulocytes 0.2 % (0-0.5); % Monocytes 8.4 % (1.7-9.3); % Neutrophils 48.8 % (42.2-75.2); Absolute Basophils 0.1 10^3/uL (0-0.2); Absolute Eosinophils 0.1 10^3/uL (0-0.7); Absolute Lymphocytes 2.1 10^3/uL (1.2-3.4); Absolute Monocytes 0.4 10^3/uL (0.1-0.6); Absolute Neutrophils 2.5 10^3/uL (1.4-6.5); Hematocrit 43.6 % (37.0-47.0); Hemoglobin 14.9 g/dL (12.0-16.0); Mean Corp Hgb Conc. 34.2 g/dL (33.0-37.0); Mean Corpuscular Volume 87.9 fL (81.0-99.0); Mean Platelet Volume 8.8 fL (7.4-10.4); Nucleated Red Blood Cells % 0 %; Platelet Count 243 10^3/uL (130-400); Red Blood Cell Count 4.96 10^6/uL (4.20-5.40); Red Cell Dist. Width 12.6 % (11.5-14.5); White Blood Cell Count 5.2 10^3/uL (4.8-10.8)
[2025-04-06 07:30] LABS: INR 0.94; PT 12.9 Sec (11.4-14.6)
[2025-04-06 07:31] LABS: APTT 30.6 Sec (23.4-35.0)
[2025-04-06 07:50] LABS: ALT (SGPT) 32 U/L (0-35); AST (SGOT) 25 U/L (14-36); Albumin 4.5 g/dl (3.5-5.0); Alkaline Phosphatase 61 U/L (38-126); Blood Urea Nitrogen 22 mg/dl (7-17); Carbon Dioxide 25 mmol/L (22-30); Chloride 107 mmol/L (98-107); Glucose 92 mg/dl (70-99); Potassium 4.2 mmol/L (3.5-5.1); Sodium 139 mmol/L (135-145); Total Bilirubin 0.6 mg/dl (0.2-1.3); Total Protein 7.2 g/dl (6.3-8.2); eGFR > 60.00
[2025-04-06 08:20] LABS: TSH Reflex To Free T4 9.07 uIU/ml (0.47-4.68)
[2025-04-06 08:48] LABS: Free T4 1.43 ng/dl (0.78-2.19)
[2025-04-06 08:58] LABS: Glycohemoglobin (HgbA1c) 5.3 % (4.0-5.6)
[2025-04-08] VITALS (15 sets, daily range): BP systolic 98–121; BP diastolic 58–82; BMI 21.8
[2025-04-08] MEDS: ENTEREG 12 MG PO (06:51)
[2025-04-08] MEDS: LYRICA 150 MG PO (06:51)
[2025-04-08] MEDS: TYLENOL 1000 MG PO ×4 (06:51→23:33)
[2025-04-08] MEDS: CELEBREX 200 MG PO (06:51)
[2025-04-08] MEDS: HEPARIN 5000 UNITS SC (06:52)
[2025-04-08] MEDS: NORMOSOL-R/PLASMALYTE-A 1000 IV ×2 (07:01→12:51)
--- NOTE | 2025-04-08 10:13 | W.IMMPOSTOP ---
Surgical Immed Post Op Note
-
Primary Surgeon: Leon Monique MD
Assisting Surgeon: GWENDOLYN Alford
Pre-op Diagnosis: history of ileostomy, anastomotic leak, rectovaginal fistula
Post-op Diagnosis: history of ileostomy, anastomotic leak, rectovaginal fistula
Procedure Performed: flexible vaginoscopy, flexible sigmoidoscopy, ileostomy reversal
Anesthesia Type: general
Specimen / Cultures: ileostomy
Estimated Blood Loss: 25mL
IVF: 700mL
UOP: 100mL
Complications: none
Operative Findings: On vaginoscopy, no defect seen or julián (that were seen previously); on flexible sigmoidoscopy, staple line intact circumferentially with visible julián; my partner, Dr. Dickinson, agreed; proceeded with ileostomy reversal, which
was uncomplicated
--- NOTE | 2025-04-08 10:17 | OR.RPT ---
Operative Report
Operative Report
DATE OF OPERATION: 04/08/2025
SURGEON: Leon Monique MD
PREOPERATIVE DIAGNOSIS: History of ileostomy, anastomotic leak, rectovaginal fistula
POSTOPERATIVE DIAGNOSIS: History of ileostomy, anastomotic leak, rectovaginal fistula
OPERATION: Flexible vaginoscopy, flexible sigmoidoscopy, reversal of ileostomy, lysis of adhesions
ASSISTANTS:
1. GWENDOLYN Alford
ANESTHESIA: General
ESTIMATED BLOOD LOSS: 25 mL
UOP: 100 mL
IVF: 700 mL
FINDINGS:
1. No vaginal defect or julián seen on vaginoscopy
2. On flexible sigmoidoscopy, intact staple line circumferentially; on leak testing, no bubbling seen through the vagina to suggest persistent fistula
3. Performed [id number] stapled anastomosis
SPECIMENS:
1. Ileostomy
DRAINS: None
COMPLICATIONS: No immediate complications.
INDICATIONS: The patient is a 60-year-old female who initially underwent robotic sigmoidectomy for chronic diverticulitis associated with stricture. This operation was complicated by anastomotic leak requiring exlap with diverting loop ileostomy.
This was further complicated by a pelvic abscess requiring IR drainage. She healed from this with a negative drain study and the drain was removed. She was then noted to have vaginal drainage and a barium enema confirmed a rectovaginal fistula.
She was treated with expectant management for a few months and the fistula had closed on the subsequent barium enema. She underwent exam under anesthesia and was found to have a persistent posterior vaginal defect, although the colorectal
anastomosis was found to be completely intact. She was treated with vaginal estrogen for an additional 2 months and on repeat exam by Dr. Iniguez, there was no further defect. During this entire course, she also had issues with high ileostomy
output, which was controlled with medication. After discussion with Dr. Iniguez, we felt that it was appropriate to proceed with ileostomy reversal. During the surgery, I explained that I would once again evaluate the anastomosis to rule out any
concerns for persistent fistula. If none were found, I would proceed with ileostomy reversal. The operation was discussed with the patient in detail, including the risks, benefits and alternatives. Risks described included, but not limited to,
bleeding, infection, anastomotic leak, inability to reverse ileostomy, injury to nearby structures, conversion to laparotomy, cessation of procedure if persistent fistula identified on sigmoidoscopy, development of recurrent rectovaginal fistula
despite negative findings on sigmoidoscopy and anesthetic risks. The patient understood and agreed to proceed.
PROCEDURE IN DETAIL: The patient was taken to the operating room and placed on the operating table in supine position. Sequential compression devices were placed bilaterally. General anesthesia was induced and the patient was intubated without
complication. The arms were secured in extended position to arm boards and a seatbelt placed across the thighs. Stevenson catheter was placed with sterile technique. Anesthesia placed an orogastric tube. Preoperative antibiotics were given. A
time-out was performed verifying the correct patient, procedure, operative site, positioning, and special equipment.
I began by performing a flexible vaginoscopy using the sigmoidoscope. I inserted the lubricated scope within the vaginal canal. Insufflation was only partial. I was able to identify the cervix. I visualized the posterior fornix. I swept the
scope from left to right and slowly withdrew. There was no vaginal defect identified. There were no julián seen that were seen on the prior exam under anesthesia. I removed the scope. I proceeded with flexible sigmoidoscopy. I inserted the
scope transanally and advanced to 15 cm. On withdrawal, I noted small diverticula, but no other concerning mucosal pathology. I visualized the anastomosis, which had some spotting of stool, which was irrigated and suctioned. I was able to
visualize the anastomosis circumferentially and this appeared completely intact. There were some julián visible protruding from the anastomotic line, but without any associated defects. To perform a leak test, I placed the patient in
Trendelenburg. I instilled saline within the vaginal canal and insufflated the rectum. There was no bubbling seen emanating through the vagina. The imaging up to this point was also reviewed by my partner, Dr. Dickinson. After discussing the
findings, we both agreed that there were no concerns for persistent rectovaginal fistula and that proceeding with ileostomy reversal was appropriate. The flexible sigmoidoscope was removed.
The patient was placed back in supine position. The ostomy site was sutured closed with 2-0 Vicryl. The abdomen was prepped and draped in a sterile fashion. Using electrocautery, the mucocutaneous junction was divided circumferentially around the
ileostomy. This was taken down to the level of the fascia with meticulous dissection, in order to prevent injury to the bowel. Hemostasis was assured. I entered the abdominal cavity and cleared the surrounding area of adhesions using a finger
sweep. I continued freeing the adhesions until both limbs were of sufficient length to accommodate the RAYMOND stapler. On each limb, I selected a point just below the ileostomy. I placed blue towels to isolate the ileostomy from the operative field.
A window was created in the mesentery at this point with electrocautery. I used the RAYMOND 80 with a purple load to staple and divide the bowel of each limb. The mesentery was divided using clamps, Metzenbaum scissors and 0 Vicryl ties. The
ileostomy was passed off as specimen. I lined up the antimesenteric portions of the bowel. Using a curved Wang, I cut the antimesenteric corner of each staple line and ensured entry into the bowel. I inserted the RAYMOND 80 mm stapler with a purple
load, ensuring that the antimesenteric portions of the bowel were aligned. I stapled and divided. I evaluated the common channel and hemostasis was assured. I lined up the common enterotomy with Allis clamps. I stapled the common enterotomy
closed with a TA 60 stapler with a blue load. Hemostasis was assured with electrocautery and [id number] 2-0 Vicryl's. Due to the proximity of intra-abdominal adhesions, a crotch stitch was not able to be placed. However, the adhesions served
the same function. The dirty instruments were passed off the operative field and gloves were changed. The anastomosis was gently returned to the abdomen.
The edges of the anterior fascia were cleaned from the subcutaneous fat. The anterior fascia was closed using an 0 Stratafix suture. The wound was copiously irrigated. Hemostasis was checked and assured. 30mL of 0.25% Marcaine with epinephrine
mixed with 0.3mg of dexamethasone was injected around the ostomy wound. The skin opening of the ostomy wound was tightened by running a 2-0 Vicryl stitch in a deep dermal pursestring fashion. The wound was packed with plain packing soaked in
Betadine.
At this point, the procedure was complete. The patient was awoken and extubated without complication. All needle, sponge and instrument counts were reported as correct. The patient tolerated the procedure well and was transferred to the recovery
room in stable condition with Stevenson in place.
DICTATED BY: Loen Monique MD
[2025-04-08] MEDS: ZOFRAN 4 MG IV (10:29)
[2025-04-08] MEDS: COMPAZINE 5 MG IV (11:09)
[2025-04-08] MEDS: TORADOL 15 MG IV ×3 (12:52→23:33)
[2025-04-08] MEDS: ROXICODONE 5 MG PO (18:06)
--- NOTE | 2025-04-08 18:08 | PTCARENOTE ---
patient reported positive flatus. tolerates reg diet in small portions,
[2025-04-09 03:00] VITALS: BP 104/78
[2025-04-09] MEDS: NORMOSOL-R/PLASMALYTE-A 1000 IV (05:55)
[2025-04-09] MEDS: TYLENOL 1000 MG PO ×4 (05:55→23:42)
[2025-04-09] MEDS: SYNTHROID 75 MCG PO (05:55)
[2025-04-09] MEDS: TORADOL 15 MG IV ×3 (05:55→23:42)
[2025-04-09 06:00] VITALS: BMI 22.3
[2025-04-09 06:38] LABS: % Basophils 0.2 % (0-2); % Eosinophils 0.1 % (0-6); % Immature Granulocytes 0.4 % (0-0.5); % Lymphocytes 13.9 % (20.5-51.1); % Monocytes 8.4 % (1.7-9.3); Absolute Lymphocytes 1.3 10^3/uL (1.2-3.4); Absolute Monocytes 0.8 10^3/uL (0.1-0.6); Absolute Neutrophils 7.3 10^3/uL (1.4-6.5); Hemoglobin 12.8 g/dL (12.0-16.0); Mean Corp Hgb Conc. 34.6 g/dL (33.0-37.0); Mean Corpuscular Hgb 30.4 pg (27.0-31.0); Mean Corpuscular Volume 87.9 fL (81.0-99.0); Mean Platelet Volume 8.9 fL (7.4-10.4); Nucleated Red Blood Cells % 0 %; Platelet Count 200 10^3/uL (130-400); Red Blood Cell Count 4.21 10^6/uL (4.20-5.40); Red Cell Dist. Width 12.5 % (11.5-14.5); White Blood Cell Count 9.5 10^3/uL (4.8-10.8)
[2025-04-09 06:54] LABS: Blood Urea Nitrogen 12 mg/dl (7-17); Calcium 8.9 mg/dl (8.4-10.2); Carbon Dioxide 26 mmol/L (22-30); Chloride 105 mmol/L (98-107); Estimated Creatinine Clearance 81 ml/min; Glucose 105 mg/dl (70-99); Magnesium 2.4 mg/dl (1.6-2.3); Potassium 4.3 mmol/L (3.5-5.1); Sodium 135 mmol/L (135-145); eGFR > 60.00
[2025-04-09 07:10] VITALS: BP 107/71
[2025-04-09] MEDS: ENTEREG 12 MG PO ×2 (08:00→20:34)
--- NOTE | 2025-04-09 08:21 | W.PN.CRS1 ---
Today's Communication / Plan
-
lovenox
d/c mc
OOB
Assessment/Plan
-
POD#1 flexible vaginoscopy, flexible sigmoidoscopy, ileostomy reversal
WBC: 9.5, Hgb 12.8
Vitals normal
-OOB as tolerated
-Continue regular diet
-D/C mc
-D/C IVfs when tolerating po intake
-OR pathology pending
-Pain control: tylenol/toradol standing, dilaudid and roxicodone PRN
-Packing removed, dressing replaced. Change daily and as needed with gauze and paper tape.
-Possible discharge later today if doing well
Subjective Data
Procedure
04/08/2025- flexible vaginoscopy, flexible sigmoidoscopy, ileostomy reversal
Subjective Data
Date of Service: April 09, 2025
Patient states she feels well. Her pain is well controlled. She has no nausea or vomiting. She would like to get out of bed.
Objective Data
-
Vital Signs
Temp Pulse Resp BP Pulse Ox
97.7 F 64 16 107/71 100
04/09/25 07:10 04/09/25 07:10 04/09/25 07:10 04/09/25 07:10 04/09/25 07:10
Intake & Output
04/08/25 04/09/25 04/10/25
06:59 06:59 06:59
Intake Total 1285 / 1285
Output Total 950 / 950
Balance 335 / 335
Intake:
Oral fluids 685 / 685
IV fluids (Total) 600 / 600
Output:
Urine, Mc 950 / 950
Lab Results
04/09/25 05:42
04/09/25 05:42
Physical Exam
-
General: No Acute Distress and AOx3
Abdomen: Soft, Non Distended and Non Tender
Skin: Warm and Dry
Incision: Clear, Dry, Intact
--- NOTE | 2025-04-09 10:14 | CM ---
CM following re: discharge planning.
Reviewed pt's chart, met with pt.
Pt is a 60 year old female, admitted with primary dx of POD#1 flexible vaginoscopy, flexible sigmoidoscopy, ileostomy reversal. Continue supportive care.
Pt reports she lives with 2SH, 2 steps to enter, has 2 supportive children. Pt described herself as independent in all areas PT, has ostomy supplies. No DME, VN or SNF history.
PCP: Sneha Roach
[facility]
D/C plan: home with anticipated no needs. Spouse to transport at discharge.
CM will follow with discharge plan updates as hospitalization progresses
[2025-04-09] MEDS: TORADOL IV (12:12)
[2025-04-09 12:44] VITALS: BP 108/66
[2025-04-09 15:10] VITALS: BP 111/67
[2025-04-09] MEDS: LOVENOX 40 MG SC (17:17)
[2025-04-09 19:05] VITALS: BP 107/65
[2025-04-09 23:10] VITALS: BP 100/64
[2025-04-09] MEDS: FLUSH (NSS) 2 FLUSH IV (23:42)
[2025-04-10 03:05] VITALS: BP 105/69
[2025-04-10] MEDS: SYNTHROID 75 MCG PO (05:41)
[2025-04-10] MEDS: TYLENOL 1000 MG PO ×2 (05:42→12:58)
[2025-04-10] MEDS: TORADOL 15 MG IV ×2 (05:42→12:58)
[2025-04-10 05:58] VITALS: BMI 22.2
[2025-04-10 07:50] VITALS: BP 124/78
[2025-04-10] MEDS: ENTEREG PO (08:04)
--- NOTE | 2025-04-10 11:19 | W.PN.CRS1 ---
Today's Communication / Plan
-
As below
Assessment/Plan
-
60-year-old female with PMH of hypothyroidism and diverticular disease complicated by stricture, s/p sigmoidectomy complicated by vaginal injury and anastomotic leak requiring takeback for ex lap with DLI; course complicated by pelvic abscess s/p IR
drainage; developed rectovaginal fistula that healed with expectant management; presents for elective reversal of ileostomy
POD 2 flex sig, vaginoscopy, reversal of ileostomy
AFVSS
No labs today
� Continue regular diet; no concern for ileus at this point; instructed to go slow
� Continue pain control with Tylenol, Toradol, oxycodone as needed; will DC Entereg
� DVT PPx Lovenox
� Encourage OOB/IS
Dispo�if tolerates regular diet today, okay for DC after 3 PM; any concerns, and will keep until tomorrow
Subjective Data
Procedure
04/08/2025- flexible vaginoscopy, flexible sigmoidoscopy, ileostomy reversal
Subjective Data
Date of Service: April 10, 2025
No overnight events. Having some nausea with BMs, but resolved after the BM. Had several episodes of liquidy stools since yesterday, passing gas. Does feel runny nose, congestion and sneezing, but denies cough.
Pain controlled.
Denies burping, but appetite is somewhat decreased.
Objective Data
-
Vital Signs
Temp Pulse Resp BP Pulse Ox
98.1 F 88 18 124/78 96
04/10/25 07:50 04/10/25 07:50 04/10/25 07:50 04/10/25 07:50 04/10/25 07:50
Intake & Output
04/09/25 04/10/25 04/11/25
06:59 06:59 06:59
Intake Total 1285 / 1285 800 / 800
Output Total 950 / 950 350 / 350
Balance 335 / 335 450 / 450
Intake:
Oral fluids 685 / 685 600 / 600
IV fluids (Total) 600 / 600 200 / 200
Output:
Urine, Stevenson 950 / 950 300 / 300
Urine, Voided 50 / 50
Other:
Number of approximated MODERATE 3
amounts of urine
Number of unmeasured liquid
stools
Rectum 2
Lab Results
04/09/25 05:42
04/09/25 05:42
Physical Exam
-
General: No Acute Distress and AOx3
HEENT: Grossly Normal
Abdomen: Soft, Non Distended, Tender (Appropriately tender near ostomy wound), No Guarding and No Rebound
Skin: Warm and Dry
Wound: Other (Ostomy wound clean without surrounding erythema or drainage, dressing changed)
--- NOTE | 2025-04-10 11:31 | CM ---
CM met with pt and her sister bedside
Pt noting she does not want to perform her own dressing changes as she does not like managing wounds
Discussed VN and possible referral to assess if VN agency would accept, also discussed need for home-bound status
Pt declined, her spouse and dtr who is a surgical asst will complete dressing changes at home
No dc needs noted, her family will transport home
Discharge Disposition- home, no needs, family transport
--- NOTE | 2025-04-10 15:32 | W.DS.TRANS ---
Addendum entered and electronically signed by ALISSA Bains 04/12/25 10:20:
dictated #[id number]
Original Note:
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
-
Discharge Instructions:
Sleep Apnea Risk Low
Discharge Diagnosis/Procedures flexible vaginoscopy, flexible sigmoidoscopy,
ileostomy reversal
Diet Regular
Activity No strenuous activity
Additional Activity No lifting over 10lbs (gallon of milk)
Driving Restrictions No driving for 1 week
Bathing Restrictions OK to Shower
Wound Care Change dressing daily and as needed. Place a
piece of gauze and use paper tape over incision.
Okay to remove to shower. Once sealed, okay to
leave open to air.
Instructions:
Stand-Alone Forms:
Changes to Home Medications: No
Discharge Medications:
DC Medications w/original date entered in [employer]
turmeric root extract 500 mg tablet 500 mg PO DAILY Supplement 07/07/24
levothyroxine 75 mcg tablet 75 mcg PO DAILY @ 0600 30 days #30 tabs 12/10/24
Probiotic 1 cap PO DAILY 01/21/25
kaoiqkgo-umjb-mvqk 8 mg-folic 400 mcg-K 50 mcg-lutein 300 mcg tablet (Centrum Silver Women) 1 tab PO DAILY 01/21/25
acetaminophen 650 mg tablet,extended release 1,300 mg PO PRN PRN Pain 04/05/25
tramadol 50 mg tablet 50 mg PO Q6H PRN Pain #20 tabs 04/09/25
Home Medication Changes
Pending Results: No
[2025-04-10 15:40] VITALS: BP 112/73
== END 2025-04-10 16:15 | disposition home or self-care (01) | DRG 331 ==
LOC: 2 SOUTH 06:10
PROVIDERS: Physician Assistant; ADMITTING PHYSICIAN Surgery; FAMILY PHYSICIAN Family Medicine
PROC: 0UJH8ZZ Inspection of Vagina and Cul-de-sac, Via Natural or Artificial Opening Endoscopic (ICD-10-PCS; 2025-04-08)
PROC: 0DJD8ZZ Inspection of Lower Intestinal Tract, Via Natural or Artificial Opening Endoscopic (ICD-10-PCS; 2025-04-08)
PROC: 0DQB0ZZ Repair Ileum, Open Approach (ICD-10-PCS; 2025-04-08)
DX: Z43.2 Encounter for attention to ileostomy (principal); E03.9 Hypothyroidism, unspecified; K66.0 Peritoneal adhesions (postprocedural) (postinfection)
CPT/HCPCS: 88304; 36415; 71046; 80048; 80053; 83036; 83735; 84439; 84443; 85025; 85610; 85730; 86850; 86900; 86901; 93005; A4648

== ENCOUNTER → 2025-04-20 13:36 | Outpatient (REF) | payer OTHER, SELFPAY | LOC: REG 13:36 | PROVIDERS: ATTENDING PHYSICIAN Surgery; FAMILY PHYSICIAN Family Medicine | DX: R19.7 Diarrhea, unspecified (principal) | CPT/HCPCS: 87045; 87046; 87324; 87328; 87329; 87427; 87449 ==